=== PATIENT | male | born 1990 | race Caucasian/White ===

== ENCOUNTER → 2016-03-20 | Outpatient (CLI) | payer OTHER, BC ==
[~2016-03-20] MED LIST: GADAVIST IV PRN
--- NOTE | 2016-03-20 17:36 | DIAGNOSTIC IMAGING REPORT ---
MRI OF THE BRAIN COMBO CLINICAL HISTORY: Syncope. COMPARISON STUDY: No priors. TECHNIQUE: MRI of the brain was performed utilizing various T1 and T2-weighted sequences in the axial, sagittal, and coronal planes. Contrast-enhanced sequences were acquired following the administration of 12 cc of Gadavist. FINDINGS: Brain parenchyma: The brain parenchyma is normal in appearance. There is no hemorrhage or mass effect. There is no restricted diffusion to suggest acute ischemia. No enhancing mass lesion is identified on the postcontrast images. Hancock-white matter differentiation is preserved. No extra-axial fluid collection is seen. The cerebellar tonsils are normal in configuration. Ventricles, sulci, and cisterns: Normal in configuration. Pituitary and sella: Unremarkable. Intracranial vasculature: Normal flow voids are maintained at the skull base. Orbits: The bony orbits are grossly intact. Orbital contents are normal in appearance. Sinuses and mastoids: Clear. Calvarium: Unremarkable. Cervical cord: Partially visualized cervical spinal cord is normal in morphology and signal intensity. IMPRESSION: No acute intracranial abnormality. Electronically signed by: Frankie Howell M.D. 03/20/2016 5:35 PM Dictated Date/Time: 03/20/2016 5:31 PM
== END | disposition home or self-care (01) ==
LOC: C.MRI 15:54
PROVIDERS: ATTEND Internal Medicine Critical Care Medicine
DX: R55 Syncope and collapse (principal)

== ENCOUNTER → 2016-04-19 | Outpatient (CLI) | payer OTHER, BC ==
[~2016-04-19] VITALS: Ht 185.4 cm; Wt 128.8 kg
[2016-04-19 14:26] VITALS: BP 149/96; PULSE 147; Ht 185.4 cm; Wt 128.8 kg
== END | disposition home or self-care (01) ==
LOC: C.NEUR 13:36
PROVIDERS: ATTEND Internal Medicine Pulmonary Disease
DX: G47.00 Insomnia, unspecified (principal); G47.30 Sleep apnea, unspecified

== ENCOUNTER → 2016-06-04 | Outpatient (CLI) | payer OTHER, BC | END | disposition home or self-care (01) | LOC: C.LABMFLN 10:35 | PROVIDERS: ATTEND Physician Assistant | DX: R06.09 Other forms of dyspnea (principal) ==

== ENCOUNTER → 2016-06-05 | Outpatient (CLI) | payer OTHER, BC ==
--- NOTE | 2016-06-05 11:53 | DIAGNOSTIC IMAGING REPORT ---
CHEST 2 VIEWS ROUTINE CLINICAL HISTORY: Flulike symptoms. COMPARISON STUDY: Chest CT February 22, 2016. FINDINGS: Lung volumes are normal. There is no consolidation. There is no evidence of pulmonary edema. Cardiomediastinal silhouette is normal. IMPRESSION: No acute cardiopulmonary findings. Electronically signed by: Otf Narvaez M.D. 06/05/2016 11:52 AM Dictated Date/Time: 06/05/2016 11:51 AM
== END | disposition home or self-care (01) ==
LOC: C.RADBBURG 00:29
PROVIDERS: ATTEND Physician Assistant
DX: R68.89 Other general symptoms and signs (principal)

== ENCOUNTER → 2017-04-23 | Outpatient (CLI) | payer BC, OTHER ==
--- NOTE | 2017-04-23 10:43 | DIAGNOSTIC IMAGING REPORT ---
L KNEE 4 OR MORE CLINICAL HISTORY: LEFT KNEE PAIN COMPARISON: None. DISCUSSION: No fractures or dislocations are visualized. There are no erosive or destructive changes. A small effusion cannot be excluded. IMPRESSION: 1. No fractures or dislocations 2. No erosive or destructive changes are visualized Electronically signed by: Arjun Myers M.D. 04/23/2017 10:42 AM Dictated Date/Time: 04/23/2017 10:41 AM
== END | disposition home or self-care (01) ==
LOC: C.RDSM 08:00
PROVIDERS: ATTEND Internal Medicine
DX: M25.562 Pain in left knee (principal)

== ENCOUNTER 2024-01-22 08:23 | Inpatient (IN) ==
[2024-01-22] MEDS: SODIUM CHLORIDE 0.9% 1,000 ML IV SCH ×2 (09:14→11:22)
[2024-01-22] MEDS: ONDANSETRON INJ 2 MG/ML 2 ML VIAL IV STA (09:16)
[2024-01-22] MEDS: FAMOTIDINE 20MG IV PUSH 20 MG/5 ML SYR IV STA (09:17)
[2024-01-22 09:45] LABS: Basophils # (auto) 0.03 K/uL (0.00-0.20); Basophils % (auto) 0.2 %; Eosinophils # (auto) 0.01 K/uL (0.00-0.50); Eosinophils % (auto) 0.1 %; Hematocrit (blood only) 51.5 % (42.0-52.0); Hemoglobin 17.8 g/dl (14.0-18.0); Immature Granulocytes # (auto) 0.05 K/uL (0.01-0.20); Immature Granulocytes % (auto) 0.4 %; Lymphocytes # (auto) 0.74 K/uL (1.20-3.40); Lymphocytes % (auto) 5.5 %; Mean Corpuscular Hemoglobin 32.5 pg (25.0-34.0); Mean Corpuscular Hgb Conc 34.6 g/dL (32.0-36.0); Mean Corpuscular Volume 94.1 fL (80.0-100.0); Mean Platelet Volume 10.7 fL (9.4-12.4); Monocytes # (auto) 1.05 K/uL (0.11-0.59); Monocytes % (auto) 7.8 %; Neutrophils # (auto) 11.61 K/uL (1.40-6.50); Platelet Count 194 K/uL (130-400); RDW Coefficient of Variation 12.3 % (11.5-14.5); RDW Standard Deviation 42.5 fL (36.4-46.3); Red Blood Count 5.47 M/uL (4.70-6.10); White Blood Count 13.49 K/ul (4.8-10.8)
--- NOTE | 2024-01-22 09:46 | Emergency Department Note ---
History of Present Illness General Chief complaint: Abdominal Pain Stated complaint: ABD PAIN, DIZZY, SOME VERTIGO Time Seen by Provider: 01/22/24 08:43 History of Present Illness Maximum Pain Intensity: 7 Patient is a 33-year-old male last medical history significant for POTS, hypertension, anxiety and depression, alcoholic liver disease, rheumatoid arthritis, and longstanding history of GI issues including gastritis and IBS who presents to the emergency department for evaluation of abdominal pain and "feeling dehydrated." Patient reports the symptoms started yesterday afternoon. He reported his stomach felt "sour." He tried some Tums and this helped. He noted some nausea as well. The pain worsened overnight. He describes it as a generalized, aching and cramping pain. He was uncomfortable and rolling around overnight. He tried some Carafate and some promethazine, both of which helped. He feels lightheaded and dizzy. He states that he is very symptomatic when he "gets dehydrated." He has not vomited. He is on omeprazole chronically. He denies any bloody stools. He does report decreased urine output that was dark and concentrated. He is s/p cholecystectomy. No history of pancreatitis. Does admit to drinking "several shots" last night. He has been seen by GI in the past, again diagnosed with gastritis and is on omeprazole. He has had EGDs and colonoscopies in the past. There is also a suggestion of IBS. Home Medications Medication Instructions Recorded Confirmed Type verapamil 120 mg tablet 120 mg PO .each evening #90 tabs 05/10/23 01/22/24 Rx verapamil 180 mg 24 hr 180 mg PO .each morning #90 caps 05/10/23 01/22/24 Rx capsule,extended release cholecalciferol (vitamin D3) 1,250 1,250 mcg PO .weekly #12 caps 12/23/23 01/22/24 Rx mcg (50,000 unit) capsule buspirone 15 mg tablet 15 mg PO BID #60 tabs 01/13/24 01/22/24 Rx magnesium oxide 400 mg PO UD 01/22/24 01/22/24 History omeprazole 40 mg capsule,delayed 40 mg PO QAM 01/22/24 01/22/24 History release potassium chloride 20 mEq 20 meq PO QAM 01/22/24 01/22/24 History tablet,extended release sodium chloride 1,000 mg soluble 2,000 mg PO QAM 01/22/24 01/22/24 History tablet Allergies Allergy/AdvReac Type Severity Reaction Status Date / Time No Known Allergies Allergy Verified 09/09/23 14:22 Past Med/Surg History Problem List Epigastric abdominal pain (Acute) Hypomagnesemia (Acute) Acute pancreatitis (Acute) Gastritis Hypokalemia Hypomagnesemia Alcohol abuse Pancreatitis Neuropathy B12 deficiency Vitamin D deficiency Abnormal ECG Weakness Depression COVID-19 (Acute) Metabolic acidosis Hyponatremia Hyperuricemia Acute kidney injury Low sodium levels Elevated uric acid in blood Elevated serum creatinine HTN (hypertension) Elevated liver function tests Anxiety Tachycardia Vasovagal syncope POTS (postural orthostatic tachycardia syndrome) (Acute) Arthralgia of multiple sites Surgical History S/P cholecystectomy Family History Other Colorectal cancer Diabetes Myocardial infarction Denies family history of Ovarian cancer Prostate cancer Breast cancer Lung cancer Social History Smoking Status: Never smoker Second Hand Exposure: No; Do You Dip or Chew Tobacco: No; Hx Alcohol Use: Yes Alcohol type: hard liquor Hx Substance Use: No Hearing Ability: Normal Beliefs That Will Affect Care: None marital status: Single Current Living Situation: Alone current occupational status: employed Other Information That Helps Us Care for You: No Feels Safe at Home: Yes Safety Concerns: Feels Safe At This Time Dental Care, Regularly: Yes Physical Activity Frequency: Does not Exercise Assistive Devices: None Review of Systems A total of 10 systems reviewed and were otherwise negative Physical Exam Vital Signs Vital Signs - 24 hr 01/22/24 08:31 01/22/24 09:19 01/22/24 09:19 Temperature 36.8 C Temperature Source Temporal Artery Scan Pulse Rate 99 H 98 H Pulse Rate [Apical] 91 H Pulse Rhythm Regular Pulse Rhythm [Apical] Pulse Strength [Apical] Normal Respiratory Rate 18 18 Respiratory Effort / Characteristics Non-Labored Spontaneous Respiratory Depth Normal Respiratory Pattern Regular Blood Pressure 138/98 Blood Pressure [Left Arm] 147/95 H Blood Pressure Mean 111 Blood Pressure Mean [Left Arm] 112 Blood Pressure Position Sitting Pulse Oximetry 99 97 97 Oxygen Delivery Method Room Air Room Air Sepsis Recent Fever Within 48 Hours No Sepsis New/Unexplained Change in Mental Status No Sepsis Action Taken by Nursing No Action Required 01/22/24 12:10 Temperature Temperature Source Pulse Rate Pulse Rate [Apical] 97 H Pulse Rhythm Pulse Rhythm [Apical] Regular Pulse Strength [Apical] Normal Respiratory Rate 17 Respiratory Effort / Characteristics Non-Labored Respiratory Depth Normal Respiratory Pattern Regular Blood Pressure Blood Pressure [Left Arm] 159/95 H Blood Pressure Mean Blood Pressure Mean [Left Arm] 116 Blood Pressure Position Pulse Oximetry 98 Oxygen Delivery Method Room Air Sepsis Recent Fever Within 48 Hours Sepsis New/Unexplained Change in Mental Status Sepsis Action Taken by Nursing CONSTITUTIONAL: Uncomfortable 33-year-old male who is awake and alert and laying on the gurney. EYES: Pupils equal, round, reactive to light and accommodation. EOMs intact without nystagmus. Sclera are anicteric. ENT: Tympanic membranes intact, with normal landmarks. External canals are clear. Oral and nasopharynx are clear. Mucous membranes are moist, no lesions, tongue and gums appear normal. CARDIOVASCULAR: Tachycardic in the [id number], otherwise regular. No murmur noted. RESPIRATORY: Breath sounds equal and clear to auscultation without wheezes, rales, or rhonchi heard. Full and equal chest expansion without accessory muscle use or retractions. GI: Bowel sounds are present. Abdomen is soft, nondistended, diffusely tender in the epigastric, right upper quadrant and lower abdomen. No guarding or rebound. MUSCULOSKELETAL: Full range of motion of extremities x 4 with good strength. No cyanosis, edema, joint tenderness or swelling. No deformity. INTEGUMENTARY: No lesions or rash, normal skin turgor. NEUROLOGICAL: Alert, oriented, and cooperative. Cranial nerves, sensation and strength grossly intact. Pupils round, equal, and react to light, EOMs are full. LYMPH: No lymphadenopathy. Course Course The patient was seen and assessed as above. External medical records are reviewed, including outpatient PCP and GI notes. Past medical history significant for questionable POTS, anxiety, hypertension, possible RA, stopped taking hydroxychloroquine recently, depression, history of questionable alcohol abuse. He presents emergency department for evaluation of abdominal pain and feeling lightheaded and dizzy. He does have a longstanding history of GI issues including gastritis and IBS. He does admit to consuming alcohol yesterday. Denies a history of pancreatitis. IV lock was initiated and laboratory studies were collected. CBC with differential, CMP, magnesium, lipase and urinalysis were ordered. He was observed on the sports management professor. He was given a liter bolus of normal saline solution, Pepcid and Zofran IV. Laboratory studies as noted below. Lipase elevated at 1400. Patient reassessed. He is still complaining of pain. He cannot get comfortable. Pains radiating through to his back. Discussed that his symptoms are consistent with an acute pancreatitis and I did recommend CT imaging. He was in agreement. He was given morphine 4 mg IV. He was ordered another liter bolus of normal saline solution. Diagnostics, as interpreted by me: Laboratory studies: Mildly elevated white count at 13,500 with left shift. No anemia. No thrombocytopenia. Electrolytes sodium 141, potassium 3.4, chloride 101, carbon oxide 23, calcium 9.7, mag mildly low at 1.4. BUN 5, creatinine 0.73. No transaminitis. Lipase elevated at 1403. Cardiac Monitoring: An order was placed for continuous cardiac monitoring. The monitor shows a sinus tachycardia in the 90s per my interpretation. Imaging studies: CT scan of the abdomen and pelvis with IV contrast notes interstitial and peripancreatic edema, reactive edema and ascites of the lesser sac. No peripancreatic fluid collection. Radiologist questions possible dilatation of the appendix. After review of the information above and other included data, I feel the patient requires further inpatient care and evaluation. Patient was reassessed. He was noting some mild improvement with the IV morphine. Repeat abdominal exam again notes epigastric discomfort, and no right lower quadrant pain. I do not feel that imaging is consistent with acute appendicitis and suspect his symptoms are all related to his pancreatitis. Case reviewed with Dr. Su, and discussed with ED hospice case manager. Consultation placed with the [facility] hospitalist service, reviewed with Dr. Tena. Differential diagnosis: GERD, gastritis, esophagitis, peptic ulcer disease, acute pancreatitis, ascending cholangitis, infectious versus inflammatory colitis/enteritis, foodborne illness, among others. Administered Medications Magnesium Sulfate/Dextrose (Magnesium Sulfate / D5w) 1 gm in 100 mls @ 50 mls/hr IV Q2H MALKA Stop: 01/22/24 19:59 Last Admin: 01/22/24 15:35 Dose: 50 mls/hr Documented By: Infusion: 01/22/24 15:35 Dose: Infused Documented By: Admin: 01/22/24 14:14 Dose: 50 mls/hr Documented By: HAILEY Lactated Ringer's (Lr) 1,000 mls @ 125 mls/hr IV .Q8H MALKA Stop: 01/23/24 07:59 Last Admin: 01/22/24 16:16 Dose: 125 mls/hr Documented By: RAY Lorazepam (Lorazepam 2 Mg/1 Ml Vial) 1 mg IV UD PRN; Protocol PRN Reason: EtOH Withdrawal AWSS Score 6,7 Stop: 02/21/24 14:33 Last Admin: 01/22/24 16:16 Dose: 1 mg Documented By: RAY Discontinued Medications Al Hydrox/Mg Hydrox/Simethicone (Aluminum/Magnesium Susp 30 Ml Udc) 15 ml PO NOW STA Stop: 01/22/24 14:05 Last Admin: 01/22/24 14:13 Dose: 15 ml Documented By: HAILEY Diazepam (Diazepam 5 Mg/Ml 10ml Vial) 10 mg IV NOW STA Stop: 01/22/24 13:40 Last Admin: 01/22/24 13:59 Dose: 10 mg Documented By: HAILEY Folic Acid (Folic Acid 1 Mg Tab) 1 mg PO NOW ONE Stop: 01/22/24 14:16 Last Admin: 01/22/24 14:42 Dose: 1 mg Documented By: AMIE Sodium Chloride (Nss) 1,000 mls @ 999 mls/hr IV .Q1H1M MALKA Stop: 01/22/24 10:10 Last Infusion: 01/22/24 10:19 Dose: Infused Documented By: Admin: 01/22/24 09:14 Dose: 999 mls/hr Documented By: HAILEY Famotidine (Pepcid 20mg Iv Push) 20 mg in 5 mls @ 2.5 mls/min IV NOW STA Stop: 01/22/24 09:10 Last Admin: 01/22/24 09:17 Dose: 2.5 mls/min Documented By: HAILEY Sodium Chloride (Nss) 1,000 mls @ 999 mls/hr IV .Q1H1M MALKA Stop: 01/22/24 12:10 Last Infusion: 01/22/24 13:10 Dose: Infused Documented By: Admin: 01/22/24 11:22 Dose: 999 mls/hr Documented By: HAILEY Ioversol (Optiray 320 100ml) 94 ml IV ONCE ONE Stop: 01/22/24 11:36 Last Admin: 01/22/24 11:35 Dose: 94 ml Documented By: KAYLYN Morphine Sulfate (Morphine Sulfate 4 Mg/Ml 1 Ml Carp\\Vial) 4 mg IV NOW STA Stop: 01/22/24 11:11 Last Admin: 01/22/24 11:22 Dose: 4 mg Documented By: HAILEY Morphine Sulfate (Morphine Sulfate 2 Mg/Ml Carp) 2 mg IV NOW STA Stop: 01/22/24 14:29 Last Admin: 01/22/24 14:42 Dose: 2 mg Documented By: AMIE Ondansetron HCl (Ondansetron Inj 2 Mg/Ml 2 Ml Vial) 4 mg IV NOW STA Stop: 01/22/24 09:10 Last Admin: 01/22/24 09:16 Dose: 4 mg Documented By: HAILEY Potassium Chloride (Potassium Chloride Crtab 20 Meq Tabcr) 60 meq PO NOW STA Stop: 01/22/24 13:55 Last Admin: 01/22/24 14:13 Dose: 60 meq Documented By: HAILEY Thiamine HCl (Thiamine Hcl 100 Mg/Ml 2 Ml Vial) 100 mg IM NOW STA Stop: 01/22/24 14:01 Last Admin: 01/22/24 14:14 Dose: 100 mg Documented By: HAILEY Medical Decision Making Differential Diagnosis See ED Course. Medical Records Attestation: I reviewed the patient's medical records. Home Medications Current Medication List: was personally reviewed by me Laboratory Data Attestation: I reviewed the patient's lab results. 01/22/24 08:50 01/22/24 08:50 Lab Results 01/22/24 Range/Units 08:50 WBC 13.49 H (4.8-10.8) K/ul RBC 5.47 (4.70-6.10) M/uL Hgb 17.8 (14.0-18.0) g/dl Hct 51.5 (42.0-52.0) % MCV 94.1 (80.0-100.0) fL MCH 32.5 (25.0-34.0) pg MCHC 34.6 (32.0-36.0) g/dL RDW Std Deviation 42.5 (36.4-46.3) fL RDW Coeff of Nohemy 12.3 (11.5-14.5) % Plt Count 194 (130-400) K/uL MPV 10.7 (9.4-12.4) fL Immature Gran % (Auto) 0.4 % Neut % (Auto) 86.0 % Lymph % (Auto) 5.5 % [place] % (Auto) 7.8 % Eos % (Auto) 0.1 % Baso % (Auto) 0.2 % Neut # (Auto) 11.61 H (1.40-6.50) K/uL Lymph # (Auto) 0.74 L (1.20-3.40) K/uL [place] # (Auto) 1.05 H (0.11-0.59) K/uL Eos # (Auto) 0.01 (0.00-0.50) K/uL Baso # (Auto) 0.03 (0.00-0.20) K/uL Immature Gran # (Auto) 0.05 (0.01-0.20) K/uL Sodium 141 (136-145) mmol/L Potassium 3.4 L (3.5-5.1) mmol/L Chloride 101 (98-107) mmol/L Carbon Dioxide 23 (21-32) mmol/L Anion Gap 17 H (3-11) BUN 5 L (6-23) mg/dl Creatinine 0.73 (0.6-1.4) mg/dl Est Cr Clr Drug Dosing 175.4 ml/min eGFR 123.20 BUN/Creatinine Ratio 6.8 L (10-20) Glucose 103 H (70-99(Fasting)) mg/dl Calcium 9.7 (8.6-10.3) mg/dl Magnesium 1.4 L (1.7-2.4) mg/dl Total Bilirubin 0.7 (0.2-1.0) mg/dl AST 65 H (13-39) U/L ALT 52 (7-52) U/L Alkaline Phosphatase 98 (34-104) U/L Total Protein 8.1 (6.0-8.3) gm/dl Albumin 4.3 (3.4-5.0) gm/dl Globulin 3.8 (2.5-4.0) gm/dl Albumin/Globulin Ratio 1.1 (0.9-2) Lipase 1403 H (11-82) U/L Imaging Data Attestation: I personally reviewed and interpreted this imaging study as follows: Radiologist's Impression: Abdomen/Pelvis CT 01/22/24 11:[address] WITH IV CONTRAST CT DOSE: 1542.34 mGy.cm HISTORY: Acute upper abdominal pain with known pancreatitis PANCREATITIS, UPPER ABD PAIN TECHNIQUE: Multiaxial CT images of the abdomen and pelvis were performed following the IV administration of 94 cc of Optiray, A dose lowering technique was utilized adhering to the principles of ALARA. COMPARISON STUDY: CTA chest of same day FINDINGS: Mild bibasilar atelectasis. No pneumoperitoneum. Unremarkable spleen and pancreas. Cholecystectomy. Hepatomegaly with severe headaches and ptosis. There is patency of the hepatic and portal veins. Mild periportal lymphadenopathy likely reactive. Interstitial and peripancreatic edema, as pronounced in the pancreatic head, neck and body with relative sparing of the tail. There is reactive edema and ascites in the lesser sac. No discrete peripancreatic fluid collection. Homogeneous enhancement of the pancreas. No vessel occlusion identified. 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 Subcentimeter left renal cyst. No hydronephrosis. Decompressed urinary bladder with wall thickening. Trace free pelvic fluid. Likely reactive wall thickening of the stomach, duodenum and mid transverse colon. There is a linear 1.8 cm cylindrical radiodense structure present within the distal gastric lumen at 141 series 3. Colonic diverticulosis. The appendix measures up to 9 mm in thickness. Trace adjacent stranding. Unremarkable soft tissues. Probable bone islands of the pelvis. IMPRESSION: 1. Acute pancreatitis with moderate amount of reactive edema and trace free fluid within the lesser sac. No acute peripancreatic fluid collection or pancreatic ductal dilation. 2. Likely reactive wall thickening of the distal stomach, duodenum and mid transverse colon. 3. Reactive periportal lymphadenopathy. 4. Hepatomegaly with severe hepatic steatosis. 5. Cholecystectomy. 6. The appendix is dilated at 9 mm. Without a reported clinical history of acute right lower quadrant abdominal pain, acute appendicitis is considered unlikely. Correlate with physical exam findings. ACT 112: Negative or not required by law. The above report was generated using voice recognition software. It may contain grammatical, syntax or spelling errors. Electronically signed by: Chilo Young M.D. 01/22/2024 12:28 PM MDM Narrative See ED Course. Impression & Plan Acute pancreatitis, Hypomagnesemia, Epigastric abdominal pain Discharge Plan Visit Data Chief Complaint: Abdominal Pain Stated Complaint: ABD PAIN, DIZZY, SOME VERTIGO ED Provider: Deandra Su ED Midlevel Provider: Boaz Arriaza Discharge Problem: Acute pancreatitis, Hypomagnesemia, Epigastric abdominal pain Patient Disposition: Admitted As Inpatient Discharge Instructions Interventions: ED Discharge Assessment Last Done: 01/22/24 14:46
[2024-01-22 10:01] LABS: BUN Creatinine Ratio 6.8 (10-20); Calcium 9.7 mg/dl (8.6-10.3); Creatinine Clr Calc Pharmacy 175.4 ml/min; Potassium 3.4 mmol/L (3.5-5.1)
[2024-01-22 10:54] LABS: Magnesium 1.4 mg/dl (1.7-2.4)
[2024-01-22 10:59] LABS: Albumin Globulin Ratio 1.1 (0.9-2); Albumin Level 4.3 gm/dl (3.4-5.0); Bilirubin,Total 0.7 mg/dl (0.2-1.0); Globulin 3.8 gm/dl (2.5-4.0); Total Protein 8.1 gm/dl (6.0-8.3)
[2024-01-22] MEDS: MoRPHine SULFATE 4 MG/ML 1 ML CARP\\VIAL IV STA (11:22)
[2024-01-22] MEDS: OPTIRAY 320 100ml IV ONE (11:35)
--- NOTE | 2024-01-22 12:31 | CT Scan Report ---
ABDOMEN AND PELVIS CT WITH IV CONTRAST CT DOSE: 1542.34 mGy.cm HISTORY: Acute upper abdominal pain with known pancreatitis PANCREATITIS, UPPER ABD PAIN TECHNIQUE: Multiaxial CT images of the abdomen and pelvis were performed following the IV administrat ion of 94 cc of Optiray, A dose lowering technique was utilized adhering to the principles of ALARA. COMPARISON STUDY: CTA chest of same day FINDINGS: Mild bibasilar atelectasis. No pneumoperitoneum. Unremarkable spleen and pancreas. Cholecys tectomy. Hepatomegaly with severe headaches and ptosis. There is patency of the hepatic and portal ve ins. Mild periportal lymphadenopathy likely reactive. Interstitial and peripancreatic edema, as prono unced in the pancreatic head, neck and body with relative sparing of the tail. There is reactive servando a and ascites in the lesser sac. No discrete peripancreatic fluid collection. Homogeneous enhancement of the pancreas. No vessel occlusion identified. 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 Subcentimeter left renal cyst. No hydronephrosis. Decompressed urinary bladder with wall thickening. Trace free pelvic fluid. Likely reactive wall thic kening of the stomach, duodenum and mid transverse colon. There is a linear 1.8 cm cylindrical radiod ense structure present within the distal gastric lumen at 141 series 3. Colonic diverticulosis. The a ppendix measures up to 9 mm in thickness. Trace adjacent stranding. Unremarkable soft tissues. Probab le bone islands of the pelvis. IMPRESSION: 1. Acute pancreatitis with moderate amount of reactive edema and trace free fluid within the lesser s ac. No acute peripancreatic fluid collection or pancreatic ductal dilation. 2. Likely reactive wall thickening of the distal stomach, duodenum and mid transverse colon. 3. Reactive periportal lymphadenopathy. 4. Hepatomegaly with severe hepatic steatosis. 5. Cholecystectomy. 6. The appendix is dilated at 9 mm. Without a reported clinical history of acute right lower quadrant abdominal pain, acute appendicitis is considered unlikely. Correlate with physical exam findings. ACT 112: Negative or not required by law. The above report was generated using voice recognition software. It may contain grammatical, syntax o r spelling errors. Electronically signed by: Chilo Young M.D. 01/22/2024 12:28 PM
--- NOTE | 2024-01-22 12:45 | History & Physical Report ---
Date of Service January 22, 2024 Assessment & Plan (1) Pancreatitis: Plan: No history of pancreatitis Suspect likely secondary to alcohol abuse Leukocytosis, WBC 13.49 Tachycardic and hypertensive; suspect likely secondary to pain AST 65, lipase 1403 CTAP mission showed acute pancreatitis, reactive periportal lymphadenopathy, hepatomegaly with severe hepatic steatosis, appendix dilated at 9 mm ED course: NSS 2 L, Pepcid 20, Zofran, morphine 4mg - continue with gentle fluid resuscitation with LR - clear as tolerated - Continue with Pepcid HS, Zofran, morphine 2-4mg prn, IV tylenol prn (2) Alcohol abuse: Plan: Typically drinks 2-3 fifths/week x 6 months; last drink01/20 Tachycardic, diaphoretic, resting tremor on admission -> 10 mg IV Valium - AWSS protocol - Thiamine IM 100 on admission, 100 PO QAM scheduled - Folic acid PO QAM - Folate, B12, B1 levels pending - High risk for withdrawal front loaded with 10 mg Valium IV, no longer tremulous or tachycardic -> switch to AWSS protocol (3) Hypomagnesemia: Plan: chronic history of hypomagnesia, chronic diarrhea with IBS 1.4 on admission -> 3g IV ordered Continue home magnesium supplement, 2 tablets in a.m. and 1 in p.m. trend magnesium throughout hospital stay (4) Hypokalemia: Plan: Chronic history of hypokalemia, chronic diarrhea with IBS 3.4 on admission -> 60 mEq ordered Continue home potassium supplement 20 mEq daily Trend BMP (5) Gastritis: Plan: suspect gastritis on top of pancreatitis - GI cocktail as needed (6) Elevated liver function tests: Plan: chronically elevated, history of steatohepatitis S/p EUS LB 2019 - AST 65 on admission - trend CMP (7) Anxiety: Plan: patient with increased stress at home, contributing to recent alcohol use Denies SI/HI or thoughts of self-harm on admission - continue home BuSpar (8) POTS (postural orthostatic tachycardia syndrome): Plan: Follows with cardiology, questionable POTS Patient states it waxes and wanes Continue home sodium tablets and electrolyte repletion as above 2 L NSS in ED, continue gentle resuscitation overnight Plan Chronic stable diagnoses: HTN - continue home verapamil, elevated on admission likely secondary to IV fluid bolus and pain VTE ppx: Lovenox Diet: clears, advance as tolerated Code status: full code Dispo: PCU/tele given high risk for alcohol withdrawal Admission and Anticipated Discharge Date Admission Date: 01/22/24 History of Present Illness Chief Complaint: abd pain Primary Care Provider: IVANNA Cadet patient is a 33-year-old male with a past medical history of B12 deficiency, vitamin D deficiency, depression, chronic hyponatremia, hypertension, anxiety, POTS. he presents today due to abdominal pain that has been ongoing since yesterday. He stated that yesterday afternoon he had diffuse abdominal pain, he thought his stomach was "sour". He took a Tums, Carafate, promethazine to help relieve some of his symptoms. He did not sleep last night because he was tossi ng and turning in pain. his pain is 9/10 at its worst, it is colicky. It does radiate to his back. He also took a few shots of alcohol, this did not help the pain. He has not eaten anything due to the pain, he is tolerating oral fluids well. He has felt nausea, denies vomiting. He has a history of alcohol abuse. He stated about 6 months ago he began with some life stressors. He drinks 2 to 3 5thsweek. In the 6-month timeframe he did quit drinking for a few weeks at a time, no withdrawal symptoms or seizures at the time. He typically drinks on the weekends, about half of the day. He h as some drinks during the week. He drink on Saturday, his last drink would have been last night when he took a few shots to help with pain. He denies any recent seizures. He is with tremors, diaphoresis, and anxious on exam. The patient endorses recent diarrhea yesterday, he has a history of IBS. Patient denies fever, chills, headache, dizziness, lightheadedness, dyspnea, dyspnea on exertion, chest pain, vomiting, constipation, dysuria, hematuria, edema, numbness, tingling. Allergies Allergy/AdvReac Type Severity Reaction Status Date / Time No Known Allergies Allergy Verified 09/09/23 14:22 Home Medications Medication Instructions Recorded Confirmed Type verapamil 120 mg tablet 120 mg PO .each evening #90 tabs 05/10/23 01/22/24 Rx verapamil 180 mg 24 hr 180 mg PO .each morning #90 caps 05/10/23 01/22/24 Rx capsule,extended release cholecalciferol (vitamin D3) 1,250 1,250 mcg PO .weekly #12 caps 12/23/23 01/22/24 Rx mcg (50,000 unit) capsule buspirone 15 mg tablet 15 mg PO BID #60 tabs 01/13/24 01/22/24 Rx magnesium oxide 400 mg PO UD 01/22/24 01/22/24 History omeprazole 40 mg capsule,delayed 40 mg PO QAM 01/22/24 01/22/24 History release potassium chloride 20 mEq 20 meq PO QAM 01/22/24 01/22/24 History tablet,extended release sodium chloride 1,000 mg soluble 2,000 mg PO QAM 01/22/24 01/22/24 History tablet Past Med/Surg History Problem List (Updated 01/22/24 @ 14:13 by Boaz Arriaza) Epigastric abdominal pain (Acute) Hypomagnesemia (Acute) Acute pancreatitis (Acute) Gastritis Hypokalemia Hypomagnesemia Alcohol abuse Pancreatitis Neuropathy B12 deficiency Vitamin D deficiency Abnormal ECG Weakness Depression COVID-19 (Acute) Metabolic acidosis Hyponatremia Hyperuricemia Acute kidney injury Low sodium levels Elevated uric acid in blood Elevated serum creatinine HTN (hypertension) Elevated liver function tests Anxiety Tachycardia Vasovagal syncope POTS (postural orthostatic tachycardia syndrome) (Acute) Arthralgia of multiple sites Surgical History S/P cholecystectomy Family History Other Colorectal cancer Diabetes Myocardial infarction Denies family history of Ovarian cancer Prostate cancer Breast cancer Lung cancer Social History Smoking Status: Never smoker Second Hand Exposure: No; Do You Dip or Chew Tobacco: No; Hx Alcohol Use: Yes Hx Substance Use: No Hearing Ability: Normal marital status: Single Current Living Situation: Alone current occupational status: employed Feels Safe at Home: Yes Dental Care, Regularly: Yes Physical Activity Frequency: Does not Exercise Review of Systems Review of Systems: See HPI Physical Exam Physical Exam: The patient is awake, alert and oriented 3, well developed and well nourished, normocephalic and atraumatic. Non-toxic appearing. Resting tremor, diaphoretic, anxious, cannot get comfortable. HEENT- EOMI, mucous membranes moist. Hearing grossly intact. Heart-normal S1 and S2. No murmurs, rubs or gallops. Lungs-clear bilaterally, no respiratory distress, no accessory muscle use. Abdomen-normal bowel sounds and soft. No ascites noted. Tenderness to palpation RUQ, LUQ, epigastric region. No tenderness to palpation of RLQ. Extremities- no clubbing, cyanosis, or edema. Rheumatologic-normal range of motion. Psychiatric-anxious affect. Results & Data Results & Data Vital Signs (Past 12 Hours) Vital Signs Temp Pulse Pulse Resp BP BP Pulse Ox 01/22/24 12:10 97 H 17 159/95 H 98 01/22/24 09:19 98 H 97 01/22/24 09:19 91 H 18 147/95 H 97 01/22/24 08:31 36.8 C 99 H 18 138/98 99 O2 Del Method 01/22/24 12:10 Room Air 01/22/24 09:19 Room Air 01/22/24 09:19 Room Air 01/22/24 08:31 Code Status & VTE Plan Code Status full VTE Prophylaxis Plan VTE Prophylaxis will be ordered: Yes Supervising Physician Co-Signing Physician Notes Patient seen and examined, chart reviewed, case discussed with Willa Lou PA-C and I agree with the assessment and plan as above except as otherwise noted Labs and images reviewed 33-year-old male past medical history of hyponatremia, hypomagnesemia, POTS, depression/anxiety, gastritis, alcohol use who presents with worsening colicky epigastric pain and is found to have evidence of pancreatitis on CT. Has had symptoms for about 1 day.Seen at bedside. He endorses daily drinking but that now as noted above. Reports he did go for a few alcohol free days about 2 weeks ago and tolerated this well, but since his last drink has felt warm, sweaty and shaky. No history of seizures. Pain is a uncomfortable 78/10, improves transiently when he gets up and walks but then cannot get comfortable. Endorses nausea. Denies hematochezia, hematemesis, melena. Has focal tenderness to epigastric palpation, does not have involuntary guarding/rigidity. Has not been eating due to pain. History of cholecystectomy Acute pancreatitis Suspect alcohol induced. Several shots of alcohol preceding night after pain began Leukocytosis 13.49 Magnesium, potassium repleted IV goal potassium 4.0/magnesium 2.[address] with acute pancreatitis, no evidence of peripancreatic fluid collection or ductal dilation. Suspected reactive wall thickening of the distal stomach/duodenum/mid transverse colon. Appendix dilated at 9 mm Clears as tolerated, IV FM, Multimodal pain control Has a history of cholecystectomy, no evidence of ductal dilation, and obstructive LFT pattern is not present. Suspect alcohol induced EtOH use Previous history of intermittent anemia without unstable hemoglobin, possibly with underlying alcohol-induced suppression. Hemoglobin here is 17.8, likely hemoconcentrated GERD Likely worsened with alcohol intake. Has benefited in the past with sucralfate Continue PPI, at bedtime Pepcid, with as needed GI cocktail every 6 hours No evidence of GI bleeding, BUN is not elevated Anxiety/depression Patient intolerant of SSRIs/SNRIs in the past Had been on BuSpar 10 mg daily intermittently Previously had denied SI/history of HI/SI, did admit on prior PCP note that he would never commit suicide but has had passive suicidality in the past. Last PHQ9-23, [id number] 19. Was referred to psychiatry for further medication management Patient does work with a therapist PG Care Time/CCT Total # of Minutes Spent Total Time Spent with Patient: Total time spent is greater than 50% in coordination of care (as documented) at patient's floor/unit and/or counseling patient: Coding Level of Care Code 65208 INT INP/OBS CARE 3/75MIN Diagnoses Pancreatitis K85.90 Alcohol abuse F10.10 Hypomagnesemia E83.42 Hypokalemia E87.6 Gastritis K29.70 Elevated liver function tests R79.89 Anxiety F41.9 POTS (postural orthostatic tachycardia syndrome) R00.0; I95.1
[2024-01-22 12:46] LABS: Appearance Urine Clear (Clear); Bacteria Urine Automated None Seen (None Seen); Bilirubin Urine Negative (Negative); Blood Urine Negative (Negative); Color Urine Dark Yellow; Epithelial Cell Urine Auto 0-2 /hpf (0-2); Glucose Urine UA Negative (Negative); Granular Casts Urine Present /lpf (None Prsent); Hyaline Casts Urine Present /lpf (None Presnt); Ketones Urine 1+ (Negative); Leukocyte Esterase Urine Negative (Negative); Nitrite Urine Negative (Negative); Protein Urine 2+ (Negative); RBC Urine Automated 0-2 /hpf (0-2); Specific Gravity Urine 1.019 (1.000-1.030); Urobilinogen Urine Negative (Negative); WBC Urine Automated 0-5 /hpf (0-5)
[2024-01-22] MEDS: diazePAM 5 MG/ML 10ML VIAL IV STA (13:59)
[2024-01-22] MEDS: POTASSIUM CHLORIDE CRTAB 20 MEQ TABCR PO STA (14:13)
[2024-01-22] MEDS: ALUMINUM/MAGNESIUM SUSP 30 ML UDC PO STA (14:13)
[2024-01-22] MEDS: THIAMINE HCL 100 MG/ML 2 ML VIAL IM STA (14:14)
[2024-01-22] MEDS: MAGNESIUM SULFATE / D5W 1 GM/100 ML BAG IV SCH (14:14)
[2024-01-22] MEDS ORDERED: Ativan IV Alcohol Withdrawal--Active Protocol IV PRN (14:34)
[2024-01-22] MEDS: MoRPHine SULFATE 2 MG/ML CARP IV STA (14:42)
[2024-01-22] MEDS: FOLIC ACID 1 MG TAB PO ONE (14:42)
[2024-01-22] MEDS ORDERED: ALUMINUM/MAGNESIUM SUSP 30 ML UDC PO PRN (15:50)
[2024-01-22] MEDS ORDERED: NALOXONE HCL 0.4 MG/1 ML VIAL/CARP IV PRN (15:50)
[2024-01-22] MEDS: LORazepam 2 MG/1 ML VIAL IV PRN ×2 (16:16→19:29)
[2024-01-22] MEDS: LACTATED RINGER'S 1,000 ML IV SCH (16:16)
[2024-01-22] MEDS: VERAPAMIL HCL 180 MG TABCR PO SCH (16:42)
[2024-01-22] MEDS: MAGNESIUM OXIDE 400 MG TAB PO SCH ×2 (16:43→21:30)
[2024-01-22] MEDS: ENOXAPARIN INJ 40 MG/0.4 ML SYR SQ SCH (16:43)
[2024-01-22 19:27] LABS: Folate (Folic Acid),Ser orPlas 10.14 ng/ml (>5.38)
[2024-01-22] MEDS: ACETAMINOPHEN 1,000 MG/100 ML VIAL IV PRN (19:29)
[2024-01-22] MEDS: MoRPHine SULFATE 2 MG/ML CARP IV PRN (19:29)
[2024-01-22] MEDS: busPIRone 15 MG TAB PO SCH (21:29)
[2024-01-22] MEDS: FAMOTIDINE 20MG IV PUSH 20 MG/5 ML SYR IV SCH (21:43)
[2024-01-22] MEDS: VERAPAMIL HCL 40 MG TAB PO SCH (22:04)
[2024-01-23 07:08] LABS: Hematocrit (blood only) 44.5 % (42.0-52.0); Hemoglobin 15.1 g/dl (14.0-18.0); Mean Corpuscular Hemoglobin 32.6 pg (25.0-34.0); Mean Corpuscular Hgb Conc 33.9 g/dL (32.0-36.0); Mean Corpuscular Volume 96.1 fL (80.0-100.0); Mean Platelet Volume 11.2 fL (9.4-12.4); Platelet Count 163 K/uL (130-400); RDW Coefficient of Variation 12.2 % (11.5-14.5); RDW Standard Deviation 42.9 fL (36.4-46.3); Red Blood Count 4.63 M/uL (4.70-6.10); White Blood Count 15.44 K/ul (4.8-10.8)
[2024-01-23 07:20] LABS: Albumin Level 3.8 gm/dl (3.4-5.0); Bilirubin,Total 1.2 mg/dl (0.2-1.0); Magnesium 1.8 mg/dl (1.7-2.4)
[2024-01-23 07:24] LABS: Albumin Globulin Ratio 1.2 (0.9-2); BUN Creatinine Ratio 6.1 (10-20); Creatinine Clr Calc Pharmacy 193.1 ml/min; Globulin 3.2 gm/dl (2.5-4.0)
[2024-01-23] MEDS: FOLIC ACID 1 MG TAB PO SCH (08:16)
[2024-01-23] MEDS: THIAMINE HCL 100 MG TAB PO SCH (08:16)
[2024-01-23] MEDS: SODIUM CHLORIDE 1 GM TABLET PO SCH (08:16)
[2024-01-23] MEDS: POTASSIUM CHLORIDE CRTAB 20 MEQ TABCR PO SCH (08:17)
--- NOTE | 2024-01-23 09:55 | Hospitalist Progress Note ---
Date of Service January 23, 2024 Assessment & Plan (1) Pancreatitis: Plan: No history of pancreatitis. Suspect likely secondary to alcohol abuse CTAP: acute pancreatitis, reactive periportal lymphadenopathy, hepatomegaly with severe hepatic steatosis, appendix dilated at 9 mm Leukocytosis, Tachycardic and hypertensive AST 65, lipase 1403 Not tolerating breakfast this morning --> additional 1L LR Continues to be febrile - possibly from inflammation/pancreatitis - UA negative - biofire negative - no RLQ tenderness or rebound to suggest acute appendicitis - blood cultures order - clear as tolerated - Continue with Pepcid HS, Zofran, morphine 2-4mg prn, IV tylenol prn (2) Alcohol abuse: Plan: Typically drinks 2-3 fifths/week x 6 months; last drink 01/20. Reports increase stress at home lead to increase in drinking. - AWSS protocol, high risk for withdrawal - Thiamine IM 100 on admission, 100 PO QAM scheduled - B1 level pending - Folate/B12 WNL - Folic acid PO QAM (3) Hypomagnesemia: Plan: chronic history of hypomagnesia, chronic diarrhea with IBS 1.4 on admission -> 3g IV ordered Continue home magnesium supplement, 2 tablets in a.m. and 1 in p.m. Mag replete. continue home regimen (4) Hypokalemia: Plan: Chronic history of hypokalemia, chronic diarrhea with IBS Continue home potassium supplement 20 mEq daily now replete (5) Gastritis: Plan: suspect gastritis on top of pancreatitis - GI cocktail as needed Plan Chronic stable diagnoses: * HTN - continue home verapamil, elevated on admission likely secondary to IV fluid bolus and pain * POTS - continue Na tabs * Anxiety - continue buspar VTE ppx: Lovenox Dispo: continued inpatient stay, treating pancreatitis and ETOH withdrawal Admission and Anticipated Discharge Date Admission Date: January 22, 2024 Supervising Physician Co-Signing Physician Notes Attending Attestation - Chart reviewed in detail, care plan d/w THELMA Collazo. I agree w/ the welsh components of her documentation. Ongoing fevers/SIRS - 2nd pancreatitis? agree with biofire resp panel, blood cx's, etc. consider repeat imaging of Abd/Pelvis if needed. Osmar Bone MD Subjective Patient lying in bed, reports still having abdominal pain. Was able to tolerate a few sips of liquids to take his pills but nothing more for his breakfast. Is also having headaches. No recent bowel movement but usually has diarrhea. Tele SR/ST 90-100s Review of Systems Review of Systems: All systems reviewed & are unremarkable except as noted in Subjective Physical Exam Physical Exam: General: ill appearing, lying in bed, VS as above Resp: normal respiratory effort, lungs clear to auscultation CV: tachycardic but regular, no murmur, Abd: normal bowel sounds, generalized tenderness worse in the epigastric region. No pinpoint RLQ tenderness, rebound or guarding. Extremities: Moves all extremities, no edema Neuro: A&O x3, Results & Data Results & Data Vital Signs (Past 12 Hours) Vital Signs Temp Pulse Pulse Resp BP Pulse Ox O2 Del Method 01/23/24 08:02 100.2 F H 107 H 20 151/106 H 95 Room Air 01/23/24 07:30 108 H 01/22/24 23:35 98.1 F 102 H 22 139/92 92 Room Air 01/22/24 21:58 107 H Laboratory Results CBC and chemistry reviewed PG Care Time/CCT Total # of Minutes Spent Total Time Spent with Patient: Total time spent is greater than 50% in coordination of care (as documented) at patient's floor/unit and/or counseling patient: Coding Level of Care Code 12002 SUB INP/OBS CARE 3/50MIN Diagnoses Pancreatitis K85.90 Alcohol abuse F10.10 Hypomagnesemia E83.42 Hypokalemia E87.6 Gastritis K29.70
[2024-01-23] MEDS: LACTATED RINGER'S 1,000 ML IV SCH (10:23)
[2024-01-23 11:40] LABS: Adenovirus PCR Not Detected (NotDetected); Bordetella parapertussis PCR Not Detected (NotDetected); Bordetella pertussis PCR Not Detected (NotDetected); Chlamydia pneumoniae PCR Not Detected (NotDetected); Coronavirus 229E PCR Not Detected (NotDetected); Coronavirus CoV-2 (COVID19)PCR Not Detected (NotDetected); Coronavirus HKU1 PCR Not Detected (NotDetected); Coronavirus NL63 PCR Not Detected (NotDetected); Coronavirus OC43PCR Not Detected (NotDetected); Human Metapneumovirus PCR Not Detected (NotDetected); Influenza A PCR Not Detected (NotDetected); Influenza B PCR Not Detected (NotDetected); Mycoplasma pneumoniae PCR Not Detected (NotDetected); Parainfluenza Virus 1 PCR Not Detected (NotDetected); Parainfluenza Virus 2 PCR Not Detected (NotDetected); Parainfluenza Virus 3 PCR Not Detected (NotDetected); Parainfluenza Virus 4 PCR Not Detected (NotDetected); Respiratory Syncytial VirusPCR Not Detected (NotDetected); Rhinovirus/Enterovirus PCR Not Detected (NotDetected)
[2024-01-23] MEDS: MoRPHine SULFATE 4 MG/ML 1 ML CARP\\VIAL IV PRN (13:17)
[2024-01-23] MEDS: hydrOXYzine HCl 25 MG TAB PO STA (21:38)
[2024-01-23] MEDS: LORazepam 2 MG/1 ML VIAL IV PRN (21:55)
[2024-01-24] MEDS: diazePAM 5 MG/ML 10ML VIAL IV STA (00:39)
[2024-01-24] MEDS: ACETAMINOPHEN 500 MG TAB PO PRN (02:09)
[2024-01-24] MEDS: LORazepam 2 MG/1 ML VIAL IV STA ×3 (02:09→15:43)
[2024-01-24] MEDS ORDERED: PHENobarbital PO Alcohol Withdrawal PO STA (04:47)
--- NOTE | 2024-01-24 04:56 | Communication Note ---
Date of Service: January 24, 2024 Contacted by nursing multiple times over the course of my shift. At first patient wanted to leave AMA. Resident to bedside to assess capacity and unders tanding of the risk of leaving AMA. Upon discussion with patient, he is no longer interested in leaving. Is interested in something for sleep. No obvious tremor on evaluation. Thought relatively coherent. Patient does express understanding of his condition. Ordered hydroxyzine 25 mg with a repeat in an hour if needed. Contacted by nursing as patient with AWSS > 10. Patient given 3 mg of ativan per protocol. Ordered a 10 mg dose of IV Valium as well. Patient did receive two subsequent doses of 3 mg of Ativan. AWSS continues to be above 10. Ordered phenobarb load with subsequent taper and held PRN Ativan. Will continue to monitor during the course of my shift. Resident Activity Tracking Resident Involvement: Resident Care Provided Care Provided: Adult [facility] Medicine
[2024-01-24] MEDS: PHENobarbital sodium 65 MG/ML VIAL IV STA (05:13)
[2024-01-24] MEDS: PHENobarbital sodium 65 MG/ML VIAL IV PRN ×2 (05:47→16:31)
--- NOTE | 2024-01-24 08:55 | Hospitalist Progress Note ---
Date of Service January 24, 2024 Assessment & Plan (1) Alcohol abuse: Plan: Typically drinks 2-3 fifths/week x 6 months; last drink 01/20. Reports increase stress at home lead to increase in drinking. - B1 level pending, continue replacement. - Folate/B12 WNL - Folic acid PO QAM Worsening aggitation overnight, started on Phenobarbital loading protocol - continues to have elevated AWSS, agitation/aggression, trying to leave --> transferred to ICU for precedex - appreciate Cashier Ticket Selling assistance (2) Pancreatitis: Plan: SIRS of non-infectious origin due to alcoholic pancreatitis No history of pancreatitis. Suspect likely secondary to alcohol abuse CTAP: acute pancreatitis, reactive periportal lymphadenopathy, hepatomegaly with severe hepatic steatosis, appendix dilated at 9 mm Leukocytosis, Tachycardic and hypertensive AST 65, lipase 1403 on admission Continues to be febrile - possibly from inflammation/pancreatitis - UA negative - biofire negative - no RLQ tenderness or rebound to suggest acute appendicitis - blood cultures pending - clear liquid diet --> advance as tolerated - Continue with Pepcid HS, Zofran, morphine 2-4mg prn, IV tylenol prn (3) Hypomagnesemia: Plan: chronic history of hypomagnesia, chronic diarrhea with IBS 1.4 on admission -> 3g IV ordered Continue home magnesium supplement, 2 tablets in a.m. and 1 in p.m. Mag replete. continue home regimen (4) Hypokalemia: Plan: Chronic history of hypokalemia, chronic diarrhea with IBS Continue home potassium supplement 20 mEq daily now replete (5) Gastritis: Plan: suspect gastritis on top of pancreatitis - GI cocktail as needed (6) Delirium tremens: Plan Chronic stable diagnoses: * HTN - continue home verapamil, elevated on admission likely secondary to IV fluid bolus and pain * POTS - continue Na tabs * Anxiety - continue buspar VTE ppx: Lovenox Dispo: continued inpatient stay, treating pancreatitis and ETOH withdrawal Admission and Anticipated Discharge Date Admission Date: January 22, 2024 Supervising Physician Co-Signing Physician Notes Attending Attestation - Chart reviewed in detail, care plan d/w THELMA Collazo. I agree w/ the welsh components of her documentation with the following addition - delirium tremens Tx to ICU for IV precedex due to severe DTs. Appreciate ICU assistance. sOmar Bone MD Subjective patient seen this morning after being notified by RN about increasing agitiation and high AWSS scores. 3 security officers outside the room Patient knows that he is in the hospital - stating he wants to go home because of the "scavenger vargas" we put him through last right - RN reported overnight he thought he was in a game show He denies abdominal pain currently, but has not tolerated much to eat Revisted when he was in the ICU and sleeping soudly - did not awaken Review of Systems Review of Systems: All systems reviewed & are unremarkable except as noted in Subjective Physical Exam Physical Exam: General: ill appearing, lying in bed, VS as above Resp: normal respiratory effort, lungs clear to auscultation CV: tachycardic but regular, no murmur, Abd: normal bowel sounds, generalized tenderness improved from prior Extremities: Moves all extremities, no edema Neuro: A&O x2, Results & Data Results & Data Vital Signs (Past 12 Hours) Vital Signs Temp Pulse Pulse Resp BP BP BP 01/24/24 08:27 98.2 F 88 18 137/102 H 01/24/24 08:00 105 H 01/24/24 06:32 98.1 F 99 H 18 147/100 H 01/24/24 06:10 105 H 19 136/97 01/24/24 06:01 98.6 F 101 H 19 136/97 01/24/24 05:47 95 H 19 137/101 H 01/24/24 05:34 98.4 F 100 H 18 137/101 H 01/24/24 05:13 102 H 20 125/80 01/24/24 04:44 97.7 F 106 H 20 147/108 H 01/24/24 04:18 98.4 F 90 18 121/76 01/24/24 04:00 99.5 F 118 H 19 132/86 01/24/24 02:51 98.6 F 117 H 18 136/98 01/24/24 02:35 98.8 F 108 H 18 144/98 H 01/24/24 02:03 101.5 F H 111 H 18 138/92 01/24/24 02:03 141/98 H 01/24/24 00:00 99.0 F 109 H 18 133/91 01/24/24 00:00 91 H 01/23/24 23:00 99.1 F 93 H 19 157/95 H 01/23/24 21:42 99.7 F H Pulse Ox O2 Del Method 01/24/24 08:27 97 Room Air 01/24/24 08:00 01/24/24 06:32 97 Room Air 01/24/24 06:10 01/24/24 06:01 97 Room Air 01/24/24 05:47 01/24/24 05:34 95 Room Air 01/24/24 05:13 01/24/24 04:44 96 Room Air 01/24/24 04:18 93 Room Air 01/24/24 04:00 96 Room Air 01/24/24 02:51 94 Room Air 01/24/24 02:35 98 Room Air 01/24/24 02:03 97 Room Air 01/24/24 02:03 01/24/24 00:00 94 Room Air 01/24/24 00:00 01/23/24 23:00 95 Room Air 01/23/24 21:42 Laboratory Results cbc and chemistry reviewed PG Care Time/CCT Total # of Minutes Spent Total Time Spent with Patient: Total time spent is greater than 50% in coordination of care (as documented) at patient's floor/unit and/or counseling patient: Coding Level of Care Code 74951 SUB INP/OBS CARE 3/50MIN Diagnoses Alcohol abuse F10.10 Pancreatitis K85.90 Hypomagnesemia E83.42 Hypokalemia E87.6 Gastritis K29.70 Delirium tremens F10.931
[2024-01-24] MEDS ORDERED: STAT IV Infusion **Titration per Protocol STA (09:13)
[2024-01-24] MEDS: dexMEDEtomidine 200 MCG/50 ML BAG IV SCH (09:24)
--- NOTE | 2024-01-24 09:31 | Critical Care Consultation ---
Date of Consultation January 24, 2024 Assessment & Plan (1) B12 deficiency: (2) Depression: (3) HTN (hypertension): (4) Anxiety: (5) Elevated liver function tests: (6) POTS (postural orthostatic tachycardia syndrome): (7) Alcohol withdrawal: (8) Gastritis: (9) Acute pancreatitis: Plan Reason Critically Ill: 33-year-old male presented to the hospital with complaints of abdominal pain, was admitted for pancreatitis Past medical history: Hypertension, POTS, anxiety, alcohol abuse On the floor patient was getting phenobarb but he was still getting restless, was sent to ICU for Precedex drip. Neuro - [facility]: Positive --Alcohol withdrawal Continue with phenobarbital with Ativan IV as needed Precedex to get the edge off. If there is any worsening then will intubate for propofol Continue with folic acid and thiamine --Anxiety On buspirone 15 mg twice daily at home Cardiac - -- History of hypertension and POTS On verapamil at home 120 in the evening and 180 in the morning Respiratory - -- No acute issues Saturating well on room air GI - -- Acute pancreatitis S/p IV fluids Lipase 1403 Resume clear liquid diet if he is able to tolerated then advance as tolerated -- Transaminitis with hyperbilirubinemia Mild elevation in AST and bilirubin Likely from alcohol use with hepatic steatosis Continue to trend -- GERD On omeprazole at home RENAL/LYTES - -- Monitor BUNs/creatinine Avoid nephrotoxic medications ENDO - -- ICU hypoglycemia protocol HEME - No acute issues --Monitor H&H ID - -- Leukocytosis Likely from pancreatitis No indication for antibiotics and pancreatitis --Prophylaxis VTE: Lovenox GI: Pepcid Lines: Peripheral Diet: N.p.o. Plan: In/out: +5.7 L since coming to the hospital. Urine output has not been adequately measured. Continue with CIWA protocol Precedex to keep the patient RASS -1 Change thiamine to IV 500 mg on a daily basis Try to titrate off Precedex, continue with phenobarb p.o., based on CIWA protocol can give IV Ativan. I have personally spent 42 minutes of critical care time in the direct management of this patient. This is a life/limb threatening event. This includes time spent evaluating patient, direct bedside care, chart review, placing orders, interpretation of diagnostic studies, discussion with consultants, patient, and family members, as well as other required patient management activities. This time is exclusive of all separately billable procedures, and teaching time and separate from and in addition to any other critical care service time. History of Present Illness Attending Physician: Osmar Bone MD History of Present Illness 33-year-old male presented to the hospital with complaints of abdominal pain, was admitted for pancreatitis Past medical history: Hypertension, POTS, anxiety, alcohol abuse On the floor patient was getting phenobarb but he was still getting restless, was sent to ICU for Precedex drip. The time of examination patient was on 0.4 of Precedex He had gotten 2 mg of Ativan on the floor. He was RASS 0, answering all the questions appropriately Complain of mild abdominal pain, no nausea vomiting. He was eager to drink. He did comment that he would like to go home later today. Denied any visual, auditory or tactile hallucination Has been spiking low-grade fever. Denied any headache or blurry vision Social history: Lifetime non-smoker, drinks heavily on a regular basis Allergies Allergy/AdvReac Type Severity Reaction Status Date / Time No Known Allergies Allergy Verified 09/09/23 14:22 Home Medications Medication Instructions Recorded Confirmed Type verapamil 120 mg tablet 120 mg PO .each evening #90 tabs 05/10/23 01/22/24 Rx verapamil 180 mg 24 hr 180 mg PO .each morning #90 caps 05/10/23 01/22/24 Rx capsule,extended release cholecalciferol (vitamin D3) 1,250 1,250 mcg PO .weekly #12 caps 12/23/23 01/22/24 Rx mcg (50,000 unit) capsule buspirone 15 mg tablet 15 mg PO BID #60 tabs 01/13/24 01/22/24 Rx magnesium oxide 400 mg PO UD 01/22/24 01/22/24 History omeprazole 40 mg capsule,delayed 40 mg PO QAM 01/22/24 01/22/24 History release potassium chloride 20 mEq 20 meq PO QAM 01/22/24 01/22/24 History tablet,extended release sodium chloride 1,000 mg soluble 2,000 mg PO QAM 01/22/24 01/22/24 History tablet Patient History Surgical History S/P cholecystectomy Family History Other Colorectal cancer Diabetes Myocardial infarction Denies family history of Ovarian cancer Prostate cancer Breast cancer Lung cancer Social History Smoking Status: Never smoker Second Hand Exposure: No; Do You Dip or Chew Tobacco: No; Hx Alcohol Use: Yes Alcohol type: hard liquor Hx Substance Use: No Communication Ability: Effective Hearing Ability: Normal Beliefs That Will Affect Care: None marital status: Single Current Living Situation: Alone current occupational status: employed Other Information That Helps Us Care for You: No Feels Safe at Home: Yes Safety Concerns: Feels Safe At This Time Dental Care, Regularly: Yes Physical Activity Frequency: Does not Exercise Assistive Devices: Glasses Review of Systems 2 Review of Systems: Unobtainable due to cognitive status Physical Exam 2 Physical Exam: Constitutional: No acute distress HEENT: EOMI, PERRLA Respiratory system: Good air entry bilaterally, no wheeze, no rhonchi, no crackles CVS: S1-S2 positive, no murmurs or gallops Abdomen: Soft, minimal epigastric tenderness, no rebound nondistended, hyperactive bowel sounds x4 Extremities: +2 pulses bilaterally radialis/ dorsalis pedis, no cyanosis, no edema Neuro: Awake alert oriented x3 Psych: Normal mood and affect G/U: No Sanchez Skin: no rashes, warm and dry Lymphatic: no cervical or axillary lymphadenopathy Results & Data Results & Data Vital Signs (Past 12 Hours) Vital Signs Temp Pulse Pulse Resp BP BP BP 01/24/24 08:27 36.8 C 88 18 137/102 H 01/24/24 08:00 105 H 01/24/24 06:32 36.7 C 99 H 18 147/100 H 01/24/24 06:10 105 H 19 136/97 01/24/24 06:01 37.0 C 101 H 19 136/97 01/24/24 05:47 95 H 19 137/101 H 01/24/24 05:34 36.9 C 100 H 18 137/101 H 01/24/24 05:13 102 H 20 125/80 01/24/24 04:44 36.5 C 106 H 20 147/108 H 01/24/24 04:18 36.9 C 90 18 121/76 01/24/24 04:00 37.5 C 118 H 19 132/86 01/24/24 02:51 37.0 C 117 H 18 136/98 01/24/24 02:35 37.1 C 108 H 18 144/98 H 01/24/24 02:03 38.6 C H 111 H 18 138/92 01/24/24 02:03 141/98 H 01/24/24 00:00 37.2 C 109 H 18 133/91 01/24/24 00:00 91 H 01/23/24 23:00 37.3 C 93 H 19 157/95 H 01/23/24 21:42 37.6 C H Pulse Ox O2 Del Method 01/24/24 08:27 97 Room Air 01/24/24 08:00 01/24/24 06:32 97 Room Air 01/24/24 06:10 01/24/24 06:01 97 Room Air 01/24/24 05:47 01/24/24 05:34 95 Room Air 01/24/24 05:13 01/24/24 04:44 96 Room Air 01/24/24 04:18 93 Room Air 01/24/24 04:00 96 Room Air 01/24/24 02:51 94 Room Air 01/24/24 02:35 98 Room Air 01/24/24 02:03 97 Room Air 01/24/24 02:03 01/24/24 00:00 94 Room Air 01/24/24 00:00 01/23/24 23:00 95 Room Air 01/23/24 21:42 Laboratory Results 01/23/24 06:01 01/23/24 06:01 Coding Level of Care Code 32443 CRITICAL CARE 1ST 30-74M Diagnoses B12 deficiency E53.8 Depression F32.A HTN (hypertension) I10 Anxiety F41.9 Elevated liver function tests R79.89 POTS (postural orthostatic tachycardia syndrome) R00.0; I95.1 Alcohol withdrawal F10.939 Gastritis K29.70 Acute pancreatitis K85.90
[2024-01-24 10:09] LABS: Hematocrit (blood only) 42.1 % (42.0-52.0); Hemoglobin 14.1 g/dl (14.0-18.0); Mean Corpuscular Hemoglobin 32.6 pg (25.0-34.0); Mean Corpuscular Hgb Conc 33.5 g/dL (32.0-36.0); Mean Corpuscular Volume 97.2 fL (80.0-100.0); Mean Platelet Volume 11.3 fL (9.4-12.4); Platelet Count 132 K/uL (130-400); RDW Standard Deviation 42.9 fL (36.4-46.3); Red Blood Count 4.33 M/uL (4.70-6.10); White Blood Count 10.95 K/ul (4.8-10.8)
[2024-01-24 10:14] LABS: Albumin Globulin Ratio 1.1 (0.9-2); Albumin Level 3.5 gm/dl (3.4-5.0); BUN Creatinine Ratio 8.6 (10-20); Bilirubin,Total 1.4 mg/dl (0.2-1.0); Calcium 8.8 mg/dl (8.6-10.3); Creatinine Clr Calc Pharmacy 219.5 ml/min; Globulin 3.2 gm/dl (2.5-4.0); Magnesium 1.9 mg/dl (1.7-2.4); Total Protein 6.7 gm/dl (6.0-8.3)
[2024-01-24] MEDS: THIAMINE HCL 200 MG in SODIUM CHLORIDE 0.9% 50 ML IV SCH (10:41)
[2024-01-24] MEDS: THIAMINE HCL 500 MG in SODIUM CHLORIDE 0.9% 50 ML IV SCH (11:07)
[2024-01-24] MEDS: PHENobarbital sodium 65 MG/ML VIAL IV SCH (13:17)
[2024-01-24] MEDS ORDERED: PHENobarbitaL 30 MG TAB PO SCH (23:00)
[2024-01-25 05:12] LABS: Hematocrit (blood only) 40.8 % (42.0-52.0); Hemoglobin 13.8 g/dl (14.0-18.0); Mean Corpuscular Hemoglobin 32.4 pg (25.0-34.0); Mean Corpuscular Hgb Conc 33.8 g/dL (32.0-36.0); Mean Corpuscular Volume 95.8 fL (80.0-100.0); Mean Platelet Volume 11.4 fL (9.4-12.4); Platelet Count 157 K/uL (130-400); RDW Coefficient of Variation 11.9 % (11.5-14.5); RDW Standard Deviation 41.5 fL (36.4-46.3); Red Blood Count 4.26 M/uL (4.70-6.10); White Blood Count 12.79 K/ul (4.8-10.8)
[2024-01-25 05:23] LABS: Magnesium 1.9 mg/dl (1.7-2.4)
--- NOTE | 2024-01-25 07:50 | Critical Care Progress Note ---
Date of Service January 25, 2024 Assessment & Plan (1) B12 deficiency: (2) Depression: (3) HTN (hypertension): (4) Anxiety: (5) Elevated liver function tests: (6) POTS (postural orthostatic tachycardia syndrome): (7) Alcohol withdrawal: (8) Gastritis: (9) Acute pancreatitis: Plan Reason Critically Ill: 33-year-old male presented to the hospital with complaints of abdominal pain, was admitted for pancreatitis Past medical history: Hypertension, POTS, anxiety, alcohol abuse On the floor patient was getting phenobarb but he was still getting restless, was sent to ICU for Precedex drip. Neuro - [facility]: Positive -- Delirium tremens Continue with phenobarbital with Ativan IV as needed Precedex to get the edge off. If there is any worsening then will intubate for propofol Continue with folic acid and thiamine --Anxiety On buspirone 15 mg twice daily at home Cardiac - -- History of hypertension and POTS On verapamil at home 120 in the evening and 180 in the morning Respiratory - -- No acute issues Saturating well on room air GI - -- Acute pancreatitis S/p IV fluids Lipase 1403 Resume clear liquid diet if he is able to tolerated then advance as tolerated -- Transaminitis with hyperbilirubinemia Mild elevation in AST and bilirubin Likely from alcohol use with hepatic steatosis Continue to trend -- GERD On omeprazole at home RENAL/LYTES - -- Monitor BUNs/creatinine Avoid nephrotoxic medications ENDO - -- ICU hypoglycemia protocol HEME - No acute issues --Monitor H&H ID - -- Leukocytosis Likely from pancreatitis No indication for antibiotics and pancreatitis --Prophylaxis VTE: Lovenox GI: Pepcid Lines: Peripheral Diet: N.p.o. Plan: In/out: +712, urine output 526 Continue Precedex drip and try to titrated down and turn off if possible Will give 65 mg of phenobarb every 12 today as well as he is not able to take p.o. Continue with one-to-one observation Continue with IV thiamine Follow-up phosphorus and replace as needed Magnesium being replaced I have personally spent 38 minutes of critical care time in the direct management of this patient. This is a life/limb threatening event. This includes time spent evaluating patient, direct bedside care, chart review, placing orders, interpretation of diagnostic studies, discussion with consultants, patient, and family members, as well as other required patient management activities. This time is exclusive of all separately billable procedures, and teaching time and separate from and in addition to any other critical care service time. Admission and Anticipated Discharge Date Admission Date: January 22, 2024 Subjective Patient seen and examined at bedside. No acute distress. He got total of 5 mg of Ativan overnight and he just got Ativan prior to me seeing him He was RASS -1 Heart rate was in the 70s, blood pressure in the 140s Denied any chest pain no abdominal pain Review of Systems 2 Review of Systems: All systems reviewed & are unremarkable except as noted in Subjective and Unobtainable due to cognitive status Physical Exam 2 Physical Exam: Constitutional: No acute distress HEENT: EOMI, PERRLA Respiratory system: Good air entry bilaterally, no wheeze, no rhonchi, no crackles CVS: S1-S2 positive, no murmurs or gallops Abdomen: Soft, minimal epigastric tenderness, no rebound nondistended, hyperactive bowel sounds x4 Extremities: +2 pulses bilaterally radialis/ dorsalis pedis, no cyanosis, no edema Neuro: RASS -1, oriented to self and place Psych: Unable to assess G/U: No Sanchez Skin: no rashes, warm and dry Lymphatic: no cervical or axillary lymphadenopathy Results & Data Results & Data Vital Signs (Past 12 Hours) Vital Signs Temp Pulse Pulse Resp BP BP BP 01/25/24 06:48 84 31 H 01/25/24 06:47 109/89 01/25/24 06:47 109/89 01/25/24 06:47 109/89 01/25/24 06:36 72 27 H 01/25/24 06:30 71 27 H 01/25/24 06:30 132/91 01/25/24 06:30 132/91 01/25/24 06:09 74 27 H 01/25/24 05:48 72 29 H 01/25/24 05:45 131/94 01/25/24 05:42 70 24 01/25/24 05:33 72 28 H 01/25/24 05:30 133/95 01/25/24 05:30 133/95 01/25/24 05:21 72 28 H 01/25/24 05:15 133/94 01/25/24 05:12 78 25 H 01/25/24 05:01 36.8 C 73 29 H 131/92 01/25/24 05:00 72 0 L 01/25/24 05:00 131/92 01/25/24 05:00 131/92 01/25/24 04:45 113/78 01/25/24 04:39 79 22 01/25/24 04:36 82 27 H 01/25/24 04:30 127/90 01/25/24 04:15 126/84 01/25/24 04:09 78 28 H 01/25/24 04:03 79 30 H 01/25/24 04:00 130/82 01/25/24 04:00 130/82 01/25/24 04:00 36.5 C 86 28 H 127/90 01/25/24 03:57 80 31 H 01/25/24 03:51 81 30 H 01/25/24 03:45 128/76 01/25/24 03:42 82 32 H 01/25/24 03:30 82 32 H 01/25/24 03:30 121/80 01/25/24 03:12 85 31 H 01/25/24 03:00 134/86 01/25/24 02:45 129/86 01/25/24 02:42 89 28 H 01/25/24 02:32 114/70 01/25/24 02:32 114/70 01/25/24 02:32 114/70 01/25/24 02:30 101 H 38 H 01/25/24 02:16 38.3 C H 90 27 H 137/92 01/25/24 02:15 137/92 01/25/24 02:09 90 30 H 01/25/24 02:06 90 29 H 01/25/24 02:00 114/87 01/25/24 02:00 114/87 01/25/24 02:00 114/87 01/25/24 01:57 92 H 0 L 01/25/24 01:49 37.7 C H 93 H 19 119/81 01/25/24 01:46 119/81 01/25/24 01:33 87 31 H 01/25/24 01:31 116/66 01/25/24 01:31 116/66 01/25/24 01:21 86 0 L 01/25/24 01:18 85 25 H 01/25/24 01:15 118/71 01/25/24 01:15 118/71 01/25/24 01:15 118/71 01/25/24 01:00 90 21 01/25/24 00:50 87 16 118/74 01/25/24 00:45 84 27 H 01/25/24 00:45 118/74 01/25/24 00:45 118/74 01/25/24 00:45 118/74 01/25/24 00:45 118/74 01/25/24 00:33 83 28 H 01/25/24 00:30 126/85 01/25/24 00:30 126/85 01/25/24 00:30 126/85 01/25/24 00:30 126/85 01/25/24 00:15 121/82 01/25/24 00:15 121/82 01/25/24 00:15 87 27 H 01/25/24 00:03 83 28 H 01/25/24 00:01 111/79 01/25/24 00:01 111/79 01/25/24 00:00 37.0 C 01/25/24 00:00 84 01/24/24 23:51 87 18 01/24/24 23:45 142/83 H 01/24/24 23:39 86 25 H 01/24/24 23:33 123/80 01/24/24 23:30 90 32 H 01/24/24 23:15 127/88 01/24/24 23:15 127/88 01/24/24 23:15 127/88 01/24/24 23:15 85 30 H 01/24/24 23:06 85 25 H 01/24/24 22:54 84 26 H 01/24/24 22:53 37.2 C 82 19 130/100 01/24/24 22:45 130/100 01/24/24 22:30 131/93 01/24/24 22:30 87 20 01/24/24 22:15 87 31 H 01/24/24 22:15 130/86 01/24/24 22:03 83 30 H 01/24/24 22:00 124/88 01/24/24 22:00 124/88 01/24/24 22:00 124/88 01/24/24 21:45 130/90 01/24/24 21:45 83 30 H 01/24/24 21:36 83 25 H 01/24/24 21:30 140/96 01/24/24 21:27 84 30 H 01/24/24 21:24 83 30 H 01/24/24 21:00 82 31 H 01/24/24 21:00 139/102 H 01/24/24 21:00 139/102 H 01/24/24 21:00 139/102 H 01/24/24 20:53 37.0 C 82 95 H 142/103 H 01/24/24 20:45 142/103 H 01/24/24 20:45 81 27 H 01/24/24 20:33 85 16 01/24/24 20:30 133/102 H 01/24/24 20:30 133/102 H 01/24/24 20:30 133/102 H 01/24/24 20:15 134/98 01/24/24 20:15 134/98 01/24/24 20:06 83 31 H 01/24/24 20:00 01/24/24 20:00 133/96 Pulse Ox O2 Del Method 01/25/24 06:48 97 01/25/24 06:47 01/25/24 06:47 01/25/24 06:47 01/25/24 06:36 94 01/25/24 06:30 94 01/25/24 06:30 01/25/24 06:30 01/25/24 06:09 94 01/25/24 05:48 94 01/25/24 05:45 01/25/24 05:42 95 01/25/24 05:33 93 01/25/24 05:30 01/25/24 05:30 01/25/24 05:21 92 01/25/24 05:15 01/25/24 05:12 94 01/25/24 05:01 94 Room Air 01/25/24 05:00 95 01/25/24 05:00 01/25/24 05:00 01/25/24 04:45 01/25/24 04:39 95 01/25/24 04:36 94 01/25/24 04:30 01/25/24 04:15 01/25/24 04:09 91 01/25/24 04:03 91 01/25/24 04:00 01/25/24 04:00 01/25/24 04:00 95 Room Air 01/25/24 03:57 91 01/25/24 03:51 91 01/25/24 03:45 01/25/24 03:42 91 01/25/24 03:30 90 01/25/24 03:30 01/25/24 03:12 91 01/25/24 03:00 01/25/24 02:45 01/25/24 02:42 93 01/25/24 02:32 01/25/24 02:32 01/25/24 02:32 01/25/24 02:30 96 01/25/24 02:16 93 Room Air 01/25/24 02:15 01/25/24 02:09 93 01/25/24 02:06 93 01/25/24 02:00 01/25/24 02:00 01/25/24 02:00 01/25/24 01:57 97 01/25/24 01:49 97 Room Air 01/25/24 01:46 01/25/24 01:33 92 01/25/24 01:31 01/25/24 01:31 01/25/24 01:21 94 01/25/24 01:18 94 01/25/24 01:15 01/25/24 01:15 01/25/24 01:15 01/25/24 01:00 96 01/25/24 00:50 01/25/24 00:45 95 01/25/24 00:45 01/25/24 00:45 01/25/24 00:45 01/25/24 00:45 01/25/24 00:33 93 01/25/24 00:30 01/25/24 00:30 01/25/24 00:30 01/25/24 00:30 01/25/24 00:15 01/25/24 00:15 01/25/24 00:15 93 01/25/24 00:03 94 01/25/24 00:01 01/25/24 00:01 01/25/24 00:00 01/25/24 00:00 01/24/24 23:51 97 01/24/24 23:45 01/24/24 23:39 93 01/24/24 23:33 01/24/24 23:30 94 01/24/24 23:15 01/24/24 23:15 01/24/24 23:15 01/24/24 23:15 92 01/24/24 23:06 93 01/24/24 22:54 93 01/24/24 22:53 93 Room Air 01/24/24 22:45 01/24/24 22:30 01/24/24 22:30 01/24/24 22:15 90 01/24/24 22:15 01/24/24 22:03 93 01/24/24 22:00 01/24/24 22:00 01/24/24 22:00 01/24/24 21:45 01/24/24 21:45 92 01/24/24 21:36 94 01/24/24 21:30 01/24/24 21:27 92 01/24/24 21:24 92 01/24/24 21:00 90 01/24/24 21:00 01/24/24 21:00 01/24/24 21:00 01/24/24 20:53 92 Room Air 01/24/24 20:45 01/24/24 20:45 92 01/24/24 20:33 95 01/24/24 20:30 01/24/24 20:30 01/24/24 20:30 01/24/24 20:15 01/24/24 20:15 01/24/24 20:06 92 01/24/24 20:00 Room Air 01/24/24 20:00 Laboratory Results 01/25/24 04:39 01/24/24 09:27 Coding Level of Care Code 14977 CRITICAL CARE 1ST 30-74M Diagnoses B12 deficiency E53.8 Depression F32.A HTN (hypertension) I10 Anxiety F41.9 Elevated liver function tests R79.89 POTS (postural orthostatic tachycardia syndrome) R00.0; I95.1 Alcohol withdrawal F10.939 Gastritis K29.70 Acute pancreatitis K85.90
[2024-01-25 08:46] LABS: Albumin Globulin Ratio 1.1 (0.9-2); Albumin Level 3.6 gm/dl (3.4-5.0); BUN Creatinine Ratio 17.2 (10-20); Bilirubin,Total 1.1 mg/dl (0.2-1.0); Calcium 9.2 mg/dl (8.6-10.3); Creatinine Clr Calc Pharmacy 199.2 ml/min; Globulin 3.3 gm/dl (2.5-4.0); Potassium 4.3 mmol/L (3.5-5.1); Total Protein 6.9 gm/dl (6.0-8.3)
[2024-01-25 09:44] LABS: Phosphorus 2.8 mg/dl (2.5-4.9)
[2024-01-25] MEDS: MAGNESIUM SULFATE / D5W 1 GM/100 ML BAG IV SCH (10:19)
[2024-01-25] MEDS: PHENobarbital sodium 65 MG/ML VIAL IV SCH (11:38)
--- NOTE | 2024-01-25 12:59 | Hospitalist Progress Note ---
Date of Service January 25, 2024 Assessment & Plan (1) Alcohol abuse: Plan: Typically drinks 2-3 fifths/week x 6 months; last drink 01/20. Reports increase stress at home lead to increase in drinking. - B1 level pending, continue replacement. 500 mg IV per circuit walker - Folate/B12 WNL - Folic acid PO QAM Required transfer to ICU for precedex 01/23, appreciate Intesivist assistance - weaning precedex as able - ativan protocol - IV phenobarbital (2) Pancreatitis: Plan: SIRS of non-infectious origin due to alcoholic pancreatitis No history of pancreatitis. Suspect likely secondary to alcohol abuse CTAP: acute pancreatitis, reactive periportal lymphadenopathy, hepatomegaly with severe hepatic steatosis, appendix dilated at 9 mm Leukocytosis, Tachycardic and hypertensive AST 65, lipase 1403 on admission Continues to be febrile - possibly from inflammation/pancreatitis - UA negative - biofire negative - no RLQ tenderness or rebound to suggest acute appendicitis - blood cultures: no growth 24 hours - clear liquid diet --> advance as tolerated - Continue with Pepcid HS, Zofran, morphine 2-4mg prn, IV tylenol prn AM CBC, BMP, lipase (3) Hypomagnesemia: Plan: chronic history of hypomagnesia, chronic diarrhea with IBS 1.4 on admission -> 3g IV ordered Continue home magnesium supplement, 2 tablets in a.m. and 1 in p.m. Mag replete. continue home regimen (4) Hypokalemia: Plan: Chronic history of hypokalemia, chronic diarrhea with IBS Continue home potassium supplement 20 mEq daily now replete (5) Gastritis: Plan: suspect gastritis on top of pancreatitis - GI cocktail as needed (6) Delirium tremens: Plan Chronic stable diagnoses: * HTN - continue home verapamil, elevated on admission likely secondary to IV fluid bolus and pain * POTS - continue Na tabs * Anxiety - continue buspar VTE ppx: Lovenox Dispo: continued inpatient stay, treating pancreatitis and ETOH withdrawal Offered to update family 01/24 and pt declined. Admission and Anticipated Discharge Date Admission Date: January 22, 2024 Supervising Physician Co-Signing Physician Notes Attending Attestation - Chart reviewed in detail, care plan d/w THELMA Collazo. I agree w/ the welsh components of her documentation. Cont IV precedex, ativan prn, and phenobarbital for severe DTs/etoh withdrawal. Osmar Bone MD Subjective Patient seen resting, 1:1 at bedside. arousable to verbal stimuli states his abdominal pain is getting better when asked how he feels he states "surprisingly okay" poor appetite Review of Systems Review of Systems: All systems reviewed & are unremarkable except as noted in Subjective Physical Exam Physical Exam: General: ill appearing, lying in bed, VS as above Resp: normal respiratory effort, lungs clear to auscultation CV:RRR, no murmur, Abd: normal bowel sounds, mild tenderness, no guarding Extremities: Moves all extremities, no edema Neuro: A&O x2, Results & Data Results & Data Vital Signs (Past 12 Hours) Vital Signs Temp Pulse Pulse Resp BP BP BP 01/25/24 12:03 81 22 01/25/24 12:02 97.5 F L 01/25/24 12:00 119/78 01/25/24 11:38 85 18 129/91 01/25/24 11:09 75 23 129/91 01/25/24 10:03 75 26 H 01/25/24 10:00 140/101 H 01/25/24 09:00 71 23 01/25/24 09:00 148/110 H 01/25/24 08:49 79 24 139/100 01/25/24 08:45 139/100 01/25/24 08:45 81 22 01/25/24 08:08 71 01/25/24 08:06 74 26 H 01/25/24 08:00 141/100 H 01/25/24 07:53 98.1 F 01/25/24 07:30 01/25/24 07:30 126/102 H 01/25/24 07:30 82 28 H 01/25/24 07:00 130/95 01/25/24 06:57 81 24 01/25/24 06:48 84 31 H 01/25/24 06:47 109/89 01/25/24 06:47 109/89 01/25/24 06:47 109/89 01/25/24 06:36 72 27 H 01/25/24 06:30 71 27 H 01/25/24 06:30 132/91 01/25/24 06:30 132/91 01/25/24 06:09 74 27 H 01/25/24 05:48 72 29 H 01/25/24 05:45 131/94 01/25/24 05:42 70 24 01/25/24 05:33 72 28 H 01/25/24 05:30 133/95 01/25/24 05:30 133/95 01/25/24 05:21 72 28 H 01/25/24 05:15 133/94 01/25/24 05:12 78 25 H 01/25/24 05:01 98.2 F 73 29 H 131/92 01/25/24 05:00 72 0 L 01/25/24 05:00 131/92 01/25/24 05:00 131/92 01/25/24 04:45 113/78 01/25/24 04:39 79 22 01/25/24 04:36 82 27 H 01/25/24 04:30 127/90 01/25/24 04:15 126/84 01/25/24 04:09 78 28 H 01/25/24 04:03 79 30 H 01/25/24 04:00 130/82 01/25/24 04:00 130/82 01/25/24 04:00 97.7 F 86 28 H 127/90 01/25/24 03:57 80 31 H 01/25/24 03:51 81 30 H 01/25/24 03:45 128/76 01/25/24 03:42 82 32 H 01/25/24 03:30 82 32 H 01/25/24 03:30 121/80 01/25/24 03:12 85 31 H 01/25/24 03:00 134/86 01/25/24 02:45 129/86 01/25/24 02:42 89 28 H 01/25/24 02:32 114/70 01/25/24 02:32 114/70 01/25/24 02:32 114/70 01/25/24 02:30 101 H 38 H 01/25/24 02:16 100.9 F H 90 27 H 137/92 01/25/24 02:15 137/92 01/25/24 02:09 90 30 H 01/25/24 02:06 90 29 H 01/25/24 02:00 114/87 01/25/24 02:00 114/87 01/25/24 02:00 114/87 01/25/24 01:57 92 H 0 L 01/25/24 01:49 99.9 F H 93 H 19 119/81 01/25/24 01:46 119/81 01/25/24 01:33 87 31 H 01/25/24 01:31 116/66 01/25/24 01:31 116/66 01/25/24 01:21 86 0 L 01/25/24 01:18 85 25 H 01/25/24 01:15 118/71 01/25/24 01:15 118/71 01/25/24 01:15 118/71 01/25/24 01:00 90 21 Pulse Ox O2 Del Method 01/25/24 12:03 96 01/25/24 12:02 01/25/24 12:00 01/25/24 11:38 01/25/24 11:09 93 01/25/24 10:03 94 01/25/24 10:00 01/25/24 09:00 95 01/25/24 09:00 Laboratory Results CBC and chemistry reviewed PG Care Time/CCT Total # of Minutes Spent Total Time Spent with Patient: Total time spent is greater than 50% in coordination of care (as documented) at patient's floor/unit and/or counseling patient: Coding Level of Care Code 61376 SUB INP/OBS CARE 2/35MIN Diagnoses Alcohol abuse F10.10 Pancreatitis K85.90 Hypomagnesemia E83.42 Hypokalemia E87.6 Gastritis K29.70 Delirium tremens F10.931
[2024-01-25] MEDS: LORazepam 2 MG/1 ML VIAL IV STA (15:22)
[2024-01-25] MEDS ORDERED: PHENobarbitaL 30 MG TAB PO SCH (23:00)
[2024-01-26] MEDS: PHENobarbital sodium 65 MG/ML VIAL IV STA (00:51)
[2024-01-26 04:58] LABS: Basophils # (auto) 0.06 K/uL (0.00-0.20); Basophils % (auto) 0.5 %; Eosinophils # (auto) 0.12 K/uL (0.00-0.50); Hematocrit (blood only) 40.9 % (42.0-52.0); Hemoglobin 13.8 g/dl (14.0-18.0); Immature Granulocytes # (auto) 0.06 K/uL (0.01-0.20); Immature Granulocytes % (auto) 0.5 %; Lymphocytes # (auto) 1.41 K/uL (1.20-3.40); Lymphocytes % (auto) 12.2 %; Mean Corpuscular Hemoglobin 32.2 pg (25.0-34.0); Mean Corpuscular Hgb Conc 33.7 g/dL (32.0-36.0); Mean Corpuscular Volume 95.3 fL (80.0-100.0); Mean Platelet Volume 11.2 fL (9.4-12.4); Monocytes # (auto) 1.72 K/uL (0.11-0.59); Monocytes % (auto) 14.9 %; Neutrophils # (auto) 8.19 K/uL (1.40-6.50); Neutrophils % (auto) 70.9 %; Platelet Count 196 K/uL (130-400); RDW Coefficient of Variation 11.9 % (11.5-14.5); Red Blood Count 4.29 M/uL (4.70-6.10); White Blood Count 11.56 K/ul (4.8-10.8)
[2024-01-26 05:10] LABS: Albumin Level 3.4 gm/dl (3.4-5.0); BUN Creatinine Ratio 13.1 (10-20); Bilirubin,Total 0.7 mg/dl (0.2-1.0); Calcium 8.8 mg/dl (8.6-10.3); Creatinine Clr Calc Pharmacy 209.9 ml/min; Globulin 3.5 gm/dl (2.5-4.0); Potassium 3.8 mmol/L (3.5-5.1); Total Protein 6.9 gm/dl (6.0-8.3)
[2024-01-26] MEDS ORDERED: Nursing to Pharmacy Communication SCH (07:15)
--- NOTE | 2024-01-26 08:09 | Hospitalist Progress Note ---
Date of Service January 26, 2024 Assessment & Plan (1) Pancreatitis: Plan: No history of pancreatitis Suspect likely secondary to alcohol abuse Leukocytosis, WBC 13.49 Tachycardic and hypertensive; suspect likely secondary to pain AST 65, lipase 1403 CTAP mission showed acute pancreatitis, reactive periportal lymphadenopathy, hepatomegaly with severe hepatic steatosis, appendix dilated at 9 mm ED course: NSS 2 L, Pepcid 20, Zofran, morphine 4mg - continue with gentle fluid resuscitation with LR - clear as tolerated - Continue with Pepcid HS, Zofran, morphine 2-4mg prn, IV tylenol prn Patient transferred to intensive care unit for alcohol withdrawal. Continue management per wire brush maker team (2) Alcohol abuse: Plan: Typically drinks 2-3 fifths/week x 6 months; last drink01/20 Tachycardic, diaphoretic, resting tremor on admission -> 10 mg IV Valium - AWSS protocol - Thiamine IM 100 on admission, 100 PO QAM scheduled Continue Precedex drip and phenobarbital in intensive care unit (3) Hypomagnesemia: Plan: chronic history of hypomagnesia, chronic diarrhea with IBS 1.4 on admission -> 3g IV ordered Home magnesium supplement, 2 tablets in a.m. and 1 in p.m. I will continue with IV repletion for now due to cognitive status trend magnesium throughout hospital stay and replete as necessary (4) Hypokalemia: Plan: Chronic history of hypokalemia, chronic diarrhea with IBS 3.4 on admission -> 60 mEq ordered Patient being monitored in intensive care unit for alcohol withdrawal. Will continue with IV repletion and daily lab (5) Gastritis: Plan: suspect gastritis on top of pancreatitis - GI cocktail as needed (6) Elevated liver function tests: Plan: chronically elevated, history of steatohepatitis S/p EUS LB 2019 - AST 65 on admission - trend CMP (7) Anxiety: Plan: patient with increased stress at home, contributing to recent alcohol use Denies SI/HI or thoughts of self-harm on admission - continue home BuSpar (8) POTS (postural orthostatic tachycardia syndrome): Plan: Follows with cardiology, questionable POTS Patient states it waxes and wanes Continue home sodium tablets and electrolyte repletion as above 2 L NSS in ED, continue gentle resuscitation overnight (9) Delirium tremens: (10) Alcohol withdrawal: Plan Chronic stable diagnoses: HTN - continue home verapamil, elevated on admission likely secondary to IV fluid bolus and pain VTE ppx: Lovenox Diet: clears, advance as tolerated Code status: full code Dispo: ICU on Precedex for alcohol withdrawal. Decrease level of care as able Admission and Anticipated Discharge Date Admission Date: January 22, 2024 Supervising Physician Co-Signing Physician Notes Attending Attestation - Chart reviewed in detail, care plan d/w PA Frankie Fiore. I agree w/ the welsh components of his documentation. Appreciate ongoing ICU assistance. Cont IV precedex, ativan prn, and phenobarbital for severe DTs/etoh withdrawal. Osmar Bone MD Subjective Attending: Dr. Bone This is a 33-year-old male that was admitted on 01/22/2024 for abdominal pain. Patient was found to have some infectious origin due to alcohol pancreatitis patient went through alcohol withdrawal and was trans for unit for Precedex drip 01/24/2024. He had been on phenobarbital the floor as well as Ativan protocol which was ineffective. On admission, patient was found to be with hypomagnesemia with a magnesium level 1.4. He was given 3 g of magnesium sulfate IV and continues on a home magnesium supplement of 2 tablets in the morning 1 tablet in the p.m. To complicate issues, patient does have history of IBS and has chronic hypokalemia as well as chronic diarrhea. Lipase was elevated at 1403 and has improved to 118 with IV hydration. Patient continues in intensive care unit under supervision of the wire brush maker. He continues on Precedex and does Sicora arguetaital this morning. Patient did have code billingsley called last night for combativeness. Vital signs are stable. Continue monitoring in the intensive. Review of Systems 2 Review of Systems: Unobtainable due to cognitive status Patient on Precedex drip Physical Exam 2 Physical Exam: GENERAL : No acute distress. Patient on Precedex drip and receiving phenobarbital EYES: No icterus, gaze conjugate NOSE: No evidence of epistaxis MOUTH: No lesions or candidiasis NECK: Supple LUNGS: CTA B/L, no wheezes, rales or rhonchi HEART: Regular, rate 100 bpm ABDOMEN: Soft, NT, ND, BS Present EXTREMITIES: No LE edema, pedal pulses intact NEURO: A&OX3 Results & Data Results & Data Vital Signs (Past 12 Hours) Vital Signs Temp Pulse Pulse Resp BP BP BP 11/24/24 07:07 137/80 01/26/24 07:06 96 H 28 H 01/26/24 06:48 87 31 H 01/26/24 06:45 149/100 H 01/26/24 06:36 87 33 H 01/26/24 06:30 87 33 H 01/26/24 06:30 153/100 H 01/26/24 06:15 152/99 H 01/26/24 06:15 152/99 H 01/26/24 06:15 87 31 H 01/26/24 06:03 87 30 H 01/26/24 06:00 154/99 H 01/26/24 06:00 154/99 H 01/26/24 05:54 86 33 H 01/26/24 05:51 86 31 H 01/26/24 05:45 152/98 H 01/26/24 05:45 152/98 H 01/26/24 05:30 153/99 H 01/26/24 05:30 153/99 H 01/26/24 05:27 85 33 H 01/26/24 05:15 85 32 H 01/26/24 05:15 152/102 H 01/26/24 05:15 152/102 H 01/26/24 05:15 152/102 H 01/26/24 05:06 86 34 H 01/26/24 05:00 150/99 H 01/26/24 05:00 150/99 H 01/26/24 04:51 87 26 H 01/26/24 04:30 148/101 H 01/26/24 04:30 148/101 H 01/26/24 04:30 148/101 H 01/26/24 04:30 87 32 H 01/26/24 04:18 86 29 H 01/26/24 04:15 156/103 H 01/26/24 04:15 156/103 H 01/26/24 04:12 85 28 H 01/26/24 04:00 86 33 H 01/26/24 04:00 149/101 H 01/26/24 04:00 149/101 H 01/26/24 04:00 36.9 C 01/26/24 03:45 142/102 H 01/26/24 03:45 142/102 H 01/26/24 03:45 142/102 H 01/26/24 03:45 142/102 H 01/26/24 03:45 86 33 H 01/26/24 03:39 86 35 H 01/26/24 03:30 142/101 H 01/26/24 03:30 142/101 H 01/26/24 03:15 142/97 H 01/26/24 03:12 90 33 H 01/26/24 03:00 147/98 H 01/26/24 03:00 147/98 H 01/26/24 03:00 147/98 H 01/26/24 03:00 90 33 H 01/26/24 02:51 93 H 27 H 01/26/24 02:45 144/101 H 01/26/24 02:33 90 31 H 01/26/24 02:30 151/98 H 01/26/24 02:24 91 H 31 H 01/26/24 02:21 90 26 H 01/26/24 02:15 166/101 H 01/26/24 02:15 166/101 H 01/26/24 02:12 98 H 36 H 01/26/24 02:00 90 0 L 01/26/24 02:00 152/92 H 01/26/24 02:00 152/92 H 01/26/24 02:00 152/92 H 01/26/24 02:00 152/92 H 01/26/24 02:00 152/92 H 01/26/24 01:57 91 H 0 L 01/26/24 01:56 37.0 C 90 34 H 150/96 H 01/26/24 01:45 150/96 H 01/26/24 01:45 150/96 H 01/26/24 01:42 97 H 0 L 01/26/24 01:40 38.5 C H 34 H 137/83 01/26/24 01:30 89 33 H 01/26/24 01:30 137/83 01/26/24 01:30 137/83 01/26/24 01:30 137/83 01/26/24 01:21 101 H 26 H 147/103 H 01/26/24 01:18 37.7 C H 101 H 28 H 147/103 H 01/26/24 01:16 147/103 H 01/26/24 01:16 147/103 H 01/26/24 01:16 147/103 H 01/26/24 01:15 101 H 31 H 01/26/24 01:01 135/98 01/26/24 01:01 135/98 01/26/24 01:01 135/98 01/26/24 01:00 100 H 31 H 01/26/24 00:55 37.6 C H 92 H 24 151/91 H 01/26/24 00:51 107 H 33 H 151/91 H 01/26/24 00:48 86 32 H 01/26/24 00:47 151/91 H 01/26/24 00:47 151/91 H 01/26/24 00:47 151/91 H 01/26/24 00:47 151/91 H 01/26/24 00:30 136/95 01/26/24 00:30 136/95 01/26/24 00:30 136/95 01/26/24 00:27 104 H 23 01/26/24 00:15 96 H 31 H 01/26/24 00:15 142/92 H 01/26/24 00:15 142/92 H 01/26/24 00:15 142/92 H 01/26/24 00:09 98 H 27 H 01/26/24 00:03 37.8 C H 102 H 16 142/90 H 01/26/24 00:00 103 H 01/25/24 23:51 93 H 27 H 01/25/24 23:45 149/87 H 01/25/24 23:45 37.5 C 95 H 28 H 149/87 H 01/25/24 23:37 96 H 33 H 142/91 H 01/25/24 23:36 96 H 31 H 01/25/24 23:33 97 H 0 L 01/25/24 23:30 38.4 C H 96 H 33 H 142/91 H 01/25/24 23:15 96 H 28 H 01/25/24 23:12 97 H 28 H 01/25/24 23:00 142/91 H 01/25/24 22:42 99 H 26 H 01/25/24 22:30 92 H 26 H 01/25/24 22:15 93 H 29 H 01/25/24 22:00 97 H 38 H 01/25/24 22:00 121/79 01/25/24 22:00 121/79 01/25/24 21:51 99 H 46 H 01/25/24 21:30 96 H 21 01/25/24 21:20 36.9 C 104 H 24 112/67 01/25/24 21:18 94 H 32 H 01/25/24 21:00 94 H 32 H 01/25/24 21:00 112/67 01/25/24 21:00 112/67 01/25/24 20:45 119 H 30 H 01/25/24 20:36 113 H 0 L 01/25/24 20:36 37.3 C 01/25/24 20:18 120 H 0 L 01/25/24 20:06 102 H 25 H Pulse Ox O2 Del Method 01/26/24 07:07 01/26/24 07:06 01/26/24 06:48 93 01/26/24 06:45 01/26/24 06:36 93 01/26/24 06:30 93 01/26/24 06:30 01/26/24 06:15 01/26/24 06:15 01/26/24 06:15 93 01/26/24 06:03 93 01/26/24 06:00 01/26/24 06:00 01/26/24 05:54 93 01/26/24 05:51 93 01/26/24 05:45 01/26/24 05:45 01/26/24 05:30 01/26/24 05:30 01/26/24 05:27 93 01/26/24 05:15 93 01/26/24 05:15 01/26/24 05:15 01/26/24 05:15 01/26/24 05:06 93 01/26/24 05:00 01/26/24 05:00 01/26/24 04:51 93 01/26/24 04:30 01/26/24 04:30 01/26/24 04:30 01/26/24 04:30 94 01/26/24 04:18 93 01/26/24 04:15 01/26/24 04:15 01/26/24 04:12 93 01/26/24 04:00 93 01/26/24 04:00 01/26/24 04:00 01/26/24 04:00 01/26/24 03:45 01/26/24 03:45 01/26/24 03:45 01/26/24 03:45 01/26/24 03:45 93 01/26/24 03:39 93 01/26/24 03:30 01/26/24 03:30 01/26/24 03:15 01/26/24 03:12 93 01/26/24 03:00 01/26/24 03:00 01/26/24 03:00 01/26/24 03:00 93 01/26/24 02:51 93 01/26/24 02:45 01/26/24 02:33 92 01/26/24 02:30 01/26/24 02:24 93 01/26/24 02:21 92 01/26/24 02:15 01/26/24 02:15 01/26/24 02:12 01/26/24 02:00 93 01/26/24 02:00 01/26/24 02:00 01/26/24 02:00 01/26/24 02:00 01/26/24 02:00 01/26/24 01:57 93 01/26/24 01:56 93 Room Air 01/26/24 01:45 01/26/24 01:45 01/26/24 01:42 95 01/26/24 01:40 92 Room Air 01/26/24 01:30 92 01/26/24 01:30 01/26/24 01:30 01/26/24 01:30 01/26/24 01:21 01/26/24 01:18 95 Room Air 01/26/24 01:16 01/26/24 01:16 01/26/24 01:16 01/26/24 01:15 95 01/26/24 01:01 01/26/24 01:01 01/26/24 01:01 01/26/24 01:00 95 01/26/24 00:55 93 Room Air 01/26/24 00:51 01/26/24 00:48 94 01/26/24 00:47 01/26/24 00:47 01/26/24 00:47 01/26/24 00:47 01/26/24 00:30 01/26/24 00:30 01/26/24 00:30 01/26/24 00:27 97 01/26/24 00:15 94 01/26/24 00:15 01/26/24 00:15 01/26/24 00:15 01/26/24 00:09 94 01/26/24 00:03 96 Room Air 01/26/24 00:00 01/25/24 23:51 94 01/25/24 23:45 01/25/24 23:45 95 Room Air 01/25/24 23:37 01/25/24 23:36 94 01/25/24 23:33 01/25/24 23:30 95 Room Air 01/25/24 23:15 95 01/25/24 23:12 95 01/25/24 23:00 01/25/24 22:42 97 01/25/24 22:30 01/25/24 22:15 95 01/25/24 22:00 94 01/25/24 22:00 01/25/24 22:00 01/25/24 21:51 94 01/25/24 21:30 96 01/25/24 21:20 95 Room Air 01/25/24 21:18 96 01/25/24 21:00 95 01/25/24 21:00 01/25/24 21:00 01/25/24 20:45 94 01/25/24 20:36 01/25/24 20:36 01/25/24 20:18 96 01/25/24 20:06 96 Laboratory Results 01/26/24 04:07 01/26/24 04:07 Laboratory Tests 01/23/24 01/24/24 01/25/24 06:01 09:27 04:39 Magnesium 1.8 1.9 1.9 Diagnostic Findings Abdomen/Pelvis CT 01/22/24 11:[address] WITH IV CONTRAST CT DOSE: 1542.34 mGy.cm HISTORY: Acute upper abdominal pain with known pancreatitis PANCREATITIS, UPPER ABD PAIN TECHNIQUE: Multiaxial CT images of the abdomen and pelvis were performed following the IV administration of 94 cc of Optiray, A dose lowering technique was utilized adhering to the principles of ALARA. COMPARISON STUDY: CTA chest of same day FINDINGS: Mild bibasilar atelectasis. No pneumoperitoneum. Unremarkable spleen and pancreas. Cholecystectomy. Hepatomegaly with severe headaches and ptosis. There is patency of the hepatic and portal veins. Mild periportal lymphadenopathy likely reactive. Interstitial and peripancreatic edema, as pronounced in the pancreatic head, neck and body with relative sparing of the tail. There is reactive edema and ascites in the lesser sac. No discrete peripancreatic fluid collection. Homogeneous enhancement of the pancreas. No vessel occlusion identified. 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 Subcentimeter left renal cyst. No hydronephrosis. Decompressed urinary bladder with wall thickening. Trace free pelvic fluid. Likely reactive wall thickening of the stomach, duodenum and mid transverse colon. There is a linear 1.8 cm cylindrical radiodense structure present within the distal gastric lumen at 141 series 3. Colonic diverticulosis. The appendix measures up to 9 mm in thickness. Trace adjacent stranding. Unremarkable soft tissues. Probable bone islands of the pelvis. IMPRESSION: 1. Acute pancreatitis with moderate amount of reactive edema and trace free fluid within the lesser sac. No acute peripancreatic fluid collection or pancreatic ductal dilation. 2. Likely reactive wall thickening of the distal stomach, duodenum and mid transverse colon. 3. Reactive periportal lymphadenopathy. 4. Hepatomegaly with severe hepatic steatosis. 5. Cholecystectomy. 6. The appendix is dilated at 9 mm. Without a reported clinical history of acute right lower quadrant abdominal pain, acute appendicitis is considered unlikely. Correlate with physical exam findings. ACT 112: Negative or not required by law. The above report was generated using voice recognition software. It may contain grammatical, syntax or spelling errors. Electronically signed by: Chilo Young M.D. 01/22/2024 12:28 PM PG Care Time/CCT Total # of Minutes Spent Total Time Spent with Patient: Total time spent is greater than 50% in coordination of care (as documented) at patient's floor/unit and/or counseling patient: 25 minutes Coding Level of Care Code 73884 SUB INP/OBS CARE 1/25MIN Diagnoses Pancreatitis K85.90 Alcohol abuse F10.10 Hypomagnesemia E83.42 Hypokalemia E87.6 Gastritis K29.70 Elevated liver function tests R79.89 Anxiety F41.9 POTS (postural orthostatic tachycardia syndrome) R00.0; I95.1 Delirium tremens F10.931 Alcohol withdrawal F10.939 Time Spent (min) 25
[2024-01-26] MEDS: dexMEDEtomidine 400 MCG/100 ML BAG IV SCH (09:11)
--- NOTE | 2024-01-26 09:32 | Critical Care Progress Note ---
Date of Service January 26, 2024 Assessment & Plan (1) B12 deficiency: (2) Depression: (3) HTN (hypertension): (4) Anxiety: (5) Elevated liver function tests: (6) POTS (postural orthostatic tachycardia syndrome): (7) Alcohol withdrawal: (8) Gastritis: (9) Acute pancreatitis: Plan Reason Critically Ill: 33-year-old male presented to the hospital with complaints of abdominal pain, was admitted for pancreatitis Past medical history: Hypertension, POTS, anxiety, alcohol abuse On the floor patient was getting phenobarb but he was still getting restless, was sent to ICU for Precedex drip. Neuro - [facility] ICU: Positive -- Delirium tremens Continue with phenobarbital with Ativan IV as needed Precedex to get the edge off. If there is any worsening then will intubate for propofol Continue with folic acid and thiamine --Anxiety On buspirone 15 mg twice daily at home Cardiac - -- History of hypertension and POTS On verapamil at home 120 in the evening and 180 in the morning Respiratory - -- No acute issues Saturating well on room air GI - -- Acute pancreatitis S/p IV fluids Lipase 1403 Resume clear liquid diet if he is able to tolerated then advance as tolerated -- Transaminitis with hyperbilirubinemia Mild elevation in AST and bilirubin Likely from alcohol use with hepatic steatosis Continue to trend -- GERD On omeprazole at home RENAL/LYTES - -- Monitor BUNs/creatinine Avoid nephrotoxic medications ENDO - -- ICU hypoglycemia protocol HEME - No acute issues --Monitor H&H ID - -- Leukocytosis Likely from pancreatitis No indication for antibiotics and pancreatitis --Fever Tmax 38.5 Could be from underlying pancreatitis as well as DTs Continue to trend if the patient gets persistent fevers then we will do a chest x-ray and blood culture --Prophylaxis VTE: Lovenox GI: Pepcid Lines: Peripheral Diet: N.p.o. Plan: In/out: -172, urine output 1875 Will increase the IV phenobarb to 65 mg 3 times daily Increase the minimum dose of Ativan to 2 mg on the CIWA protocol Add hydralazine as needed for systolic blood pressure greater than 150 and diastolic at 110 Continue with one-to-one observation Tmax 38.5, Could be from underlying pancreatitis as well as DTs Continue to trend if the patient gets persistent fevers then we will do a chest x-ray and blood culture I have personally spent 36 minutes of critical care time in the direct management of this patient. This is a life/limb threatening event. This includes time spent evaluating patient, direct bedside care, chart review, placing orders, interpretation of diagnostic studies, discussion with consultants, patient, and family members, as well as other required patient management activities. This time is exclusive of all separately billable procedures, and teaching time and separate from and in addition to any other critical care service time. Admission and Anticipated Discharge Date Admission Date: January 22, 2024 Subjective Patient seen and examined at bedside. No acute distress. Patient needed total 8 mg of Ativan and 1 extra dose of phenobarb IV overnight He was on Precedex 0.8 at the time of examination He was given a milligram of Ativan just prior to me seeing him. He was RASS -2 Blood pressure was in the 170s, heart rate in the low 100s Spiking fever with Tmax 38.5 Review of Systems 2 Review of Systems: All systems reviewed & are unremarkable except as noted in Subjective Physical Exam 2 Physical Exam: Constitutional: No acute distress HEENT: EOMI, PERRLA Respiratory system: Good air entry bilaterally, no wheeze, no rhonchi, no crackles CVS: S1-S2 positive, no murmurs or gallops Abdomen: Soft, minimal epigastric tenderness, no rebound nondistended, hyperactive bowel sounds x4 Extremities: +2 pulses bilaterally radialis/ dorsalis pedis, no cyanosis, no edema Neuro: RASS -2, oriented to self and place Psych: Unable to assess G/U: No Sanchez Skin: no rashes, warm and dry Lymphatic: no cervical or axillary lymphadenopathy Results & Data Results & Data Vital Signs (Past 12 Hours) Vital Signs Temp Pulse Pulse Resp BP BP BP 01/26/24 08:34 86 01/26/24 08:12 89 22 153/98 H 01/26/24 07:42 140/99 01/26/24 07:36 86 22 01/26/24 07:15 37.3 C 01/26/24 07:07 137/80 01/26/24 07:06 96 H 28 H 01/26/24 06:48 87 31 H 01/26/24 06:45 149/100 H 01/26/24 06:36 87 33 H 01/26/24 06:30 87 33 H 01/26/24 06:30 153/100 H 01/26/24 06:15 152/99 H 01/26/24 06:15 152/99 H 01/26/24 06:15 87 31 H 01/26/24 06:03 87 30 H 01/26/24 06:00 154/99 H 01/26/24 06:00 154/99 H 01/26/24 05:54 86 33 H 01/26/24 05:51 86 31 H 01/26/24 05:45 152/98 H 01/26/24 05:45 152/98 H 01/26/24 05:30 153/99 H 01/26/24 05:30 153/99 H 01/26/24 05:27 85 33 H 01/26/24 05:15 85 32 H 01/26/24 05:15 152/102 H 01/26/24 05:15 152/102 H 01/26/24 05:15 152/102 H 01/26/24 05:06 86 34 H 01/26/24 05:00 150/99 H 01/26/24 05:00 150/99 H 01/26/24 04:51 87 26 H 01/26/24 04:30 148/101 H 01/26/24 04:30 148/101 H 01/26/24 04:30 148/101 H 01/26/24 04:30 87 32 H 01/26/24 04:18 86 29 H 01/26/24 04:15 156/103 H 01/26/24 04:15 156/103 H 01/26/24 04:12 85 28 H 01/26/24 04:00 86 33 H 01/26/24 04:00 149/101 H 01/26/24 04:00 149/101 H 01/26/24 04:00 36.9 C 01/26/24 03:45 142/102 H 01/26/24 03:45 142/102 H 01/26/24 03:45 142/102 H 01/26/24 03:45 142/102 H 01/26/24 03:45 86 33 H 01/26/24 03:39 86 35 H 01/26/24 03:30 142/101 H 01/26/24 03:30 142/101 H 01/26/24 03:15 142/97 H 01/26/24 03:12 90 33 H 01/26/24 03:00 147/98 H 01/26/24 03:00 147/98 H 01/26/24 03:00 147/98 H 01/26/24 03:00 90 33 H 01/26/24 02:51 93 H 27 H 01/26/24 02:45 144/101 H 01/26/24 02:33 90 31 H 01/26/24 02:30 151/98 H 01/26/24 02:24 91 H 31 H 01/26/24 02:21 90 26 H 01/26/24 02:15 166/101 H 01/26/24 02:15 166/101 H 01/26/24 02:12 98 H 36 H 01/26/24 02:00 90 0 L 01/26/24 02:00 152/92 H 01/26/24 02:00 152/92 H 01/26/24 02:00 152/92 H 01/26/24 02:00 152/92 H 01/26/24 02:00 152/92 H 01/26/24 01:57 91 H 0 L 01/26/24 01:56 37.0 C 90 34 H 150/96 H 01/26/24 01:45 150/96 H 01/26/24 01:45 150/96 H 01/26/24 01:42 97 H 0 L 01/26/24 01:40 38.5 C H 34 H 137/83 01/26/24 01:30 89 33 H 01/26/24 01:30 137/83 01/26/24 01:30 137/83 01/26/24 01:30 137/83 01/26/24 01:21 101 H 26 H 147/103 H 01/26/24 01:18 37.7 C H 101 H 28 H 147/103 H 01/26/24 01:16 147/103 H 01/26/24 01:16 147/103 H 01/26/24 01:16 147/103 H 01/26/24 01:15 101 H 31 H 01/26/24 01:01 135/98 01/26/24 01:01 135/98 01/26/24 01:01 135/98 01/26/24 01:00 100 H 31 H 01/26/24 00:55 37.6 C H 92 H 24 151/91 H 01/26/24 00:51 107 H 33 H 151/91 H 01/26/24 00:48 86 32 H 01/26/24 00:47 151/91 H 01/26/24 00:47 151/91 H 01/26/24 00:47 151/91 H 01/26/24 00:47 151/91 H 01/26/24 00:30 136/95 01/26/24 00:30 136/95 01/26/24 00:30 136/95 01/26/24 00:27 104 H 23 01/26/24 00:15 96 H 31 H 01/26/24 00:15 142/92 H 01/26/24 00:15 142/92 H 01/26/24 00:15 142/92 H 01/26/24 00:09 98 H 27 H 01/26/24 00:03 37.8 C H 102 H 16 142/90 H 01/26/24 00:00 103 H 01/25/24 23:51 93 H 27 H 01/25/24 23:45 149/87 H 01/25/24 23:45 37.5 C 95 H 28 H 149/87 H 01/25/24 23:37 96 H 33 H 142/91 H 01/25/24 23:36 96 H 31 H 01/25/24 23:33 97 H 0 L 01/25/24 23:30 38.4 C H 96 H 33 H 142/91 H 01/25/24 23:15 96 H 28 H 01/25/24 23:12 97 H 28 H 01/25/24 23:00 142/91 H 01/25/24 22:42 99 H 26 H 01/25/24 22:30 92 H 26 H 01/25/24 22:15 93 H 29 H 01/25/24 22:00 97 H 38 H 01/25/24 22:00 121/79 01/25/24 22:00 121/79 01/25/24 21:51 99 H 46 H Pulse Ox O2 Del Method 01/26/24 08:34 01/26/24 08:12 97 01/26/24 07:42 01/26/24 07:36 97 01/26/24 07:15 01/26/24 07:07 01/26/24 07:06 01/26/24 06:48 93 01/26/24 06:45 01/26/24 06:36 93 01/26/24 06:30 93 01/26/24 06:30 01/26/24 06:15 01/26/24 06:15 01/26/24 06:15 93 01/26/24 06:03 93 01/26/24 06:00 01/26/24 06:00 01/26/24 05:54 93 01/26/24 05:51 93 01/26/24 05:45 01/26/24 05:45 01/26/24 05:30 01/26/24 05:30 01/26/24 05:27 93 01/26/24 05:15 93 01/26/24 05:15 01/26/24 05:15 01/26/24 05:15 01/26/24 05:06 93 01/26/24 05:00 01/26/24 05:00 01/26/24 04:51 93 01/26/24 04:30 01/26/24 04:30 01/26/24 04:30 01/26/24 04:30 94 01/26/24 04:18 93 01/26/24 04:15 01/26/24 04:15 01/26/24 04:12 93 01/26/24 04:00 93 01/26/24 04:00 01/26/24 04:00 01/26/24 04:00 01/26/24 03:45 01/26/24 03:45 01/26/24 03:45 01/26/24 03:45 01/26/24 03:45 93 01/26/24 03:39 93 01/26/24 03:30 01/26/24 03:30 01/26/24 03:15 01/26/24 03:12 93 01/26/24 03:00 01/26/24 03:00 01/26/24 03:00 01/26/24 03:00 93 01/26/24 02:51 93 01/26/24 02:45 01/26/24 02:33 92 01/26/24 02:30 01/26/24 02:24 93 01/26/24 02:21 92 01/26/24 02:15 01/26/24 02:15 01/26/24 02:12 01/26/24 02:00 93 01/26/24 02:00 01/26/24 02:00 01/26/24 02:00 01/26/24 02:00 01/26/24 02:00 01/26/24 01:57 93 01/26/24 01:56 93 Room Air 01/26/24 01:45 01/26/24 01:45 01/26/24 01:42 95 01/26/24 01:40 92 Room Air 01/26/24 01:30 92 01/26/24 01:30 01/26/24 01:30 01/26/24 01:30 01/26/24 01:21 01/26/24 01:18 95 Room Air 01/26/24 01:16 01/26/24 01:16 01/26/24 01:16 01/26/24 01:15 95 01/26/24 01:01 01/26/24 01:01 01/26/24 01:01 01/26/24 01:00 95 01/26/24 00:55 93 Room Air 01/26/24 00:51 01/26/24 00:48 94 01/26/24 00:47 01/26/24 00:47 01/26/24 00:47 01/26/24 00:47 01/26/24 00:30 01/26/24 00:30 01/26/24 00:30 01/26/24 00:27 97 01/26/24 00:15 94 01/26/24 00:15 01/26/24 00:15 01/26/24 00:15 01/26/24 00:09 94 01/26/24 00:03 96 Room Air 01/26/24 00:00 01/25/24 23:51 94 01/25/24 23:45 01/25/24 23:45 95 Room Air 01/25/24 23:37 01/25/24 23:36 94 01/25/24 23:33 01/25/24 23:30 95 Room Air 01/25/24 23:15 95 01/25/24 23:12 95 01/25/24 23:00 01/25/24 22:42 97 01/25/24 22:30 01/25/24 22:15 95 01/25/24 22:00 94 01/25/24 22:00 01/25/24 22:00 01/25/24 21:51 94 Laboratory Results 01/26/24 04:07 01/26/24 04:07 Coding Level of Care Code 81379 CRITICAL CARE 1ST 30-74M Diagnoses B12 deficiency E53.8 Depression F32.A HTN (hypertension) I10 Anxiety F41.9 Elevated liver function tests R79.89 POTS (postural orthostatic tachycardia syndrome) R00.0; I95.1 Alcohol withdrawal F10.939 Gastritis K29.70 Acute pancreatitis K85.90
[2024-01-26] MEDS: PHENobarbital sodium 65 MG/ML VIAL IV SCH (10:23)
[2024-01-26] MEDS: hydrALAZINE HCL 20 MG/ML VIAL IV PRN (10:24)
[2024-01-26] MEDS: LORazepam 2 MG/1 ML VIAL IV PRN (11:20)
[2024-01-26] MEDS: KETOROLAC 30 MG/ML VIAL IV PRN (14:13)
--- NOTE | 2024-01-26 17:10 | XRay Report ---
EXAM: Radiograph of the Chest 1 View INDICATION: Follow-up COVID. TECHNIQUE: Frontal view of the chest. COMPARISON: 12/22/2022 FINDINGS: Lungs and pleural spaces: Mild atelectasis or scarring present in the right lung base with increased right diaphragmatic elevation. No pleural effusion or pneumothorax. No consolidation or pulmonary edema. Heart: Shape and configuration within normal limits allowing for technique. Mediastinum: Normal contour. Bones/joints: Lateral right ninth rib fracture. Degenerative changes in the spine. No acute osseous abnormality. Soft tissues: No abnormality noted. No radiopaque foreign body noted. Upper abdomen: No abnormality noted. IMPRESSION: Mild atelectasis or scarring present in the right lung base with increased right diaphragmatic elevation. ACT 112: Negative or not required by law. Electronically signed by Allie Rose 01-26-2024 6:10 PM
[2024-01-27 07:25] LABS: Basophils # (auto) 0.05 K/uL (0.00-0.20); Basophils % (auto) 0.4 %; Eosinophils # (auto) 0.14 K/uL (0.00-0.50); Eosinophils % (auto) 1.1 %; Hematocrit (blood only) 40.8 % (42.0-52.0); Hemoglobin 13.6 g/dl (14.0-18.0); Immature Granulocytes # (auto) 0.09 K/uL (0.01-0.20); Immature Granulocytes % (auto) 0.7 %; Lymphocytes # (auto) 0.75 K/uL (1.20-3.40); Lymphocytes % (auto) 6.1 %; Mean Corpuscular Hemoglobin 32.2 pg (25.0-34.0); Mean Corpuscular Hgb Conc 33.3 g/dL (32.0-36.0); Mean Corpuscular Volume 96.5 fL (80.0-100.0); Mean Platelet Volume 10.7 fL (9.4-12.4); Monocytes # (auto) 1.73 K/uL (0.11-0.59); Monocytes % (auto) 14.1 %; Neutrophils # (auto) 9.55 K/uL (1.40-6.50); Neutrophils % (auto) 77.6 %; Platelet Count 233 K/uL (130-400); RDW Standard Deviation 42.4 fL (36.4-46.3); Red Blood Count 4.23 M/uL (4.70-6.10); White Blood Count 12.31 K/ul (4.8-10.8)
[2024-01-27 07:41] LABS: BUN Creatinine Ratio 22.7 (10-20); Calcium 9.3 mg/dl (8.6-10.3); Creatinine Clr Calc Pharmacy 191.9 ml/min; Potassium 4.2 mmol/L (3.5-5.1)
--- NOTE | 2024-01-27 08:42 | Critical Care Progress Note ---
Date of Service January 27, 2024 Assessment & Plan (1) Delirium tremens: (2) Pancreatitis: Plan Impression: 33-year-old male admitted with abdominal pain found to have pancreatitis and transferred to the ICU for alcohol withdrawal requiring Precedex. Patient is doing well clinically and Precedex will be discontinued. Recommendations: 1. Alcohol withdrawal: Continue phenobarbital and as needed Ativan. Discontinue Precedex and replace with clonidine. Continue high-dose thiamine and folate. If agitation continues to be problematic, consideration for low- dose antipsychotics such as Haldol or Geodon might be appropriate 2. Pancreatitis: No significant abdominal pain currently. Lipase now normalized. Advancing diet as tolerated. Could be source of the fever. 3. Improving fever curve overnight. White blood cell count stable. If white blood cell count fails to normalize or fever curve persists, would consider CT of the abdomen and pelvis with contrast to evaluate for pseudocyst/phlegmon which may require IR aspiration and potentially antibiotics. Will observe this morning to ensure that he is able to maintain off of IV medications and to see how he responds to clonidine. If he does well, critical care services will sign off and the patient can transfer out of the intensive care unit.. Feel free to contact us with questions or concerns Admission and Anticipated Discharge Date Admission Date: January 22, 2024 Subjective Patient seen and examined. EMR reviewed. Discussed with off going correspondence section supervisor as well as overnight critical care ERIC and bedside critical care nurse and reviewed on multidisciplinary rounds. Patient is currently somnolent but easily arousable to verbal stimulus. He is oriented to person and place. He is demonstrated no instability hemodynamically overnight. He denies any verbal, auditory, or tactile hallucinations. Review of Systems Review of Systems: All systems reviewed & are unremarkable except as noted in Subjective Physical Exam Constitutional: WD/WN, vitals as above Neck: trachea midline, no thyromegaly Respiratory: normal respiratory effort, lungs clear to auscultation Cardiovascular: RRR, no murmur, no edema Gastrointestinal (Abdomen): normal bowel sounds, soft, nontender, no hepatosplenomegaly Musculoskeletal: Extremities: extremities normal to inspection Skin: no rashes, warm and dry Neurologic: Nonfocal exam Lymphatic: no cervical lymphadenopathy Results & Data Results & Data Vital Signs (Past 12 Hours) Vital Signs Temp Pulse Pulse Resp BP BP Pulse Ox 01/27/24 04:00 36.8 C 71 27 H 97 01/27/24 02:16 85 29 H 132/88 01/27/24 00:30 103 H 21 98 01/27/24 00:00 83 23 123/76 96 01/27/24 00:00 36.4 C L 85 22 139/106 H 97 01/27/24 00:00 74 01/26/24 23:00 76 22 135/87 95 01/26/24 22:00 75 22 139/106 H 94 01/26/24 21:36 64 21 143/101 H 95 01/26/24 21:00 67 28 H 144/101 H 95 O2 Del Method 01/27/24 04:00 Room Air 01/27/24 02:16 01/27/24 00:30 Room Air 01/27/24 00:00 Room Air 01/27/24 00:00 Room Air 01/27/24 00:00 01/26/24 23:00 Room Air 01/26/24 22:00 Room Air 01/26/24 21:36 Room Air 01/26/24 21:00 Room Air Critical Care Results & Data Vital Signs (Past 12 Hours) Vital Signs Temp Pulse Pulse Resp BP BP Pulse Ox 01/27/24 04:00 36.8 C 71 27 H 97 01/27/24 02:16 85 29 H 132/88 01/27/24 00:30 103 H 21 98 01/27/24 00:00 83 23 123/76 96 01/27/24 00:00 36.4 C L 85 22 139/106 H 97 01/27/24 00:00 74 01/26/24 23:00 76 22 135/87 95 01/26/24 22:00 75 22 139/106 H 94 01/26/24 21:36 64 21 143/101 H 95 01/26/24 21:00 67 28 H 144/101 H 95 O2 Del Method 01/27/24 04:00 Room Air 01/27/24 02:16 01/27/24 00:30 Room Air 01/27/24 00:00 Room Air 01/27/24 00:00 Room Air 01/27/24 00:00 01/26/24 23:00 Room Air 01/26/24 22:00 Room Air 01/26/24 21:36 Room Air 01/26/24 21:00 Room Air Lab & Micro Results (Past 24 Hours) RBC 4.23 M/uL (4.70-6.10) L 01/27/24 WBC 12.31 K/ul (4.8-10.8) H 01/27/24 Hgb 13.6 g/dl (14.0-18.0) L 01/27/24 Hct 40.8 % (42.0-52.0) L 01/27/24 MCV 96.5 fL (80.0-100.0) 01/27/24 MCH 32.2 pg (25.0-34.0) 01/27/24 MCHC 33.3 g/dL (32.0-36.0) 01/27/24 RDW Standard Deviation 42.4 fL (36.4-46.3) 01/27/24 RDW Coefficient of Variation 12.0 % (11.5-14.5) 01/27/24 Plt Count 233 K/uL (130-400) 01/27/24 MPV 10.7 fL (9.4-12.4) 01/27/24 Neutrophils (%) (Auto) 77.6 % 01/27/24 Lymphocytes (%) (Auto) 6.1 % 01/27/24 Monocytes # (Auto) 1.73 K/uL (0.11-0.59) H 01/27/24 Eosinophils # (Auto) 0.14 K/uL (0.00-0.50) 01/27/24 Immature Granulocyte % (Auto) 0.7 % 01/27/24 Neutrophils # (Auto) 9.55 K/uL (1.40-6.50) H 01/27/24 Lymphocytes # (Auto) 0.75 K/uL (1.20-3.40) L 01/27/24 Monocytes # (Auto) 1.73 K/uL (0.11-0.59) H 01/27/24 Eosinophils # (Auto) 0.14 K/uL (0.00-0.50) 01/27/24 Basophils # (Auto) 0.05 K/uL (0.00-0.20) 01/27/24 Immature Granulocyte # (Auto) 0.09 K/uL (0.01-0.20) 4 Na 137 mmol/L (136-145) 01/27/24 K 4.2 mmol/L (3.5-5.1) 01/27/24 Cl 102 mmol/L (98-107) 01/27/24 CO2 21 mmol/L (21-32) 01/27/24 Anion Gap 14 (3-11) H 01/27/24 BUN 15 mg/dl (6-23) 01/27/24 Creatinine 0.66 mg/dl (0.6-1.4) 01/27/24 BUN/Creatinine Ratio 22.7 (10-20) H 01/27/24 Glu 79 mg/dl (70-99(Fasting)) 01/27/24 Ca 9.3 mg/dl (8.6-10.3) 01/27/24 Calcium Level 9.3 mg/dl (8.6-10.3) 01/27/24 06:53 Diagnostic Findings (Past 24 Hours) Chest X-Ray 01/26/24 14:05 EXAM: Radiograph of the Chest 1 View INDICATION: Follow-up COVID. TECHNIQUE: Frontal view of the chest. COMPARISON: 12/22/2022 FINDINGS: Lungs and pleural spaces: Mild atelectasis or scarring present in the right lung base with increased right diaphragmatic elevation. No pleural effusion or pneumothorax. No consolidation or pulmonary edema. Heart: Shape and configuration within normal limits allowing for technique. Mediastinum: Normal contour. Bones/joints: Lateral right ninth rib fracture. Degenerative changes in the spine. No acute osseous abnormality. Soft tissues: No abnormality noted. No radiopaque foreign body noted. Upper abdomen: No abnormality noted. IMPRESSION: Mild atelectasis or scarring present in the right lung base with increased right diaphragmatic elevation. ACT 112: Negative or not required by law. Electronically signed by Allie Rose 01-26-2024 5:10 PM I & O Totals 24 Hours 01/26/24 01/27/24 01/28/24 06:59 06:59 06:59 Intake Total 1650.553 / 0885.885 0925.843 / 1158.843 55.533 / 55.533 Output Total 1875 / 1875 701 / 701 Balance -224.447 / -224.447 457.843 / 457.843 55.533 / 55.533 Cumulative 01/22/24 08:23 thru 01/27/24 07:23 Intake Total 76443.232 Output Total 5578 Balance 6703.232 RT Ventilator Mngmt (Last Documented) Ventilator Ordered Settings Respiratory Rate 27 01/27/24 04:00 Ventilator - PT Measurements Respiratory Rate 27 End-Tidal CO2 26 Coding Level of Care Code 92182 SUB INP/OBS CARE 3/50MIN Diagnoses Delirium tremens F10.931 Pancreatitis K85.90
[2024-01-27] MEDS: THIAMINE HCL 100 MG TAB PO SCH (08:55)
[2024-01-27] MEDS: cloNIDine HCL 0.1 MG TAB PO SCH (09:00)
[2024-01-27] MEDS ORDERED: PHENobarbitaL 30 MG TAB PO SCH (11:00)
[2024-01-27] MEDS: LACTATED RINGER'S 1,000 ML IV SCH (11:55)
--- NOTE | 2024-01-27 14:05 | Hospitalist Progress Note ---
Date of Service January 27, 2024 Assessment & Plan (1) Pancreatitis: Plan: No history of pancreatitis Suspect likely secondary to alcohol abuse Patient continues w/ tachycardia, likely secondary to pain fever curve continues to improve. CBC reviewed: leukocytosis of 12.31, hgb stable 13.6 if WBC continues to rise, consider repeat imaging. BMP reviewed: stable Lipase 01/25: 118 (originally 1403 on admission) CTAP 01/21: acute pancreatitis w/ moderate amount of reactive edema and trace free fluid within the lesser sac. No acute peripancreatic fluid collection/pancreatic ductal dilation. Likely reactive wall thickening of distal stomach, duodenum, and mid transverse colon. reactive periportal lymphadenopathy. hepatomegaly w/ severe hepatic steatosis. s/p cholecystectomy. appendix dilated at 9mm. appendicitis unlikely given hx. Advanced to low fat diet 01/26 Pepcid HS, Zofran prn Tylenol, Toradol PRN. Patient transferred out of ICU 01/26. AM CBC, CMP (2) Alcohol abuse: Plan: Typically drinks 2-3 fifths/week x 6 months; last drink 01/20 Tachycardic, diaphoretic, resting tremor on admission -> 10 mg IV Valium - AWSS protocol - Thiamine IM 100 on admission, 100 PO QAM scheduled - Precedex drip discontinued 01/26 and started Clonidine -if agitation continues to be problematic consider Haldol or Geodon. (3) Hypomagnesemia: Plan: chronic history of hypomagnesia, chronic diarrhea with IBS 1.4 on admission -> 3g IV ordered Home magnesium supplement, 2 tablets in a.m. and 1 in p.m. AM Magnesium. (4) Hypokalemia: Plan: Chronic history of hypokalemia, chronic diarrhea with IBS 3.4 on admission -> 60 mEq ordered stable at 4.2 01/26 AM CMP (5) Elevated liver function tests: Plan: chronically elevated, history of steatohepatitis S/p EUS LB 2019 - AST 65 on admission - trend CMP (6) Anxiety: Plan: patient with increased stress at home, contributing to recent alcohol use Denies SI/HI or thoughts of self-harm on admission - continue home BuSpar -Psych Liason consulted 01/26, appreciate recommendations. (7) Delirium tremens: Plan: see plan #2 (8) Alcohol withdrawal: Plan: see plan #2 Plan Chronic stable diagnoses: HTN - continue home verapamil, elevated on admission likely secondary to IV fluid bolus and pain POTS - follows w/ outpatient cardiology. Continue home sodium tablets & electrolyte repletion VTE ppx: Lovenox Diet: low fat Code status: full code Dispo: med tele. Admission and Anticipated Discharge Date Admission Date: January 22, 2024 Subjective Patient seen and examined this morning. patient reports some epigastric abdominal pain at time of encounter. He reports that this has improved recently. He states that he feels he is ready to be off a liquid diet as well. patient requesting to speak w/ psych and reports he has an outpatient counselor. he denied CP, SOB, N/V. Feels that he is not confused any longer. He does feel weak and has hx of RA. he is requesting a PT consult. Physical Exam 2 Constitutional: WD/WN, vitals as above Eyes: PERRL, conjunctivae normal, anicteric sclerae Respiratory: breathing unlabored Cardiovascular: well perfused Gastrointestinal (Abdomen): +BS, epigastric tenderness Results & Data Results & Data Vital Signs (Past 12 Hours) Vital Signs Temp Pulse Pulse Pulse Resp BP BP 01/27/24 13:25 36.7 C 92 H 17 126/84 01/27/24 12:39 98 H 01/27/24 10:18 103 H 23 01/27/24 10:00 134/90 01/27/24 09:06 90 15 01/27/24 09:00 135/92 01/27/24 08:57 84 26 H 01/27/24 08:15 82 26 H 01/27/24 08:00 134/91 01/27/24 08:00 88 01/27/24 07:57 90 16 01/27/24 07:30 36.9 C 01/27/24 07:12 87 30 H 01/27/24 07:00 147/102 H 01/27/24 06:54 76 23 01/27/24 06:30 78 26 H 01/27/24 06:00 148/95 H 01/27/24 06:00 148/95 H 01/27/24 05:18 78 26 H 01/27/24 05:09 77 26 H 01/27/24 04:00 80 27 H 01/27/24 04:00 135/85 01/27/24 04:00 36.8 C 71 27 H 01/27/24 03:12 80 25 H 01/27/24 02:16 85 29 H 132/88 01/27/24 02:03 79 21 01/27/24 02:00 132/88 01/27/24 02:00 132/88 01/27/24 02:00 132/88 Pulse Ox O2 Del Method 01/27/24 13:25 98 Room Air 01/27/24 12:39 01/27/24 10:18 01/27/24 10:00 01/27/24 09:06 01/27/24 09:00 01/27/24 08:57 01/27/24 08:15 01/27/24 08:00 01/27/24 08:00 01/27/24 07:57 01/27/24 07:30 01/27/24 07:12 01/27/24 07:00 01/27/24 06:54 01/27/24 06:30 01/27/24 06:00 01/27/24 06:00 01/27/24 05:18 01/27/24 05:09 01/27/24 04:00 01/27/24 04:00 01/27/24 04:00 97 Room Air 01/27/24 03:12 01/27/24 02:16 01/27/24 02:03 94 01/27/24 02:00 01/27/24 02:00 01/27/24 02:00 Laboratory Results 01/27/24 06:53 01/27/24 06:53 PG Care Time/CCT Total # of Minutes Spent Total Time Spent with Patient: Total time spent is greater than 50% in coordination of care (as documented) at patient's floor/unit and/or counseling patient: Coding Level of Care Code 92878 SUB INP/OBS CARE 2/35MIN Diagnoses Pancreatitis K85.90 Alcohol abuse F10.10 Hypomagnesemia E83.42 Hypokalemia E87.6 Elevated liver function tests R79.89 Anxiety F41.9 Delirium tremens F10.931 Alcohol withdrawal F10.939
[2024-01-27] MEDS: LORazepam 2 MG/1 ML VIAL IV PRN (20:56)
[2024-01-28] MEDS: ACETAMINOPHEN 1,000 MG/100 ML VIAL IV PRN (00:17)
[2024-01-28 06:40] LABS: Basophils % (auto) 0.5 %; Eosinophils % (auto) 1.4 %; Hematocrit (blood only) 37.9 % (42.0-52.0); Immature Granulocytes % (auto) 0.9 %; Lymphocytes # (auto) 1.14 K/uL (1.20-3.40); Lymphocytes % (auto) 11.1 %; Mean Corpuscular Hemoglobin 32.8 pg (25.0-34.0); Mean Corpuscular Hgb Conc 34.3 g/dL (32.0-36.0); Mean Corpuscular Volume 95.7 fL (80.0-100.0); Monocytes % (auto) 13.1 %; Platelet Count 306 K/uL (130-400); RDW Standard Deviation 42.4 fL (36.4-46.3); Red Blood Count 3.96 M/uL (4.70-6.10); White Blood Count 10.27 K/ul (4.8-10.8)
[2024-01-28 06:41] LABS: Basophils # (auto) 0.05 K/uL (0.00-0.20); Eosinophils # (auto) 0.14 K/uL (0.00-0.50); Immature Granulocytes # (auto) 0.09 K/uL (0.01-0.20); Monocytes # (auto) 1.35 K/uL (0.11-0.59)
[2024-01-28 07:05] LABS: Albumin Globulin Ratio 0.9 (0.9-2); Albumin Level 3.2 gm/dl (3.4-5.0); BUN Creatinine Ratio 26.8 (10-20); Bilirubin,Total 0.5 mg/dl (0.2-1.0); Calcium 8.9 mg/dl (8.6-10.3); Creatinine Clr Calc Pharmacy 228.8 ml/min; Globulin 3.4 gm/dl (2.5-4.0); Potassium 3.5 mmol/L (3.5-5.1); Total Protein 6.6 gm/dl (6.0-8.3)
[2024-01-28] MEDS: oxyCODONE HCL IR 5 MG TAB (IMMEDIATE RELEASE) PO PRN (11:18)
--- NOTE | 2024-01-28 15:16 | Hospitalist Progress Note ---
Date of Service January 28, 2024 Assessment & Plan (1) Pancreatitis: Plan: No history of pancreatitis Suspect likely secondary to alcohol abuse Patient continues w/ tachycardia, likely secondary to pain fever curve continues to improve. CBC reviewed 01/27: WBC WNL, hgb stable 13.0 if WBC continues to rise, consider repeat imaging. BMP reviewed 01/27: stable Lipase 01/25: 118 (originally 1403 on admission) CTAP 01/21: acute pancreatitis w/ moderate amount of reactive edema and trace free fluid within the lesser sac. No acute peripancreatic fluid collection/pancreatic ductal dilation. Likely reactive wall thickening of distal stomach, duodenum, and mid transverse colon. reactive periportal lymphadenopathy. hepatomegaly w/ severe hepatic steatosis. s/p cholecystectomy. appendix dilated at 9mm. appendicitis unlikely given hx. Advanced to low fat diet 01/26 Pepcid HS, Zofran prn Tylenol, Toradol, Oxycodone PRN. Patient having issues w/ insomnia added hydroxyzine 01/27 Ativan prn for anxiety. Patient transferred out of ICU 01/26. AM CBC, CMP (2) Alcohol abuse: Plan: Typically drinks 2-3 fifths/week x 6 months; last drink 01/20 Tachycardic, diaphoretic, resting tremor on admission -> 10 mg IV Valium - AWSS protocol - Thiamine IM 100 on admission, 100 PO QAM scheduled - Precedex drip discontinued 01/26 and started Clonidine -if agitation continues to be problematic consider Haldol or Geodon. -Patient does not want to go to inpatient rehab pending hospital stay. Is agreeable to outpatient follow up. resources given by CM and psych Liaison (3) Hypomagnesemia: Plan: chronic history of hypomagnesia, chronic diarrhea with IBS 1.4 on admission -> 3g IV ordered Home magnesium supplement, 2 tablets in a.m. and 1 in p.m. AM Magnesium. (4) Hypokalemia: Plan: Chronic history of hypokalemia, chronic diarrhea with IBS 3.4 on admission -> 60 mEq ordered stable at 4.2 01/26 AM CMP (5) Elevated liver function tests: Plan: chronically elevated, history of steatohepatitis S/p EUS LB 2019 - AST 65 on admission - trend CMP (6) Anxiety: Plan: patient with increased stress at home, contributing to recent alcohol use Denies SI/HI or thoughts of self-harm on admission - continue home BuSpar -Psych Liason consulted 01/26, appreciate recommendations. (7) Delirium tremens: Plan: see plan #2 (8) Alcohol withdrawal: Plan: see plan #2 (9) Rheumatoid arthritis: Plan: Patient w/ hx of RA, previously on Plaquenil outpatient. has been off this for 6 months as he did not feel it was effective. b/l feet pain, w/ erythema and edema added scheduled ibuprofen q8h tylenol/oxycodone prn for pain follow up with rheumatology outpatient. Plan Chronic stable diagnoses: HTN - continue home verapamil, elevated on admission likely secondary to IV fluid bolus and pain POTS - follows w/ outpatient cardiology. Continue home sodium tablets & electrolyte repletion VTE ppx: Lovenox Diet: low fat Code status: full code Dispo: med tele. Admission and Anticipated Discharge Date Admission Date: January 22, 2024 Subjective Patient seen and examined this morning. Patient still experiencing epigastric abdominal pain. He has also been experiencing b/l foot pain which he attributes to his RA. He states the Tylenol/Toradol has not been that effective in controlling his pain. He has been tolerating a solid food diet without nausea, vomiting, or increased pain after eating. He did not some LE edema and requested to have his IVF stopped. He has been trying to drink PO fluids the best he can but is concerned his urine output is still decreased. Physical Exam 2 Constitutional: WD/WN, vitals as above Eyes: PERRL, conjunctivae normal, anicteric sclerae Respiratory: breathing unlabored Cardiovascular: well perfused Gastrointestinal (Abdomen): +BS, epigastric tenderness to palpation Musculoskeletal: b/l edema in feet, b/l feet tender to touch Psychiatric: A+Ox3, euthymic affect Results & Data Results & Data Vital Signs (Past 12 Hours) Vital Signs Temp Pulse Pulse Resp BP BP Pulse Ox 01/28/24 15:08 36.7 C 83 17 163/94 H 97 01/28/24 14:09 94 H 01/28/24 11:47 37.2 C 105 H 18 98/64 L 95 01/28/24 07:24 37.0 C 101 H 17 150/96 H 97 01/28/24 06:53 103 H 01/28/24 06:00 37.3 C 99 H 18 158/101 H 97 01/28/24 03:14 37.3 C 91 H 16 138/81 96 O2 Del Method 01/28/24 15:08 Room Air 01/28/24 14:09 01/28/24 11:47 Room Air 01/28/24 07:24 Room Air 01/28/24 06:53 01/28/24 06:00 Room Air 01/28/24 03:14 Room Air Laboratory Results 01/28/24 05:43 01/28/24 05:43 PG Care Time/CCT Total # of Minutes Spent Total Time Spent with Patient: Total time spent is greater than 50% in coordination of care (as documented) at patient's floor/unit and/or counseling patient: Coding Level of Care Code 30287 SUB INP/OBS CARE 2/35MIN Diagnoses Pancreatitis K85.90 Alcohol abuse F10.10 Hypomagnesemia E83.42 Hypokalemia E87.6 Elevated liver function tests R79.89 Anxiety F41.9 Delirium tremens F10.931 Alcohol withdrawal F10.939 Rheumatoid arthritis M06.9
[2024-01-28] MEDS: IBUPROFEN 600 MG TAB PO SCH (20:40)
[2024-01-28] MEDS: hydrOXYzine HCl 25 MG TAB PO SCH (20:41)
[2024-01-29 07:19] LABS: Basophils # (auto) 0.03 K/uL (0.00-0.20); Basophils % (auto) 0.4 %; Eosinophils # (auto) 0.18 K/uL (0.00-0.50); Eosinophils % (auto) 2.1 %; Immature Granulocytes # (auto) 0.07 K/uL (0.01-0.20); Immature Granulocytes % (auto) 0.8 %; Lymphocytes # (auto) 0.96 K/uL (1.20-3.40); Lymphocytes % (auto) 11.3 %; Mean Corpuscular Hemoglobin 31.9 pg (25.0-34.0); Mean Corpuscular Hgb Conc 33.3 g/dL (32.0-36.0); Mean Corpuscular Volume 95.6 fL (80.0-100.0); Mean Platelet Volume 10.6 fL (9.4-12.4); Monocytes # (auto) 1.21 K/uL (0.11-0.59); Monocytes % (auto) 14.2 %; Neutrophils # (auto) 6.05 K/uL (1.40-6.50); Neutrophils % (auto) 71.2 %; Platelet Count 359 K/uL (130-400); RDW Coefficient of Variation 12.2 % (11.5-14.5); RDW Standard Deviation 42.5 fL (36.4-46.3); Red Blood Count 4.08 M/uL (4.70-6.10)
[2024-01-29 07:31] LABS: Calcium 8.7 mg/dl (8.6-10.3); Creatinine Clr Calc Pharmacy 257.8 ml/min; Potassium 3.8 mmol/L (3.5-5.1)
[2024-01-29] MEDS: LORazepam 0.5 MG TAB PO PRN (08:08)
--- NOTE | 2024-01-29 15:24 | Hospitalist Progress Note ---
Date of Service January 29, 2024 Assessment & Plan (1) Pancreatitis: Plan: No history of pancreatitis Suspect likely secondary to alcohol abuse Patient continues w/ tachycardia, likely secondary to pain fever curve continues to improve. CBC reviewed 01/28: WBC WNL, hgb stable 13.0 BMP reviewed 01/28: stable Lipase 01/25: 118 (originally 1403 on admission) CTAP 01/21: acute pancreatitis w/ moderate amount of reactive edema and trace free fluid within the lesser sac. No acute peripancreatic fluid collection/pancreatic ductal dilation. Likely reactive wall thickening of distal stomach, duodenum, and mid transverse colon. reactive periportal lymphadenopathy. hepatomegaly w/ severe hepatic steatosis. s/p cholecystectomy. appendix dilated at 9mm. appendicitis unlikely given hx. Advanced to low fat diet 01/26 Pepcid HS, Zofran prn Tylenol, Oxycodone PRN. Patient having issues w/ insomnia added hydroxyzine 01/27 Ativan prn for anxiety. Patient transferred out of ICU 01/26. AM CBC, CMP (2) Rheumatoid arthritis: Plan: Patient w/ hx of RA, previously on Plaquenil outpatient. has been off this for 6 months as he did not feel it was effective. b/l feet pain, w/ erythema and edema added scheduled ibuprofen q8h Tylenol/oxycodone prn for pain added scheduled prednisone 20mg once daily 01/28. follow up with rheumatology outpatient. AM CRP, ESR (3) Alcohol withdrawal: Plan: see plan #2 (4) Alcohol abuse: Plan: Typically drinks 2-3 fifths/week x 6 months; last drink 01/20 Tachycardic, diaphoretic, resting tremor on admission -> 10 mg IV Valium - AWSS protocol - Thiamine IM 100 on admission, 100 PO QAM scheduled - Precedex drip discontinued 01/26 and started Clonidine -if agitation continues to be problematic consider Haldol or Geodon. -Patient does not want to go to inpatient rehab pending hospital stay. Is agreeable to outpatient follow up. resources given by CM and psych Liaison (5) Anxiety: Plan: patient with increased stress at home, contributing to recent alcohol use Denies SI/HI or thoughts of self-harm on admission - continue home BuSpar -Psych Liaison consulted 01/26. patient given resources on outpatient psychiatric services and D&A counseling Plan Chronic stable diagnoses: HTN - continue home verapamil, elevated on admission likely secondary to IV flu id bolus and pain POTS - follows w/ outpatient cardiology. Continue home sodium tablets & electrolyte repletion VTE ppx: Lovenox Diet: low fat Code status: full code Dispo: med tele. Admission and Anticipated Discharge Date Admission Date: January 22, 2024 Subjective Patient seen and examined this morning and afternoon. Patient still with severe foot/ankle pain in b/l LE. No relief after recieving scheduled ibuprofen. Patient also reports he did feel nauseous after eating today. His epigastric abdominal pain is still at 5/10. He was able to get some rest this morning. He states he had night sweats but remained afebrile overnight. Physical Exam Constitutional: WD/WN, vitals as above Eyes: PERRL, conjunctivae normal, anicteric sclerae Respiratory: breathing unlabored Cardiovascular: well perfused Results & Data Results & Data Vital Signs (Past 12 Hours) Vital Signs Temp Pulse Pulse Resp BP BP Pulse Ox 01/29/24 15:09 37.2 C 94 H 20 131/77 96 01/29/24 11:31 36.8 C 93 H 17 120/76 98 01/29/24 07:46 01/29/24 07:31 37.0 C 102 H 18 151/88 H 95 01/29/24 07:11 109 H O2 Del Method 01/29/24 15:09 Room Air 01/29/24 11:31 Room Air 01/29/24 07:46 Room Air 01/29/24 07:31 Room Air 01/29/24 07:11 PG Care Time/CCT Total # of Minutes Spent Total Time Spent with Patient: Total time spent is greater than 50% in coordination of care (as documented) at patient's floor/unit and/or counseling patient: Coding Level of Care Code 15364 SUB INP/OBS CARE 2/35MIN Diagnoses Pancreatitis K85.90 Rheumatoid arthritis M06.9 Alcohol withdrawal F10.939 Alcohol abuse F10.10 Anxiety F41.9
[2024-01-29] MEDS: predniSONE 20 MG TAB PO SCH (15:52)
[2024-01-29] MEDS: LORazepam 2 MG/1 ML VIAL IV PRN (20:12)
[2024-01-30 06:13] LABS: Basophils # (auto) 0.06 K/uL (0.00-0.20); Basophils % (auto) 0.7 %; Eosinophils # (auto) 0.04 K/uL (0.00-0.50); Eosinophils % (auto) 0.4 %; Hematocrit (blood only) 42.5 % (42.0-52.0); Hemoglobin 14.3 g/dl (14.0-18.0); Immature Granulocytes # (auto) 0.08 K/uL (0.01-0.20); Immature Granulocytes % (auto) 0.9 %; Lymphocytes # (auto) 0.91 K/uL (1.20-3.40); Lymphocytes % (auto) 10.2 %; Mean Corpuscular Hemoglobin 32.6 pg (25.0-34.0); Mean Corpuscular Hgb Conc 33.6 g/dL (32.0-36.0); Mean Platelet Volume 10.4 fL (9.4-12.4); Monocytes # (auto) 1.02 K/uL (0.11-0.59); Monocytes % (auto) 11.4 %; Neutrophils # (auto) 6.81 K/uL (1.40-6.50); Neutrophils % (auto) 76.4 %; Platelet Count 444 K/uL (130-400); RDW Coefficient of Variation 12.1 % (11.5-14.5); RDW Standard Deviation 43.1 fL (36.4-46.3); Red Blood Count 4.38 M/uL (4.70-6.10); White Blood Count 8.92 K/ul (4.8-10.8)
[2024-01-30 06:29] LABS: BUN Creatinine Ratio 23.4 (10-20); C Reactive Protein 22.14 mg/dl (0-0.5); Calcium 9.5 mg/dl (8.6-10.3); Creatinine Clr Calc Pharmacy 266.6 ml/min; Potassium 4.1 mmol/L (3.5-5.1)
--- NOTE | 2024-01-30 14:41 | Hospitalist Progress Note ---
Date of Service January 30, 2024 Assessment & Plan (1) Pancreatitis: Plan: No history of pancreatitis Suspect likely secondary to alcohol abuse Patient continues w/ tachycardia, likely secondary to pain fever curve continues to improve. CBC reviewed 01/29: WBC WNL, hgb WNL BMP reviewed 01/29: stable Lipase 01/25: 118 (originally 1403 on admission) CTAP 01/21: acute pancreatitis w/ moderate amount of reactive edema and trace free fluid within the lesser sac. No acute peripancreatic fluid collection/pancreatic ductal dilation. Likely reactive wall thickening of distal stomach, duodenum, and mid transverse colon. reactive periportal lymphadenopathy. hepatomegaly w/ severe hepatic steatosis. s/p cholecystectomy. appendix dilated at 9mm. appendicitis unlikely given hx. Advanced to low fat diet 01/26 Pepcid HS, Zofran prn Tylenol, Oxycodone PRN. Patient transferred out of ICU 01/26. AM CBC, CMP (2) Rheumatoid arthritis: Plan: Patient w/ hx of RA, previously on Plaquenil outpatient. has been off this for 6 months as he did not feel it was effective. b/l feet pain, w/ erythema and edema added scheduled ibuprofen q8h Tylenol/oxycodone prn for pain added scheduled prednisone 20mg once daily 01/28. seems to be improving symptoms, plan to continue and monitor progression CRP reviewed 01/29: 22.14 ESR reviewed 01/29: 110 no baseline inflammatory markers drawn on admission to compare to. follow up with rheumatology outpatient. patient previously w/ [facility], plan for outpatient referral on discharge. AM CRP, ESR (3) Alcohol withdrawal: Plan: see plan #2 (4) Alcohol abuse: Plan: Typically drinks 2-3 fifths/week x 6 months; last drink 01/20 Tachycardic, diaphoretic, resting tremor on admission -> 10 mg IV Valium - AWSS protocol - Thiamine IM 100 on admission, 100 PO QAM scheduled - Precedex drip discontinued 01/26 and started Clonidine -if agitation continues to be problematic consider Haldol or Geodon. -Patient does not want to go to inpatient rehab pending hospital stay. Is agreeable to outpatient follow up. resources given by CM and psych Liaison (5) Anxiety: Plan: patient with increased stress at home, contributing to recent alcohol use Denies SI/HI or thoughts of self-harm on admission -Psych Liaison consulted 01/26. patient given resources on outpatient psychiatric services and D&A counseling -Adjusted patient's mental health medications 01/29 decreased Buspar to 20mg PO daily in AM. Added Cymbalta 20mg PO daily in PM. Continue Hydroxyzine prior to bed. Plan Chronic stable diagnoses: HTN - continue home verapamil POTS - follows w/ outpatient cardiology. Continue home sodium tablets & electrolyte repletion VTE ppx: Lovenox Diet: low fat Code status: full code Dispo: med tele. Admission and Anticipated Discharge Date Admission Date: January 22, 2024 Subjective Patient seen and examined this morning. Patient thinks that the steroids he started yesterday may have helped his foot pain. He states that he was able to ambulate to the bathroom and in the fragoso this morning. He was able to eat his breakfast/lunch without nausea. rates his abdominal pain 4-5/10. Patient did vocalize that he has been depressed recently and is looking to get help from his counselor along with medication after discharged. Discussed w/ patient trialing an anti-depressant in the hospital. He tells me he sees his PCP on Saturday. He does think the hydroxyzine is helping him sleep at night as well. Physical Exam Constitutional: WD/WN, vitals as above Eyes: PERRL, conjunctivae normal, anicteric sclerae Respiratory: breathing unlabored Cardiovascular: well perfused Psychiatric: A+Ox3, euthymic affect Results & Data Results & Data Vital Signs (Past 12 Hours) Vital Signs Temp Pulse Pulse Resp BP BP Pulse Ox 01/30/24 11:18 36.5 C 102 H 20 112/68 96 01/30/24 07:30 36.6 C 86 20 162/105 H 98 01/30/24 07:00 91 H 01/30/24 03:18 36.5 C 96 H 16 149/96 H 98 O2 Del Method 01/30/24 11:18 Room Air 01/30/24 07:30 Room Air 01/30/24 07:00 01/30/24 03:18 Room Air PG Care Time/CCT Total # of Minutes Spent Total Time Spent with Patient: Total time spent is greater than 50% in coordination of care (as documented) at patient's floor/unit and/or counseling patient: Coding Level of Care Code 72568 SUB INP/OBS CARE 2MIN Diagnoses Pancreatitis K85.90 Rheumatoid arthritis M06.9 Alcohol withdrawal F10.939 Alcohol abuse F10.10 Anxiety F41.9
[2024-01-30] MEDS: DULoxetine HCL 20 MG CAP PO SCH (20:48)
[2024-01-31 06:12] LABS: Hematocrit (blood only) 38.4 % (42.0-52.0); Hemoglobin 12.7 g/dl (14.0-18.0); Mean Corpuscular Hemoglobin 32.2 pg (25.0-34.0); Mean Corpuscular Hgb Conc 33.1 g/dL (32.0-36.0); Mean Corpuscular Volume 97.5 fL (80.0-100.0); Mean Platelet Volume 10.4 fL (9.4-12.4); Platelet Count 501 K/uL (130-400); RDW Coefficient of Variation 12.2 % (11.5-14.5); RDW Standard Deviation 43.9 fL (36.4-46.3); Red Blood Count 3.94 M/uL (4.70-6.10); White Blood Count 9.81 K/ul (4.8-10.8)
[2024-01-31 06:29] LABS: BUN Creatinine Ratio 25.5 (10-20); Calcium 8.9 mg/dl (8.6-10.3); Creatinine Clr Calc Pharmacy 228.8 ml/min
[2024-01-31] MEDS: busPIRone 5 MG TAB PO SCH (08:01)
[2024-01-31] MEDS: ONDANSETRON INJ 2 MG/ML 2 ML VIAL IV PRN (08:07)
--- NOTE | 2024-01-31 14:53 | Hospitalist Progress Note ---
Date of Service January 31, 2024 Assessment & Plan (1) Pancreatitis: Plan: No history of pancreatitis Suspect likely secondary to alcohol abuse CBC reviewed 01/30: stable BMP reviewed 01/30: stable Lipase 01/25: 118 (originally 1403 on admission) CTAP 01/21: acute pancreatitis w/ moderate amount of reactive edema and trace free fluid within the lesser sac. No acute peripancreatic fluid collection/pancreatic ductal dilation. Likely reactive wall thickening of distal stomach, duodenum, and mid transverse colon. reactive periportal lymphadenopathy. hepatomegaly w/ severe hepatic steatosis. s/p cholecystectomy. appendix dilated at 9mm. appendicitis unlikely given hx. Advanced to low fat diet 01/26 Pepcid HS, Zofran prn Tylenol, Oxycodone PRN. Patient transferred out of ICU 01/26. AM CBC, CMP (2) Rheumatoid arthritis: Plan: Patient w/ hx of RA, previously on Plaquenil outpatient. has been off this for 6 months as he did not feel it was effective. Scheduled ibuprofen q8h Tylenol/oxycodone prn for pain Prednisone 20mg once daily 01/28. CRP reviewed 01/29: 22.14 ESR reviewed 01/29: 110 no baseline inflammatory markers drawn on admission to compare to. follow up with rheumatology outpatient. patient previously w/ [facility], plan for outpatient referral on discharge. (3) Alcohol abuse: Plan: Typically drinks 2-3 fifths/week x 6 months; last drink 01/20 - [facility] protocol - Thiamine IM 100 on admission, 100 PO QAM scheduled - Precedex drip discontinued 01/26 and started Clonidine -Patient does not want to go to inpatient rehab pending hospital stay. Is agreeable to outpatient follow up. resources given by CM and psych Liaison (4) Alcohol withdrawal: Plan: see plan above (5) Anxiety: Plan: patient with increased stress at home, contributing to recent alcohol use Denies SI/HI or thoughts of self-harm on admission -Psych Liaison consulted 01/26. patient given resources on outpatient psychiatric services and D&A counseling -Adjusted patient's mental health medications 01/29 decreased Buspar to 20mg PO daily in AM. Added Cymbalta 20mg PO daily in PM. Continue Hydroxyzine prior to bed. Plan Chronic stable diagnoses: HTN - continue home verapamil POTS - follows w/ outpatient cardiology. Continue home sodium tablets & electrolyte repletion VTE ppx: Lovenox Diet: low fat Code status: full code Dispo: med/surg Admission and Anticipated Discharge Date Admission Date: January 22, 2024 Subjective Patient seen and examined this morning. Patient states he had a rough night. Patient states he awoke feeling nauseous. He denied any vomiting. He continues with night sweats. He has also had some joint pain as well. he is unsure if the prednisone is helping his feet/ankle pain at this time. Physical Exam Constitutional: WD/WN, vitals as above Eyes: PERRL, conjunctivae normal, anicteric sclerae Respiratory: breathing unlabored Cardiovascular: well perfused Psychiatric: A+Ox3, euthymic affect Results & Data Results & Data Vital Signs (Past 12 Hours) Vital Signs Temp Pulse Pulse Resp BP BP Pulse Ox 01/31/24 14:22 77 01/31/24 12:07 36.4 C L 89 20 117/70 98 01/31/24 07:54 36.8 C 62 20 145/97 H 96 01/31/24 07:08 67 01/31/24 04:22 85 159/84 H 01/31/24 04:09 36.9 C 85 20 163/100 H 98 O2 Del Method 01/31/24 14:22 01/31/24 12:07 Room Air 01/31/24 07:54 Room Air 01/31/24 07:08 01/31/24 04:22 01/31/24 04:09 Room Air PG Care Time/CCT Total # of Minutes Spent Total Time Spent with Patient: Total time spent is greater than 50% in coordination of care (as documented) at patient's floor/unit and/or counseling patient: Coding Level of Care Code 54954 SUB INP/OBS CARE 2/35MIN Diagnoses Alcohol-induced acute pancreatitis, unspecified complication status K85.20 Chronicity: acute Pancreatitis type: alcohol induced Acute pancreatitis complication: unspecified Rheumatoid arthritis M06.9 Alcohol abuse F10.10 Alcohol withdrawal F10.939 Anxiety F41.9 (1) Pancreatitis Chronicity: acute Pancreatitis type: alcohol induced Acute pancreatitis complication: unspecified Qualified Code(s): K85.20 - Alcohol induced acute pancreatitis without necrosis or infection
[2024-02-01 06:42] LABS: Hematocrit (blood only) 42.6 % (42.0-52.0); Hemoglobin 13.7 g/dl (14.0-18.0); Mean Corpuscular Hemoglobin 32.2 pg (25.0-34.0); Mean Corpuscular Hgb Conc 32.2 g/dL (32.0-36.0); Mean Corpuscular Volume 100.2 fL (80.0-100.0); Mean Platelet Volume 10.2 fL (9.4-12.4); Platelet Count 609 K/uL (130-400); RDW Coefficient of Variation 12.2 % (11.5-14.5); RDW Standard Deviation 44.8 fL (36.4-46.3); Red Blood Count 4.25 M/uL (4.70-6.10); White Blood Count 10.55 K/ul (4.8-10.8)
[2024-02-01 07:03] LABS: BUN Creatinine Ratio 21.5 (10-20); Calcium 9.6 mg/dl (8.6-10.3); Creatinine Clr Calc Pharmacy 192.6 ml/min; Potassium 4.1 mmol/L (3.5-5.1)
--- NOTE | 2024-02-01 15:02 | Hospitalist Progress Note ---
Date of Service February 01, 2024 Assessment & Plan (1) Pancreatitis: Plan: No history of pancreatitis Suspect likely secondary to alcohol abuse CBC reviewed 01/31: stable BMP reviewed 01/31: stable Lipase 01/25: 118 (originally 1403 on admission) CTAP 01/21: acute pancreatitis w/ moderate amount of reactive edema and trace free fluid within the lesser sac. No acute peripancreatic fluid collection/pancreatic ductal dilation. Likely reactive wall thickening of distal stomach, duodenum, and mid transverse colon. reactive periportal lymphadenopathy. hepatomegaly w/ severe hepatic steatosis. s/p cholecystectomy. appendix dilated at 9mm. appendicitis unlikely given hx. Advanced to low fat diet 01/26 Pepcid HS, Zofran prn Added Protonix BID 01/04- Tylenol, Oxycodone PRN. Patient transferred out of ICU 01/26. AM CBC, CMP (2) Rheumatoid arthritis: Plan: Patient w/ hx of RA, previously on Plaquenil outpatient. has been off this for 6 months as he did not feel it was effective. Scheduled ibuprofen q8h Tylenol/oxycodone prn for pain encouraged to try to not use oxycodone q4h and to space out doses more, consider q6h dosing. Prednisone 20mg once daily 01/28. CRP reviewed 01/29: 22.14 ESR reviewed 01/29: 110 no baseline inflammatory markers drawn on admission to compare to. follow up with rheumatology outpatient. patient previously w/ [facility], plan for outpatient referral on discharge. (3) Alcohol abuse: Plan: Typically drinks 2-3 fifths/week x 6 months; last drink 01/20 - [facility] protocol - Thiamine IM 100 on admission, 100 PO QAM scheduled - Precedex drip discontinued 01/26 and started Clonidine -Patient does not want to go to inpatient rehab pending hospital stay. Is agreeable to outpatient follow up. resources given by CM and psych Liaison (4) Alcohol withdrawal: Plan: see plan above (5) Anxiety: Plan: patient with increased stress at home, contributing to recent alcohol use Denies SI/HI or thoughts of self-harm on admission -Psych Liaison consulted 01/26. patient given resources on outpatient psychiatric services and D&A counseling -Adjusted patient's mental health medications 01/29 decreased Buspar to 20mg PO daily in AM. Added Cymbalta 20mg PO daily in PM. Continue Hydroxyzine prior to bed. Plan Chronic stable diagnoses: HTN - continue home verapamil POTS - follows w/ outpatient cardiology. Continue home sodium tablets & electrolyte repletion VTE ppx: Lovenox Diet: low fat Code status: full code Dispo: med/surg Admission and Anticipated Discharge Date Admission Date: January 22, 2024 Subjective Patient seen and examined this morning. Patient w/ nausea and vomiting today. Patient states he just doesn't "feel right" Reports his legs/feet continue to ache. He states he has been trying to ambulate the halls and was going to request a walker to help steady himself. Physical Exam Constitutional: WD/WN, vitals as above Eyes: PERRL, conjunctivae normal, anicteric sclerae Respiratory: breathing unlabored Cardiovascular: well perfused Psychiatric: A+Ox3, euthymic affect Results & Data Results & Data Vital Signs (Past 12 Hours) Vital Signs Temp Pulse Resp BP Pulse Ox O2 Del Method 02/01/24 07:53 36.7 C 98 H 16 145/96 H 97 Room Air PG Care Time/CCT Total # of Minutes Spent Total Time Spent with Patient: Total time spent is greater than 50% in coordination of care (as documented) at patient's floor/unit and/or counseling patient: Coding Level of Care Code 49329 SUB INP/OBS CARE 2/35MIN Diagnoses Alcohol-induced acute pancreatitis, unspecified complication status K85.20 Chronicity: acute Pancreatitis type: alcohol induced Acute pancreatitis complication: unspecified Rheumatoid arthritis M06.9 Alcohol abuse F10.10 Alcohol withdrawal F10.939 Anxiety F41.9 (1) Pancreatitis Chronicity: acute Pancreatitis type: alcohol induced Acute pancreatitis complication: unspecified Qualified Code(s): K85.20 - Alcohol induced acute pancreatitis without necrosis or infection
[2024-02-01] MEDS: PANTOprazole 40 MG TAB PO SCH (22:34)
[2024-02-02 07:14] VITALS: BP 144/83; PULSE 73; RESP 16; TEMP 98.2; O2SAT 96
--- NOTE | 2024-02-02 11:18 | XRay Report ---
EXAM: Radiographs of the Left Knee 3 Views INDICATION: Nontraumatic pain. TECHNIQUE: Three views of the left knee. COMPARISON: No relevant prior studies available. FINDINGS: Bones/joints: Very minimal patellofemoral spurring noted. No fracture, erosion, subluxation or dislocation. Soft tissues: No abnormality noted. No radiopaque foreign body noted. IMPRESSION: Very minimal patellofemoral spurring. Otherwise negative. ACT 112: Negative or not required by law. Electronically signed by Allie Rose 02-02-2024 12:17 PM
--- NOTE | 2024-02-02 13:50 | Discharge Summary ---
Discharge Summary Date of Service February 02, 2024 Principal Dx & Hospital Course #1 = Principal Diagnosis (1) Pancreatitis: No history of pancreatitis Suspect likely secondary to alcohol abuse Transferred out of ICU 01/26. CBC/BMP stable prior to d/c Lipase returned to WNL 01/25. CTAP 01/21: acute pancreatitis w/ moderate amount of reactive edema and trace free fluid within the lesser sac. No acute peripancreatic fluid collection/pancreatic ductal dilation. Likely reactive wall thickening of distal stomach, duodenum, and mid transverse colon. reactive periportal lymphadenopathy. hepatomegaly w/ severe hepatic steatosis. s/p cholecystectomy. appendix dilated at 9mm. appendicitis unlikely given hx. Advanced to low fat diet 01/26 Resume outpatient omeprazole on discharge. Tylenol prn for pain, oxycodone prn for pain if >8/10 on pain scale. (2) Rheumatoid arthritis: Patient w/ hx of RA, previously on Plaquenil outpatient. has been off this for 6 months as he did not feel it was effective. CRP elevated at 22.14, ESR 110 (01/29) Patient encouraged to re-established with his previous [facility] [employer] [facility] upon discharge. Prednisone taper on discharge. NSAIDs for joint pain. (3) Alcohol abuse: Typically drinks 2-3 fifths/week x 6 months; last drink 01/20 Discharged home on Folic acid, Thiamine, and Clonidine to help w/ cravings Patient did not want inpatient rehab treatment pending hospital stay Encouraged to follow up with D&A counseling outpatient strict alcohol cessation to avoid future episodes of pancreatitis. (4) Alcohol withdrawal: see plan above (5) Anxiety: patient with increased stress at home, contributing to recent alcohol use Denies SI/HI or thoughts of self-harm on admission -Psych Liaison consulted 01/26. patient given resources on outpatient psychiatric services and D&A counseling -Adjusted patient's mental health medications 01/29 decreased Buspar to 20mg PO daily in AM. Added Cymbalta 20mg PO daily in PM. Hydroxyzine prn for insomnia defer further adjustments of mental health medications to PCP consider outpatient psychiatrist Plan Admission HPI Per Admitting Provider patient is a 33-year-old male with a past medical history of B12 deficiency, vitamin D deficiency, depression, chronic hyponatremia, hypertension, anxiety, POTS. he presents today due to abdominal pain that has been ongoing since yeste rday. He stated that yesterday afternoon he had diffuse abdominal pain, he thought his stomach was "sour". He took a Tums, Carafate, promethazine to help relieve some of his symptoms. He did not sleep last night because he was tossing and turning in pain. his pain is 9/10 at its worst, it is colicky. It does radiate to his back. He also took a few shots of alcohol, this did not help the pain. He has not eaten anything due to the pain, he is tolerating oral fluids well. He has felt nausea, denies vomiting. He has a history of alcohol abuse. He stated about 6 months ago he began with some life stressors. He drinks 2 to 3 5thsweek. In the 6-month timeframe he did quit drinking for a few weeks at a time, no withdrawal symptoms or seizures at the time. He typically drinks on the weekends, about half of the day. He has some drinks during the week. He drink on Saturday, his last drink would have been last night when he took a few shots to help with pain. He denies any recent seizures. He is with tremors, diaphoresis, and anxious on exam. The patient endorses recent diarrhea yesterday, he has a history of IBS. Patient denies fever, chills, headache, dizziness, lightheadedness, dyspnea, dyspnea on exertion, chest pain, vomiting, constipation, dysuria, hematuria, edema, numbness, tingling. Discharge Exam Constitutional WD/WN, vitals as above Eyes PERRL, conjunctivae normal, anicteric sclerae Respiratory breathing unlabored Cardiovascular well perfused Psychiatric A+Ox3, euthymic affect Discharge Plan Discharge Items Patient Disposition: Home - Self-Care Reason For Visit: PANCREATITIS, ALCOHOL WITHDRAWAL Discharge Diagnosis: pancreatitis, alcohol withdrawal Activity: Resume your previous activity Non-emergency contact: Primary Care Provider Call non-emergency contact if: you have any medication questions and your symptoms worsen Follow-up/Referrals: [facility] [Outside] Jose Andrews CRNP [Primary Care Provider] - Diet: Regular Addtl Attending Provider Instructions: Mr. Piedra, You were recently hospitalized for pancreatitis and alcohol withdrawal. Please see recommendations below regarding your discharge. 1. Please take Clonidine 0.1mg daily in the morning. 2. Your Buspar was switched to 20 mg daily in the morning. 3. Cymbalta 20mg was added nightly. 4. Please use Hydroxyzine 25mg as needed for sleep. 5. The remainder of your medications may be continued on discharge. 6. Please use Tylenol or Ibuprofen for pain recommend scheduling this around the clock to aid with pain relief. options include: Tylenol 1000mg every 8 hours OR ibuprofen 600mg every 8 hours. 7. If your pain is greater than an 8/10 on the pain scale, please use oxycodone 5mg every 6 hours for breakthrough pain. 8. Please completed your prednisone taper as prescribed. 9. Please add Folic acid and Thiamine to your vitamin regimen 10. Strict cessation of alcohol advised to avoid further episodes of pancreatitis. 11. Recommend out patient drug and alcohol counseling. 12. Follow up with your PCP on your scheduled appointment on 02/02. If you develop any worsening abdominal pain, nausea, or vomiting please report back to the ER for further care. Sincerely, Urvashi Chow PA-C Pending Studies at Discharge: No Stand-Alone Forms: [facility], Work/School Release, Smoking Cessation Medications and DC Order Prescriptions: New buspirone 5 mg Tablet 20 mg PO QAM Qty: 30 0RF clonidine HCl 0.1 mg Tablet 0.1 mg PO QAM Qty: 30 0RF thiamine HCl (vitamin B1) 100 mg Tablet 100 mg PO QAM Qty: 30 0RF folic acid 1 mg Tablet 1 mg PO QAM Qty: 30 0RF hydroxyzine HCl 25 mg Tablet 25 mg PO PM Qty: 30 0RF duloxetine [Cymbalta] 20 mg Capsule,Delayed Release(Dr/Ec) 20 mg PO QPM Qty: 30 0RF prednisone 5 mg tablet 5 mg PO DIRECTED Qty: 9 0RF Rx Instructions: Take 2 tablets for 3 days followed by 1 tablet for 3 days. oxycodone 5 mg tablet 5 mg PO Q6H PRN (Reason: pain (scale score 8-10)) Qty: 5 0RF Continued verapamil 120 mg tablet 120 mg PO .each evening Qty: 90 3RF verapamil 180 mg capsule,ext rel. pellets 24 hr 180 mg PO .each morning Qty: 90 3RF cholecalciferol (vitamin D3) 1,250 mcg (50,000 unit) capsule 1,250 mcg PO .weekly Qty: 12 0RF Rx Instructions: mondays magnesium oxide 400 mg magnesium tablet 400 mg PO UD Rx Instructions: Take 2 tablets by mouth every morning and 1 tablet every evening omeprazole 40 mg capsule,delayed release(DR/EC) 40 mg PO QAM sodium chloride 1,000 mg tablet,soluble 2,000 mg PO QAM potassium chloride 20 mEq tablet extended release 20 meq PO QAM Discontinued buspirone 15 mg tablet 15 mg PO BID Qty: 60 2RF Discharge Orders: Discharge Order (Routine); Ordered 02/02/24 Ordered By: Urvashi Chow Admission Data Admit Date/Time: 01/22/24 13:37 Attending Provider: Jero Parra Admit Provider: Nolan Tena Primary Care Provider: Jose Andrews Other Providers: Nolan Tena; Stacie Bhakta Hospital Stay Data Consultations 01/22/24 12:51 ED Decision to Admit Stat 01/24/24 09:21 Consult Supervisory Training Specialist Routine 01/27/24 10:38 Consult Behavioral Health Liaison Routine Diagnostic Imagining Performed 01/22/24 11:10 CT Abd and Pelvis [CT abd pelvis IV con only] Stat Pending Results Patient Have Any Pending Studies at Discharge: No Discharge Instructions Given to Patient (Per Discharging Provider) Mr. Piedra, Jerald were recently hospitalized for pancreatitis and alcohol withdrawal. Please see recommendations below regarding your discharge. 1. Please take Clonidine 0.1mg daily in the morning. 2. Your Buspar was switched to 20 mg daily in the morning. 3. Cymbalta 20mg was added nightly. 4. Please use Hydroxyzine 25mg as needed for sleep. 5. The remainder of your medications may be continued on discharge. 6. Please use Tylenol or Ibuprofen for pain recommend scheduling this around the clock to aid with pain relief. options include: Tylenol 1000mg every 8 hours OR ibuprofen 600mg every 8 hours. 7. If your pain is greater than an 8/10 on the pain scale, please use oxycodone 5mg every 6 hours for breakthrough pain. 8. Please completed your prednisone taper as prescribed. 9. Please add Folic acid and Thiamine to your vitamin regimen 10. Strict cessation of alcohol advised to avoid further episodes of pancreatitis. 11. Recommend out patient drug and alcohol counseling. 12. Follow up with your PCP on your scheduled appointment on 02/02. If you develop any worsening abdominal pain, nausea, or vomiting please report back to the ER for further care. Sincerely, Urvashi Chow PA-C Total Time Total Time Spent Total Time Spent (In Minutes): 45 Total Time Includes: Examination of the Patient, Discharge Planning and Medication Reconciliation Coding Level of Care Code 38856 INP/OBS DISCH >30 MIN Diagnoses Alcohol-induced acute pancreatitis, unspecified complication status K85.20 Chronicity: acute Pancreatitis type: alcohol induced Acute pancreatitis complication: unspecified Rheumatoid arthritis M06.9 Alcohol abuse F10.10 Alcohol withdrawal F10.939 Anxiety F41.9
== END 2024-02-02 15:22 | disposition home or self-care (01) | DRG 439 ==
LOC: ED 08:23 → SUATTDRO 13:37 → 2E 13:37 → 1E 01-24 09:08 → 2N 01-27 11:52 → 3N 01-31 23:07

== ENCOUNTER 2024-06-11 10:15 | Inpatient (IN) ==
[2024-06-11] MEDS: SODIUM CHLORIDE 0.9% 1,000 ML IV ONE (10:58)
--- NOTE | 2024-06-11 11:04 | Emergency Department Note ---
ED Provider Note History of Present Illness Chief Complaint: Abdominal Pain Stated Complaint: TOOTH PAIN, REFERRED BY Time Seen by Provider: 06/11/24 10:38 Source: patient Mode of arrival: ambulatory Limitations: no limitations Patient is a 35-year-old male that presents to the emergency department with complaints of abdominal pain. Patient states that he has a history of pancreatitis and states that this feels similar. Patient reports that he drinks anywhere from a half to a full fifth of vodka a day. Patient states that his last drink was last evening. Patient states that he does not get tremors or seizure activity when he is not drinking but does note that he has been drinking consistently and has not necessarily withdrawn from alcohol thus far. Patient does note some nausea and vomited once this morning. Patient was seen in the [facility] ER yesterday and did not have any abdominal imaging completed. Home Medications Medication Instructions Recorded Confirmed Type apixaban 5 mg tablet (Eliquis) 5 mg PO BID 05/07/24 06/11/24 History clonidine HCl 0.1 mg tablet 0.1 mg PO QAM #30 tabs 05/22/24 06/11/24 Rx allopurinol 100 mg tablet 100 mg PO DAILY #30 tabs 06/02/24 06/11/24 Rx omeprazole 40 mg capsule,delayed 40 mg PO DAILY #90 caps 06/02/24 06/11/24 Rx release meloxicam 15 mg tablet 15 mg PO UD 06/11/24 06/11/24 History sertraline 50 mg tablet 50 mg PO DAILY 06/11/24 06/11/24 History Allergies Allergy/AdvReac Type Severity Reaction Status Date / Time No Known Allergies Allergy Verified 06/02/24 14:04 Past Med/Surg History Problem List (Updated 06/13/24 @ 05:13 by Osmar Bone MD) Pancytopenia Pancreatitis (Acute) Transaminitis Abnormal CT of the abdomen Abdominal pain (Acute) Hypomagnesemia (Acute) Hypokalemia (Acute) Hyponatremia Hyperuricemia Elevated liver function tests Vasovagal syncope Arthralgia of multiple sites Medical History (Updated 06/13/24 @ 05:13 by Osmar Bone MD) History of pulmonary embolus (PE) Gout History of pancreatitis Rheumatoid arthritis Alcohol abuse Neuropathy B12 deficiency Vitamin D deficiency Depression HTN (hypertension) Anxiety POTS (postural orthostatic tachycardia syndrome) Surgical History S/P cholecystectomy January 2016 Family History (Updated 06/11/24 @ 21:45 by Osmar Bone MD) Sister VTE (venous thromboembolism) Father Hyperlipidemia Other Colorectal cancer Diabetes Myocardial infarction Denies family history of Ovarian cancer Prostate cancer Alcoholism Breast cancer Lung cancer Social History (Updated 06/11/24 @ 21:47 by Osmar Bone MD) Smoking Status: Never smoker Second Hand Exposure: No; Do You Dip or Chew Tobacco: No; Hx Alcohol Use: Yes Alcohol type: hard liquor Alcohol type Comment: vodka - fifth/day Alcohol Intake Frequency: 4 or More x per/Week Hx Substance Use: No Preferred Language: Armenian Communication Ability: Effective Hearing Ability: Normal [employer] Required: No Beliefs That Will Affect Care: None marital status: Single Current Living Situation: Alone Current Living Situation Comment: house current occupational status: employed and unemployed current occupation: nursing How many Children do You have: 0 Other Information That Helps Us Care for You: No Feels Safe at Home: Yes Safety Concerns: Feels Safe At This Time Dental Care, Regularly: Yes Physical Activity Frequency: Does not Exercise Assistive Devices: None Physical Exam Vital Signs Vital Signs - 24 hr 06/11/24 10:29 06/11/24 10:51 Temperature 36.5 C Temperature Source Temporal Artery Scan Pulse Rate 87 102 H Respiratory Rate 18 Respiratory Effort / Characteristics Non-Labored Spontaneous Respiratory Depth Normal Respiratory Pattern Regular Blood Pressure 158/100 H Blood Pressure Mean 119 Pulse Oximetry 99 Oxygen Delivery Method Room Air Sepsis Recent Fever Within 48 Hours No Sepsis New/Unexplained Change in Mental Status No Sepsis Action Taken by Nursing No Action Required VITAL SIGNS - Vital signs and nursing notes were reviewed. GENERAL -34-year-old male appearing his stated age who is in no acute distress. Communicates well with provider and answers questions appropriately. HEAD - NC/AT. EYES - PERRL with EOMI bilaterally. Conjunctiva pink and moist with no injection noted. NOSE - Midline and without cyanosis. No epistaxis or purulent drainage noted. LUNGS - Chest wall symmetric without accessory muscle use, intercostals retractions, or central cyanosis. Breath sounds clear throughout all lindsay. No wheezes, rales, or rhonchi appreciated. CARDIAC - RRR with S1/S2. No murmur, rubs, or gallops appreciated. ABDOMEN - Abdominal contour without pulsations or visible masses. Negative Smith's or Nolasco Mckeon's Signs. BS normoactive all four quadrants. Generalized increased tenderness to palpation appreciated. No guarding. No rebound Tenderness. No palpable masses, hepatosplenomegaly, or ascites noted. NEUROLOGIC - Sensory intact to light touch throughout. PSYCH - A&Ox3 and cooperates fully with examiner. Pt is very pleasant and interacts well with examiner. Course Administered Medications Allopurinol (Allopurinol 100 Mg Tab) 100 mg PO DAILY [facility] Stop: 07/12/24 08:59 Last Admin: 06/14/24 09:02 Dose: 100 mg Documented By: Admin: 06/13/24 09:44 Dose: 100 mg Documented By: Admin: 06/12/24 08:42 Dose: 100 mg Documented By: IRON Cephalexin HCl (Cephalexin 500 Mg Cap) 500 mg PO TID [facility]; Protocol Stop: 06/21/24 20:59 Last Admin: 06/14/24 19:43 Dose: 500 mg Documented By: JOSE EDUARDO Clonidine HCl (Clonidine Hcl 0.1 Mg Tab) 0.1 mg PO BID [facility] Stop: 07/11/24 20:59 Last Admin: 06/14/24 19:51 Dose: 0.1 mg Documented By: JOSE EDUARDO Admin: 06/14/24 09:57 Dose: 0.1 mg Documented By: Admin: 06/13/24 21:47 Dose: 0.1 mg Documented By: Admin: 06/13/24 09:45 Dose: 0.1 mg Documented By: Admin: 06/12/24 20:48 Dose: 0.1 mg Documented By: Admin: 06/12/24 08:43 Dose: 0.1 mg Documented By: Admin: 06/11/24 20:03 Dose: 0.1 mg Documented By: KATLIN Cyanocobalamin (Cyanocobalamin (B-12) 500 Mcg Tablet) 1,000 mcg PO QAM [facility] Stop: 07/12/24 13:44 Last Admin: 06/14/24 09:02 Dose: 1,000 mcg Documented By: Admin: 06/13/24 09:45 Dose: 1,000 mcg Documented By: Admin: 06/12/24 14:14 Dose: 1,000 mcg Documented By: IRON Enoxaparin Sodium (Enoxaparin Inj 40 Mg/0.4 Ml Syr) 40 mg SQ QAM [facility] Stop: 07/13/24 08:59 Last Admin: 06/14/24 09:03 Dose: 40 mg Documented By: Admin: 06/13/24 09:51 Dose: 40 mg Documented By: REUBEN Hydrocortisone (Hydrocortisone Acetate 25 Mg Supp) 25 mg MO BID [facility] Stop: 07/11/24 20:59 Last Admin: 06/14/24 19:46 Dose: 25 mg Documented By: JOSE EDUARDO Admin: 06/14/24 09:08 Dose: Not Given Documented By: Admin: 06/13/24 21:49 Dose: Not Given Documented By: Admin: 06/13/24 08:21 Dose: Not Given Documented By: Admin: 06/12/24 20:48 Dose: Not Given Documented By: Admin: 06/12/24 08:50 Dose: Not Given Documented By: Admin: 06/11/24 20:03 Dose: Not Given Documented By: KATLIN Pantoprazole Sodium (Protonix) 40 mg in 10 mls @ 5 mls/min IV BID [facility] Stop: 07/11/24 20:59 Last Admin: 06/14/24 19:45 Dose: 5 mls/min Documented By: JOSE EDUARDO Admin: 06/14/24 09:03 Dose: 5 mls/min Documented By: Admin: 06/13/24 21:48 Dose: 5 mls/min Documented By: Admin: 06/13/24 08:57 Dose: 5 mls/min Documented By: Admin: 06/12/24 20:37 Dose: 5 mls/min Documented By: Admin: 06/12/24 08:44 Dose: 5 mls/min Documented By: Admin: 06/11/24 20:02 Dose: 5 mls/min Documented By: KATLIN Thiamine HCl 200 mg/ Sodium (Chloride) 52 mls @ 210 mls/hr IV BID [facility] Stop: 07/11/24 16:47 Last Infusion: 06/14/24 19:58 Dose: Infused Documented By: JOSE EDUARDO Admin: 06/14/24 19:43 Dose: 210 mls/hr Documented By: JOSE EDUARDO Infusion: 06/14/24 11:01 Dose: Infused Documented By: Admin: 06/14/24 09:04 Dose: 210 mls/hr Documented By: Infusion: 06/13/24 22:03 Dose: Infused Documented By: Admin: 06/13/24 21:48 Dose: 210 mls/hr Documented By: Infusion: 06/13/24 10:09 Dose: Infused Documented By: Admin: 06/13/24 08:56 Dose: 210 mls/hr Documented By: Infusion: 06/12/24 21:18 Dose: Infused Documented By: Admin: 06/12/24 20:38 Dose: 210 mls/hr Documented By: Infusion: 06/12/24 11:35 Dose: Infused Documented By: Admin: 06/12/24 08:43 Dose: 210 mls/hr Documented By: Infusion: 06/11/24 20:56 Dose: Infused Documented By: Admin: 06/11/24 20:04 Dose: 210 mls/hr Documented By: Infusion: 06/11/24 19:06 Dose: Infused Documented By: Admin: 06/11/24 18:51 Dose: 210 mls/hr Documented By: MICKI Folic Acid 1 mg/ Syringe 10 mls @ 5 mls/min IV QAM [facility] Stop: 07/11/24 16:47 Last Admin: 06/14/24 09:06 Dose: 5 mls/min Documented By: Admin: 06/13/24 08:57 Dose: 5 mls/min Documented By: Admin: 06/12/24 08:43 Dose: 5 mls/min Documented By: Admin: 06/11/24 17:44 Dose: 5 mls/min Documented By: MICKI Lorazepam (Lorazepam 2 Mg/1 Ml Vial) 2 mg IV UD PRN; Protocol PRN Reason: EtOH Withdrawal AWSS Score 8,9 Stop: 07/11/24 16:47 Last Admin: 06/14/24 10:41 Dose: 2 mg Documented By: Admin: 06/14/24 06:10 Dose: 2 mg Documented By: Admin: 06/13/24 18:54 Dose: 2 mg Documented By: Admin: 06/13/24 15:02 Dose: 2 mg Documented By: Admin: 06/13/24 05:37 Dose: 2 mg Documented By: Admin: 06/13/24 01:04 Dose: 2 mg Documented By: Admin: 06/12/24 22:18 Dose: 2 mg Documented By: Admin: 06/12/24 20:48 Dose: 2 mg Documented By: Admin: 06/12/24 16:32 Dose: 2 mg Documented By: Admin: 06/12/24 11:34 Dose: 2 mg Documented By: Admin: 06/12/24 08:58 Dose: 2 mg Documented By: Admin: 06/12/24 02:45 Dose: 2 mg Documented By: Admin: 06/11/24 22:52 Dose: 2 mg Documented By: Admin: 06/11/24 19:32 Dose: 2 mg Documented By: Admin: 06/11/24 17:10 Dose: 2 mg Documented By: KAELYNN Lorazepam (Lorazepam 2 Mg/1 Ml Vial) 1 mg IV UD PRN; Protocol PRN Reason: EtOH Withdrawal AWSS Score 6,7 Stop: 07/11/24 16:47 Last Admin: 06/14/24 14:17 Dose: 1 mg Documented By: Admin: 06/14/24 00:28 Dose: 1 mg Documented By: Admin: 06/13/24 12:30 Dose: 1 mg Documented By: Admin: 06/12/24 06:13 Dose: 1 mg Documented By: Admin: 06/12/24 04:05 Dose: 1 mg Documented By: Admin: 06/11/24 20:43 Dose: 1 mg Documented By: KATLIN Lorazepam (Lorazepam 0.5 Mg Tab) 0.5 mg PO Q6H PRN PRN Reason: Anxiety Stop: 07/13/24 08:37 Last Admin: 06/13/24 20:07 Dose: 0.5 mg Documented By: Admin: 06/13/24 09:46 Dose: 0.5 mg Documented By: AM Lorazepam (Lorazepam 1 Mg Tab) 1 mg PO HS PRN PRN Reason: Sleep Stop: 07/14/24 17:10 Last Admin: 06/14/24 19:36 Dose: 1 mg Documented By: VK Morphine Sulfate (Morphine Sulfate 2 Mg/Ml Carp) 2 mg IV Q3H PRN PRN Reason: Pain Stop: 06/25/24 16:47 Last Admin: 06/14/24 19:52 Dose: 2 mg Documented By: JOSE EDUARDO Admin: 06/14/24 14:13 Dose: 2 mg Documented By: Admin: 06/14/24 09:49 Dose: 2 mg Documented By: Admin: 06/13/24 20:08 Dose: 2 mg Documented By: Admin: 06/13/24 05:38 Dose: 2 mg Documented By: Admin: 06/13/24 01:09 Dose: 2 mg Documented By: Admin: 06/12/24 20:59 Dose: 2 mg Documented By: Admin: 06/12/24 04:05 Dose: 2 mg Documented By: Admin: 06/12/24 00:03 Dose: 2 mg Documented By: Admin: 06/11/24 20:43 Dose: 2 mg Documented By: KATLIN [facility]ivit[facility] ([facility]amin Tab) [facility] Stop: 07/12/24 08:59 Last Admin: 06/14/24 09:02 Dose: 1 tab Documented By: Admin: 06/13/24 09:44 Dose: 1 tab Documented By: Admin: 06/12/24 08:42 Dose: 1 tab Documented By: IRON Ondansetron HCl (Ondansetron Inj 2 Mg/Ml 2 Ml Vial) 4 mg IV Q6H PRN PRN Reason: Nausea Stop: 07/11/24 16:47 Last Admin: 06/14/24 09:58 Dose: 4 mg Documented By: Admin: 06/13/24 20:08 Dose: 4 mg Documented By: Admin: 06/13/24 08:47 Dose: 4 mg Documented By: Admin: 06/12/24 22:18 Dose: 4 mg Documented By: Admin: 06/12/24 16:31 Dose: 4 mg Documented By: Admin: 06/12/24 06:13 Dose: 4 mg Documented By: KATLIN Prednisone (Prednisone 5 Mg Tab) 5 mg PO QAM [facility] Stop: 07/13/24 08:59 Last Admin: 06/14/24 09:01 Dose: 5 mg Documented By: Admin: 06/13/24 09:43 Dose: 5 mg Documented By: AM Sertraline HCl (Sertraline Hcl 50 Mg Tablet) 50 mg PO DAILY [facility] Stop: 07/12/24 08:59 Last Admin: 06/14/24 09:02 Dose: 50 mg Documented By: Admin: 06/13/24 09:44 Dose: 50 mg Documented By: Admin: 06/12/24 08:42 Dose: 50 mg Documented By: IRON Sucralfate (Sucralfate 1 Gm/10 Ml Udc) 1 gm PO QID [facility] Stop: 07/14/24 08:59 Last Admin: 06/14/24 19:44 Dose: 1 gm Documented By: JOSE EDUARDO Admin: 06/14/24 17:00 Dose: 1 gm Documented By: Admin: 06/14/24 14:12 Dose: 1 gm Documented By: Admin: 06/14/24 09:57 Dose: 1 gm Documented By: HUSSAIN Discontinued Medications Enoxaparin Sodium (Enoxaparin Inj 40 Mg/0.4 Ml Syr) 40 mg SQ NOW ONE Stop: 06/12/24 18:46 Last Admin: 06/12/24 20:36 Dose: 40 mg Documented By: FRANKI Gabapentin (Gabapentin 600 Mg Tab) 1,200 mg PO NOW ONE Stop: 06/11/24 16:49 Last Admin: 06/11/24 17:15 Dose: 1,200 mg Documented By: MELECIO Gabapentin (Gabapentin 600 Mg Tab) 600 mg PO Q12H [facility] Stop: 06/14/24 09:01 Last Admin: 06/14/24 09:03 Dose: 600 mg Documented By: Admin: 06/13/24 15:10 Dose: 600 mg Documented By: REUBEN Gabapentin (Gabapentin 600 Mg Tab) 600 mg PO Q8H [facility] Stop: 06/13/24 04:31 Last Admin: 06/13/24 05:34 Dose: 600 mg Documented By: Admin: 06/12/24 20:39 Dose: 600 mg Documented By: Admin: 06/12/24 12:43 Dose: 600 mg Documented By: IRON Gabapentin (Gabapentin 600 Mg Tab) 600 mg PO Q6H [facility] Stop: 06/12/24 04:31 Last Admin: 06/12/24 04:06 Dose: 600 mg Documented By: Admin: 06/11/24 22:55 Dose: 600 mg Documented By: KATLIN Sodium Chloride (Nss) 1,000 mls @ 999 mls/hr IV .Q1H1M ONE Stop: 06/11/24 11:48 Last Infusion: 06/11/24 12:27 Dose: Infused Documented By: Admin: 06/11/24 10:58 Dose: 999 mls/hr Documented By: ARACELY Potassium Chloride (K Ji / Wtr) 10 meq in 100 mls @ 100 mls/hr IV Q1H [facility] Stop: 06/11/24 18:59 Last Infusion: 06/11/24 20:57 Dose: Infused Documented By: Admin: 06/11/24 19:42 Dose: 100 mls/hr Documented By: Infusion: 06/11/24 19:42 Dose: Infused Documented By: Admin: 06/11/24 18:51 Dose: 100 mls/hr Documented By: Infusion: 06/11/24 18:09 Dose: Infused Documented By: Admin: 06/11/24 17:09 Dose: 100 mls/hr Documented By: MELECIO Pantoprazole Sodium (Protonix) 40 mg in 10 mls @ 5 mls/min IV NOW ONE Stop: 06/11/24 16:01 Last Admin: 06/11/24 17:09 Dose: 5 mls/min Documented By: MELECIO Potassium Chloride 20 meq/ (Dextrose/Lactated Ringer's) 1,010 mls @ 75 mls/hr IV .[id number] [facility] Stop: 06/12/24 16:29 Last Infusion: 06/12/24 18:16 Dose: Infused Documented By: Infusion: 06/12/24 14:00 Dose: 75 mls/hr Documented By: Admin: 06/12/24 11:37 Dose: 125 mls/hr Documented By: Infusion: 06/12/24 11:37 Dose: Infused Documented By: Admin: 06/12/24 04:07 Dose: 125 mls/hr Documented By: Infusion: 06/12/24 04:07 Dose: Infused Documented By: Admin: 06/11/24 20:47 Dose: 125 mls/hr Documented By: KATLIN Magnesium Sulfate/Dextrose (Magnesium Sulfate / D5w) 1 gm in 100 mls @ 100 mls/hr IV Q1H [facility] Stop: 06/11/24 18:10 Last Infusion: 06/11/24 20:13 Dose: Infused Documented By: Admin: 06/11/24 18:52 Dose: 100 mls/hr Documented By: Infusion: 06/11/24 18:13 Dose: Infused Documented By: Admin: 06/11/24 17:13 Dose: 100 mls/hr Documented By: MELECIO Magnesium Sulfate/Dextrose (Magnesium Sulfate / D5w) 1 gm in 100 mls @ 50 mls/hr IV Q2H [facility] Stop: 06/12/24 13:59 Last Infusion: 06/12/24 14:57 Dose: Infused Documented By: Admin: 06/12/24 12:43 Dose: 50 mls/hr Documented By: Infusion: 06/12/24 12:42 Dose: Infused Documented By: Admin: 06/12/24 10:42 Dose: 50 mls/hr Documented By: Infusion: 06/12/24 10:42 Dose: Infused Documented By: Admin: 06/12/24 08:54 Dose: 50 mls/hr Documented By: IRON Potassium Chloride/Sodium Chloride (Normal Saline W/20 Meq Kcl) 20 meq in 1,000 mls @ 75 mls/hr IV .[id number] [facility] Stop: 06/14/24 10:14 Last Infusion: 06/14/24 14:27 Dose: Infused Documented By: Admin: 06/14/24 00:28 Dose: 75 mls/hr Documented By: Infusion: 06/14/24 00:28 Dose: Infused Documented By: Admin: 06/13/24 10:55 Dose: 75 mls/hr Documented By: REUBEN Ioversol (Optiray 320 100ml) 94 ml IV ONCE ONE Stop: 06/11/24 11:59 Last Admin: 06/11/24 11:58 Dose: 94 ml Documented By: KAYLYN Ioversol (Optiray 320 125ml) 118 ml IV ONCE ONE Stop: 06/11/24 19:21 Last Admin: 06/11/24 19:20 Dose: 118 ml Documented By: RICK Lorazepam (Lorazepam 2 Mg/1 Ml Vial) 1 mg IV ONE ONE Stop: 06/11/24 13:44 Last Admin: 06/11/24 14:20 Dose: 1 mg Documented By: MICKI Morphine Sulfate (Morphine Sulfate 4 Mg/Ml 1 Ml Carp\Vial) 4 mg IV NOW STA Stop: 06/11/24 12:46 Last Admin: 06/11/24 13:12 Dose: 4 mg Documented By: MICKI Ondansetron HCl (Ondansetron Inj 2 Mg/Ml 2 Ml Vial) 4 mg IV NOW STA Stop: 06/11/24 10:49 Last Admin: 06/11/24 11:26 Dose: 4 mg Documented By: MICKI Ondansetron HCl (Ondansetron Inj 2 Mg/Ml 2 Ml Vial) 4 mg IV NOW STA Stop: 06/11/24 12:46 Last Admin: 06/11/24 13:12 Dose: 4 mg Documented By: MICKI Potassium Chloride (Potassium Chloride Crtab 20 Meq Tabcr) 20 meq PO TID [facility] Stop: 07/12/24 08:59 Last Admin: 06/13/24 21:44 Dose: 20 meq Documented By: Admin: 06/13/24 15:09 Dose: 20 meq Documented By: Admin: 06/13/24 09:44 Dose: 20 meq Documented By: Admin: 06/12/24 20:38 Dose: 20 meq Documented By: Admin: 06/12/24 14:14 Dose: 20 meq Documented By: Admin: 06/12/24 08:53 Dose: 20 meq Documented By: IRON Prednisone (Prednisone 10 Mg Tablet) 10 mg PO NOW ONE Stop: 06/12/24 13:46 Last Admin: 06/12/24 14:14 Dose: 10 mg Documented By: IRON Medical Decision Making Differential Diagnosis Differential diagnoses includes gastritis, gastroenteritis, IBS, small bowel obstruction, pancreatitis, peritonitis, constipation, abdominal abcess, among others. Medical Records Attestation: I reviewed the patient's medical records. Home Medications was personally reviewed by me Laboratory Data Attestation: I reviewed the patient's lab results. 06/14/24 05:59 06/14/24 05:59 Lab Results 06/11/24 06/11/24 Range/Units 10:52 13:06 WBC 3.69 L (4.8-10.8) K/ul RBC 4.32 L (4.70-6.10) M/uL Hgb 14.6 (14.0-18.0) g/dl Hct 41.0 L (42.0-52.0) % MCV 94.9 (80.0-100.0) fL MCH 33.8 (25.0-34.0) pg MCHC 35.6 (32.0-36.0) g/dL RDW Std Deviation 45.5 (36.4-46.3) fL RDW Coeff of Nohemy 13.0 (11.5-14.5) % Plt Count 170 (130-400) K/uL MPV 10.7 (9.4-12.4) fL Immature Gran % (Auto) 0.3 % Neut % (Auto) 55.5 % Lymph % (Auto) 29.8 % [place] % (Auto) 11.4 % Eos % (Auto) 1.6 % Baso % (Auto) 1.4 % Neut # (Auto) 2.05 (1.40-6.50) K/uL Lymph # (Auto) 1.10 L (1.20-3.40) K/uL [place] # (Auto) 0.42 (0.11-0.59) K/uL Eos # (Auto) 0.06 (0.00-0.50) K/uL Baso # (Auto) 0.05 (0.00-0.20) K/uL Immature Gran # (Auto) 0.01 (0.01-0.20) K/uL Sodium 142 (136-145) mmol/L Potassium 3.1 L (3.5-5.1) mmol/L Chloride 104 (98-107) mmol/L Carbon Dioxide 23 (21-32) mmol/L Anion Gap 15 H (3-11) BUN 4 L (6-23) mg/dl Creatinine 0.51 L (0.6-1.4) mg/dl Est Cr Clr Drug Dosing 243.2 ml/min eGFR 136.44 BUN/Creatinine Ratio 7.8 L (10-20) Glucose 79 (70-99(Fasting)) mg/dl Calcium 8.2 L (8.6-10.3) mg/dl Magnesium 1.2 L (1.7-2.4) mg/dl Total Bilirubin 0.7 (0.2-1.0) mg/dl AST 210 H (13-39) U/L ALT 80 H (7-52) U/L Alkaline Phosphatase 88 (34-104) U/L Total Protein 6.9 (6.0-8.3) gm/dl Albumin 4.3 (3.4-5.0) gm/dl Globulin 2.6 (2.5-4.0) gm/dl Albumin/Globulin Ratio 1.7 (0.9-2) Amylase 27 (25-115) U/L Lipase 63 (11-82) U/L Urine Color Yellow Urine Appearance Clear (Clear) Urine pH 6.5 (4.5-7.5) Ur Specific [place] 1.028 (1.000-1.030) Urine Protein Negative (Negative) Urine Glucose (UA) Negative (Negative) Urine Ketones Negative (Negative) Urine Blood Negative (Negative) Urine Nitrite Negative (Negative) Urine Bilirubin Negative (Negative) Urine Urobilinogen Negative (Negative) Ur Leukocyte Esterase Negative (Negative) Ethyl Alcohol mg/dL 15.7 H (<10.0) mg/dl [facility] Narrative Patient is a 35-year-old male that presents to the emergency department with complaints of abdominal pain. Patient states that he has a history of pancreatitis and states that this feels similar. Patient reports that he drinks anywhere from a half to a full fifth of vodka a day. Patient states that his last drink was last evening. Patient states that he does not get tremors or seizure activity when he is not drinking but does note that he has been drinking consistently and has not necessarily withdrawn from alcohol thus far. Patient does note some nausea and vomited once this morning. Patient was seen in the [facility] ER yesterday and did not have any abdominal imaging completed. Patient was evaluated by myself and findings are noted in the physical exam above. Patient was ordered IV placement, lab work, EKG, urinalysis, CT of the abdomen pelvis, dose of Zofran and normal saline. Patient's lab work resulted with a white blood cell count of 3.69. Patient had a hemoglobin of 14.6 and hematocrit 41.0. Patient was mildly hypokalemic with potassium 3.1. Patient had an elevated AST of 210. Patient's total bilirubin was normal at 0.7. Patient's ALT was also elevated 80. His alkaline phosphatase was normal at 88. Patient had a normal amylase and lipase. Patient's urine was not indicative of any infection. Patient's medical alcohol was 15.7. Patient CT of the abdomen and pelvis was completed and interpreted by radiology to show improved but still persistent inflammation of the pancreatic head suggestive of pancreatitis. Patient also had some wall thickening in his sigmoid colon which was suggestive of colitis. I discussed all of these findings with the patient who verbalized understanding. Patient states that because of his history of alcohol abuse and concern for alcohol withdrawal he does not feel comfortable going home and would feel better being treated for his pancreatitis pain and alcohol withdrawal while in the hospital. I agreed with the patient that it would be a reasonable option to stay in the hospital for further evaluation and monitoring. Patient states that he is having some worsening pain and was ordered a dose of morphine and Zofran at this time. Patient states that his initial nausea has improved some. At this time the patient states that he is not having any tremors or anxious feeling that would be associated with alcohol withdrawal. Upon reevaluation the patient states that he is more comfortable pain bosch but he is feeling very anxious, the patient's tachycardic and feeling shaky. Patient was ordered 1 mg dose of Ativan at this time. I spoke with Dr. Bone of the [facility] hospitalist group regarding this patient and gave him a full report on the patient's chief complaint, current status, current vitals and the results of his imaging and lab work. Dr. Bone agreed that it would be reasonable for the patient to stay in the hospital for further monitoring and evaluation and accepted the patient for admission under his service. [facility] and management of this patient. Impression Hypokalemia, Abdominal pain, Pancreatitis Discharge Plan Visit Data Chief Complaint: Abdominal Pain Stated Complaint: TOOTH PAIN, REFERRED BY ED Provider: Mina Finnegan ED Midlevel Provider: Jenn Rutledge Discharge Problem: Hypokalemia, Abdominal pain, Pancreatitis Patient Disposition: Admitted As Inpatient Discharge Instructions Interventions: ED Discharge Assessment Last Done: 06/11/24 16:49
[2024-06-11 11:14] LABS: Basophils # (auto) 0.05 K/uL (0.00-0.20); Basophils % (auto) 1.4 %; Eosinophils # (auto) 0.06 K/uL (0.00-0.50); Eosinophils % (auto) 1.6 %; Hemoglobin 14.6 g/dl (14.0-18.0); Immature Granulocytes # (auto) 0.01 K/uL (0.01-0.20); Immature Granulocytes % (auto) 0.3 %; Lymphocytes % (auto) 29.8 %; Mean Corpuscular Hemoglobin 33.8 pg (25.0-34.0); Mean Corpuscular Hgb Conc 35.6 g/dL (32.0-36.0); Mean Corpuscular Volume 94.9 fL (80.0-100.0); Mean Platelet Volume 10.7 fL (9.4-12.4); Monocytes # (auto) 0.42 K/uL (0.11-0.59); Monocytes % (auto) 11.4 %; Neutrophils # (auto) 2.05 K/uL (1.40-6.50); Neutrophils % (auto) 55.5 %; Platelet Count 170 K/uL (130-400); RDW Standard Deviation 45.5 fL (36.4-46.3); Red Blood Count 4.32 M/uL (4.70-6.10); White Blood Count 3.69 K/ul (4.8-10.8)
[2024-06-11] MEDS: ONDANSETRON INJ 2 MG/ML 2 ML VIAL IV STA ×2 (11:26→13:12)
[2024-06-11 11:30] LABS: Albumin Globulin Ratio 1.7 (0.9-2); Albumin Level 4.3 gm/dl (3.4-5.0); BUN Creatinine Ratio 7.8 (10-20); Bilirubin,Total 0.7 mg/dl (0.2-1.0); Calcium 8.2 mg/dl (8.6-10.3); Creatinine Clr Calc Pharmacy 243.2 ml/min; Globulin 2.6 gm/dl (2.5-4.0); Potassium 3.1 mmol/L (3.5-5.1); Total Protein 6.9 gm/dl (6.0-8.3)
[2024-06-11] MEDS: OPTIRAY 320 100ml IV ONE (11:58)
--- NOTE | 2024-06-11 12:25 | CT Scan Report ---
ABDOMEN AND PELVIS CT WITH IV CONTRAST CT DOSE: 1465.41 mGy.cm HISTORY: abdominal pain, hx pancreatitis TECHNIQUE: Multiaxial CT images of the abdomen and pelvis were performed following the IV administrat ion of 94 cc of Optiray, sagittal and coronal reconstructions were done. A dose lowering technique wa s utilized adhering to the principles of ALARA. COMPARISON STUDY: 01/22/2024 FINDINGS: While the peripancreatic inflammation has significantly decreased, there is residual inflam matory reaction in the pancreatic head and uncinate process which locally involves the duodenal bulb and first portion of the duodenum. There is no evidence of a pseudocyst. There is no obstruction. No perforation or free air. There is no pancreatic duct distention. The liver remains abnormal with pronounced, generalized steatosis. The gallbladder is absent. The ryne e ducts are not dilated. The spleen is unremarkable. The adrenal glands are unremarkable. There is no significant renal lesion . There is no hydronephrosis. A small left renal cyst and a probable small left renal angiomyolipoma are present. There is no ascites. There is no bowel obstruction. There is no aortic aneurysm or periaortic adenopa thy. In the pelvis, there is thickening of the wall of the distal descending colon and sigmoid colon raisi ng the possibility of colitis. There are diverticula present but the appearance is atypical for diver ticulitis. The appendix remains mildly distended with no periappendiceal inflammation. No free fluid in the cul-de-sac. The unopacified urinary bladder is grossly negative. There is no significant herni a. The lung bases and bone windows are unremarkable. IMPRESSION: While the flagrant pancreatitis of 01/22/2024 has significantly improved, there is residu al inflammation surrounding the pancreatic head and uncinate process suggestive of focal pancreatitis . There is inflammation in the adjacent duodenal bulb and the proximal descending duodenum. Hepatomegaly with severe steatosis redemonstrated. Wall thickening of the distal descending colon and sigmoid colon suggestive of colitis. ACT 112: Negative or not required by law. The above report was generated using voice recognition software. It may contain grammatical, syntax o r spelling errors. Electronically signed by: Jena Whitehead M.D. 06/11/2024 12:23 PM
[2024-06-11] MEDS: MoRPHine SULFATE 4 MG/ML 1 ML CARP\\VIAL IV STA (13:12)
[2024-06-11 14:01] LABS: Appearance Urine Clear (Clear); Bilirubin Urine Negative (Negative); Blood Urine Negative (Negative); Color Urine Yellow; Glucose Urine UA Negative (Negative); Ketones Urine Negative (Negative); Leukocyte Esterase Urine Negative (Negative); Nitrite Urine Negative (Negative); Protein Urine Negative (Negative); Specific Gravity Urine 1.028 (1.000-1.030); Urobilinogen Urine Negative (Negative); pH Urine 6.5 (4.5-7.5)
[2024-06-11] MEDS: LORazepam 2 MG/1 ML VIAL IV ONE (14:20)
--- NOTE | 2024-06-11 14:56 | History & Physical Report ---
Date of Service June 11, 2024 Assessment & Plan (1) Abdominal pain: (2) Alcohol withdrawal: (3) Abnormal CT of the abdomen: (4) History of pancreatitis: (5) Rheumatoid arthritis: (6) Gout: (7) Hypomagnesemia: (8) Hypokalemia: (9) Neuropathy: (10) Depression: (11) HTN (hypertension): (12) POTS (postural orthostatic tachycardia syndrome): (13) Anxiety: (14) Transaminitis: (15) History of pulmonary embolus (PE): Plan 35yo male with long-standing alcohol dependence, anxiety/depression, prior episode of pancreatitis 01/2024 requiring hospitalization at [facility], rheumatoid arthritis, gout, and diagnosis of PEs at [facility] in 04/2024 (prescribed Eliquis but hasn't been taking it) - presents with ongoing abdominal pain and nausea along with request for alcohol detox. Admit CT with focal pancreatic inflammation of the pancreatic head (significant improvement from prior CT 01/2024) as well as duodenal inflammation and ?distal colon colitis. #abdominal pain - * patient could have mild focal pancreatitis of the head of the pancreas with se condary duodenitis * however, lipase is normal today * alternatively, perhaps most of his pain is upper GI in origin - alcoholic gastritis and/or PUD (either gastric or duodenal) * keep NPO except meds/ice chips * IV fluids * pain meds * repeat LFTs and lipase in am * protonix 40mg IV BID * GI consult requested - does he need EGD to r/o gastritis/PUD in light of CT findings? certainly at risk of PUD/gastritis given heavy alcohol use, NSAID use, etc. #abnormal pancreas - * lipase is normal but head of pancreas shows inflammation on CT today * the pancreas overall is improved relative to his CT done in 01/2024 * there are no pancreatic calcifications to indicate chronic pancreatitis * see "abd pain" above * check lipid profile to ensure normal triglyerides #abnormal duodenum - * reactive/secondary to focal pancreatitis of head of pancreas? * primary issue (ie - PUD) due to etoh/NSAID use? * see above * PPI * NPO #hypokalemia - * 2nd to hypomagnesemia, poor appetite, etc * replace with IV KCL x 30meq, then add KCL to basal fluids * replace low mag #hypomagnesemia - * 2nd to alcohol abuse * mag sulfate IV now with repeat mag level am * weakness of legs and numbness could be exacerbated by the low K and low mag #alcohol dependence - * long-standing abuse of liquor; fifth vodka/day * has not had sobriety in many years * is motivated to quit * willing to speak to psych while hospitalized * does have outside counselor in [facility] * consider Naltrexone therapy following withdrawal * thiamine 200mg BID * folic acid 1mg daily * MVI daily * check B12 level in am (h/o deficiency) #alcohol withdrawal - * suspect he has already started to withdraw - anxious, diaphoresis/clamminess, tachy, hypertensive * place on gabapentin protocol/taper * ativan prn per AWSS scoring * telemetry #h/o PEs - 04/2024 - * has taken very little Eliquis since the diagnosis * the heavy etoh use with Eliquis is potentially dangerous * since he is really not taking the Eliquis regularly will re-image the chest to see if there are any remaining PEs * once CTA is back can decide what to do with anticoagulation moving forward * risk factor for PEs - inflammatory state from poorly controlled RA? genetic factors? #neuropathy of legs - * 2nd to alcohol? * 2nd B12 def? * gabapentin for etoh withdrawal will help; consider keeping on low-dose following admission * check b12 level am #gout - podagra of L foot - * severe inflammation * given the uncertainty of whether he has gastritis and/or PUD defer on NSAIDs/steroids * gout likely 2nd to heavy etoh abuse * cont allopurinol daily #HTN - * uncontrolled * increase clonidine to 0.1mg BID * this will help sleep, anxiety, and his BP #rheumatoid arthritis - * follows with Dr Salinas, [facility] Rheum * main issue right now is gout rather than RA * [id number] will need f/u with Dr Salinas #DVT proph - * will decide DVT Proph once CTA chest results have returned #depression/anxiety - * cont sertraline daily * psych consult requested * alcohol playing a large role in his moods * check B12 in am History of Present Illness Chief Complaint: abdominal pain, request for detox from etoh Primary Care Provider: Amee Toribio PA-C 35yo male with alcohol dependence, anxiety/depression, prior episode of pancrea titis, rheumatoid arthritis, gout, and diagnosis of PEs at [facility] in 04/2024 (prescribed Eliquis but hasn't been taking it) - presents with ongoing abdominal pain and nausea along with request for alcohol detox. 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 He has a strong desire to stop drinking. Last etoh consumption - evening of 06/10/24 (fifth vodka - drink of choice). Already this afternoon he is experiencing anxiety, sweats/clamminess, mild tremor, and is tachycardic/hypertensive. Ativan IV x 1 was given earlier with relief of some of these symptoms. Denies any melena. NO pain with eating food but he really hasn't eaten in about 3 days. He states several times he feels dehydrated. NO hematemesis or coffee-ground emesis. He reports minimal amount of BRBPR that he presumes is from hemorrhoids (has had colonoscopy showing such in the past). Finally, patient had gone to [facility] last pm for his abdominal pain. He did not have imaging during that ER visit and was ultimately discharged. Allergies Allergy/AdvReac Type Severity Reaction Status Date / Time No Known Allergies Allergy Verified 06/02/24 14:04 Home Medications Medication Instructions Recorded Confirmed Type apixaban 5 mg tablet (Eliquis) 5 mg PO BID 05/07/24 06/11/24 History clonidine HCl 0.1 mg tablet 0.1 mg PO QAM #30 tabs 05/22/24 06/11/24 Rx allopurinol 100 mg tablet 100 mg PO DAILY #30 tabs 06/02/24 06/11/24 Rx omeprazole 40 mg capsule,delayed 40 mg PO DAILY #90 caps 06/02/24 06/11/24 Rx release meloxicam 15 mg tablet 15 mg PO UD 06/11/24 06/11/24 History sertraline 50 mg tablet 50 mg PO DAILY 06/11/24 06/11/24 History Past Med/Surg History Problem List (Updated 06/11/24 @ 21:43 by Osmar Bone MD) Transaminitis Abnormal CT of the abdomen Abdominal pain Hypomagnesemia (Acute) Hypokalemia Hyponatremia Hyperuricemia Elevated liver function tests Vasovagal syncope Arthralgia of multiple sites Medical History (Updated 06/11/24 @ 21:43 by Osmar Bone MD) History of pulmonary embolus (PE) Gout History of pancreatitis Rheumatoid arthritis Alcohol abuse Neuropathy B12 deficiency Vitamin D deficiency Depression HTN (hypertension) Anxiety POTS (postural orthostatic tachycardia syndrome) Surgical History S/P cholecystectomy January 2016 Family History (Updated 06/11/24 @ 21:45 by Osmar Bone MD) Sister VTE (venous thromboembolism) Father Hyperlipidemia Other Colorectal cancer Diabetes Myocardial infarction Denies family history of Ovarian cancer Prostate cancer Alcoholism Breast cancer Lung cancer Social History (Updated 06/11/24 @ 21:47 by Osmar Bone MD) Smoking Status: Never smoker Second Hand Exposure: No; Do You Dip or Chew Tobacco: No; Hx Alcohol Use: Yes Alcohol type: hard liquor Alcohol type Comment: vodka - fifth/day Alcohol Intake Frequency: 4 or More x per/Week Hx Substance Use: No Preferred Language: Iraqi Communication Ability: Effective Hearing Ability: Normal Associate Professor Of Biology Required: No Beliefs That Will Affect Care: None marital status: Single Current Living Situation: Alone Current Living Situation Comment: house current occupational status: employed and unemployed current occupation: nursing How many Children do You have: 0 Other Information That Helps Us Care for You: No Feels Safe at Home: Yes Safety Concerns: Feels Safe At This Time Dental Care, Regularly: Yes Physical Activity Frequency: Does not Exercise Assistive Devices: Glasses Review of Systems Review of Systems: gen - no fevers or chills but has had clamminess/sweats today; poor appetite for several days eyes - no recent changes in vision HENT - no URI symptoms CV - no chest pain pulm - no dyspnea or cough GI - some nausea, upper abdominal pain; no diarrhea; no melena; no BRBPR - no LUTS musculo - severe left great toe pain; chronic RA joint pain neuro - numbness b/l legs from the knees to the feet; generalized weakness skin - no rash endo - no diabetes psych - anxiety (severe); depression Physical Exam Physical Exam: gen - nontoxic; anxious; awake/alert eyes - PERRL; anicteric sclera mouth - MM modestly dry, no lesions neck - no JVD heart - tachycardic, s1 s2, no murmur lungs - CTA b/l abd - soft, ND, BS+; tender high epigastric region; liver edge palpable; spleen not palpable ext - warm, pulses 2+ b/l skin - no rash but is sweaty psych - anxious but awake/alert, good historian neuro - mild tremors; strength 5/5 x 4 exts; DTRs hyper-reflexic Results & Data Results & Data Vital Signs (Past 12 Hours) Vital Signs Temp Pulse Resp BP Pulse Ox O2 Del Method 06/11/24 10:59 85 18 96 Room Air 06/11/24 10:51 102 H 06/11/24 10:29 36.5 C 87 18 158/100 H 99 Room Air Laboratory Results Laboratory Results - last 24 hr 06/11/24 06/11/24 10:52 13:06 WBC 3.69 L RBC 4.32 L Hgb 14.6 Hct 41.0 L MCV 94.9 MCH 33.8 MCHC 35.6 RDW Std Deviation 45.5 RDW Coeff of Nohemy 13.0 Plt Count 170 MPV 10.7 Immature Gran % (Auto) 0.3 Neut % (Auto) 55.5 Lymph % (Auto) 29.8 [place] % (Auto) 11.4 Eos % (Auto) 1.6 Baso % (Auto) 1.4 Neut # (Auto) 2.05 Lymph # (Auto) 1.10 L [place] # (Auto) 0.42 Eos # (Auto) 0.06 Baso # (Auto) 0.05 Immature Gran # (Auto) 0.01 Sodium 142 Potassium 3.1 L Chloride 104 Carbon Dioxide 23 Anion Gap 15 H BUN 4 L Creatinine 0.51 L Est Cr Clr Drug Dosing 243.2 eGFR 136.44 BUN/Creatinine Ratio 7.8 L Glucose 79 Calcium 8.2 L Magnesium 1.2 L Total Bilirubin 0.7 AST 210 H ALT 80 H Alkaline Phosphatase 88 Total Protein 6.9 Albumin 4.3 Globulin 2.6 Albumin/Globulin Ratio 1.7 Amylase 27 Lipase 63 Urine Color Yellow Urine Appearance Clear Urine pH 6.5 Ur Specific [place] 1.028 Urine Protein Negative Urine Glucose (UA) Negative Urine Ketones Negative Urine Blood Negative Urine Nitrite Negative Urine Bilirubin Negative Urine Urobilinogen Negative Ur Leukocyte Esterase Negative Ethyl Alcohol mg/dL 15.7 H Diagnostic Findings Abdomen/Pelvis CT 06/11/24 10:[address] WITH IV CONTRAST CT DOSE: 1465.41 mGy.cm HISTORY: abdominal pain, hx pancreatitis TECHNIQUE: Multiaxial CT images of the abdomen and pelvis were performed following the IV administration of 94 cc of Optiray, sagittal and coronal reconstructions were done. A dose lowering technique was utilized adhering to the principles of ALARA. COMPARISON STUDY: 01/22/2024 FINDINGS: While the peripancreatic inflammation has significantly decreased, there is residual inflammatory reaction in the pancreatic head and uncinate process which locally involves the duodenal bulb and first portion of the duodenum. There is no evidence of a pseudocyst. There is no obstruction. No perforation or free air. There is no pancreatic duct distention. The liver remains abnormal with pronounced, generalized steatosis. The gallbladder is absent. The bile ducts are not dilated. The spleen is unremarkable. The adrenal glands are unremarkable. There is no significant renal lesion. There is no hydronephrosis. A small left renal cyst and a probable small left renal angiomyolipoma are present. There is no ascites. There is no bowel obstruction. There is no aortic aneurysm or periaortic adenopathy. In the pelvis, there is thickening of the wall of the distal descending colon and sigmoid colon raising the possibility of colitis. There are diverticula present but the appearance is atypical for diverticulitis. The appendix remains mildly distended with no periappendiceal inflammation. No free fluid in the cul-de-sac. The unopacified urinary bladder is grossly negative. There is no significant hernia. The lung bases and bone windows are unremarkable. IMPRESSION: While the flagrant pancreatitis of 01/22/2024 has significantly improved, there is residual inflammation surrounding the pancreatic head and uncinate process suggestive of focal pancreatitis. There is inflammation in the adjacent duodenal bulb and the proximal descending duodenum. Hepatomegaly with severe steatosis redemonstrated. Wall thickening of the distal descending colon and sigmoid colon suggestive of colitis. ACT 112: Negative or not required by law. The above report was generated using voice recognition software. It may contain grammatical, syntax or spelling errors. Electronically signed by: Jena Whitehead M.D. 06/11/2024 12:23 PM EKG - my reading - NSR; NS ST changes V4-V6; inferior ST segment flattening Code Status & VTE Plan Code Status full code PG Care Time/CCT Total # of Minutes Spent Total Time Spent with Patient: Total time spent is greater than 50% in coordination of care (as documented) at patient's floor/unit and/or counseling patient: Coding Level of Care Code 73515 INT INP/OBS CARE 3/75MIN Diagnoses Abdominal pain R10.9 Alcohol withdrawal F10.[address] of the abdomen R93.5 History of pancreatitis Z87.19 Rheumatoid arthritis M06.9 Gout, unspecified cause, unspecified chronicity, unspecified site M10.9 Chronicity: unspecified Gout etiology: unspecified cause Gout site: unspecified site Hypomagnesemia E83.42 Hypokalemia E87.6 Neuropathy G62.9 Depression F32.A HTN (hypertension) I10 POTS (postural orthostatic tachycardia syndrome) R00.0; I95.1 Anxiety F41.9 Transaminitis R74.01 History of pulmonary embolus (PE) Z86.711 (6) Gout Chronicity: unspecified Gout etiology: unspecified cause Gout site: unspecified site Qualified Code(s): M10.9 - Gout, unspecified
[2024-06-11 15:42] LABS: Magnesium 1.2 mg/dl (1.7-2.4)
[2024-06-11] MEDS ORDERED: Ativan IV Alcohol Withdrawal--Active Protocol IV PRN (16:48)
[2024-06-11] MEDS ORDERED: LORazepam 2 MG/1 ML VIAL IV PRN (16:48)
[2024-06-11] MEDS ORDERED: GABAPENTIN 1200MG ALCOHOL WITHDRAWAL LOAD PO STA (16:48)
[2024-06-11] MEDS: POTASSIUM CHLORIDE / WTR 10 MEQ/100 ML PLCT IV SCH (17:09)
[2024-06-11] MEDS: PANTOprazole 40 MG/10 ML SYR IV ONE (17:09)
[2024-06-11] MEDS: LORazepam 2 MG/1 ML VIAL IV PRN ×2 (17:10→20:43)
[2024-06-11] MEDS: MAGNESIUM SULFATE / D5W 1 GM/100 ML BAG IV SCH (17:13)
[2024-06-11] MEDS: GABAPENTIN 600 MG TAB PO ONE (17:15)
[2024-06-11] MEDS: FOLIC ACID 1 MG in SYRINGE 9.8 ML IV SCH (17:44)
[2024-06-11] MEDS: THIAMINE HCL 200 MG in SODIUM CHLORIDE 0.9% 50 ML IV SCH (18:51)
[2024-06-11] MEDS: OPTIRAY 320 125ml IV ONE (19:20)
--- NOTE | 2024-06-11 19:29 | CT Scan Report ---
Clinical history: Tachycardia. Pulmonary embolism in April 2024 Technique: Axial computed tomography images were obtained of the chest after the administration of intravenous contrast according to the CT angiogram protocol Comparison is made to the prior CT dated 12/22/2022 Findings: There is no definite sign of pulmonary embolism. There is mild subsegmental atelectasis in both lower lobes. There is no pleural effusion or pneumothorax. There is no sign of pulmonary fibrosis or other diffuse interstitial process. No endobronchial lesion is seen There is no mediastinal, hilar, or axillary adenopathy. The thoracic aorta appears unremarkable with no sign of aneurysm or dissection. There is no pericardial effusion There is diffuse fatty infiltration of the liver. The gallbladder has been removed. No fracture is seen. No focal osseous lesion is evident Impression: 1. No definite sign of pulmonary embolism 2. Mild bilateral lower lobe atelectasis 3. Fatty infiltration of the liver Electronically signed by Evens Real 06-11-2024 7:29 PM
[2024-06-11] MEDS: PANTOprazole 40 MG/10 ML SYR IV SCH (20:02)
[2024-06-11] MEDS: cloNIDine HCL 0.1 MG TAB PO SCH (20:03)
[2024-06-11] MEDS: HYDROCORTISONE ACETATE 25 MG SUPP PR SCH (20:03)
--- NOTE | 2024-06-11 20:35 | Electrocardiogram Report ---
Test Reason : Blood Pressure : */* mmHG Vent. Rate : 92 BPM Atrial Rate : 92 BPM P-R Int : 150 ms QRS Dur : 80 ms QT Int : 352 ms P-R-T Axes : 30 48 22 degrees QTcB Int : 435 ms Normal sinus rhythm Nonspecific T wave abnormality Abnormal ECG When compared with ECG of 22-Dec-2022 11:49, OR interval has increased Nonspecific T wave abnormality has replaced inverted T waves in Anterolateral leads T wave inversion no longer evident in Inferior leads Confirmed by Brice Mariscal ([id number]) on 06/11/2024 8:35:30 PM Referred By: Amee Toribio Confirmed By: Brice Mariscal
[2024-06-11] MEDS: MoRPHine SULFATE 2 MG/ML CARP IV PRN (20:43)
[2024-06-11] MEDS: POTASSIUM CHLORIDE 20 MEQ in D5W AND LACTATED RINGERS 1,000 ML IV SCH (20:47)
[2024-06-11] MEDS: GABAPENTIN 600 MG TAB PO SCH (22:55)
[2024-06-12] MEDS ORDERED: Nursing to Pharmacy Communication SCH (00:15)
[2024-06-12] MEDS: ONDANSETRON INJ 2 MG/ML 2 ML VIAL IV PRN (06:13)
[2024-06-12 06:54] LABS: Hematocrit (blood only) 35.2 % (42.0-52.0); Hemoglobin 12.4 g/dl (14.0-18.0); Mean Corpuscular Hgb Conc 35.2 g/dL (32.0-36.0); Mean Corpuscular Volume 96.4 fL (80.0-100.0); Mean Platelet Volume 10.9 fL (9.4-12.4); Platelet Count 124 K/uL (130-400); RDW Coefficient of Variation 13.4 % (11.5-14.5); RDW Standard Deviation 47.9 fL (36.4-46.3); Red Blood Count 3.65 M/uL (4.70-6.10); White Blood Count 4.08 K/ul (4.8-10.8)
[2024-06-12 07:31] LABS: Albumin Globulin Ratio 1.4 (0.9-2); Albumin Level 3.4 gm/dl (3.4-5.0); BUN Creatinine Ratio 5.3 (10-20); Bilirubin,Total 1.3 mg/dl (0.2-1.0); Calcium 7.8 mg/dl (8.6-10.3); Chol HDL Ratio 2.2 (0-5); Globulin 2.5 gm/dl (2.5-4.0); Magnesium 1.4 mg/dl (1.7-2.4); Potassium 3.2 mmol/L (3.5-5.1); Total Protein 5.9 gm/dl (6.0-8.3)
[2024-06-12 07:38] LABS: Thyroid Stimulating Hormone 4.151 uIu/ml (0.300-4.500)
[2024-06-12] MEDS: allopurinoL 100 MG TAB PO SCH (08:42)
[2024-06-12] MEDS: SERTRALINE HCL 50 MG TABLET PO SCH (08:42)
[2024-06-12] MEDS: MULTIVITAMIN TAB PO SCH (08:42)
[2024-06-12] MEDS: POTASSIUM CHLORIDE CRTAB 20 MEQ TABCR PO SCH (08:53)
[2024-06-12] MEDS: MAGNESIUM SULFATE / D5W 1 GM/100 ML BAG IV SCH (08:54)
--- NOTE | 2024-06-12 11:44 | Gastrointestinal Consultation ---
Date of Consultation June 12, 2024 Assessment & Plan (1) Abnormal CT of the abdomen: Suspect that pancreatitis is related to ongoing etoh use. - recommend supportive care. Keep NPO. IVF. pain control. - I recommended that he work on ceasing ETOH use. would consider rehab options. - continue with pantoprazole 40mg IV BID. - As for the question of duodenitis and wall thickening in the sigmoid and descending colon, could consider further evaluation of this once pancreatitis has cooled down. Supervising Physician Co-Signing Physician Notes I saw and examined this patient with our nurse practitioner and agree with her assessment and plan. Suspect recurrent episode of pancreatitis secondary to alcohol abuse. In addition CT scan shows some inflammatory changes in the duodenum as well as some thickened loops of colon. He does have a longstanding history of diarrhea. Continue to manage patient for this can advance to clear liquid diet today. Continue management for alcohol withdrawal. Ultimately needs an endoscopy and colonoscopy to further evaluate CT scan imaging. Can be done as an outpatient if he continues to improve otherwise could consider doing it next week. History of Present Illness Reason for Consultation: etoh abuse, duodenal PUD? pancreatitis? Requesting Physician: Osmar Bone MD Attending Physician: Osmar Bone MD History of Present Illness Patient is a 35 year old male with a long standing alcohol dependence, anxiety/depression, prior episode of pancreatitis 01/2024 requiring hospitalization at [facility], rheumatoid arthritis, gout, and diagnosis of PEs at [facility] in 04/2024 (prescribed Eliquis but hasn't been taking it), who presented to the ED 06/11/24 with complaints of abdominal pain similar to past episodes of pancreatiits and nausea along with request for alcohol detox. CT imaging showing focal pancreatic inflammation of the pancreatic head (significant improvement from prior CT 01/2024) as well as duodenal inflammation and wall thickening of the distal descending colon and sigmoid colon suggestive of colitis. He admits to daily alcohol use and drinks as much as a fifth of vodka a day. he denies any diarrhea. no brbpr or melena. rest of GI ros are unremarkable. Allergies Allergy/AdvReac Type Severity Reaction Status Date / Time No Known Allergies Allergy Verified 06/02/24 14:04 Home Medications Medication Instructions Recorded Confirmed Type apixaban 5 mg tablet (Eliquis) 5 mg PO BID 05/07/24 06/11/24 History clonidine HCl 0.1 mg tablet 0.1 mg PO QAM #30 tabs 05/22/24 06/11/24 Rx allopurinol 100 mg tablet 100 mg PO DAILY #30 tabs 06/02/24 06/11/24 Rx omeprazole 40 mg capsule,delayed 40 mg PO DAILY #90 caps 06/02/24 06/11/24 Rx release meloxicam 15 mg tablet 15 mg PO UD 06/11/24 06/11/24 History sertraline 50 mg tablet 50 mg PO DAILY 06/11/24 06/11/24 History Patient History Medical History (Updated 06/11/24 @ 21:43 by Osmar Bone MD) History of pulmonary embolus (PE) Gout History of pancreatitis Rheumatoid arthritis Alcohol abuse Neuropathy B12 deficiency Vitamin D deficiency Depression HTN (hypertension) Anxiety POTS (postural orthostatic tachycardia syndrome) Surgical History S/P cholecystectomy January 2016 Family History (Updated 06/11/24 @ 21:45 by Osmar Bone MD) Sister VTE (venous thromboembolism) Father Hyperlipidemia Other Colorectal cancer Diabetes Myocardial infarction Denies family history of Ovarian cancer Prostate cancer Alcoholism Breast cancer Lung cancer Social History (Updated 06/11/24 @ 21:47 by Osmar Bone MD) Smoking Status: Never smoker Second Hand Exposure: No; Do You Dip or Chew Tobacco: No; Hx Alcohol Use: Yes Alcohol type: hard liquor Alcohol type Comment: vodka - fifth/day Alcohol Intake Frequency: 4 or More x per/Week Hx Substance Use: No Preferred Language: Chinese Communication Ability: Effective Hearing Ability: Normal Fruit Sorter Required: No Beliefs That Will Affect Care: None marital status: Single Current Living Situation: Alone Current Living Situation Comment: house current occupational status: employed and unemployed current occupation: nursing How many Children do You have: 0 Other Information That Helps Us Care for You: No Feels Safe at Home: Yes Safety Concerns: Feels Safe At This Time Dental Care, Regularly: Yes Physical Activity Frequency: Does not Exercise Assistive Devices: None Review of Systems Review of Systems: All systems reviewed & are unremarkable except as noted in HPI & below Physical Exam Constitutional: WD/WN, vitals as above Respiratory: normal respiratory effort, lungs clear to auscultation Cardiovascular: Rate/Rhythm: regular rate and regular rhythm Gastrointestinal (Abdomen): diffuse tenderness, no guarding, soft, hypoactive bowel sounds. Psychiatric: Orientation: alert and oriented x 3 Results & Data Vital Signs (Past 12 Hours) Vital Signs Temp Pulse Resp BP BP Pulse Ox Pulse Ox 06/12/24 11:14 97.9 F 90 22 147/101 H 97 06/12/24 10:06 06/12/24 08:07 97.9 F 96 H 20 151/101 H 97 06/12/24 06:04 98.2 F 98 H 18 141/100 H 97 06/12/24 03:54 97.7 F 110 H 20 147/95 H 97 06/12/24 02:31 98.1 F 108 H 20 146/103 H 98 06/12/24 00:00 96 06/11/24 23:58 98.4 F 91 H 20 144/108 H 97 O2 Del Method O2 Del Method 06/12/24 11:14 Room Air 06/12/24 10:06 Room Air 06/12/24 08:07 Room Air 06/12/24 06:04 Room Air 06/12/24 03:54 Room Air 06/12/24 02:31 Room Air 06/12/24 00:00 Room Air 06/11/24 23:58 Room Air Laboratory Results Laboratory Results - last 48 hr 06/11/24 06/11/24 06/12/24 10:52 13:06 06:32 WBC 3.69 L 4.08 L RBC 4.32 L 3.65 L Hgb 14.6 12.4 L Hct 41.0 L 35.2 L MCV 94.9 96.4 MCH 33.8 34.0 MCHC 35.6 35.2 RDW Std Deviation 45.5 47.9 H RDW Coeff of Nohemy 13.0 13.4 Plt Count 170 124 L MPV 10.7 10.9 Immature Gran % (Auto) 0.3 Neut % (Auto) 55.5 Lymph % (Auto) 29.8 [place] % (Auto) 11.4 Eos % (Auto) 1.6 Baso % (Auto) 1.4 Neut # (Auto) 2.05 Lymph # (Auto) 1.10 L [place] # (Auto) 0.42 Eos # (Auto) 0.06 Baso # (Auto) 0.05 Immature Gran # (Auto) 0.01 Sodium 142 140 Potassium 3.1 L 3.2 L Chloride 104 103 Carbon Dioxide 23 30 Anion Gap 15 H 7 BUN 4 L 3 L Creatinine 0.51 L 0.57 L Est Cr Clr Drug Dosing 243.2 219.0 eGFR 136.44 131.93 BUN/Creatinine Ratio 7.8 L 5.3 L Glucose 79 107 H Calcium 8.2 L 7.8 L Magnesium 1.2 L 1.4 L Total Bilirubin 0.7 1.3 H D AST 210 H 106 H ALT 80 H 56 H Alkaline Phosphatase 88 77 Total Protein 6.9 5.9 L Albumin 4.3 3.4 Globulin 2.6 2.5 Albumin/Globulin Ratio 1.7 1.4 Triglycerides 111 Cholesterol 182 LDL Cholesterol, Calc 78 VLDL Cholesterol, Calc 22 HDL Cholesterol 82 Cholesterol/HDL Ratio 2.2 Amylase 27 Lipase 63 34 Vitamin B12 303 TSH 4.151 Urine Color Yellow Urine Appearance Clear Urine pH 6.5 Ur Specific [place] 1.028 Urine Protein Negative Urine Glucose (UA) Negative Urine Ketones Negative Urine Blood Negative Urine Nitrite Negative Urine Bilirubin Negative Urine Urobilinogen Negative Ur Leukocyte Esterase Negative Ethyl Alcohol mg/dL 15.7 H SARS-CoV-2 (PCR) Influenza Type A (PCR) Influenza Type B (PCR) RSV (RT-PCR) 06/12/24 12:10 WBC RBC Hgb Hct MCV MCH MCHC RDW Std Deviation RDW Coeff of Nohemy Plt Count MPV Immature Gran % (Auto) Neut % (Auto) Lymph % (Auto) [place] % (Auto) Eos % (Auto) Baso % (Auto) Neut # (Auto) Lymph # (Auto) [place] # (Auto) Eos # (Auto) Baso # (Auto) Immature Gran # (Auto) Sodium Potassium Chloride Carbon Dioxide Anion Gap BUN Creatinine Est Cr Clr Drug Dosing eGFR BUN/Creatinine Ratio Glucose Calcium Magnesium Total Bilirubin AST ALT Alkaline Phosphatase Total Protein Albumin Globulin Albumin/Globulin Ratio Triglycerides Cholesterol LDL Cholesterol, Calc VLDL Cholesterol, Calc HDL Cholesterol Cholesterol/HDL Ratio Amylase Lipase Vitamin B12 TSH Urine Color Urine Appearance Urine pH Ur Specific [place] Urine Protein Urine Glucose (UA) Urine Ketones Urine Blood Urine Nitrite Urine Bilirubin Urine Urobilinogen Ur Leukocyte Esterase Ethyl Alcohol mg/dL SARS-CoV-2 (PCR) NEGATIVE Influenza Type A (PCR) Negative Influenza Type B (PCR) Negative RSV (RT-PCR) Negative Diagnostic Findings Chest CTA 06/11/24 16:28 Clinical history: Tachycardia. Pulmonary embolism in April 2024 Technique: Axial computed tomography images were obtained of the chest after the administration of intravenous contrast according to the CT angiogram protocol Comparison is made to the prior CT dated 12/22/2022 Findings: There is no definite sign of pulmonary embolism. There is mild subsegmental atelectasis in both lower lobes. There is no pleural effusion or pneumothorax. There is no sign of pulmonary fibrosis or other diffuse interstitial process. No endobronchial lesion is seen There is no mediastinal, hilar, or axillary adenopathy. The thoracic aorta appears unremarkable with no sign of aneurysm or dissection. There is no pericardial effusion There is diffuse fatty infiltration of the liver. The gallbladder has been removed. No fracture is seen. No focal osseous lesion is evident Impression: 1. No definite sign of pulmonary embolism 2. Mild bilateral lower lobe atelectasis 3. Fatty infiltration of the liver Electronically signed by Evens Real 06-11-2024 7:29 PM Coding Level of Care Code 67471 IN/OBS CONSULT LVL 4,60M Diagnoses Abnormal CT of the abdomen R93.5
[2024-06-12] MEDS: GABAPENTIN 600 MG TAB PO SCH (12:43)
[2024-06-12 13:19] LABS: Influenza A virus by PCR Negative (Neg); Influenza B virus by PCR Negative (Neg); RSV by PCR Negative (Neg); SARS CoV2 RNA(COVID-19) Ceph NEGATIVE (Negative)
--- NOTE | 2024-06-12 13:45 | Hospitalist Progress Note ---
Date of Service June 12, 2024 Assessment & Plan (1) Abdominal pain: (2) Alcohol withdrawal: (3) Abnormal CT of the abdomen: (4) History of pancreatitis: (5) Rheumatoid arthritis: (6) Gout: (7) Hypomagnesemia: (8) Hypokalemia: (9) Neuropathy: (10) Depression: (11) HTN (hypertension): (12) POTS (postural orthostatic tachycardia syndrome): (13) Anxiety: (14) Transaminitis: (15) History of pulmonary embolus (PE): (16) B12 deficiency: (17) Pancytopenia: Plan 35yo male with long-standing alcohol dependence, anxiety/depression, prior episode of pancreatitis 01/2024 requiring hospitalization at [facility], rheumatoid arthritis, gout, and diagnosis of PEs at [facility] in 04/2024 (prescribed Eliquis but hasn't been taking it) - presents with ongoing abdominal pain and nausea along with request for alcohol detox. Admit CT with focal pancreatic inflammation of the pancreatic head (significant improvement from prior CT 01/2024) as well as duodenal inflammation and ?distal colon colitis. #abdominal pain - * patient could have mild focal pancreatitis of the head of the pancreas with secondary duodenitis * however, lipase x 2 wnl * alternatively, perhaps most of his pain is upper GI in origin - alcoholic gastritis and/or PUD (either gastric or duodenal) * pain has improved thus allow clears * IV fluids but lower rate to 75ml/hr * pain meds prn * cont protonix 40mg IV BID another day then if stable tomorrow convert to PO * appreciate GI consult - for now EGD deferred; cont supportive care #abnormal pancreas / pancreatitis - * lipase x2 normal but head of pancreas showed inflammation on CT a/p at admission * the pancreas overall is improved relative to his CT done in 01/2024 * there are no pancreatic calcifications to indicate chronic pancreatitis * see "abd pain" above * normal triglycerides on lipid profile * does not have a gall bladder * abd pain is improved today thus allow clear liquid diet * appreciate GI consult #abnormal duodenum - * reactive/secondary to focal pancreatitis of head of pancreas? * primary issue (ie - PUD) due to etoh/NSAID use? * see above * PPI * no EGD at this time per GI #hypokalemia - * 2nd to hypomagnesemia, poor appetite, etc * ongoing * replace low mag * replace low K with IV/PO * repeat BMP/mag in am #hypomagnesemia - * 2nd to alcohol abuse * mag sulfate IV again today * repeat mag level am * weakness of legs and numbness could be exacerbated by the low K and low mag #alcohol dependence - * long-standing abuse of liquor; fifth vodka/day * has not had sobriety in many years * is motivated to quit * spoke to psych; willing to consider inpatient rehab at conclusion of his medical stay (vs outpatient services) * does have outside counselor in [facility] * consider Naltrexone therapy following withdrawal * thiamine 200mg BID * folic acid 1mg daily * MVI daily * B12 level is only 300 --> this is low for a 34yo male; replace * treat his withdrawal as below #alcohol withdrawal - * cont gabapentin protocol/taper * ativan prn per AWSS scoring * clonidine 0.1mg BID * telemetry * IV fluids * supportive care #h/o PEs - 04/2024 - * has taken very little Eliquis since the diagnosis * the heavy etoh use with Eliquis is potentially dangerous * CTA chest this admission -- NO PEs seen * will attempt to get CTA from [facility] and then will decide about anticoagulation * potentially may not need such * risk factor for PEs - inflammatory state from poorly controlled RA? genetic factors? #neuropathy of legs - * 2nd to alcohol? * 2nd B12 def? * gabapentin for etoh withdrawal will help; consider keeping on low-dose following admission; I did discuss this with him today * replace low B12 #gout - podagra of L foot and R ankle synovitis - * severe * gout likely 2nd to heavy etoh abuse * cont allopurinol daily * he deserves Rx as the b/l foot/ankle issues will preclude comfortable amb ulation * thus, prednisone 10mg x 1 now, then 5mg daily for about a week * avoid NSAIDs given the GI issues but will have to use prednisone cautiously #HTN - * uncontrolled 2nd to withdrawal, anxiety, etc. * increased clonidine to 0.1mg BID #rheumatoid arthritis - * follows with Dr Salinas, [facility] * main issue right now is gout rather than RA * [id number]-upp-bpei will need f/u with Dr Salinas * see above re: gout #DVT proph - * start lovenox 40mg daily #depression/anxiety - * cont sertraline daily * psych consult requested * alcohol playing a large role in his moods #pancytopenia - * likely etoh induced * mild * replace low b12 * already on folate supplementation * checked COVID/flu/RSV to r/o viral suppression -- all negative * trend anticipate several more days in hospital Admission and Anticipated Discharge Date Admission Date: June 11, 2024 Subjective tele - NSR or sinus tach pt requiring copious amounts of IV ativan for withdrawal sx's he remains tremulous denies overt hallucinations he was able to carry on normal conversation during the visit abd pain still present but improved no vomiting he met with psych - considering inpatient etoh rehab post-discharge he states he has ongoing pain in L great toe but now has severe pain in his R ankle Review of Systems Review of Systems: CV - no chest pain pulm - no dyspnea GI - no nausea today Physical Exam Physical Exam: gen - a little sleepy at first, but he woke up and was awake/alert/oriented mouth - MMM neck - no JVD heart - tachycardic, s1 s2, no murmur lungs - CTA b/l abd - soft, ND, BS+; NT today ext - warm, pulses 2+ b/l, no peripheral edema neuro - mild tremors musculo - L great toe podagra still present (swollen first MTP, tender to touch); right ankle - warm synovitis present; tender to palpation of the joint; passive/active ROM with pain Results & Data Results & Data Vital Signs (Past 12 Hours) Vital Signs Temp Pulse Resp BP BP Pulse Ox O2 Del Method 06/12/24 11:14 36.6 C 90 22 147/101 H 97 Room Air 06/12/24 10:06 06/12/24 08:07 36.6 C 96 H 20 151/101 H 97 Room Air 06/12/24 06:04 36.8 C 98 H 18 141/100 H 97 Room Air 06/12/24 03:54 36.5 C 110 H 20 147/95 H 97 Room Air 06/12/24 02:31 36.7 C 108 H 20 146/103 H 98 Room Air O2 Del Method 06/12/24 11:14 06/12/24 10:06 Room Air 06/12/24 08:07 06/12/24 06:04 06/12/24 03:54 06/12/24 02:31 Laboratory Results Laboratory Results - last 24 hr 06/12/24 06/12/24 06:32 12:10 WBC 4.08 L RBC 3.65 L Hgb 12.4 L Hct 35.2 L MCV 96.4 MCH 34.0 MCHC 35.2 RDW Std Deviation 47.9 H RDW Coeff of Nohemy 13.4 Plt Count 124 L MPV 10.9 Sodium 140 Potassium 3.2 L Chloride 103 Carbon Dioxide 30 Anion Gap 7 BUN 3 L Creatinine 0.57 L Est Cr Clr Drug Dosing 219.0 eGFR 131.93 BUN/Creatinine Ratio 5.3 L Glucose 107 H Calcium 7.8 L Magnesium 1.4 L Total Bilirubin 1.3 H D AST 106 H ALT 56 H Alkaline Phosphatase 77 Total Protein 5.9 L Albumin 3.4 Globulin 2.5 Albumin/Globulin Ratio 1.4 Triglycerides 111 Cholesterol 182 LDL Cholesterol, Calc 78 VLDL Cholesterol, Calc 22 HDL Cholesterol 82 Cholesterol/HDL Ratio 2.2 Lipase 34 Vitamin B12 303 TSH 4.151 SARS-CoV-2 (PCR) NEGATIVE Influenza Type A (PCR) Negative Influenza Type B (PCR) Negative RSV (RT-PCR) Negative PG Care Time/CCT Total # of Minutes Spent Total Time Spent with Patient: Total time spent is greater than 50% in coordination of care (as documented) at patient's floor/unit and/or counseling patient: Coding Level of Care Code 96059 SUB INP/OBS CARE 3/50MIN Diagnoses Abdominal pain R10.9 Alcohol withdrawal F10.[address] of the abdomen R93.5 History of pancreatitis Z87.19 Rheumatoid arthritis M06.9 Gout, unspecified cause, unspecified chronicity, unspecified site M10.9 Chronicity: unspecified Gout etiology: unspecified cause Gout site: unspecified site Hypomagnesemia E83.42 Hypokalemia E87.6 Neuropathy G62.9 Depression F32.A HTN (hypertension) I10 POTS (postural orthostatic tachycardia syndrome) R00.0; I95.1 Anxiety F41.9 Transaminitis R74.01 History of pulmonary embolus (PE) Z86.711 B12 deficiency E53.8 Pancytopenia D61.818 (6) Gout Chronicity: unspecified Gout etiology: unspecified cause Gout site: unspecified site Qualified Code(s): M10.9 - Gout, unspecified
[2024-06-12] MEDS: predniSONE 10 MG TABLET PO ONE (14:14)
[2024-06-12] MEDS: CYANOCOBALAMIN (B-12) 500 MCG TABLET PO SCH (14:14)
[2024-06-12] MEDS: ENOXAPARIN INJ 40 MG/0.4 ML SYR SQ ONE (20:36)
[2024-06-13 08:11] LABS: Hematocrit (blood only) 37.7 % (42.0-52.0); Hemoglobin 12.7 g/dl (14.0-18.0); Mean Corpuscular Hemoglobin 33.1 pg (25.0-34.0); Mean Corpuscular Hgb Conc 33.7 g/dL (32.0-36.0); Mean Corpuscular Volume 98.2 fL (80.0-100.0); Mean Platelet Volume 11.5 fL (9.4-12.4); Platelet Count 121 K/uL (130-400); RDW Coefficient of Variation 13.1 % (11.5-14.5); RDW Standard Deviation 46.6 fL (36.4-46.3); Red Blood Count 3.84 M/uL (4.70-6.10); White Blood Count 4.37 K/ul (4.8-10.8)
[2024-06-13 08:30] LABS: Calcium 8.7 mg/dl (8.6-10.3); Magnesium 1.8 mg/dl (1.7-2.4); Potassium 3.5 mmol/L (3.5-5.1)
[2024-06-13] MEDS: predniSONE 5 MG TAB PO SCH (09:43)
[2024-06-13] MEDS: LORazepam 0.5 MG TAB PO PRN (09:46)
[2024-06-13] MEDS: ENOXAPARIN INJ 40 MG/0.4 ML SYR SQ SCH (09:51)
[2024-06-13] MEDS: NSS + 20MEQ KCL 20 MEQ/1,000 ML BAG IV SCH (10:55)
[2024-06-13] MEDS: GABAPENTIN 600 MG TAB PO SCH (15:10)
[2024-06-14] MEDS ORDERED: Nursing to Pharmacy Communication SCH (05:00)
[2024-06-14 06:14] LABS: Hematocrit (blood only) 37.8 % (42.0-52.0); Hemoglobin 12.6 g/dl (14.0-18.0); Mean Corpuscular Hemoglobin 33.3 pg (25.0-34.0); Mean Corpuscular Hgb Conc 33.3 g/dL (32.0-36.0); Mean Platelet Volume 11.5 fL (9.4-12.4); Platelet Count 119 K/uL (130-400); RDW Coefficient of Variation 13.2 % (11.5-14.5); RDW Standard Deviation 48.3 fL (36.4-46.3); Red Blood Count 3.78 M/uL (4.70-6.10); White Blood Count 4.94 K/ul (4.8-10.8)
[2024-06-14 06:33] LABS: Albumin Globulin Ratio 1.3 (0.9-2); Albumin Level 3.4 gm/dl (3.4-5.0); BUN Creatinine Ratio 4.8 (10-20); Bilirubin,Total 1.1 mg/dl (0.2-1.0); Calcium 8.6 mg/dl (8.6-10.3); Creatinine Clr Calc Pharmacy 198.2 ml/min; Globulin 2.7 gm/dl (2.5-4.0); Total Protein 6.1 gm/dl (6.0-8.3)
--- NOTE | 2024-06-14 08:52 | Hospitalist Progress Note ---
Date of Service June 13, 2024 Assessment & Plan (1) Abdominal pain: (2) Alcohol withdrawal: (3) Abnormal CT of the abdomen: (4) History of pancreatitis: (5) Rheumatoid arthritis: (6) Gout: (7) Hypomagnesemia: (8) Hypokalemia: (9) Neuropathy: (10) Depression: (11) HTN (hypertension): (12) POTS (postural orthostatic tachycardia syndrome): (13) Anxiety: (14) Transaminitis: (15) History of pulmonary embolus (PE): (16) B12 deficiency: (17) Pancytopenia: Plan 35yo male with long-standing alcohol dependence, anxiety/depression, prior episode of pancreatitis 01/2024 requiring hospitalization at [facility], rheumatoid arthritis, gout, and diagnosis of PEs at [facility] in 04/2024 (prescribed Eliquis but hasn't been taking it) - presents with ongoing abdominal pain and nausea along with request for alcohol detox. Admit CT with focal pancreatic inflammation of the pancreatic head (significant improvement from prior CT 01/2024) as well as duodenal inflammation and ?distal colon colitis. #abdominal pain - * patient could have mild focal pancreatitis of the head of the pancreas with secondary duodenitis * however, lipase x 2 wnl * alternatively, perhaps most of his pain is due to alcoholic gastritis and/or PUD * pain has improved with dietary restriction, PPI, supportive care, and time; allow full liquids today * cont IV fluids at 75ml/hr * pain meds prn * cont protonix 40mg IV BID another day then if stable tomorrow convert to PO; add carafate for a week * appreciate GI consult - for now EGD deferred but maybe later in the stay will have such?? #abnormal pancreas / pancreatitis - * lipase x2 normal but head of pancreas showed inflammation on CT a/p at admission * the pancreas overall is improved relative to his CT done in 01/2024 * there are no pancreatic calcifications to indicate chronic pancreatitis * see "abd pain" above * normal triglycerides on lipid profile * does not have a gall bladder * abd pain again modestly improved today thus allow full liquids diet * appreciate GI consult #abnormal duodenum - * reactive/secondary to focal pancreatitis of head of pancreas? * primary issue (ie - PUD) due to etoh/NSAID use? * see above * PPI; add carafate as well * no EGD at this time per GI #hypokalemia - * 2nd to hypomagnesemia, poor appetite, etc * replaced & improved * repeat BMP in am #hypomagnesemia - * 2nd to alcohol abuse * replaces and normal today (level 1.8) * weakness of legs and numbness could have been exacerbated by the low K and low mag #alcohol dependence - * long-standing abuse of liquor; fifth vodka/day * has not had sobriety in many years * is motivated to quit * spoke to psych; willing to consider inpatient rehab at conclusion of his medical stay (vs outpatient services) * does have outside counselor in [facility] * consider Naltrexone therapy following withdrawal * thiamine 200mg BID * folic acid 1mg daily * MVI daily * B12 level is only 300 --> this is low for a 34yo male; replace 1000mcg of B12 daily * treat his withdrawal as below #alcohol withdrawal - * cont gabapentin protocol/taper * ativan prn per AWSS scoring * clonidine 0.1mg BID * telemetry * IV fluids * supportive care #h/o PEs - 04/2024 - * has taken very little Eliquis since the diagnosis * the heavy etoh use with Eliquis is potentially dangerous * CTA chest this admission -- NO PEs seen * will attempt to get CTA from [facility] and then will decide about anticoagulation * potentially may not need such * risk factor for PEs - inflammatory state from poorly controlled RA? genetic factors? #neuropathy of legs - * 2nd to alcohol? * 2nd B12 def? * gabapentin for etoh withdrawal will help; consider keeping on low-dose following admission; I did discuss this with him * replace low B12 #gout - podagra of L foot and R ankle synovitis - * severe but modestly improved today on prednisone * gout likely 2nd to heavy etoh abuse * cont allopurinol daily * s/p 10mg yesterday; start 5mg daily and cont for 7-10 days #HTN - * uncontrolled 2nd to withdrawal, anxiety, etc -- but improved on clonidine 0.1mg BID #rheumatoid arthritis - * follows with Dr Salinas, [facility] Rheum * main issue right now is gout rather than RA * [id number] will need f/u with Dr Salinas * see above re: gout #DVT proph - * lovenox 40mg daily #depression/anxiety - * cont sertraline daily * psych consult requested * alcohol playing a large role in his moods #pancytopenia - * likely etoh induced * mild * replace low b12 * already on folate supplementation * checked COVID/flu/RSV to r/o viral suppression -- all negative * repeat cbc am anticipate several more days in hospital but progressing Admission and Anticipated Discharge Date Admission Date: June 11, 2024 Subjective patient still with abd pain but modestly better since admission no vomiting, occasional nausea the clears & fulls have not made his abdomen feel any worse passing flatus left great toe pain and right ankle pain modestly improved but still painful remains anxious less sweatiness less tremors but still feels "terrible" however continues to require ativan via AWSS scale tele - NSR Review of Systems Review of Systems: gen - no fevers cv - no cp, no orthopnea pulm - no dyspnea GI - no diarrhea Physical Exam Physical Exam: gen - looks a little better than yesterday; comfortable mouth - MMM neck - no JVD heart -RRR, s1 s2, no murmur lungs - CTA b/l abd - soft, ND, BS+; NT; no HSM ext - warm, pulses 2+ b/l, no peripheral edema neuro - minimal tremors musculo - L great toe podagra still present but swelling improved & less tender; right ankle - synovitis still present but improved; passive/active ROM is better Results & Data Results & Data Vital Signs (Past 12 Hours) Vital Signs Temp Pulse Pulse Resp BP Pulse Ox O2 Del Method 06/13/24 16:00 36.4 C L 78 17 146/108 H 99 Room Air 06/13/24 14:45 37.2 C 75 16 150/107 H 95 Room Air 06/13/24 11:49 36.7 C 71 18 148/98 H 94 Room Air Laboratory Results Laboratory Results - last 48 hr 06/12/24 06/13/24 12:10 07:35 WBC 4.37 L RBC 3.84 L Hgb 12.7 L Hct 37.7 L MCV 98.2 MCH 33.1 MCHC 33.7 RDW Std Deviation 46.6 H RDW Coeff of Nohemy 13.1 Plt Count 121 L MPV 11.5 Sodium 140 Potassium 3.5 Chloride 104 Carbon Dioxide 30 Anion Gap 6 BUN 3 L Creatinine 0.50 L Est Cr Clr Drug Dosing 249.0 eGFR 137.26 BUN/Creatinine Ratio 6.0 L Glucose 80 Calcium 8.7 Magnesium 1.8 SARS-CoV-2 (PCR) NEGATIVE Influenza Type A (PCR) Negative Influenza Type B (PCR) Negative RSV (RT-PCR) Negative PG Care Time/CCT Total # of Minutes Spent Total Time Spent with Patient: Total time spent is greater than 50% in coordination of care (as documented) at patient's floor/unit and/or counseling patient: Coding Level of Care Code 39454 SUB INP/OBS CARE 3/50MIN Diagnoses Abdominal pain R10.9 Alcohol withdrawal F10.[address] of the abdomen R93.5 History of pancreatitis Z87.19 Rheumatoid arthritis M06.9 Gout, unspecified cause, unspecified chronicity, unspecified site M10.9 Gout site: unspecified site Gout etiology: unspecified cause Chronicity: unspecified Hypomagnesemia E83.42 Hypokalemia E87.6 Neuropathy G62.9 Depression F32.A HTN (hypertension) I10 POTS (postural orthostatic tachycardia syndrome) R00.0; I95.1 Anxiety F41.9 Transaminitis R74.01 History of pulmonary embolus (PE) Z86.711 B12 deficiency E53.8 Pancytopenia D61.818 (6) Gout Gout site: unspecified site Gout etiology: unspecified cause Chronicity: unspecified Qualified Code(s): M10.9 - Gout, unspecified
[2024-06-14] MEDS: SUCRALFATE 1 GM/10 ML UDC PO SCH (09:57)
--- NOTE | 2024-06-14 16:39 | Hospitalist Progress Note ---
Date of Service June 14, 2024 Assessment & Plan (1) Abdominal pain: (2) Alcohol withdrawal: (3) Abnormal CT of the abdomen: (4) History of pancreatitis: (5) Rheumatoid arthritis: (6) Gout: (7) Hypomagnesemia: (8) Hypokalemia: (9) Neuropathy: (10) Depression: (11) HTN (hypertension): (12) POTS (postural orthostatic tachycardia syndrome): (13) Anxiety: (14) Transaminitis: (15) History of pulmonary embolus (PE): (16) B12 deficiency: (17) Pancytopenia: (18) Fall: Plan 35yo male with long-standing alcohol dependence, anxiety/depression, prior episode of pancreatitis 01/2024 requiring hospitalization at [facility], rheumatoid arthritis, gout, and diagnosis of PEs at [facility] in 04/2024 (prescribed Eliquis but hasn't been taking it) - presents with ongoing abdominal pain and nausea along with request for alcohol detox. Admit CT with focal pancreatic inflammation of the pancreatic head (significant improvement from prior CT 01/2024) as well as duodenal inflammation and ?distal colon colitis. #abdominal pain - * mild focal pancreatitis of the head of the pancreas with secondary duodenitis vs PUD vs gastritis vs combo of factors * lipase x 2 wnl; plan to recheck lipase tomorrow AM * patient reports pain is unchanged from admission, but his abd exam is wnl and soft * he has tolerated clears, then full liquids, and he asked for dietary advancement today; reasonable to start low fat diet and see how he does * stop IV fluids * pain meds prn; plan to change morphine to PO oxy or similar tomorrow * cont protonix 40mg IV BID another day then if stable tomorrow convert to PO; added carafate QID for a week * appreciate GI consult - for now EGD deferred but maybe later in the stay will have such?? patient is requesting to have such while here due to ongoing pain * no evidence of GI bleeding -- H/H remain stable & unchanged #abnormal pancreas / pancreatitis - * lipase x2 normal but head of pancreas showed inflammation on CT a/p at admission * the pancreas overall is improved relative to his CT done in 01/2024 * there are no pancreatic calcifications to indicate chronic pancreatitis * see "abd pain" above * normal triglycerides on lipid profile * does not have a gall bladder * appreciate GI consult #abnormal duodenum - * reactive/secondary to focal pancreatitis of head of pancreas? vs primary issue (ie - PUD) due to etoh/NSAID use? * see above * PPI; carafate * will [place] back with GI - due to ongoing c/o pain - EGD later in the stay? #hypokalemia - * 2nd to hypomagnesemia, poor appetite, etc * replaced & improved #hypomagnesemia - * 2nd to alcohol abuse * replaced and now normal * weakness of legs and numbness could have been exacerbated by the low K and low mag #alcohol dependence - * long-standing abuse of liquor; fifth vodka/day * has not had sobriety in many years * is motivated to quit * spoke to psych; willing to consider inpatient rehab at conclusion of his medical stay (vs outpatient services) * does have outside counselor in [facility] * consider Naltrexone therapy following withdrawal; discussed this in detail with patient * thiamine 200mg BID * folic acid 1mg daily * MVI daily * B12 level is only 300 --> supplement with 1000mcg of B12 daily * treat his withdrawal as below #alcohol withdrawal - * cont gabapentin protocol/taper * ativan prn per AWSS scoring * clonidine 0.1mg BID * telemetry * supportive care #h/o PEs - 04/2024 - * has taken very little Eliquis since the diagnosis * the heavy etoh use with Eliquis is potentially dangerous * CTA chest this admission -- NO PEs seen * will attempt to get CTA from [facility] and then will decide about anticoagulation * potentially may not need such * risk factor for PEs - inflammatory state from poorly controlled RA? genetic factors? #neuropathy of legs - * 2nd to alcohol? * 2nd B12 def? * gabapentin for etoh withdrawal will help; consider keeping on low-dose following admission; I did discuss this with him * replace low B12 #gout - podagra of L foot and R ankle synovitis - * severe but each day modestly improved on prednisone * gout likely 2nd to heavy etoh abuse * cont allopurinol daily * s/p 10mg of prednisone to start, now on 5mg daily and cont for 7-10 days #HTN - * uncontrolled 2nd to withdrawal, anxiety, etc -- but improved on clonidine 0.1mg BID #rheumatoid arthritis - * follows with Dr Salinas, [facility] * main issue right now is gout rather than RA * [id number] will need f/u with Dr Salinas * see above re: gout #DVT proph - * lovenox 40mg daily #depression/anxiety - * cont sertraline daily * psych consult requested * alcohol playing a large role in his moods #pancytopenia - * likely etoh induced * mild but stable * replace low b12 * already on folate supplementation * checked COVID/flu/RSV to r/o viral suppression -- all negative #fall with L knee pain - * exam is benign with no signs of trauma * however, due to c/o pain, will check x-rays - r/o fracture, etc #insomnia - * ativan 1mg PO HS prn progressing Admission and Anticipated Discharge Date Admission Date: June 11, 2024 Subjective still with abd pain- states it is no different than when he first came to the hospital however, he is tolerating full liquids and asks for dietary advancement still with some nausea at times but no vomiting no stool but passing flatus apparently he was getting out of bed, grabbed his walker, and started ambulating towards the toilet his left knee "buckled" and he went to the floor, hitting the left knee he states he had no indication this was going to happen and this does not happen at home denies dizziness L great toe pain improved still with R ankle pain and swelling he remains very anxious and having sleep issues remains tremulous he is nervous about the prospect of going to inpatient rehab for etoh he is not sure about his final plan for the etoh - that is, whether to do outpatient Rx vs inpatient Rx tele wnl overnight Review of Systems Review of Systems: gen - sweaty at times cv - no chest pain pulm - no dyspnea GI - no diarrhea Physical Exam Physical Exam: gen - sleeping upon arrival, easily wakes up, comfortable mouth - MMM neck - no JV heart - RRR, s1 s2, no murmur lungs - CTA b/l abd - soft, ND, BS+; NT; no HSM ext - warm, pulses 2+ b/l, no peripheral edema neuro - minimal tremors musculo - L great toe podagra improved; not tender to palpation; right ankle - synovitis still present - unchanged from yesterday, but able to place the ankle thru passive ROM left knee - minimal/scant effusion; no patellar pain with palpation; neg a nt/post drawers; negative Albert's; negative Angela's; no pain with varus/valgus stress maneuvers I see no other signs of trauma on examination Results & Data Results & Data Vital Signs (Past 12 Hours) Vital Signs Temp Pulse Pulse Resp BP Pulse Ox O2 Del Method 06/14/24 11:43 36.6 C 85 20 144/95 H 97 Room Air 06/14/24 08:00 65 06/14/24 06:04 37.2 C 85 18 144/95 H 97 Room Air Laboratory Results Laboratory Results - last 24 hr 06/14/24 05:59 WBC 4.94 RBC 3.78 L Hgb 12.6 L Hct 37.8 L MCV 100.0 MCH 33.3 MCHC 33.3 RDW Std Deviation 48.3 H RDW Coeff of Nohemy 13.2 Plt Count 119 L MPV 11.5 Sodium 141 Potassium 4.0 Chloride 106 Carbon Dioxide 29 Anion Gap 6 BUN 3 L Creatinine 0.63 Est Cr Clr Drug Dosing 198.2 eGFR 128.01 BUN/Creatinine Ratio 4.8 L Glucose 83 Calcium 8.6 Total Bilirubin 1.1 H AST 100 H ALT 57 H Alkaline Phosphatase 79 Total Protein 6.1 Albumin 3.4 Globulin 2.7 Albumin/Globulin Ratio 1.3 PG Care Time/CCT Total # of Minutes Spent Total Time Spent with Patient: Total time spent is greater than 50% in coordination of care (as documented) at patient's floor/unit and/or counseling patient: Coding Level of Care Code 28528 SUB INP/OBS CARE 3/50MIN Diagnoses Abdominal pain R10.9 Alcohol withdrawal F10.[address] of the abdomen R93.5 History of pancreatitis Z87.19 Rheumatoid arthritis M06.9 Gout, unspecified cause, unspecified chronicity, unspecified site M10.9 Chronicity: unspecified Gout etiology: unspecified cause Gout site: unspecified site Hypomagnesemia E83.42 Hypokalemia E87.6 Neuropathy G62.9 Depression F32.A HTN (hypertension) I10 POTS (postural orthostatic tachycardia syndrome) R00.0; I95.1 Anxiety F41.9 Transaminitis R74.01 History of pulmonary embolus (PE) Z86.711 B12 deficiency E53.8 Pancytopenia D61.818 Fall W19.XXXA (6) Gout Chronicity: unspecified Gout etiology: unspecified cause Gout site: unspecified site Qualified Code(s): M10.9 - Gout, unspecified
--- NOTE | 2024-06-14 18:03 | XRay Report ---
EXAM: XR knee LT 1 or 2V routine CLINICAL HISTORY: fall, L knee pain TECHNIQUE: X-ray images of the left knee were obtained in anteroposterior (AP), lateral projections. COMPARISON: 02/02/2024 FINDINGS: Bone Structure: Bone structure is normal and well-aligned. No evidence of acute fractures or dislocations. No osseous lesions or abnormalities were identified. Joint Spaces: Joint spaces are preserved. The relative narrowing of the medial tibio-femoral compartment suggests early degenerative changes. Articular Surfaces: Articular surfaces are smooth and intact. No signs of osteophyte formation or subchondral sclerosis. Patella: Patella is normal in position and alignment. No evidence of patellar dislocation or subluxation. Soft Tissues: Periarticular soft tissues appear normal and unremarkable. No soft tissue swelling, calcifications, or foreign bodies were noted. Interval regression of the suprapatellar effusion. IMPRESSION: 1. No evidence of acute fractures or dislocations. 2. The relative narrowing of the medial tibio-femoral compartment suggests early degenerative changes. (unchanged). Disclaimer: A subtle bone abnormality or fracture may not be readily apparent on X-rays, thus, clinical correlation and further imaging, including follow-up CT, MRI, or follow-up X-rays, are advised as needed. Electronically signed by Jae Miles 06-14-2024 6:01 PM
--- NOTE | 2024-06-14 18:03 | XRay Report ---
EXAM: XR ankle RT 2V CLINICAL HISTORY: right ankle pain/swelling; gout? CPPD? TECHNIQUE: X-ray images of the right ankle were obtained in anteroposterior (AP) and lateral projections. COMPARISON: No prior studies available for comparison. FINDINGS: Bone Structure: Bone structure is normal and aligned. No evidence of fracture or dislocation. No osseous lesions or abnormalities were identified. Joint Spaces: Soft tissue density at the anterior and posterior fat plane, suggesting effusion Soft Tissues: No soft tissue calcifications or foreign bodies were noted. Additional Findings: No signs of osteoarthritis, bone spurs, lytic or sclerotic lesions. IMPRESSION: 1. Soft tissue density at the anterior and posterior ankle fat plane suggesting joint effusion. 2. No evidence of acute fracture or dislocation. Disclaimer: A subtle bone abnormality or fracture may not be readily apparent on X-rays, thus, clinical correlation and further imaging, including follow-up CT, MRI, or follow-up X-rays, are advised as needed. Electronically signed by Jae Miles 06-14-2024 6:03 PM
[2024-06-14] MEDS: LORazepam 1 MG TAB PO PRN (19:36)
[2024-06-14] MEDS: cephALEXin 500 MG CAP PO SCH (19:43)
[2024-06-15] MEDS: ACETAMINOPHEN 500 MG TAB PO PRN (02:41)
--- NOTE | 2024-06-15 03:30 | Ultrasound Report ---
EXAM: US venous doppler LE RT CLINICAL HISTORY: Calf pain TECHNIQUE: Ultrasound examination of right lower extremity veins was performed in real time and duplex. COMPARISON: None. FINDINGS: Normal spontaneous flow is noted in the right common femoral, superficial femoral, popliteal and posterior tibial, anterior tibial, and peroneal veins. The visualized veins of the right lower extremity demonstrate normal compressibility. No sonographic evidence of acute deep vein thrombosis (DVT) is detected in the visualized veins of the lower extremity. Compression : All evaluated veins compress fully with applied transducer pressure. Additional Findings: No evidence of intraluminal thrombus. IMPRESSION: No sonographic evidence of acute DVT detected at the time of examination. Disclaimer: DVT could be missed early in the disease when clot burden is minimal. For patients with moderate and high pretest probability of DVT and negative ultrasound, the [employer] clinical guidelines recommend testing with a D-dimer assay or repeat ultrasound in 5-7 days. If symptoms worsen, the Society of radiologists in ultrasound recommends repeating ultrasound even earlier. Electronically signed by Jae Miles 06-15-2024 03:29 AM
[2024-06-15] MEDS ORDERED: GABAPENTIN 600 MG TAB PO SCH (04:30)
[2024-06-15] MEDS: oxyCODONE HCL IR 5 MG TAB (IMMEDIATE RELEASE) PO PRN (08:21)
[2024-06-15 09:27] LABS: Albumin Globulin Ratio 1.2 (0.9-2); Albumin Level 3.7 gm/dl (3.4-5.0); Bilirubin,Total 1.1 mg/dl (0.2-1.0); Creatinine Clr Calc Pharmacy 175.8 ml/min; Potassium 3.6 mmol/L (3.5-5.1); Total Protein 6.7 gm/dl (6.0-8.3)
[2024-06-15] MEDS: MoRPHine SULFATE 2 MG/ML CARP IV PRN (13:00)
--- NOTE | 2024-06-15 13:54 | Hospitalist Progress Note ---
Date of Service June 15, 2024 Assessment & Plan (1) Abdominal pain: (2) Alcohol withdrawal: (3) Abnormal CT of the abdomen: (4) History of pancreatitis: (5) Rheumatoid arthritis: (6) Gout: (7) Hypomagnesemia: (8) Hypokalemia: (9) Neuropathy: (10) Depression: (11) HTN (hypertension): (12) POTS (postural orthostatic tachycardia syndrome): (13) Anxiety: (14) Transaminitis: (15) History of pulmonary embolus (PE): (16) B12 deficiency: (17) Pancytopenia: (18) Fall: (19) Pain in joint involving right ankle and foot: Plan 35yo male with long-standing alcohol dependence, anxiety/depression, prior episode of pancreatitis 01/2024 requiring hospitalization at [facility], rheumatoid arthritis, gout, and diagnosis of PEs at [facility] in 04/2024 (prescribed Eliquis but hasn't been taking it) - presents with ongoing abdominal pain and nausea along with request for alcohol detox. Admit CT with focal pancreatic inflammation of the pancreatic head (significant improvement from prior CT 01/2024) as well as duodenal inflammation and ?distal colon colit is. But only 1 stool since admission and no pain over expected location of colon. #abdominal pain - * he reports on going pain but exam is benign and lipase levels - multiple - have been wnl * etiology for pain --> mild focal pancreatitis of the head of the pancreas with secondary duodenitis vs PUD vs gastritis vs combo of factors * he has tolerated clears, then full liquids, and now low fat diet * pain meds prn; d/c morphine; allow PO oxycodone prn * cont protonix 40mg BID - convert to PO; added carafate QID for a week * appreciate GI consult - EGD planned for 06/17 * no evidence of GI bleeding -- H/H remain stable & unchanged #abnormal pancreas / pancreatitis - * lipase x 3 normal but head of pancreas showed inflammation on CT a/p at admission * the pancreas overall is improved relative to his CT done in 01/2024 * there were no pancreatic calcifications to indicate chronic pancreatitis * see "abd pain" above * normal triglycerides on lipid profile * does not have a gall bladder * appreciate GI consult #abnormal duodenum - * reactive/secondary to focal pancreatitis of head of pancreas? vs primary issue (ie - PUD) due to etoh/NSAID use? * see above * PPI; carafate * EGD planned for 06/17 #hypokalemia - * 2nd to hypomagnesemia, poor appetite, etc * replaced & improved #hypomagnesemia - * 2nd to alcohol abuse * replaced and now normal * weakness of legs and numbness could have been exacerbated by the low K and low mag #alcohol dependence - * long-standing abuse of liquor; fifth vodka/day * has not had sobriety in many years * is motivated to quit * spoke to psych; willing to consider inpatient rehab at conclusion of his medical stay (vs outpatient services) * does have outside counselor in [facility] * consider Naltrexone therapy following withdrawal; discussed this in detail with patient * thiamine 200mg BID * folic acid 1mg daily * MVI daily * B12 level is only 300 --> supplement with 1000mcg of B12 daily #alcohol withdrawal - * completed a gabapentin protocol/taper * ativan prn per AWSS scoring but has not needed any ativan since 06/14 (scores have been low) * clonidine 0.1mg BID #h/o PEs - 04/2024 - * had taken very little Eliquis since the diagnosis * the heavy etoh use with Eliquis is potentially dangerous * CTA chest this admission -- NO PEs seen * CTA chest report from [facility] with 1 solitary PE (1st order branch) * would NOT Rx with anticoagulation at this time * risk factor for PEs - inflammatory state from poorly controlled RA? genetic factors? sister with VTE during a * reasonable to do a genetic w/u - check Factor 5 Leiden mutation, check prothrombin gene mutation, protein C & S activity, etc. #neuropathy of legs - * 2nd to alcohol? * 2nd B12 def? * although he completed gabapentin taper for etoh withdrawal I did encourage him to take gabapentin ongoing for the neuropathy; thus keep on 300mg BID * replace low B12 #gout - podagra of L foot and R ankle synovitis - * gout likely 2nd to heavy etoh abuse * cont allopurinol daily * L foot podagra better, but NO change in R ankle synovitis * although I don't suspect a septic joint I am uncertain why the R ankle/foot is not improving * thus, consult [facility] ortho for their opinion * sed rate/crp noted today * uric acid level noted (5) * s/p 10mg of prednisone to start, now on 5mg daily and cont for 7-10 days #HTN - * uncontrolled 2nd to withdrawal, anxiety, etc -- but improved on clonidine 0.1mg BID #rheumatoid arthritis - * follows with Dr Salinas, [facility] [facility] * main issue right now is gout rather than RA * [id number] will need f/u with Dr Salinas * see above re: gout #DVT proph - * lovenox 40mg daily #depression/anxiety - * cont sertraline daily * psych consult requested * alcohol playing a large role in his moods #pancytopenia - * likely etoh induced * mild but stable * replace low b12 * already on folate supplementation * checked COVID/flu/RSV to r/o viral suppression -- all negative #fall with L knee pain - * exam benign with no signs of trauma * x-rays w/o fracture #insomnia - * ativan 1mg PO HS prn #pain in right ankle - * see above progressing dispo - inpatient etoh rehab post-d/c?? Admission and Anticipated Discharge Date Admission Date: June 11, 2024 Subjective pt states L great toe pain has improved significantly the last few days however, the right foot/ankle cont to be quite bothersome making weight-bearing difficult he continues with mild abd pain and occasional nausea no vomiting low fat diet made his stomach upset a little finally had BM yesterday told him that I had gotten the CTA chest report from [facility] dated 04/23/24 -- showed "Pulmonary embolism consisting of very small, solitary, nonocclusive intraluminal filling defect fist order branch RLL. No evidence of RV strain." since it was tiny, our CTA chest this admission was fully neg for PE, and he never really took the Eliquis anyway following the 04/2024 admission that I would recommend no anticoagulation at this point he did mention that his sister had a "blood clot" while she was but he is not aware of anyone else in his family with VTE Review of Systems Review of Systems: gen - no fevers or chills cv - no chest pain pulm - no dyspnea or Physical Exam Physical Exam: gen - continues to look better each day, NAD mouth - MMM neck - no JVD heart - RRR, s1 s2, no murmur lungs - CTA b/l abd - soft, ND, BS+; NT; no HSM ext - warm, pulses 2+ b/l, no peripheral edema neuro - no tremors musculo - L great toe podagra again improved - still with swelling, but nontender & no warmth right ankle - synovitis still present - passive/active ROM of ankle causes pain; mild warmth of right ankle; still with swelling psych - restricted affect but a/o x 3 Results & Data Results & Data Vital Signs (Past 12 Hours) Vital Signs Temp Pulse Pulse Resp BP Pulse Ox O2 Del Method 06/15/24 11:46 36.7 C 101 H 17 150/95 H 97 Room Air 06/15/24 09:50 67 06/15/24 08:02 36.4 C L 97 H 20 136/91 97 Room Air 06/15/24 01:57 36.8 C 92 H 16 156/102 H 98 Room Air Laboratory Results Laboratory Results - last 24 hr 06/15/24 08:51 Sodium 139 Potassium 3.6 Chloride 101 Carbon Dioxide 29 Anion Gap 9 BUN 5 L Creatinine 0.71 Est Cr Clr Drug Dosing 175.8 eGFR 123.47 BUN/Creatinine Ratio 7.0 L Glucose 74 Uric Acid 5.0 Calcium 9.0 Total Bilirubin 1.1 H AST 92 H ALT 61 H Alkaline Phosphatase 84 Total Protein 6.7 Albumin 3.7 Globulin 3.0 Albumin/Globulin Ratio 1.2 Lipase 41 PG Care Time/CCT Total # of Minutes Spent Total Time Spent with Patient: Total time spent is greater than 50% in coordination of care (as documented) at patient's floor/unit and/or counseling patient: Coding Level of Care Code 50873 SUB INP/OBS CARE 3/50MIN Diagnoses Abdominal pain R10.9 Alcohol withdrawal F10.[address] of the abdomen R93.5 History of pancreatitis Z87.19 Rheumatoid arthritis M06.9 Gout, unspecified cause, unspecified chronicity, unspecified site M10.9 Chronicity: unspecified Gout etiology: unspecified cause Gout site: unspecified site Hypomagnesemia E83.42 Hypokalemia E87.6 Neuropathy G62.9 Depression F32.A HTN (hypertension) I10 POTS (postural orthostatic tachycardia syndrome) R00.0; I95.1 Anxiety F41.9 Transaminitis R74.01 History of pulmonary embolus (PE) Z86.711 B12 deficiency E53.8 Pancytopenia D61.818 Fall W19.XXXA Pain in joint involving right ankle and foot M25.571 (6) Gout Chronicity: unspecified Gout etiology: unspecified cause Gout site: unspecified site Qualified Code(s): M10.9 - Gout, unspecified
--- NOTE | 2024-06-15 15:13 | Orthopedic Consultation ---
Date of Consultation June 15, 2024 Assessment & Plan (1) Pain in joint involving right ankle and foot: Patient with 4 days of reported atraumatic lateral ankle pain extending into the lateral foot. No history of gout in this area in the past. Exam shows mild swelling in the lateral ankle and lateral foot. He has some tenderness in the lateral ankle inferior to the lateral malleolus however the majority of his pain is actually in the lateral midfoot. He also has a lot of pain with passive range of motion of the little toe. Is able to actively plantarflex and dorsiflex the ankle with some discomfort. No redness about the ankle or foot and joint itself is not significantly swollen. ESR and CRP ordered and are mildly elevated at 26 and 4.55 respectively, mildly elevated. Ankle x-ray shows prominence along the anterior and posterior aspect suggestive of possible possible effusion. No fractures. I added x-ray of the right foot which was reviewed showing no acute abnormalities. Septic joint was considered however not felt to be the number one diagnosis. Also considered gout flare though symptoms are somewhat more diffuse than what would be expected for a gout flare and there is no erythema. Peroneal tendonitis is a possibility. Possible sprain. Ordered a boot for stability and support, WBAT Continue steroids for now. Will limit NSAIDs for now and await scope on 06/17 to determine if NSAIDs could be an option. Ice if helpful, elevation recommended. If continued pain, consider aspiration right ankle joint. Reviewed with Dr. Auguste. (2) Swelling of first metatarsophalangeal (MTP) joint of left foot: Likely gout which seems to be improving. Note from rheumatology from 06/02/24 also thought this was gout Continue steroids Continue allopurinol Supervising Physician Co-Signing Physician Notes I, Dr. Auguste, saw and examined the patient. I discussed the management with my PA. I reviewed my PAs note and agree with the documented findings and attest to completing the substantive portion of medical decision making and plan of care I developed. PE: Focusing on the patient's right lower extremity: 2+ DP pulse Sensation to light touch is intact Motor to the gastroc soleus, tibialis anterior, and EHL is 4+/5, painful + diffuse Tenderness to palpation lateral ankle/foot (ATFL, peroneal tendons to 5th metatarsal base Equivocal Forefoot squeeze test. - Calf squeeze test. + lateral ankle Swelling, mild. Normal warmth. No redness. History of Present Illness Reason for Consultation: R ankle pain Requesting Physician: Halley Auguste MD Attending Physician: Osmar Bone MD History of Present Illness Erasmo is a 34 year old male with a history of alcohol dependence, anxiety/depression, prior episode of pancreatitis 01/2024 requiring hospitalization at [facility], rheumatoid arthritis, gout, pulmonary embolism, who has been admitted since 06/11/2024 secondary to abdominal pain and request for alcohol detox. Patient is currently being followed by GI and the hospitalist service while admitted. He also follows with rheumatology Dr. Salinas on an outpatient basis. Orthopedics was consulted for right ankle pain and left great toe pain and swelling. He has been placed on steroids while admitted, NSAIDs and colchicine have been limited secondary to his GI issues. He is currently on Keflex 3 times daily. X-rays of the left ankle have been obtained showing possible joint swelling. Ultrasound of the right lower extremity showed no DVT. Patient states that the left great toe pain redness and swelling has been present for several months. He has had gout in this joint in the past. Since he has been placed on steroids symptoms are feeling much improved today compared to yesterday. Was very hypersensitive but is improving now. Regarding his right lower extremity, he is having pain from just above his ankle all the way through his foot. This only began around the time he was admitted to the hospital. The majority of his pain is actually in the outer part of the foot. More of the pain is on the outside of the ankle and foot. Has never had inflammation in the ankle or foot on the side in the past. Denies any falls. No history of tendinitis in this area. No numbness or tingling above his baseline in either of the feet. He denies any fevers but states that he sweated through his sheets twice last night. Has not had any additional episodes like this since. Allergies Allergy/AdvReac Type Severity Reaction Status Date / Time No Known Allergies Allergy Verified 06/02/24 14:04 Home Medications Medication Instructions Recorded Confirmed Type apixaban 5 mg tablet (Eliquis) 5 mg PO BID 05/07/24 06/11/24 History allopurinol 100 mg tablet 100 mg PO DAILY #30 tabs 06/02/24 06/11/24 Rx omeprazole 40 mg capsule,delayed 40 mg PO DAILY #90 caps 04/01/25 04/10/25 Rx release meloxicam 15 mg tablet 15 mg PO UD 06/11/24 06/11/24 History sertraline 50 mg tablet 50 mg PO DAILY 06/11/24 06/11/24 History clonidine HCl 0.1 mg tablet 0.1 mg PO QAM #90 tabs 06/15/24 Rx Patient History Medical History History of pulmonary embolus (PE) Gout History of pancreatitis Rheumatoid arthritis Alcohol abuse Neuropathy B12 deficiency Vitamin D deficiency Depression HTN (hypertension) Anxiety POTS (postural orthostatic tachycardia syndrome) Surgical History S/P cholecystectomy January 2016 Family History Sister VTE (venous thromboembolism) Father Hyperlipidemia Other Colorectal cancer Diabetes Myocardial infarction Denies family history of Ovarian cancer Prostate cancer Alcoholism Breast cancer Lung cancer Social History Smoking Status: Never smoker Second Hand Exposure: No; Do You Dip or Chew Tobacco: No; Hx Alcohol Use: Yes Alcohol type: hard liquor Alcohol type Comment: vodka - fifth/day Alcohol Intake Frequency: 4 or More x per/Week Hx Substance Use: No Preferred Language: Irish Communication Ability: Effective Hearing Ability: Normal Respiratory Services Manager Required: No Beliefs That Will Affect Care: None marital status: Single Current Living Situation: Alone Current Living Situation Comment: house current occupational status: employed and unemployed current occupation: nursing How many Children do You have: 0 Other Information That Helps Us Care for You: No Feels Safe at Home: Yes Safety Concerns: Feels Safe At This Time Dental Care, Regularly: Yes Physical Activity Frequency: Does not Exercise Assistive Devices: None Physical Exam Constitutional: Resting comfortably in bed. In no acute distress. Cardiovascular: PT pulses 2+ bilaterally Musculoskeletal: Right lower extremity: There is mild soft tissue swelling originating just inferior to the lateral malleolus extending into the lateral foot. There is no redness or warmth. Calf is nontender and not swollen. Patient able to actively plantarflex and dorsiflex the ankle with hesitancy and range of motion is somewhat limited but not excruciating. He is very hesitant to allow passive range of motion of the ankle. There is mild tenderness in the lateral inferior ankle inferior and posterior to the lateral malleolus. The majority of the tenderness is actually located about the lateral midfoot. Positive foot squeeze test. Significant pain elicited with passive range of motion of the little toe. Able to wiggle toes however causes pain in the lateral foot. Negative anterior drawer test, negative talar tilt test. Left lower extremity: Swelling about the first MTP joint. Muted erythema. Mild tenderness in this joint, improved per patient. Able to passively range the toe with minimal discomfort. No additional swelling, redness, warmth, or tenderness about the left lower extremity. Neurologic: No sensory deficits to light touch in bilateral toes Results & Data Vital Signs (Past 12 Hours) Vital Signs Temp Pulse Pulse Resp BP Pulse Ox O2 Del Method 06/15/24 11:46 98.1 F 101 H 17 150/95 H 97 Room Air 06/15/24 09:50 67 06/15/24 08:02 97.5 F L 97 H 20 136/91 97 Room Air Laboratory Results 06/15/24 06/15/24 08:54 08:51 ESR 26 H Sodium 139 Potassium 3.6 Chloride 101 Carbon Dioxide 29 Anion Gap 9 BUN 5 L Creatinine 0.71 Est Cr Clr Drug Dosing 175.8 eGFR 123.47 BUN/Creatinine Ratio 7.0 L Glucose 74 Uric Acid 5.0 Calcium 9.0 Total Bilirubin 1.1 H AST 92 H ALT 61 H Alkaline Phosphatase 84 C-Reactive Protein 4.55 H Total Protein 6.7 Albumin 3.7 Globulin 3.0 Albumin/Globulin Ratio 1.2 Lipase 41 Diagnostic Findings Foot X-Ray 06/15/24 14:49 XR ankle RT 2V, XR foot RT min 3V routine CLINICAL HISTORY: ankle pain and swelling, please do mortise view COMPARISON: 06/14/2024. FINDINGS: No fracture or dislocation seen on the single mortise view of the right ankle. No fracture or dislocation seen at the right foot. No significant degenerative change. IMPRESSION: No acute findings. ACT 112: Negative or not required by law. Electronically signed by: Scar Turner M.D. 06/15/2024 3:18 PM Ankle X-Ray 06/15/24 14:51 XR ankle RT 2V, XR foot RT min 3V routine CLINICAL HISTORY: ankle pain and swelling, please do mortise view COMPARISON: 06/14/2024. FINDINGS: No fracture or dislocation seen on the single mortise view of the right ankle. No fracture or dislocation seen at the right foot. No significant degenerative change.
[2024-06-15 15:17] LABS: C Reactive Protein 4.55 mg/dl (0-0.5)
--- NOTE | 2024-06-15 15:19 | XRay Report ---
XR ankle RT 2V, XR foot RT min 3V routine CLINICAL HISTORY: ankle pain and swelling, please do mortise view COMPARISON: 06/14/2024. FINDINGS: No fracture or dislocation seen on the single mortise view of the right ankle. No fracture or dislocation seen at the right foot. No significant degenerative change. IMPRESSION: No acute findings. ACT 112: Negative or not required by law. Electronically signed by: Scar Turner M.D. 06/15/2024 3:18 PM
[2024-06-15] MEDS: GABAPENTIN 300 MG CAP PO SCH (20:43)
[2024-06-15] MEDS: PANTOprazole 40 MG TAB PO SCH (20:46)
[2024-06-15] MEDS: THIAMINE HCL 100 MG TAB PO SCH (20:47)
[2024-06-16] MEDS: FOLIC ACID 1 MG TAB PO SCH (08:37)
--- NOTE | 2024-06-16 09:39 | Orthopedic Progress Note ---
Date of Service June 16, 2024 Assessment & Plan (1) Pain in joint involving right ankle and foot: Plan: 5 days of reported atraumatic lateral ankle pain extending to the lateral foot. No history of gout in this area in the past. He had some relief with application of the boot for some time but has taken it off to ice it which also seems to be helping. States the pain is still really bothering him. Exam is largely unchanged today localizing to the inferior lateral ankle extending into the lateral foot with mild diffuse soft tissue swelling. He remains afebrile. I reviewed x-rays and additional labs with him that had been obtained yesterday. Will review with Dr. Auguste if he wants to aspirate the ankle today given ongoing pain. Otherwise will wait for his scope tomorrow to determine if prescription NSAIDs could be utilized. Recommend using the boot when he is up walking around Continue with ice if therapeutic. Elevation recommended. Will review with Dr. Auguste. (2) Swelling of first metatarsophalangeal (MTP) joint of left foot: Plan: Continuing to improve. Continue steroids Continue allopurinol Admission and Anticipated Discharge Date Admission Date: June 11, 2024 Supervising Physician Co-Signing Physician Notes I, Dr. Auguste, saw and examined the patient and agree with the above findings and plan of care I developed and discussed with my PA. As I was in the OR, I had my PA preform an aspiration of the right ankle joint and it was sent for Gram stain, Cx & S, and crystals Subjective Erasmo is seen in bed this morning. He reports ongoing pain in the right ankle extending down the right foot, waiting for another hour to be up so he can have additional pain medication. He had some relief with application of the boot for some time but decided to take it off because it was starting to be uncomfortable in the boot. Ice has been somewhat helpful as well. Left great toe is continuing to improve. Physical Exam Constitutional: Sitting upright in bed. In no acute distress. Icing the right lateral ankle and foot Cardiovascular: Right DP pulse 2+ Musculoskeletal: No increase in swelling compared to yesterday. Mild soft tissue swelling about the inferior lateral ankle extending into the lateral foot. There is diffuse tenderness in this same distribution most prominent in the lateral foot. Neurologic: No sensory deficits in right toes to light touch Results & Data Vital Signs (Past 12 Hours) Vital Signs Temp Pulse Pulse Resp BP Pulse Ox O2 Del Method 06/16/24 08:04 98.1 F 91 H 17 133/78 98 Room Air 06/16/24 03:30 98.2 F 101 H 20 130/93 96 Room Air 06/15/24 23:00 80 06/15/24 22:28 99.3 F 66 21 131/83 96 Room Air
[2024-06-16] MEDS: KETOROLAC 30 MG/ML VIAL IV ONE (09:45)
--- NOTE | 2024-06-16 10:15 | Gastroenterology Progress Note ---
Date of Service June 16, 2024 Assessment & Plan (1) Pancreatitis: (2) Abnormal CT of the abdomen: Plan -Keep NPO after midnight -EGD tomorrow for further evaluation -Continue Protonix 40 mg BID -Continue Carafate 1 gm QID Admission and Anticipated Discharge Date Admission Date: June 11, 2024 Supervising Physician Co-Signing Physician Notes I examined the patient and reviewed patient's chart , laboratory data and imaging studies. I agree with with assessment and plan of care as suggested by advanced practice provider Subjective Patient is a 34 yo male currently hospitalized under the hospitalist service for multiple issues. GI was consulted for pancreatitis and abdominal pain. Pancreatitis improving and patient able to tolerate food. He does have some persistent LUQ burning pain. He is on a PPI BID as well as Carafate QID. No consistent NSAID use at home. He does have significant gout and has required initiation of Allopurinol. He denies any further changes--no melena, hematemesis. He notes a history of gastritis on EGD in the past. He previously had a CT abd/pelvis that questioned duodenitis. Review of Systems Gastrointestinal: no abdominal pain Physical Exam Constitutional: WD/WN, vitals as above Gastrointestinal (Abdomen): normal bowel sounds, soft, nontender, no he patosplenomegaly Psychiatric: Orientation: alert and oriented x 3 Results & Data Results & Data Vital Signs (Past 12 Hours) Vital Signs Temp Pulse Pulse Resp BP Pulse Ox O2 Del Method 06/16/24 08:04 36.7 C 91 H 17 133/78 98 Room Air 06/16/24 03:30 36.8 C 101 H 20 130/93 96 Room Air 06/15/24 23:00 80 06/15/24 22:28 37.4 C 66 21 131/83 96 Room Air PG Care Time/CCT Total # of Minutes Spent Total Time Spent with Patient: Total time spent is greater than 50% in coordination of care (as documented) at patient's floor/unit and/or counseling patient: Coding Level of Care Code 11489 SUB INP/OBS CARE 2/35MIN Diagnoses Pancreatitis K85.[address] of the abdomen R93.5
[2024-06-16] MEDS: LIDOCAINE 2% LOCAL 50 ML VIAL ONE (11:17)
[2024-06-16] MEDS: LIDOCAINE 2% 2 ML VIAL/AMP(20MG/ML) INFIL ONE (11:17)
[2024-06-16] MEDS: oxyCODONE HCL IR 5 MG TAB (IMMEDIATE RELEASE) PO PRN (11:19)
[2024-06-16 11:35] LABS: Calcium 9.8 mg/dl (8.6-10.3); Magnesium 1.5 mg/dl (1.7-2.4); Potassium 3.2 mmol/L (3.5-5.1)
[2024-06-16 11:41] LABS: BUN Creatinine Ratio 10.3 (10-20); Creatinine Clr Calc Pharmacy 160.1 ml/min
[2024-06-16] MEDS: MAGNESIUM SULFATE / D5W 1 GM/100 ML BAG IV SCH (11:54)
[2024-06-16] MEDS: POTASSIUM CHLORIDE CRTAB 20 MEQ TABCR PO STA (11:54)
[2024-06-16] MEDS: SENNA 8.6 MG TAB PO SCH (15:38)
[2024-06-16] MEDS: DOCUSATE SODIUM 100 MG CAP PO ONE (15:39)
[2024-06-16 18:08] LABS: Appearance Synovial Fluid Bloody; Color Synovial Fluid Red; RBC Synovial Fluid Auto 725000 /uL; Source Synovial Fluid Other; WBC Synovial Fluid Auto > 10000 /ul (0-200)
--- NOTE | 2024-06-16 20:08 | Orthopedic Progress Note ---
Date of Service June 16, 2024 Assessment & Plan (1) Pain in joint involving right ankle and foot: Plan: The patient was educated regarding today's findings. Conservative care measures were discussed. Importance of fluid aspirate and culture was discussed. He is agreeable. The anterior joint space was identified and marked. The skin was cleansed with Betadine x 2 and alcohol swab x 1. The skin was anesthetized using ethyl chloride spray. A second cleansed with an alcohol swab was performed. An 18-gauge needle was used to aspirate 4 mL of turbid yellow fluid from the ankle. This was then followed by a flash of blood and aspiration was terminated. The fluid was sent to the lab for aerobic and anaerobic cultures, cell count, Gram stain, and crystal analysis. Hemostasis was achieved with a Band-Aid. Continue with ice and elevation of the ankle intermittently as needed. He may switch to moist heat if desired. He will be reassessed tomorrow and the culture results will be reviewed. He understands that this will take a few days for final cultures and at least a day for crystal analysis. Continue with weight-bearing as tolerated. Aspiration results were discussed with Dr. Auguste. Admission and Anticipated Discharge Date Admission Date: June 11, 2024 Supervising Physician Co-Signing Physician Notes I, Dr. Auguste, saw and examined the patient and agree with the above findings and plan of care I developed and discussed with my PA. The right ankle aspiration was preformed under my direct supervision. Subjective This 34 year old male is seen today for aspiration of his right ankle. Symptoms began on June 10. He was admitted on June 11 for persisting severe right ankle and foot pain. He states the area is gray tender to touch. It is gray tender with motion. He has been guarding the ankle and performing minimal motion. No history of gout in his ankle. He denies any fevers or chills. No additional complaints. Physical Exam Physical Exam: General: Well-developed, well-nourished, young male, in no acute distress. Obvious discomfort. Laying in bed. Alert and oriented. Flat affect. Skin: Warm dry with good turgor. He has erythema present over the lateral aspect of his ankle and foot. Generalized edema is present at the ankle. No open wounds. No erythema medially. Overall the ankle and foot are warm to touch. They are not hot. No tophi are present. No open wounds are noted. Musculoskeletal: Right lower extremity evaluation reveals the above-stated ankle edema. Otherwise the exam is extremity appears normal. He has erythema present laterally as stated. There is limited ankle motion secondary to pain. I can forcefully dorsiflex him just past neutral. Plantarflexion is only around 10 degrees beyond neutral. Intact motor function of the toes. There is generalized discomfort with palpation around the foot and ankle. Neurologic: Gross sensation is intact across the foot and ankle by soft touch. Peripheral pulses are 2+. Results & Data Vital Signs (Past 12 Hours) Vital Signs Temp Pulse Resp BP Pulse Ox O2 Del Method O2 Flow Rate 06/16/24 19:10 37.4 C 88 20 144/91 H 95 Nasal Cannula 2 06/16/24 15:50 36.9 C 88 20 155/90 H 97 Room Air 2
--- NOTE | 2024-06-16 21:06 | Hospitalist Progress Note ---
Date of Service June 16, 2024 Assessment & Plan (1) Abdominal pain: (2) Alcohol withdrawal: (3) Abnormal CT of the abdomen: (4) History of pancreatitis: (5) Rheumatoid arthritis: (6) Gout: (7) Hypomagnesemia: (8) Hypokalemia: (9) Neuropathy: (10) Depression: (11) HTN (hypertension): (12) POTS (postural orthostatic tachycardia syndrome): (13) Anxiety: (14) Transaminitis: (15) History of pulmonary embolus (PE): (16) B12 deficiency: (17) Pancytopenia: (18) Fall: (19) Pain in joint involving right ankle and foot: (20) Infection of scalp: Plan 35yo male with long-standing alcohol dependence, anxiety/depression, prior episode of pancreatitis 01/2024 requiring hospitalization at [facility], rheumatoid arthritis, gout, and diagnosis of PEs at [facility] in 04/2024 (prescribed Eliquis but hasn't been taking it) - presents with ongoing abdominal pain and nausea along with request for alcohol detox. Admit CT with focal pancreatic inflammation of the pancreatic head (significant improvement from prior CT 01/2024) as well as duodenal inflammation and ?distal colon colitis. But only 1 stool since admission and no pain over expected location of colon. #abdominal pain - IMPROVED - * etiology for pain --> mild focal pancreatitis of the head of the pancreas with secondary duodenitis vs PUD vs gastritis vs combo of factors * initially was on clears, now over to low fat diet & tolerating such * cont protonix 40mg BID + carafate QID for a week * appreciate GI consult - EGD planned for Sat, 06/17; NPO after MN for such * no evidence of GI bleeding -- H/H have remained stable & unchanged #abnormal pancreas / pancreatitis - * lipase x 3 normal this admit but head of pancreas showed inflammation on CT a/p at admission * the pancreas overall is radiographically improved, however, relative to his CT done in 01/2024 (had acute pancreatitis that admission) * no pancreatic calcifications to indicate chronic pancreatitis * see "abd pain" above * normal triglycerides on lipid profile * does not have a gall bladder * appreciate GI consult * tolerating low fat diet #abnormal duodenum - * reactive/secondary to focal pancreatitis of head of pancreas? vs primary issue (ie - PUD) due to etoh/NSAID use? * see above * PPI; carafate * EGD planned for 06/17 * appreciate GI assistance #hypokalemia - * 2nd to hypomagnesemia, poor appetite, etoh abuse, etc * replaced & improved but still low * replace low mag and give dose of potassium now followed by K-dur 20meq daily moving forward #hypomagnesemia - * 2nd to alcohol abuse and restricted diet early in stay * replaced and normalized but low again; replace with IV mag again today * repeat mag level am * weakness of legs and numbness could have been exacerbated by the low K and low mag #alcohol dependence - * long-standing abuse of liquor; fifth vodka/day * has not had continuous sobriety in many years * is motivated to quit * spoke to psych; willing to consider inpatient rehab at conclusion of his medical stay (vs outpatient services) but patient has not decided definitively * does have outside counselor in [facility] * consider Naltrexone therapy -- have discussed this in detail with patient multiple times; he is considering it * thiamine 200mg BID * folic acid 1mg daily * MVI daily * B12 level is only 300 --> supplement with 1000mcg of B12 daily #alcohol withdrawal - * completed a gabapentin protocol/taper * has not needed any ativan since 06/14 (AWSS scores have been low) thus stop ativan prn that was ordered via the AWSS bundle * clonidine 0.1mg BID #h/o PEs - 04/2024 - * had taken very little Eliquis since the diagnosis * the heavy etoh use with Eliquis is potentially dangerous * CTA chest this admission -- NO PEs seen * CTA chest report from [facility] with 1 solitary PE (1st order branch) only * would NOT Rx with anticoagulation at this time * risk factor for PEs - inflammatory state from poorly controlled RA? genetic factors? (his sister had VTE during a ) * reasonable to do a genetic w/u - Factor 5 Leiden mutation, prothrombin gene mutation, protein C & S activity, etc. dispatched today #neuropathy of legs - * 2nd to alcohol? * 2nd B12 def? * although he completed gabapentin taper for etoh withdrawal I did encourage him to take gabapentin ongoing for the neuropathy; he states that the neuropathy is painful at times * thus keep on gabapentin 300mg BID now and after discharge * replace low B12 #gout - podagra of L foot and R ankle synovitis - * gout likely 2nd to heavy etoh abuse * cont allopurinol daily * L foot podagra much improved with low dose prednisone * NO change in R ankle synovitis * although I don't suspect a septic joint I am uncertain why the R ankle/foot is not improving with low dose prednisone * thus, consulted [facility] ortho for their opinion; appreciate their assistance * they initially advised conservative Rx but today they plan to perform arthrocentesis to r/o septic joint and confirm gout with crystal analysis, etc * s/p 10mg of prednisone to start, now on 5mg daily * if EGD tomorrow does not show significant PUD or gastritis could add colchicine or other NSAID as adjunct to the prednisone * await EGD #HTN - * uncontrolled 2nd to withdrawal, anxiety, etc -- but improved on clonidine 0.1mg BID (was only taking once daily at home) #rheumatoid arthritis - * follows with Dr Salinas, [facility] Rheum * main issue right now is gout rather than RA * [id number] will need f/u with Dr Salinas down the line * see above re: gout #DVT proph - * lovenox 40mg daily, but hold after today's dose due to EGD on 06/17 #depression/anxiety - * cont sertraline daily * psych consult appreciated * alcohol playing a large role in his mood disorder #pancytopenia - * likely etoh induced * mild but stable * replace low b12 * already on folate supplementation * checked COVID/flu/RSV to r/o viral suppression -- all negative * recheck cbc in a couple of days for stability #fall with L knee pain (during the hospitalization) - * exam benign with no signs of trauma * x-rays w/o fracture #insomnia - * ativan 1mg PO HS prn #pain in right ankle - * see above progressing nicely dispo - inpatient etoh rehab post-d/c?? home with outpatient etoh services?? care d/w orthopedics Admission and Anticipated Discharge Date Admission Date: June 11, 2024 Subjective tele overnight wnl pt's main complaint is that of ongoing R ankle pain pain has NOT improved despite use of low-dose prednisone I gave him 1 dose of IV toradol earlier today and "that helped a lot" orthopedics planning to perform arthrocentesis of the R ankle joint today due to persistent pain/swelling abdominal pain is FINALLY improved no nausea/emesis no further tremors from etoh withdrawal sweats improved despite etoh withdrawal wrapping up he stated "I still don't feel good" GI to perform EGD on 06/17 psych - with respect to alcoholism - asked him if he is thinking about the N altrexone - states "still thinking about it" re: inpatient rehab - also continues to think about such Review of Systems Review of Systems: gen - no fevers, eating better cv - no chest pain pulm - no dyspnea GI - no N/V; having issues with constipation Physical Exam Physical Exam: gen - best he has looked since admission today; comfortable, lying in bed, awake, alert mouth - MMM neck - no JVD heart - RRR, s1 s2, no murmur lungs - CTA b/l abd - soft, ND, BS+; NT; no HSM ext - warm, pulses 2+ b/l, no peripheral edema except R ankle and R mid-foot neuro - no tremors skin - no diaphoresis or sweats today; scalp folliculitis/ulcerations - IMPROVED musculo - L great toe podagra again improved - only mild swelling left; nontender; not warm right ankle - mod-severe synovitis still present - passive/active ROM of ankle causes pain; mild warmth of right ankle; still with swelling psych - restricted affect but a/o x 3 Results & Data Results & Data Vital Signs (Past 12 Hours) Vital Signs Temp Pulse Resp BP Pulse Ox O2 Del Method O2 Flow Rate 06/16/24 19:10 37.4 C 88 20 144/91 H 95 Nasal Cannula 2 06/16/24 15:50 36.9 C 88 20 155/90 H 97 Room Air 2 Laboratory Results Laboratory Results - last 24 hr 06/16/24 10:36 Lupus Anticoagulant Pending Lupus Anticoag aPTT Pending Dil Charles Viper Venom Pending Protein C Activity Pending Protein S Activity Pending Antithrombin III Activ Pending Factor V Leiden Mutat Pending Factor V Leiden Interp Pending Sodium 137 Potassium 3.2 L Chloride 99 Carbon Dioxide 25 Anion Gap 13 H BUN 8 Creatinine 0.78 Est Cr Clr Drug Dosing 160.1 eGFR 120.01 BUN/Creatinine Ratio 10.3 Glucose 94 Calcium 9.8 Magnesium 1.5 L Prothrombin Gene Mutate Pending Prothromb Gene Comment Pending PG Care Time/CCT Total # of Minutes Spent Total Time Spent with Patient: Total time spent is greater than 50% in coordination of care (as documented) at patient's floor/unit and/or counseling patient: Coding Level of Care Code 50866 SUB INP/OBS CARE 3/50MIN Diagnoses Abdominal pain R10.9 Alcohol withdrawal F10.[address] of the abdomen R93.5 History of pancreatitis Z87.19 Rheumatoid arthritis M06.9 Gout, unspecified cause, unspecified chronicity, unspecified site M10.9 Chronicity: unspecified Gout etiology: unspecified cause Gout site: unspecified site Hypomagnesemia E83.42 Hypokalemia E87.6 Neuropathy G62.9 Depression F32.A HTN (hypertension) I10 POTS (postural orthostatic tachycardia syndrome) R00.0; I95.1 Anxiety F41.9 Transaminitis R74.01 History of pulmonary embolus (PE) Z86.711 B12 deficiency E53.8 Pancytopenia D61.818 Fall W19.XXXA Pain in joint involving right ankle and foot M25.571 Infection of scalp L08.9 (6) Gout Chronicity: unspecified Gout etiology: unspecified cause Gout site: unspecified site Qualified Code(s): M10.9 - Gout, unspecified
[2024-06-16] MEDS: MAGNESIUM OXIDE 400 MG TAB PO SCH (21:13)
[2024-06-17] MEDS: KETOROLAC 30 MG/ML VIAL IV ONE ×2 (00:03→22:05)
[2024-06-17 07:32] LABS: Calcium 8.9 mg/dl (8.6-10.3); Magnesium 2.2 mg/dl (1.7-2.4); Potassium 3.6 mmol/L (3.5-5.1)
[2024-06-17 07:37] LABS: BUN Creatinine Ratio 13.4 (10-20); Creatinine Clr Calc Pharmacy 186.3 ml/min
--- NOTE | 2024-06-17 10:04 | History & Physical Bridge Note ---
Date of Service June 17, 2024 History & Physical Bridge Note I have examined the patient, reviewed the History & Physical and in the interval since the performance of the History & Physical I have noted the following changes of clinical significance: no changes noted with the exception of constipation. Keep NPO. Proceed with EGD today. Will adjust bowel regimen to combat constipation likely stemming from narcotic use and modified diet.
--- NOTE | 2024-06-17 10:09 | Orthopedic Progress Note ---
Date of Service June 17, 2024 Assessment & Plan (1) Pain in joint involving right ankle and foot: Plan: Right ankle was aspirated yesterday. Gram stain was negative. Cell count was greater than 10,000, crystal exam was positive for mono urate sodium crystals, Suggestive of gout. No plans for surgical intervention. Mildly less erythematous and swollen today. Continue ice, elevation and compression as needed. May be out of bed, weight-bear as tolerated with assistive device as needed. May do full ankle range of motion as tolerated. Should improve with medications. If EGD is negative for gastritis or ulcers may consider anti-inflammatory such as Celebrex 200 mg p.o. twice daily for 2 weeks. Will continue to follow cultures during his inpatient stay. Continue steroids and allopurinol. (2) Swelling of first metatarsophalangeal (MTP) joint of left foot: Plan: Continuing to improve. Continue steroids Continue allopurinol Admission and Anticipated Discharge Date Admission Date: June 11, 2024 Supervising Physician Co-Signing Physician Notes I, Dr. Auguste, saw and examined the patient and agree with the above findings and plan of care I developed and discussed with my PA. R ankle pain/effusion due to gout. Subjective Patient states that he continues to have pain in the right ankle. He states that is just as painful today as it was yesterday. He has been out of bed as per nursing but he states he has not been bearing weight on the right leg. Denies any fevers or chills. States that his pain level is tracking to the right knee. Physical Exam Musculoskeletal: Exam focused on his right lower extremity: Soft tissue swelling continued in the lateral aspect of the right ankle. Less erythema today. Able to wiggle his toes just slightly. Tenderness diffusely throughout the right foot, ankle and into the right calf. The calf is supple. No effusion of the right knee. Results & Data Vital Signs (Past 12 Hours) Vital Signs Temp Pulse Resp BP Pulse Ox O2 Del Method 06/17/24 07:53 37.0 C 89 18 149/98 H 98 Room Air 06/17/24 03:44 37.0 C 77 16 151/96 H 99 Room Air 06/16/24 23:12 37.5 C 81 21 148/89 H 98 Room Air Laboratory Results 06/16/24 16:25 Gram Stain - Final Ankle,Right Aerobic and Anaerobic Culture - Pending 06/17/24 06/16/24 06/16/24 05:54 16:25 10:36 Sodium 140 137 Potassium 3.6 3.2 L Chloride 105 99 Carbon Dioxide 29 25 Anion Gap 6 13 H BUN 9 8 Creatinine 0.67 0.78 Est Cr Clr Drug Dosing 186.3 160.1 eGFR 125.65 120.01 BUN/Creatinine Ratio 13.4 10.3 Glucose 86 94 Calcium 8.9 9.8 Magnesium 2.2 1.5 L Fluid Comment Synovial Source Other Synovial Color Red Synovial Appearance Bloody Synovial WBC (Auto) > 52420 H Synovial RBC (Auto) 686327 Synovial Polynuclear % 95.0 Synovial Mononuclear % 5.0 Synovial Crystals Results show rare monosodium urate cyrstals, suggestive of Gout Gram stain negative.
--- NOTE | 2024-06-17 10:30 | Anesthesiology Consultation ---
Date of Service June 17, 2024 Assessment & Plan (1) Encounter for pre-operative examination: Chart Review Chart Review: Acceptable Risk for Surgery, Patient NOT seen in Pre Admission Testing and carpentry instructor initiated Consults Requested none Proposed Anesthesia Anesthesia Type: MAC History Surgery Operation Date: 06/17/24 16:30 Proposed Procedures p Esophagogastroduodenoscopy Teresa Moore MD Height/Weight Height: 6 ft Weight: 95.6 kg Allergies Allergy/AdvReac Type Severity Reaction Status Date / Time No Known Allergies Allergy Verified 06/02/24 14:04 Medications Home Medications Medication Instructions Recorded Confirmed Last Taken apixaban 5 mg tablet (Eliquis) 5 mg PO BID 05/07/24 06/11/24 Unknown allopurinol 100 mg tablet 100 mg PO DAILY #30 tabs 06/02/24 06/11/24 Unknown omeprazole 40 mg capsule,delayed 40 mg PO DAILY #90 caps 06/02/24 06/11/24 Unknown release meloxicam 15 mg tablet 15 mg PO UD 06/11/24 06/11/24 Unknown sertraline 50 mg tablet 50 mg PO DAILY 06/11/24 06/11/24 Unknown clonidine HCl 0.1 mg tablet 0.1 mg PO QAM #90 tabs 06/15/24 Unknown Active Medications Generic Name Dose Route Start Last Admin Trade Name Freq PRN Reason Stop Dose Admin Acetaminophen 1,000 mg 06/15/24 02:11 06/17/24 10:08 Acetaminophen 500 Mg Tab PO 07/15/24 02:10 1,000 mg Q8H PRN Administration Pain or Fever Allopurinol 100 mg 06/12/24 09:00 06/16/24 08:38 Allopurinol 100 Mg Tab PO 07/12/24 08:59 100 mg DAILY MALKA Administration Cephalexin HCl 500 mg 06/14/24 21:00 06/17/24 08:44 Cephalexin 500 Mg Cap PO 06/21/24 20:59 Not Given TID MALKA Protocol Clonidine HCl 0.1 mg 06/11/24 21:00 06/17/24 08:41 Clonidine Hcl 0.1 Mg Tab PO 07/11/24 20:59 0.1 mg BID MALKA Administration Cyanocobalamin 1,000 mcg 06/12/24 13:45 06/16/24 08:38 Cyanocobalamin (B-12) 500 Mcg Tablet PO 07/12/24 13:44 1,000 mcg QAM MALKA Administration Enoxaparin Sodium 40 mg 06/13/24 09:00 06/16/24 08:39 Enoxaparin Inj 40 Mg/0.4 Ml Syr SQ 07/13/24 08:59 40 mg QAM MALKA Administration Folic Acid 1 mg 06/16/24 09:00 06/16/24 08:37 Folic Acid 1 Mg Tab PO 07/16/24 08:59 1 mg DAILY MALKA Administration Gabapentin 300 mg 06/15/24 21:00 06/16/24 21:15 Gabapentin 300 Mg Cap PO 07/15/24 20:59 300 mg BID MALKA Administration Lorazepam 0.5 mg 06/13/24 08:38 06/15/24 08:21 Lorazepam 0.5 Mg Tab PO 07/13/24 08:37 0.5 mg Q6H PRN Administration Anxiety Lorazepam 1 mg 06/14/24 17:11 06/16/24 21:13 Lorazepam 1 Mg Tab PO 07/14/24 17:10 1 mg HS PRN Administration Sleep Magnesium Oxide 400 mg 06/16/24 21:00 06/16/24 21:13 Magnesium Oxide 400 Mg Tab PO 07/16/24 20:59 400 mg BID MALKA Administration Multivitamins 1 tab 06/12/24 09:00 06/16/24 08:38 Multivitamin Tab PO 07/12/24 08:59 1 tab QAM MALKA Administration Ondansetron HCl 4 mg 06/11/24 16:48 06/15/24 08:21 Ondansetron Inj 2 Mg/Ml 2 Ml Vial IV 07/11/24 16:47 4 mg Q6H PRN Administration Nausea Oxycodone HCl 5 mg 06/16/24 10:31 06/17/24 08:30 Oxycodone Hcl Ir 5 Mg Tab (Immediate Release) PO 06/29/24 08:05 5 mg Q4H PRN Administration Pain Pantoprazole Sodium 40 mg 06/15/24 21:00 06/16/24 21:15 Pantoprazole 40 Mg Tab PO 07/15/24 20:59 40 mg Q12H MALKA Administration Prednisone 5 mg 06/13/24 09:00 06/16/24 08:38 Prednisone 5 Mg Tab PO 07/13/24 08:59 5 mg QAM MALKA Administration Sennosides 17.2 mg 06/16/24 15:30 06/16/24 15:38 Senna 8.6 Mg Tab PO 07/16/24 15:29 17.2 mg QAM MALKA Administration Sertraline HCl 50 mg 06/12/24 09:00 06/16/24 08:38 Sertraline Hcl 50 Mg Tablet PO 07/12/24 08:59 50 mg DAILY MALKA Administration Sucralfate 1 gm 06/14/24 09:00 06/17/24 08:45 Sucralfate 1 Gm/10 Ml Udc PO 07/14/24 08:59 Not Given QID MALKA Thiamine HCl 200 mg 06/15/24 21:00 06/16/24 21:15 Thiamine Hcl 100 Mg Tab PO 07/15/24 20:59 200 mg Q12H MALKA Administration Past Medical History Medical History History of pulmonary embolus (PE) Gout History of pancreatitis Rheumatoid arthritis Alcohol abuse Neuropathy B12 deficiency Vitamin D deficiency Depression HTN (hypertension) Anxiety POTS (postural orthostatic tachycardia syndrome) Past Family History Family History Sister VTE (venous thromboembolism) Father Hyperlipidemia Other Colorectal cancer Diabetes Myocardial infarction Denies family history of Ovarian cancer Prostate cancer Alcoholism Breast cancer Lung cancer Past Surgical History Surgical History S/P cholecystectomy January 2016 Social History Smoking Status: Never smoker Do You Dip or Chew Tobacco: No Hx Alcohol Use: Yes Alcohol type: hard liquor alcohol intake frequency: 3 or more drinks per day Hx Substance Use: No Physical Exam Vital Signs Last Vital Signs Temp 37.0 C 06/17/24 07:53 Pulse 89 06/17/24 07:53 Resp 18 06/17/24 07:53 BP 149/98 H 06/17/24 07:53 Pulse Ox 98 06/17/24 07:53 O2 Del Method Room Air 06/17/24 07:53 O2 Flow Rate 2 06/16/24 19:10 Testing Laboratory Results 06/14/24 05:59 06/17/24 05:54 Urine Color Yellow 06/11/24 13:06 Urine Appearance Clear (Clear) 06/11/24 13:06 Urine pH 6.5 (4.5-7.5) 06/11/24 13:06 Ur Specific [place] 1.028 (1.000-1.030) 06/11/24 13:06 Urine Protein Negative (Negative) 06/11/24 13:06 Urine Glucose (UA) Negative (Negative) 06/11/24 13:06 Urine Ketones Negative (Negative) 06/11/24 13:06 Urine Nitrite Negative (Negative) 06/11/24 13:06 Ur Leukocyte Esterase Negative (Negative) 06/11/24 13:06 06/16/24 16:25 Gram Stain - Final Ankle,Right Electrocardiogram Date: 06/11/24 Test Reason : Blood Pressure : */* mmHG Vent. Rate : 92 BPM Atrial Rate : 92 BPM P-R Int : 150 ms QRS Dur : 80 ms QT Int : 352 ms P-R-T Axes : 30 48 22 degrees QTcB Int : 435 ms Normal sinus rhythm Nonspecific T wave abnormality Abnormal ECG When compared with ECG of 22-Dec-2022 11:49, NV interval has increased Nonspecific T wave abnormality has replaced inverted T waves in Anterolateral leads T wave inversion no longer evident in Inferior leads Confirmed by Brice Mariscal ([id number]) on 06/11/2024 8:3 Chest X-Ray Date: 01/26/24 EXAM: Radiograph of the Chest 1 View INDICATION: Follow-up COVID. TECHNIQUE: Frontal view of the chest. COMPARISON: 12/22/2022 FINDINGS: Lungs and pleural spaces: Mild atelectasis or scarring present in the right lung base with increased right diaphragmatic elevation. No pleural effusion or pneumothorax. No consolidation or pulmonary edema. Heart: Shape and configuration within normal limits allowing for technique. Mediastinum: Normal contour. Bones/joints: Lateral right ninth rib fracture. Degenerative changes in the spine. No acute osseous abnormality. Soft tissues: No abnormality noted. No radiopaque foreign body noted. Upper abdomen: No abnormality noted. IMPRESSION: Mild atelectasis or scarring present in the right lung base with increased right diaphragmatic elevation Echocardiogram Date: 04/24/24 EF: 55-59 LV Function: normal RWMA: + none Valvular Disease: + no significant valvular disease
[2024-06-17] MEDS: SODIUM CHLORIDE 0.9% 500 ML IV SCH (11:26)
--- NOTE | 2024-06-17 12:19 | GI REPORT ---
[facility] Patient: ANA MARTELL : 1990 Sex at : Male Age: 34 Years Procedure: Upper GI endoscopy Date: 06/17/2024 Attending Physician: Dylan Moore MD Referring MD: Amee Toribio; Arvind Campbell MD Indications: - Epigastric abdominal pain Medications: - Monitored Anesthesia Care Complications: - No immediate complications. Estimated Blood Loss: - Estimated blood loss: None. Procedure: - The egd scope was introduced through the mouth and advanced to the third part of the duodenum. - The upper GI endoscopy was accomplished without difficulty. - The patient tolerated the procedure well. Findings: - The Z-line was regular and was found 40 cm from the incisors. - The examined esophagus was normal. - There is no endoscopic evidence of varices, Merrill's esophagus or esophagitis in the entire esophagus. - Patchy moderate inflammation characterized by erosions and erythema was found in the gastric antrum. Biopsies were taken with a cold forceps for histology. Biopsies were taken with a cold forceps for Helicobacter pylori testing. - There is no endoscopic evidence of varices, hiatal hernia or ulceration in the entire examined stomach. - The exam of the stomach was otherwise normal. - Patchy granular mucosa was found in the second portion of the duodenum. Biopsies were taken with a cold forceps for histology. - The exam of the duodenum was otherwise normal. Impression: - Z-line regular, 40 cm from the incisors. - Normal esophagus. - Gastritis, characterized by erosions and erythema. Biopsied. - Granular mucosa in the second portion of the duodenum. Biopsied. Recommendation: - Await pathology results. - Return to referring physician as previously scheduled. - Return to GI office PRN. Procedure Code(s): - 60787, Esophagogastroduodenoscopy, flexible, transoral; with biopsy, single or multiple Diagnosis Code(s): - R10.13, Epigastric pain - K29.70, Gastritis, unspecified, without bleeding - K31.89, Other diseases of stomach and duodenum CPT(R) - 2023 copyright [employer]. All Rights Reserved. The CPT codes, CCI edits and ICD codes generated are intended as suggestions and were generated based on input data. These codes are preliminary and upon supervisor aircraft maintenance review may be revised to meet current compliance and payer requirements. The provider is responsible for the final determination of appropriate codes, and modifiers. Dylan Moore M.D., MD This document has been electronically signed. Note Initiated:06/17/2024 Note Completed:06/17/2024 12:18 PM \\[email or web address]\[email or web address]\Results\LIVE\[id number]
--- NOTE | 2024-06-17 12:27 | Hospitalist Progress Note ---
Date of Service June 17, 2024 Assessment & Plan (1) Abdominal pain: Plan: etiology for pain --> mild focal pancreatitis of the head of the pancreas with secondary duodenitis vs PUD vs gastritis vs combo of factors * initially was on clears, now over to low fat diet & tolerating such * cont protonix 40mg BID + carafate QID for a week * appreciate GI consult - * no evidence of GI bleeding -- H/H have remained stable & unchanged * EGD today showing gastritis (2) Alcohol withdrawal: Plan: long-standing abuse of liquor; fifth vodka/day * has not had continuous sobriety in many years * is motivated to quit * spoke to psych; willing to consider inpatient rehab at conclusion of his medical stay (vs outpatient services) but patient has not decided definitively * does have outside counselor in [facility] * consider Naltrexone therapy -- have discussed this in detail with patient multiple times; he is considering it * thiamine 200mg BID * folic acid 1mg daily * MVI daily * B12 level is only 300 --> supplement with 1000mcg of B12 daily (3) Abnormal CT of the abdomen: Plan: lipase x 3 normal this admit but head of pancreas showed inflammation on CT a/p at admission * the pancreas overall is radiographically improved, however, relative to his CT done in 01/2024 (had acute pancreatitis that admission) * no pancreatic calcifications to indicate chronic pancreatitis * see "abd pain" above * normal triglycerides on lipid profile * does not have a gall bladder (4) History of pancreatitis: (5) Rheumatoid arthritis: (6) Gout: (7) Hypomagnesemia: (8) Hypokalemia: (9) Neuropathy: (10) Depression: (11) HTN (hypertension): (12) POTS (postural orthostatic tachycardia syndrome): (13) Anxiety: (14) Transaminitis: (15) History of pulmonary embolus (PE): Plan: had taken very little Eliquis since the diagnosis * the heavy etoh use with Eliquis is potentially dangerous * CTA chest this admission -- NO PEs seen * CTA chest report from [facility] with 1 solitary PE (1st order branch) only * would NOT Rx with anticoagulation at this time * risk factor for PEs - inflammatory state from poorly controlled RA? genetic factors? (his sister had VTE during a ) * reasonable to do a genetic w/u - Factor 5 Leiden mutation, prothrombin gene mutation, protein C & S activity, etc. (16) B12 deficiency: (17) Pancytopenia: Plan: likely etoh induced * mild but stable * replace low b12 * already on folate supplementation * checked COVID/flu/RSV to r/o viral suppression -- all negative * recheck cbc in a couple of days for stability (18) Fall: (19) Pain in joint involving right ankle and foot: Plan: gout likely 2nd to heavy etoh abuse * cont allopurinol daily * L foot podagra much improved with low dose prednisone * NO change in R ankle synovitis * although I don't suspect a septic joint I am uncertain why the R ankle/foot is not improving with low dose prednisone * thus, consulted [facility] ortho for their opinion; appreciate their assistance * they initially advised conservative Rx * arthrocentesis confirms gout with crystal analysis * no NSAIDS 2nd to gastritis on EGD (20) Infection of scalp: Plan 35yo male with long-standing alcohol dependence, anxiety/depression, prior episode of pancreatitis 01/2024 requiring hospitalization at [facility], rheumatoid arthritis, gout, and diagnosis of PEs at [facility] in 04/2024 (prescribed Eliquis but hasn't been taking it) - presents with ongoing abdominal pain and nausea along with request for alcohol detox. Admit CT with focal pancreatic inflammation of the pancreatic head (significant improvement from prior CT 01/2024) as well as duodenal inflammation and ?distal colon colitis. But only 1 stool since admission and no pain over expected location of colon. D/C planning for tomorrow 06/18 Admission and Anticipated Discharge Date Admission Date: June 11, 2024 Subjective Pt still complaining of abdominal discomfort. Review of Systems Review of Systems: CONST: Negative for fever, body aches and chills. HENT: Negative for neck pain/stiffness, headache, congestion, sore throat, swelling. EYES: Negative for discharge/pain or vision changes. RESP: Negative for cough/hemoptysis and shortness of breath. CV: Negative chest pain, difficulty breathing, palpitations. ABD: Negative pain, nausea, vomiting. : Negative increase frequency, dysuria, blood in urine or stool. MUSC: Negative for muscle aches, edema. SKIN: Negative rash, lesions/sores. NEURO: Negative headache, dizziness, weakness. Physical Exam Physical Exam: GENERAL APPEARANCE NAD, activity normal for age, well developed/ well nourished, no cyanosis, pallor, or diaphoresis. EYES lids/conjunctiva normal. EARS/NOSE/THROAT Mucous membranes moist, nares normal, lips/teeth normal uvula midline without oral pharyngeal erythema, exudate or swelling TMs normal bilaterally. No lymphangitis/lymphedema. HEAD/NECK normocephalic atraumatic, no facial trauma, neck is supple. RESPIRATORY respiratory effort normal, speaks in full sentences, no tripod position, no accessory muscle use. Lungs clear to auscultation without rhonchi, wheezes, rales CARDIAC Regular rate and rhythm, no edema. ABDOMINAL Soft, ND/NT. No evidence of fluid wave. No pulsatile masses on exam, rebound tenderness, Marshall sign or pain over Mcburney's point. MUSCLES/EXTREMITIES No abnormal range of motion, no swelling. SKIN Warm, pink and dry. No rashes, dermatoses, petechiae or lesions. NEUROLOGICAL Speech is clear and appropriate. Normal level of consciousness. Gait and coordination are normal. 5/5 strength in all extremities. PSYCH Normal mood and affect. Judgement/competence is appropriate Results & Data Results & Data Vital Signs (Past 12 Hours) Vital Signs Temp Pulse Resp BP BP Pulse Ox O2 Del Method 06/17/24 12:16 84 16 113/64 97 Room Air 06/17/24 11:20 36.9 C 75 16 131/77 95 Room Air 06/17/24 11:02 37.1 C 77 18 138/91 96 Room Air 06/17/24 07:53 37.0 C 89 18 149/98 H 98 Room Air 06/17/24 03:44 37.0 C 77 16 151/96 H 99 Room Air PG Care Time/CCT Total # of Minutes Spent Total Time Spent with Patient: Total time spent is greater than 50% in coordination of care (as documented) at patient's floor/unit and/or counseling patient: Coding Level of Care Code 87447 SUB INP/OBS CARE 2/35MIN Diagnoses Abdominal pain R10.9 Alcohol withdrawal F10.[address] of the abdomen R93.5 History of pancreatitis Z87.19 Rheumatoid arthritis M06.9 Gout, unspecified cause, unspecified chronicity, unspecified site M10.9 Gout site: unspecified site Gout etiology: unspecified cause Chronicity: unspecified Hypomagnesemia E83.42 Hypokalemia E87.6 Neuropathy G62.9 Depression F32.A HTN (hypertension) I10 POTS (postural orthostatic tachycardia syndrome) R00.0; I95.1 Anxiety F41.9 Transaminitis R74.01 History of pulmonary embolus (PE) Z86.711 B12 deficiency E53.8 Pancytopenia D61.818 Fall W19.XXXA Pain in joint involving right ankle and foot M25.571 Infection of scalp L08.9 (6) Gout Gout site: unspecified site Gout etiology: unspecified cause Chronicity: unspecified Qualified Code(s): M10.9 - Gout, unspecified
[2024-06-17] MEDS: POTASSIUM CHLORIDE CRTAB 20 MEQ TABCR PO SCH (13:06)
[2024-06-17] MEDS: LIDOCAINE 2% 2 ML VIAL/AMP(20MG/ML) INFIL ONE (13:15)
[2024-06-17] MEDS: PROPOFOL IV EMULSION 10 MG/ML 20 ML VIAL IV ONE ×2 (13:15)
[2024-06-17] MEDS: POLYETHYLENE (MIRALAX) 17 GM PACK PO SCH (20:36)
--- NOTE | 2024-06-18 00:35 | Magnetic Resonance Report ---
Exam(s): MRI RIGHT ANKLE Without Contrast EXAM: MR Right Lower Extremity Without Intravenous Contrast, Ankle CLINICAL HISTORY: Reason for exam: right ankle pain. TECHNIQUE: Multiplanar magnetic resonance images of the right ankle without intravenous contrast. COMPARISON: No relevant prior studies available. FINDINGS: There is moderate tibiotalar joint effusion. There is no evidence of acute fracture or dislocation. There is no osteochondral lesion of the talar dome. Tibiotalar, subtalar, talonavicular, calcaneocuboid joints are noted. Pes cavus is suggested. Sinus tarsi appears normal. Achilles tendon and plantar aponeurosis are intact. Medial flexor tendons, lateral peroneal tendons, and anterior extensor tendons are intact. There is tenosynovitis of the flexor hallucis longus tendon along the plantar aspect of the foot. The anterior talofibular ligament is majority torn, with some intact inferior-most fibers. Posterior talofibular and calcaneofibular ligaments are intact. Deltoid ligament complex appears intact. There is lateral soft tissue swelling and edema. IMPRESSION: 1. High-grade ATFL tear with lateral soft tissue swelling. 2. Moderate tibiotalar joint effusion. 3. Tenosynovitis of the flexor hallucis longus tendon at the plantar aspect of the foot. Electronically signed by: Haylee Jurado M.D. 06/18/24 00:34 AM
--- NOTE | 2024-06-18 09:47 | Hospitalist Progress Note ---
Date of Service June 18, 2024 Assessment & Plan (1) Abdominal pain: Plan: etiology for pain --> mild focal pancreatitis of the head of the pancreas with secondary duodenitis vs PUD vs gastritis vs combo of factors * initially was on clears, now over to low fat diet & tolerating such * cont protonix 40mg BID + carafate QID for a week * appreciate GI consult - * no evidence of GI bleeding -- H/H have remained stable & unchanged * EGD today showing gastritis (2) Alcohol withdrawal: Plan: long-standing abuse of liquor; fifth vodka/day * has not had continuous sobriety in many years * is motivated to quit * spoke to psych; willing to consider inpatient rehab at conclusion of his medical stay (vs outpatient services) but patient has not decided definitively * does have outside counselor in [facility] * consider Naltrexone therapy -- have discussed this in detail with patient multiple times; he is considering it * thiamine 200mg BID * folic acid 1mg daily * MVI daily * B12 level is only 300 --> supplement with 1000mcg of B12 daily (3) Abnormal CT of the abdomen: Plan: lipase x 3 normal this admit but head of pancreas showed inflammation on CT a/p at admission * the pancreas overall is radiographically improved, however, relative to his CT done in 01/2024 (had acute pancreatitis that admission) * no pancreatic calcifications to indicate chronic pancreatitis * see "abd pain" above * normal triglycerides on lipid profile * does not have a gall bladder (4) History of pancreatitis: (5) Rheumatoid arthritis: (6) Gout: (7) Hypomagnesemia: (8) Hypokalemia: (9) Neuropathy: (10) Depression: (11) HTN (hypertension): (12) POTS (postural orthostatic tachycardia syndrome): (13) Anxiety: (14) Transaminitis: (15) History of pulmonary embolus (PE): Plan: had taken very little Eliquis since the diagnosis * the heavy etoh use with Eliquis is potentially dangerous * CTA chest this admission -- NO PEs seen * CTA chest report from [facility] with 1 solitary PE (1st order branch) only * would NOT Rx with anticoagulation at this time * risk factor for PEs - inflammatory state from poorly controlled RA? genetic factors? (his sister had VTE during a ) * reasonable to do a genetic w/u - Factor 5 Leiden mutation, prothrombin gene mutation, protein C & S activity, etc. (16) B12 deficiency: (17) Pancytopenia: Plan: likely etoh induced * mild but stable * replace low b12 * already on folate supplementation * checked COVID/flu/RSV to r/o viral suppression -- all negative * recheck cbc in a couple of days for stability (18) Fall: (19) Pain in joint involving right ankle and foot: Plan: gout likely 2nd to heavy etoh abuse * cont allopurinol daily * L foot podagra much improved with low dose prednisone * NO change in R ankle synovitis * although I don't suspect a septic joint I am uncertain why the R ankle/foot is not improving with low dose prednisone * thus, consulted [facility] ortho for their opinion; appreciate their assistance * they initially advised conservative Rx * arthrocentesis confirms gout with crystal analysis * no NSAIDS 2nd to gastritis on EGD * MRI showing High-grade ATFL tear with lateral soft tissue swelling. * Ortho to follow up, suggesting cam boot, ok to WBAT * Con't PT (20) Infection of scalp: Plan 35yo male with long-standing alcohol dependence, anxiety/depression, prior episode of pancreatitis 01/2024 requiring hospitalization at [facility], rheumatoid arthritis, gout, and diagnosis of PEs at [facility] in 04/2024 (prescribed Eliquis but hasn't been taking it) - presents with ongoing abdominal pain and nausea along with request for alcohol detox. Admit CT with focal pancreatic inflammation of the pancreatic head (significant improvement from prior CT 01/2024) as well as duodenal inflammation and ?distal colon colitis. But only 1 stool since admission and no pain over expected location of colon. D/C planning for tomorrow 06/18 Admission and Anticipated Discharge Date Admission Date: June 11, 2024 Subjective Pt complaining of right ankle pain. Unable dorsiflex foot 2nd to pain. Tolerating diet. Review of Systems Review of Systems: CONST: Negative for fever, body aches and chills. HENT: Negative for neck pain/stiffness, headache, congestion, sore throat, swelling. EYES: Negative for discharge/pain or vision changes. RESP: Negative for cough/hemoptysis and shortness of breath. CV: Negative chest pain, difficulty breathing, palpitations. ABD: Negative pain, nausea, vomiting. : Negative increase frequency, dysuria, blood in urine or stool. MUSC: Negative for muscle aches, edema. SKIN: Negative rash, lesions/sores. NEURO: Negative headache, dizziness, weakness. Physical Exam Physical Exam: GENERAL APPEARANCE NAD, activity normal for age, well developed/ well nourished, no cyanosis, pallor, or diaphoresis. EYES lids/conjunctiva normal. EARS/NOSE/THROAT Mucous membranes moist, nares normal, lips/teeth normal uvula midline without oral pharyngeal erythema, exudate or swelling TMs normal bilaterally. No lymphangitis/lymphedema. HEAD/NECK normocephalic atraumatic, no facial trauma, neck is supple. RESPIRATORY respiratory effort normal, speaks in full sentences, no tripod position, no accessory muscle use. Lungs clear to auscultation without rhonchi, wheezes, rales CARDIAC Regular rate and rhythm, no edema. ABDOMINAL Soft, ND/NT. No evidence of fluid wave. No pulsatile masses on exam, rebound tenderness, Marshall sign or pain over Mcburney's point. MUSCLES/EXTREMITIES No abnormal range of motion, no swelling. SKIN Warm, pink and dry. No rashes, dermatoses, petechiae or lesions. NEUROLOGICAL Speech is clear and appropriate. Normal level of consciousness. Gait and coordination are normal. 5/5 strength in all extremities. PSYCH Normal mood and affect. Judgement/competence is appropriate Results & Data Results & Data Vital Signs (Past 12 Hours) Vital Signs Temp Pulse Resp BP Pulse Ox O2 Del Method 06/18/24 08:35 36.8 C 116 H 19 144/88 H 97 Room Air PG Care Time/CCT Total # of Minutes Spent Total Time Spent with Patient: Total time spent is greater than 50% in coordination of care (as documented) at patient's floor/unit and/or counseling patient: Coding Level of Care Code 85835 SUB INP/OBS CARE 2/35MIN Diagnoses Abdominal pain R10.9 Alcohol withdrawal F10.[address] of the abdomen R93.5 History of pancreatitis Z87.19 Rheumatoid arthritis M06.9 Gout, unspecified cause, unspecified chronicity, unspecified site M10.9 Gout site: unspecified site Gout etiology: unspecified cause Chronicity: unspecified Hypomagnesemia E83.42 Hypokalemia E87.6 Neuropathy G62.9 Depression F32.A HTN (hypertension) I10 POTS (postural orthostatic tachycardia syndrome) R00.0; I95.1 Anxiety F41.9 Transaminitis R74.01 History of pulmonary embolus (PE) Z86.711 B12 deficiency E53.8 Pancytopenia D61.818 Fall W19.XXXA Pain in joint involving right ankle and foot M25.571 Infection of scalp L08.9 (6) Gout Gout site: unspecified site Gout etiology: unspecified cause Chronicity: unspecified Qualified Code(s): M10.9 - Gout, unspecified
--- NOTE | 2024-06-18 10:57 | Orthopedic Progress Note ---
Date of Service June 18, 2024 Assessment & Plan (1) Pain in joint involving right ankle and foot: Plan: The patient was educated regarding today's findings. Conservative care measures were discussed. The ATF ligament injury is not likely contributing to his r edness, pain, or warmth. Those symptoms are most likely related to his gout. I do not suspect intra-articular infection. The ligament injury will be treated similar to an ankle sprain. Continue with his boot. Weight-bear as tolerated. He may benefit from a knee scooter to assist with ambulation at home. He can be discharged from an orthopedic standpoint. Continue allopurinol for suppression of his gout. Importance of avoiding excessive alcohol is also advised. No further orthopedic intervention is needed at this time. Care plan was discussed with Dr. Auguste. Admission and Anticipated Discharge Date Admission Date: June 11, 2024 Subjective This 34-year-old male is seen today in his room. He continues to complain of right ankle pain. He states the pain is worse when bearing weight on it. His cam boot is at bedside. He states he was unaware of the ATF ligament tear found on MRI. No other complaints. Physical Exam Physical Exam: General: Well-developed, well-nourished, young male, in no acute distress. No obvious discomfort. Laying in bed. Alert and oriented. Flat affect. Skin: Warm dry with good turgor. He still has erythema present over the lateral aspect of his ankle and foot, but it is less than Saturday. Generalized edema is present at the ankle but it is also improved. No open wounds. No erythema medially. Overall the ankle and foot are still warm to touch. Temperature is improved. No tophi are present. No open wounds are noted. Musculoskeletal: Right lower extremity evaluation reveals the above-stated ankle edema. Otherwise the exam is extremity appears normal. He has erythema present laterally as stated. There is limited ankle motion secondary to pain. I can still forcefully dorsiflex him just past neutral. Plantarflexion is only around 10 degrees beyond neutral. Intact motor function of the toes. Neurologic: Gross sensation is intact across the foot and ankle by soft touch. Peripheral pulses are 2+. Results & Data Vital Signs (Past 12 Hours) Vital Signs Temp Pulse Resp BP Pulse Ox O2 Del Method 06/18/24 08:35 36.8 C 116 H 19 144/88 H 97 Room Air Diagnostic Findings MRI previously obtained was reviewed. There is evidence of an anterior talo fibular ligament tear, without significant surrounding edema to suggest acute injury. A mild to moderate intra-articular effusion is noted. No evidence of fracture.
--- NOTE | 2024-06-19 09:20 | Hospitalist Progress Note ---
Date of Service June 19, 2024 Assessment & Plan (1) Abdominal pain: Plan: etiology for pain --> mild focal pancreatitis of the head of the pancreas with secondary duodenitis vs PUD vs gastritis vs combo of factors * initially was on clears, now over to low fat diet & tolerating such * cont protonix 40mg BID + carafate QID for a week * appreciate GI consult - * no evidence of GI bleeding -- H/H have remained stable & unchanged * EGD today showing gastritis (2) Alcohol withdrawal: Plan: long-standing abuse of liquor; fifth vodka/day * has not had continuous sobriety in many years * is motivated to quit * spoke to psych; willing to consider inpatient rehab at conclusion of his medical stay (vs outpatient services) but patient has not decided definitively * does have outside counselor in [facility] * consider Naltrexone therapy -- have discussed this in detail with patient multiple times; he is considering it * thiamine 200mg BID * folic acid 1mg daily * MVI daily * B12 level is only 300 --> supplement with 1000mcg of B12 daily (3) Abnormal CT of the abdomen: Plan: lipase x 3 normal this admit but head of pancreas showed inflammation on CT a/p at admission * the pancreas overall is radiographically improved, however, relative to his CT done in 01/2024 (had acute pancreatitis that admission) * no pancreatic calcifications to indicate chronic pancreatitis * see "abd pain" above * normal triglycerides on lipid profile * does not have a gall bladder (4) History of pancreatitis: (5) Rheumatoid arthritis: (6) Gout: (7) Hypomagnesemia: (8) Hypokalemia: (9) Neuropathy: (10) Depression: (11) HTN (hypertension): (12) POTS (postural orthostatic tachycardia syndrome): (13) Anxiety: (14) Transaminitis: (15) History of pulmonary embolus (PE): Plan: had taken very little Eliquis since the diagnosis * the heavy etoh use with Eliquis is potentially dangerous * CTA chest this admission -- NO PEs seen * CTA chest report from [facility] with 1 solitary PE (1st order branch) only * would NOT Rx with anticoagulation at this time * risk factor for PEs - inflammatory state from poorly controlled RA? genetic factors? (his sister had VTE during a ) * reasonable to do a genetic w/u - Factor 5 Leiden mutation, prothrombin gene mutation, protein C & S activity, etc. (16) B12 deficiency: (17) Pancytopenia: Plan: likely etoh induced * mild but stable * replace low b12 * already on folate supplementation * checked COVID/flu/RSV to r/o viral suppression -- all negative * recheck cbc in a couple of days for stability (18) Fall: (19) Pain in joint involving right ankle and foot: Plan: gout likely 2nd to heavy etoh abuse * cont allopurinol daily * L foot podagra much improved with low dose prednisone * NO change in R ankle synovitis * although I don't suspect a septic joint I am uncertain why the R ankle/foot is not improving with low dose prednisone * thus, consulted [facility] ortho for their opinion; appreciate their assistance * they initially advised conservative Rx * arthrocentesis confirms gout with crystal analysis * no NSAIDS 2nd to gastritis on EGD * MRI showing High-grade ATFL tear with lateral soft tissue swelling. * Ortho to follow up, suggesting cam boot, ok to WBAT * Con't PT * Patient now with left ankle pain, cannot bare weight * f/u ankle xray * pain control * PT (20) Infection of scalp: Plan 35yo male with long-standing alcohol dependence, anxiety/depression, prior e pisode of pancreatitis 01/2024 requiring hospitalization at [facility], rheumatoid arthritis, gout, and diagnosis of PEs at [facility] in 04/2024 (prescribed Eliquis but hasn't been taking it) - presents with ongoing abdominal pain and nausea along with request for alcohol detox. Admit CT with focal pancreatic inflammation of the pancreatic head (significant improvement from prior CT 01/2024) as well as duodenal inflammation and ?distal colon colitis. But only 1 stool since admission and no pain over expected location of colon. D/C planning for tomorrow 06/18 Admission and Anticipated Discharge Date Admission Date: June 11, 2024 Subjective Pt stats his left ankle is now hurting him and he is unable to bare weight on both legs. Review of Systems Review of Systems: CONST: Negative for fever, body aches and chills. HENT: Negative for neck pain/stiffness, headache, congestion, sore throat, swelling. EYES: Negative for discharge/pain or vision changes. RESP: Negative for cough/hemoptysis and shortness of breath. CV: Negative chest pain, difficulty breathing, palpitations. ABD: Negative pain, nausea, vomiting. : Negative increase frequency, dysuria, blood in urine or stool. MUSC: Negative for muscle aches, edema. SKIN: Negative rash, lesions/sores. NEURO: Negative headache, dizziness, weakness. Physical Exam Physical Exam: GENERAL APPEARANCE NAD, activity normal for age, well developed/ well nourished, no cyanosis, pallor, or diaphoresis. EYES lids/conjunctiva normal. EARS/NOSE/THROAT Mucous membranes moist, nares normal, lips/teeth normal uvula midline without oral pharyngeal erythema, exudate or swelling TMs normal bilaterally. No lymphangitis/lymphedema. HEAD/NECK normocephalic atraumatic, no facial trauma, neck is supple. RESPIRATORY respiratory effort normal, speaks in full sentences, no tripod position, no accessory muscle use. Lungs clear to auscultation without rhonchi, wheezes, rales CARDIAC Regular rate and rhythm, no edema. ABDOMINAL Soft, ND/NT. No evidence of fluid wave. No pulsatile masses on exam, rebound tenderness, Marshall sign or pain over Mcburney's point. MUSCLES/EXTREMITIES No abnormal range of motion, no swelling. SKIN Warm, pink and dry. No rashes, dermatoses, petechiae or lesions. NEUROLOGICAL Speech is clear and appropriate. Normal level of consciousness. Gait and coordination are normal. 5/5 strength in all extremities. PSYCH Normal mood and affect. Judgement/competence is appropriate Results & Data Results & Data Vital Signs (Past 12 Hours) Vital Signs Temp Pulse Resp BP Pulse Ox O2 Del Method 06/19/24 08:44 37.4 C 78 18 146/92 H 98 Room Air PG Care Time/CCT Total # of Minutes Spent Total Time Spent with Patient: Total time spent is greater than 50% in coordination of care (as documented) at patient's floor/unit and/or counseling patient: Coding Level of Care Code 03590 SUB INP/OBS CARE 2/35MIN Diagnoses Abdominal pain R10.9 Alcohol withdrawal F10.[address] of the abdomen R93.5 History of pancreatitis Z87.19 Rheumatoid arthritis M06.9 Gout, unspecified cause, unspecified chronicity, unspecified site M10.9 Gout site: unspecified site Gout etiology: unspecified cause Chronicity: unspecified Hypomagnesemia E83.42 Hypokalemia E87.6 Neuropathy G62.9 Depression F32.A HTN (hypertension) I10 POTS (postural orthostatic tachycardia syndrome) R00.0; I95.1 Anxiety F41.9 Transaminitis R74.01 History of pulmonary embolus (PE) Z86.711 B12 deficiency E53.8 Pancytopenia D61.818 Fall W19.XXXA Pain in joint involving right ankle and foot M25.571 Infection of scalp L08.9 (6) Gout Gout site: unspecified site Gout etiology: unspecified cause Chronicity: unspecified Qualified Code(s): M10.9 - Gout, unspecified
--- NOTE | 2024-06-19 09:53 | XRay Report ---
XR ankle LT min 3V routine CLINICAL HISTORY: left ankle pain COMPARISON: None FINDINGS: No fracture or dislocation. No significant degenerative change. IMPRESSION: No acute findings. ACT 112: Negative or not required by law. Electronically signed by: Scar Turner M.D. 06/19/2024 9:52 AM
[2024-06-19 15:55] LABS: BUN Creatinine Ratio 16.4 (10-20); Calcium 9.2 mg/dl (8.6-10.3); Creatinine Clr Calc Pharmacy 204.7 ml/min; Potassium 4.2 mmol/L (3.5-5.1)
[2024-06-19] MEDS: KETOROLAC TROMETHAMINE 15 MG/ML VIAL IV PRN (16:55)
--- NOTE | 2024-06-20 08:04 | Orthopedic Progress Note ---
Date of Service June 20, 2024 Assessment & Plan (1) Pain in joint involving right ankle and foot: Plan: IMPRESSION: R ankle pain secondarily to Gout and sprain Continue with his boot. Weight-bear as tolerated. He may benefit from a knee scooter to assist with ambulation at home. Continue allopurinol for suppression of his gout. To consider starting Celebrex 200 mg BID for 2 weeks, then once a day as needed Avoid excessive alcohol. No further orthopedic intervention is needed at this time. He can be discharged from an orthopedic standpoint. Continue care per Hospitalist service Admission and Anticipated Discharge Date Admission Date: June 11, 2024 Subjective Over did it yesterday. Physical Exam Physical Exam: RLE: BCR < 2 sec. Slight decrease sensation to light touch. Able to slightly wiggle toes. Moving hip and knee much more easily. + Lateral ankle swelling. Mild lateral erythema. Diffuse tenderness to light touch foot and lateral ankle. Results & Data Vital Signs (Past 12 Hours) Vital Signs Temp Pulse Resp BP Pulse Ox O2 Del Method 06/20/24 07:59 36.4 C L 73 16 159/92 H 100 Room Air 06/19/24 23:54 36.8 C 82 16 137/88 96 Room Air Laboratory Results Laboratory Results WBC 4.94 K/ul (4.8-10.8) 06/14/24 05:59 RBC 3.78 M/uL (4.70-6.10) L 06/14/24 05:59 Hgb 12.6 g/dl (14.0-18.0) L 06/14/24 05:59 Hct 37.8 % (42.0-52.0) L 06/14/24 05:59 MCV 100.0 fL (80.0-100.0) 06/14/24 05:59 MCH 33.3 pg (25.0-34.0) 06/14/24 05:59 MCHC 33.3 g/dL (32.0-36.0) 06/14/24 05:59 RDW Std Deviation 48.3 fL (36.4-46.3) H 06/14/24 05:59 RDW Coeff of Nohemy 13.2 % (11.5-14.5) 06/14/24 05:59 Plt Count 119 K/uL (130-400) L 06/14/24 05:59 MPV 11.5 fL (9.4-12.4) 06/14/24 05:59 Immature Gran % (Auto) 0.3 % 06/11/24 10:52 Neut % (Auto) 55.5 % 06/11/24 10:52 Lymph % (Auto) 29.8 % 06/11/24 10:52 Saunders % (Auto) 11.4 % 06/11/24 10:52 Eos % (Auto) 1.6 % 06/11/24 10:52 Baso % (Auto) 1.4 % 06/11/24 10:52 Neut # (Auto) 2.05 K/uL (1.40-6.50) 06/11/24 10:52 Lymph # (Auto) 1.10 K/uL (1.20-3.40) L 06/11/24 10:52 Saunders # (Auto) 0.42 K/uL (0.11-0.59) 06/11/24 10:52 Eos # (Auto) 0.06 K/uL (0.00-0.50) 06/11/24 10:52 Baso # (Auto) 0.05 K/uL (0.00-0.20) 06/11/24 10:52 Immature Gran # (Auto) 0.01 K/uL (0.01-0.20) 06/11/24 10:52 ESR 26 mm/hr (0-15) H 06/15/24 08:54 Lupus Anticoagulant see note A 06/16/24 10:36 Lupus Anticoag aPTT 56 sec (<=40) H 06/16/24 10:36 Dil Charles Viper Venom 34 sec (<=45) 06/16/24 10:36 Protein C Activity 183 % normal (70-180) H 06/16/24 10:36 Protein S Activity 115 % normal (70-150) 06/16/24 10:36 Antithrombin III Activ 107 % normal (80-135) 06/16/24 10:36 Sodium 138 mmol/L (136-145) 06/19/24 15:22 Potassium 4.2 mmol/L (3.5-5.1) 06/19/24 15:22 Chloride 104 mmol/L (98-107) 06/19/24 15:22 Carbon Dioxide 26 mmol/L (21-32) 06/19/24 15:22 Anion Gap 8 (3-11) 06/19/24 15:22 BUN 10 mg/dl (6-23) 06/19/24 15:22 Creatinine 0.61 mg/dl (0.6-1.4) 06/19/24 15:22 Est Cr Clr Drug Dosing 204.7 ml/min 06/19/24 15:22 eGFR 129.26 06/19/24 15:22 BUN/Creatinine Ratio 16.4 (10-20) 06/19/24 15:22 Glucose 97 mg/dl (70-99(Fasting)) 06/19/24 15:22 Uric Acid 5.0 mg/dl (2.6-7.2) 06/15/24 08:51 Calcium 9.2 mg/dl (8.6-10.3) 06/19/24 15:22 Magnesium 2.2 mg/dl (1.7-2.4) 06/17/24 05:54 Total Bilirubin 1.1 mg/dl (0.2-1.0) H 06/15/24 08:51 AST 92 U/L (13-39) H 06/15/24 08:51 ALT 61 U/L (7-52) H 06/15/24 08:51 Alkaline Phosphatase 84 U/L (34-104) 06/15/24 08:51 C-Reactive Protein 4.55 mg/dl (0-0.5) H 06/15/24 08:51 Total Protein 6.7 gm/dl (6.0-8.3) 06/15/24 08:51 Albumin 3.7 gm/dl (3.4-5.0) 06/15/24 08:51 Globulin 3.0 gm/dl (2.5-4.0) 06/15/24 08:51 Albumin/Globulin Ratio 1.2 (0.9-2) 06/15/24 08:51 Triglycerides 111 mg/dl (0-150) 06/12/24 06:32 Cholesterol 182 mg/dl (0-200) 06/12/24 06:32 LDL Cholesterol, Calc 78 mg/dl 06/12/24 06:32 VLDL Cholesterol, Calc 22 mg/dl (0-30) 06/12/24 06:32 HDL Cholesterol 82 mg/dl 06/12/24 06:32 Cholesterol/HDL Ratio 2.2 (0-5) 06/12/24 06:32 Amylase 27 U/L (25-115) 06/11/24 10:52 Lipase 41 U/L (11-82) 06/15/24 08:51 Vitamin B12 303 pg/ml (180-914) 06/12/24 06:32 TSH 4.151 uIu/ml (0.300-4.500) 06/12/24 06:32 Urine Color Yellow 06/11/24 13:06 Urine Appearance Clear (Clear) 06/11/24 13:06 Urine pH 6.5 (4.5-7.5) 06/11/24 13:06 Ur Specific [place] 1.028 (1.000-1.030) 06/11/24 13:06 Urine Protein Negative (Negative) 06/11/24 13:06 Urine Glucose (UA) Negative (Negative) 06/11/24 13:06 Urine Ketones Negative (Negative) 06/11/24 13:06 Urine Blood Negative (Negative) 06/11/24 13:06 Urine Nitrite Negative (Negative) 06/11/24 13:06 Urine Bilirubin Negative (Negative) 06/11/24 13:06 Urine Urobilinogen Negative (Negative) 06/11/24 13:06 Ur Leukocyte Esterase Negative (Negative) 06/11/24 13:06 Fluid Comment 06/16/24 16:25 Synovial Source Other 06/16/24 16:25 Synovial Color Red 06/16/24 16:25 Synovial Appearance Bloody 06/16/24 16:25 Synovial WBC (Auto) > 21838 /ul (0-200) H 06/16/24 16:25 Synovial RBC (Auto) 749951 /uL 06/16/24 16:25 Synovial Polynuclear % 95.0 % 06/16/24 16:25 Synovial Mononuclear % 5.0 % 06/16/24 16:25 Synovial Crystals 06/16/24 16:25 Ethyl Alcohol mg/dL 15.7 mg/dl (<10.0) H 06/11/24 13:06 SARS-CoV-2 (PCR) NEGATIVE (Negative) 06/12/24 12:10 Influenza Type A (PCR) Negative (Neg) 06/12/24 12:10 Influenza Type B (PCR) Negative (Neg) 06/12/24 12:10 RSV (RT-PCR) Negative (Neg) 06/12/24 12:10 Spec: [id number] Collected: 06/16/24 Received: 06/16/24-[address]: Osmar Bone MD Source: Ankle,Right OV Order: Ordered: Aer/Ayaka Cult/Sm Procedure Result Verified Site Gram Stain Final 06/16/24183 Gram Stain Result Many WBCs Seen No Organisms Seen Aero/Ayaka Cult Preliminary 06/20/24 No growth to date. Impressions Abdomen/Pelvis CT 06/11/24 10:[address] WITH IV CONTRAST CT DOSE: 1465.41 mGy.cm HISTORY: abdominal pain, hx pancreatitis TECHNIQUE: Multiaxial CT images of the abdomen and pelvis were performed following the IV administration of 94 cc of Optiray, sagittal and coronal reconstructions were done. A dose lowering technique was utilized adhering to the principles of ALARA. COMPARISON STUDY: 01/22/2024 FINDINGS: While the peripancreatic inflammation has significantly decreased, there is residual inflammatory reaction in the pancreatic head and uncinate process which locally involves the duodenal bulb and first portion of the duodenum. There is no evidence of a pseudocyst. There is no obstruction. No perforation or free air. There is no pancreatic duct distention. The liver remains abnormal with pronounced, generalized steatosis. The gallbladder is absent. The bile ducts are not dilated. The spleen is unremarkable. The adrenal glands are unremarkable. There is no significant renal lesion. There is no hydronephrosis. A small left renal cyst and a probable small left renal angiomyolipoma are present. There is no ascites. There is no bowel obstruction. There is no aortic aneurysm or periaortic adenopathy. In the pelvis, there is thickening of the wall of the distal descending colon and sigmoid colon raising the possibility of colitis. There are diverticula present but the appearance is atypical for diverticulitis. The appendix remains mildly distended with no periappendiceal inflammation. No free fluid in the cul-de-sac. The unopacified urinary bladder is grossly negative. There is no significant hernia. The lung bases and bone windows are unremarkable. IMPRESSION: While the flagrant pancreatitis of 01/22/2024 has significantly improved, there is residual inflammation surrounding the pancreatic head and uncinate process suggestive of focal pancreatitis. There is inflammation in the adjacent duodenal bulb and the proximal descending duodenum. Hepatomegaly with severe steatosis redemonstrated. Wall thickening of the distal descending colon and sigmoid colon suggestive of colitis. ACT 112: Negative or not required by law. The above report was generated using voice recognition software. It may contain grammatical, syntax or spelling errors. Electronically signed by: Jena Whitehead M.D. 06/11/2024 12:23 PM Chest CTA 06/11/24 16:28 Clinical history: Tachycardia. Pulmonary embolism in April 2024 Technique: Axial computed tomography images were obtained of the chest after the administration of intravenous contrast according to the CT angiogram protocol Comparison is made to the prior CT dated 12/22/2022 Findings: There is no definite sign of pulmonary embolism. There is mild subsegmental atelectasis in both lower lobes. There is no pleural effusion or pneumothorax. There is no sign of pulmonary fibrosis or other diffuse interstitial process. No endobronchial lesion is seen There is no mediastinal, hilar, or axillary adenopathy. The thoracic aorta appears unremarkable with no sign of aneurysm or dissection. There is no pericardial effusion There is diffuse fatty infiltration of the liver. The gallbladder has been removed. No fracture is seen. No focal osseous lesion is evident Impression: 1. No definite sign of pulmonary embolism 2. Mild bilateral lower lobe atelectasis 3. Fatty infiltration of the liver Electronically signed by Evens Real 06-11-2024 7:29 PM Knee X-Ray 06/14/24 16:37 EXAM: XR knee LT 1 or 2V routine CLINICAL HISTORY: fall, L knee pain TECHNIQUE: X-ray images of the left knee were obtained in anteroposterior (AP), lateral projections. COMPARISON: 02/02/2024 FINDINGS: Bone Structure: Bone structure is normal and well-aligned. No evidence of acute fractures or dislocations. No osseous lesions or abnormalities were identified. Joint Spaces: Joint spaces are preserved. The relative narrowing of the medial tibio-femoral compartment suggests early degenerative changes. Articular Surfaces: Articular surfaces are smooth and intact. No signs of osteophyte formation or subchondral sclerosis. Patella: Patella is normal in position and alignment. No evidence of patellar dislocation or subluxation. Soft Tissues: Periarticular soft tissues appear normal and unremarkable. No soft tissue swelling, calcifications, or foreign bodies were noted. Interval regression of the suprapatellar effusion. IMPRESSION: 1. No evidence of acute fractures or dislocations. 2. The relative narrowing of the medial tibio-femoral compartment suggests early degenerative changes. (unchanged). Disclaimer: A subtle bone abnormality or fracture may not be readily apparent on X-rays, thus, clinical correlation and further imaging, including follow-up CT, MRI, or follow-up X-rays, are advised as needed. Electronically signed by Jae Miles 06-14-2024 6:01 PM Venous Doppler Study 06/15/24 00:07 EXAM: US venous doppler LE RT CLINICAL HISTORY: Calf pain TECHNIQUE: Ultrasound examination of right lower extremity veins was performed in real time and duplex. COMPARISON: None. FINDINGS: Normal spontaneous flow is noted in the right common femoral, superficial femoral, popliteal and posterior tibial, anterior tibial, and peroneal veins. The visualized veins of the right lower extremity demonstrate normal compressibility. No sonographic evidence of acute deep vein thrombosis (DVT) is detected in the visualized veins of the lower extremity. Compression : All evaluated veins compress fully with applied transducer pressure. Additional Findings: No evidence of intraluminal thrombus. IMPRESSION: No sonographic evidence of acute DVT detected at the time of examination. Disclaimer: DVT could be missed early in the disease when clot burden is minimal. For patients with moderate and high pretest probability of DVT and negative ultrasound, the [employer] [employer] clinical guidelines recommend testing with a D-dimer assay or repeat ultrasound in 5-7 days. If symptoms worsen, the Society of radiologists in ultrasound recommends repeating ultrasound even earlier. Electronically signed by Jae Miles 06-15-2024 03:29 AM Foot X-Ray 06/15/24 14:49 XR ankle RT 2V, XR foot RT min 3V routine CLINICAL HISTORY: ankle pain and swelling, please do mortise view COMPARISON: 06/14/2024. FINDINGS: No fracture or dislocation seen on the single mortise view of the right ankle. No fracture or dislocation seen at the right foot. No significant degenerative change. IMPRESSION: No acute findings. ACT 112: Negative or not required by law. Electronically signed by: Scar Turner M.D. 06/15/2024 3:18 PM Ankle MRI 06/17/24 15:17 Exam(s): MRI RIGHT ANKLE Without Contrast EXAM: MR Right Lower Extremity Without Intravenous Contrast, Ankle CLINICAL HISTORY: Reason for exam: right ankle pain. TECHNIQUE: Multiplanar magnetic resonance images of the right ankle without intravenous contrast. COMPARISON: No relevant prior studies available. FINDINGS: There is moderate tibiotalar joint effusion. There is no evidence of acute fracture or dislocation. There is no osteochondral lesion of the talar dome. Tibiotalar, subtalar, talonavicular, calcaneocuboid joints are noted. Pes cavus is suggested. Sinus tarsi appears normal. Achilles tendon and plantar aponeurosis are intact. Medial flexor tendons, lateral peroneal tendons, and anterior extensor tendons are intact. There is tenosynovitis of the flexor hallucis longus tendon along the plantar aspect of the foot. The anterior talofibular ligament is majority torn, with some intact inferior-most fibers. Posterior talofibular and calcaneofibular ligaments are intact. Deltoid ligament complex appears intact. There is lateral soft tissue swelling and edema. IMPRESSION: 1. High-grade ATFL tear with lateral soft tissue swelling. 2. Moderate tibiotalar joint effusion. 3. Tenosynovitis of the flexor hallucis longus tendon at the plantar aspect of the foot. Electronically signed by: Haylee Jurado M.D. 06/18/24 00:34 AM Ankle X-Ray 06/19/24 09:17 XR ankle LT min 3V routine CLINICAL HISTORY: left ankle pain COMPARISON: None FINDINGS: No fracture or dislocation. No significant degenerative change. IMPRESSION: No acute findings. ACT 112: Negative or not required by law. Electronically signed by: Scar Turner M.D. 06/19/2024 9:52 AM
--- NOTE | 2024-06-20 09:14 | Hospitalist Progress Note ---
Date of Service June 20, 2024 Assessment & Plan (1) Abdominal pain: Plan: etiology for pain --> mild focal pancreatitis of the head of the pancreas with secondary duodenitis vs PUD vs gastritis vs combo of factors * initially was on clears, now over to low fat diet & tolerating such * cont protonix 40mg BID + carafate QID for a week * appreciate GI consult - * no evidence of GI bleeding -- H/H have remained stable & unchanged * EGD today showing gastritis (2) Alcohol withdrawal: Plan: long-standing abuse of liquor; fifth vodka/day * has not had continuous sobriety in many years * is motivated to quit * spoke to psych; willing to consider inpatient rehab at conclusion of his medical stay (vs outpatient services) but patient has not decided definitively * does have outside counselor in [facility] * consider Naltrexone therapy -- have discussed this in detail with patient multiple times; he is considering it * thiamine 200mg BID * folic acid 1mg daily * MVI daily * B12 level is only 300 --> supplement with 1000mcg of B12 daily (3) Abnormal CT of the abdomen: Plan: lipase x 3 normal this admit but head of pancreas showed inflammation on CT a/p at admission * the pancreas overall is radiographically improved, however, relative to his CT done in 01/2024 (had acute pancreatitis that admission) * no pancreatic calcifications to indicate chronic pancreatitis * see "abd pain" above * normal triglycerides on lipid profile * does not have a gall bladder (4) History of pancreatitis: (5) Rheumatoid arthritis: (6) Gout: (7) Hypomagnesemia: (8) Hypokalemia: (9) Neuropathy: (10) Depression: (11) HTN (hypertension): (12) POTS (postural orthostatic tachycardia syndrome): (13) Anxiety: (14) Transaminitis: (15) History of pulmonary embolus (PE): Plan: had taken very little Eliquis since the diagnosis * the heavy etoh use with Eliquis is potentially dangerous * CTA chest this admission -- NO PEs seen * CTA chest report from [facility] with 1 solitary PE (1st order branch) only * would NOT Rx with anticoagulation at this time * risk factor for PEs - inflammatory state from poorly controlled RA? genetic factors? (his sister had VTE during a ) * reasonable to do a genetic w/u - Factor 5 Leiden mutation, prothrombin gene mutation, protein C & S activity, etc. (16) B12 deficiency: (17) Pancytopenia: Plan: likely etoh induced * mild but stable * replace low b12 * already on folate supplementation * checked COVID/flu/RSV to r/o viral suppression -- all negative * recheck cbc in a couple of days for stability (18) Fall: (19) Pain in joint involving right ankle and foot: Plan: gout likely 2nd to heavy etoh abuse * cont allopurinol daily * L foot podagra much improved with low dose prednisone * NO change in R ankle synovitis * although I don't suspect a septic joint I am uncertain why the R ankle/foot is not improving with low dose prednisone * thus, consulted [facility] orth[facility] for their opinion; appreciate their assistance * they initially advised conservative Rx * arthrocentesis confirms gout with crystal analysis * no NSAIDS 2nd to gastritis on EGD * MRI showing High-grade ATFL tear with lateral soft tissue swelling. * Ortho to follow up, suggesting cam boot, ok to WBAT * Con't PT * Patient now with left ankle pain, cannot bare weight * f/u ankle xray * pain control * PT (20) Infection of scalp: Plan 35yo male with long-standing alcohol dependence, anxiety/depression, prior e pisode of pancreatitis 01/2024 requiring hospitalization at [facility], rheumatoid arthritis, gout, and diagnosis of PEs at [facility] in 04/2024 (prescribed Eliquis but hasn't been taking it) - presents with ongoing abdominal pain and nausea along with request for alcohol detox. Admit CT with focal pancreatic inflammation of the pancreatic head (significant improvement from prior CT 01/2024) as well as duodenal inflammation and ?distal colon colitis. But only 1 stool since admission and no pain over expected location of colon. PT agreeing to rehab placement, awaiting OT evaluation. Admission and Anticipated Discharge Date Admission Date: June 11, 2024 Subjective Pt states he over did it with PT yesterday. Feels body aches, but ankles are better. Review of Systems Review of Systems: CONST: Negative for fever, body aches and chills. HENT: Negative for neck pain/stiffness, headache, congestion, sore throat, swelling. EYES: Negative for discharge/pain or vision changes. RESP: Negative for cough/hemoptysis and shortness of breath. CV: Negative chest pain, difficulty breathing, palpitations. ABD: Negative pain, nausea, vomiting. : Negative increase frequency, dysuria, blood in urine or stool. MUSC: Negative for muscle aches, edema. SKIN: Negative rash, lesions/sores. NEURO: Negative headache, dizziness, weakness. Physical Exam Physical Exam: GENERAL APPEARANCE NAD, activity normal for age, well developed/ well nourished, no cyanosis, pallor, or diaphoresis. EYES lids/conjunctiva normal. EARS/NOSE/THROAT Mucous membranes moist, nares normal, lips/teeth normal uvula midline without oral pharyngeal erythema, exudate or swelling TMs normal bilaterally. No lymphangitis/lymphedema. HEAD/NECK normocephalic atraumatic, no facial trauma, neck is supple. RESPIRATORY respiratory effort normal, speaks in full sentences, no tripod position, no accessory muscle use. Lungs clear to auscultation without rhonchi, wheezes, rales CARDIAC Regular rate and rhythm, no edema. ABDOMINAL Soft, ND/NT. No evidence of fluid wave. No pulsatile masses on exam, rebound tenderness, Marshall sign or pain over Mcburney's point. MUSCLES/EXTREMITIES No abnormal range of motion, no swelling. SKIN Warm, pink and dry. No rashes, dermatoses, petechiae or lesions. NEUROLOGICAL Speech is clear and appropriate. Normal level of consciousness. Gait and coordination are normal. 5/5 strength in all extremities. PSYCH Normal mood and affect. Judgement/competence is appropriate Results & Data Results & Data Vital Signs (Past 12 Hours) Vital Signs Temp Pulse Resp BP Pulse Ox O2 Del Method 06/20/24 07:59 36.4 C L 73 16 159/92 H 100 Room Air 06/19/24 23:54 36.8 C 82 16 137/88 96 Room Air PG Care Time/CCT Total # of Minutes Spent Total Time Spent with Patient: Total time spent is greater than 50% in coordination of care (as documented) at patient's floor/unit and/or counseling patient: Coding Level of Care Code 25534 SUB INP/OBS CARE 2/35MIN Diagnoses Abdominal pain R10.9 Alcohol withdrawal F10.[address] of the abdomen R93.5 History of pancreatitis Z87.19 Rheumatoid arthritis M06.9 Gout, unspecified cause, unspecified chronicity, unspecified site M10.9 Gout site: unspecified site Gout etiology: unspecified cause Chronicity: unspecified Hypomagnesemia E83.42 Hypokalemia E87.6 Neuropathy G62.9 Depression F32.A HTN (hypertension) I10 POTS (postural orthostatic tachycardia syndrome) R00.0; I95.1 Anxiety F41.9 Transaminitis R74.01 History of pulmonary embolus (PE) Z86.711 B12 deficiency E53.8 Pancytopenia D61.818 Fall W19.XXXA Pain in joint involving right ankle and foot M25.571 Infection of scalp L08.9 (6) Gout Gout site: unspecified site Gout etiology: unspecified cause Chronicity: unspecified Qualified Code(s): M10.9 - Gout, unspecified
--- NOTE | 2024-06-21 09:47 | Hospitalist Progress Note ---
Date of Service June 21, 2024 Assessment & Plan (1) Abdominal pain: Plan: etiology for pain --> mild focal pancreatitis of the head of the pancreas with secondary duodenitis vs PUD vs gastritis vs combo of factors * initially was on clears, now over to low fat diet & tolerating such * cont protonix 40mg BID + carafate QID for a week * appreciate GI consult - * no evidence of GI bleeding -- H/H have remained stable & unchanged * EGD showing gastritis (2) Alcohol withdrawal: Plan: long-standing abuse of liquor; fifth vodka/day * has not had continuous sobriety in many years * is motivated to quit * spoke to psych; willing to consider inpatient rehab at conclusion of his medical stay (vs outpatient services) but patient has not decided definitively * does have outside counselor in [facility] * consider Naltrexone therapy -- have discussed this in detail with patient multiple times; he is considering it * thiamine 200mg BID * folic acid 1mg daily * MVI daily * B12 level is only 300 --> supplement with 1000mcg of B12 daily * patient refusing inpatient rehab at this time (3) Abnormal CT of the abdomen: Plan: lipase x 3 normal this admit but head of pancreas showed inflammation on CT a/p at admission * the pancreas overall is radiographically improved, however, relative to his CT done in 01/2024 (had acute pancreatitis that admission) * no pancreatic calcifications to indicate chronic pancreatitis * see "abd pain" above * normal triglycerides on lipid profile * does not have a gall bladder (4) History of pancreatitis: (5) Rheumatoid arthritis: (6) Gout: (7) Hypomagnesemia: (8) Hypokalemia: (9) Neuropathy: (10) Depression: (11) HTN (hypertension): (12) POTS (postural orthostatic tachycardia syndrome): (13) Anxiety: (14) Transaminitis: (15) History of pulmonary embolus (PE): Plan: had taken very little Eliquis since the diagnosis * the heavy etoh use with Eliquis is potentially dangerous * CTA chest this admission -- NO PEs seen * CTA chest report from [facility] with 1 solitary PE (1st order branch) only * would NOT Rx with anticoagulation at this time * risk factor for PEs - inflammatory state from poorly controlled RA? genetic factors? (his sister had VTE during a ) * reasonable to do a genetic w/u - Factor 5 Leiden mutation, prothrombin gene mutation, protein C & S activity, etc. (16) B12 deficiency: (17) Pancytopenia: Plan: likely etoh induced * mild but stable * replace low b12 * already on folate supplementation * checked COVID/flu/RSV to r/o viral suppression -- all negative * recheck cbc in a couple of days for stability * f/u cbc 06/22 (18) Fall: (19) Pain in joint involving right ankle and foot: Plan: gout likely 2nd to heavy etoh abuse * cont allopurinol daily * L foot podagra much improved with low dose prednisone * NO change in R ankle synovitis * although I don't suspect a septic joint I am uncertain why the R ankle/foot is not improving with low dose prednisone * thus, consulted [facility] for their opinion; appreciate their assistance * they initially advised conservative Rx * arthrocentesis confirms gout with crystal analysis * no NSAIDS 2nd to gastritis on EGD * MRI showing High-grade ATFL tear with lateral soft tissue swelling. * Ortho to follow up, suggesting cam boot, ok to WBAT * Con't PT * Patient now with left ankle pain, cannot bare weight * f/u ankle xray * pain control * PT (20) Infection of scalp: Plan 35yo male with long-standing alcohol dependence, anxiety/depression, prior episode of pancreatitis 01/2024 requiring hospitalization at [facility], rheumatoid arthritis, gout, and diagnosis of PEs at [facility] in 04/2024 (prescribed Eliquis but hasn't been taking it) - presents with ongoing abdominal pain and nausea along with request for alcohol detox. Admit CT with focal pancreatic inflammation of the pancreatic head (significant improvement from prior CT 01/2024) as well as duodenal inflammation and ?distal colon colitis. But only 1 stool since admission and no pain over expected location of colon. PT with gout flare of right ankle along with ATFL tear, does not feel safe in to be discharged home, agreeing to rehab placement. Pt is medically cleared for D/C, awaiting case management follow up on 06/22. Admission and Anticipated Discharge Date Admission Date: June 11, 2024 Subjective Pt states he did work with PT yesterday and feels his pain has improved, however he does not feel safe going home yet. He still feels he requires assistance with going to the bathroom and cannot safely go up a flight of stairs. He is open to being discharged to rehab. Review of Systems Review of Systems: CONST: Negative for fever, body aches and chills. HENT: Negative for neck pain/stiffness, headache, congestion, sore throat, swelling. EYES: Negative for discharge/pain or vision changes. RESP: Negative for cough/hemoptysis and shortness of breath. CV: Negative chest pain, difficulty breathing, palpitations. ABD: Negative pain, nausea, vomiting. : Negative increase frequency, dysuria, blood in urine or stool. MUSC: Negative for muscle aches, edema. SKIN: Negative rash, lesions/sores. NEURO: Negative headache, dizziness, weakness. Physical Exam Physical Exam: GENERAL APPEARANCE NAD, activity normal for age, well developed/ well nourished, no cyanosis, pallor, or diaphoresis. EYES lids/conjunctiva normal. EARS/NOSE/THROAT Mucous membranes moist, nares normal, lips/teeth normal uvula midline without oral pharyngeal erythema, exudate or swelling TMs normal bilaterally. No lymphangitis/lymphedema. HEAD/NECK normocephalic atraumatic, no facial trauma, neck is supple. RESPIRATORY respiratory effort normal, speaks in full sentences, no tripod position, no accessory muscle use. Lungs clear to auscultation without rhonchi, wheezes, rales CARDIAC Regular rate and rhythm, no edema. ABDOMINAL Soft, ND/NT. No evidence of fluid wave. No pulsatile masses on exam, rebound tenderness, Marshall sign or pain over Mcburney's point. MUSCLES/EXTREMITIES No abnormal range of motion, no swelling. SKIN Warm, pink and dry. No rashes, dermatoses, petechiae or lesions. NEUROLOGICAL Speech is clear and appropriate. Normal level of consciousness. Gait and coordination are normal. 5/5 strength in all extremities. PSYCH Normal mood and affect. Judgement/competence is appropriate Results & Data Results & Data Vital Signs (Past 12 Hours) Vital Signs Temp Pulse Resp BP Pulse Ox O2 Del Method 06/21/24 06:58 36.8 C 76 16 148/84 H 98 Room Air PG Care Time/CCT Total # of Minutes Spent Total Time Spent with Patient: Total time spent is greater than 50% in coordination of care (as documented) at patient's floor/unit and/or counseling patient: Coding Level of Care Code 01262 SUB INP/OBS CARE 2/35MIN Diagnoses Abdominal pain R10.9 Alcohol withdrawal F10.[address] of the abdomen R93.5 History of pancreatitis Z87.19 Rheumatoid arthritis M06.9 Gout, unspecified cause, unspecified chronicity, unspecified site M10.9 Gout site: unspecified site Gout etiology: unspecified cause Chronicity: unspecified Hypomagnesemia E83.42 Hypokalemia E87.6 Neuropathy G62.9 Depression F32.A HTN (hypertension) I10 POTS (postural orthostatic tachycardia syndrome) R00.0; I95.1 Anxiety F41.9 Transaminitis R74.01 History of pulmonary embolus (PE) Z86.711 B12 deficiency E53.8 Pancytopenia D61.818 Fall W19.XXXA Pain in joint involving right ankle and foot M25.571 Infection of scalp L08.9 (6) Gout Gout site: unspecified site Gout etiology: unspecified cause Chronicity: unspecified Qualified Code(s): M10.9 - Gout, unspecified
--- NOTE | 2024-06-22 08:55 | Hospitalist Progress Note ---
Date of Service June 22, 2024 Assessment & Plan (1) Gout: Plan: 35yo male w/ PMH significant for RA, gout, anxiety/depression, alcohol use presented for ongoing abdominal pain/request for alcohol detox with recent inpatient hospitalization at [facility] (diagnosis PE , rx eliquis but not taking) CTAP on admission w/ focal pancreatic inflammation of pancreatic head (improved from January) as well as duodenal inflammation and ?distal colon colitis and underwent EGD which noted gastritis. Now tolerating diet advancement but remains inpatient for ongoing pain and ambulatory dysfunction suspected 2nd to underlying gout from alcohol use. Uric acid NOT elevated (this time) but [facility] consulted this past week and performed arthrocentesis and confirmed gout with crystal analysis MRI obtained and also noted high-grade ATFL tear with lateral soft tissue swelling Ortho following, res for WBAT, [facility] burgess Discussed w/ Dr Auguste today and he rec's for pain management consult given concerns for developing complex pain syndrome and has been placed/appreicate recs/assistance Had been continued on prednisone 5mg daily, allopurinol 100mg BID however given acute pain will hold allopurinol. Flexeril 5mg PO x 1 w/ some benefit, consider 5-10mg tid prn but will await pain consult/recs Toradol has been placed on HOLD given EGD w/ gastritis and would avoid NSAIDs as able for now. Exam w/ pain out of proportion on exam but does feel warm/concerns for possible ongoing gout and have ordered prednisone 40mg PO x 1 now. --> If significant improvement w/ prednisone could consider higher dose then taper for results. Continue PT/OT, rehab if agreeable. Monitor in f/u (2) Abdominal pain: Plan: See above -- GI consulted and is s/p EGD with Dr Moore on 06/17 which noted GASTRITIS Continues on PPI BID, carafate (carafate x 1 wk) and tolerating low fat diet. Hgb stable Toradol ordered for above/gout however will HOLD for now. Cautious use prednisone but tolerated NSAIDs w/o worsened abd pain and will monitor. Consider extension carafate w/ ongoing therapy (3) Alcohol withdrawal: Plan: Long standing issue, reported 5th vodka daily, motivated to quit Discussed w/ psych and willing to consider inpatient at conclusion of medical stay Continue folic acid, thiamine, multivitamin. B12 only 300, continue 1000mcg PO daily Encourage cessation. AST/ALT elevated but TB/ALP wnl on check and will monitor Avoid hepatotoxins, monitor on repeat Patient refusing inpatient rehab for alcohol but may be willing for physical therapy given gout/ambulatory dysfunction/pain below Consider naltrexone if agreeable (4) Abnormal CT of the abdomen: Plan: Lipase wnl but noted on CTAP and epigastric pain. PPI/carafate and GI consult as above and remains on such and tolerating diet. is s/p gallbladder removal Outpt f/u (5) History of pancreatitis: (6) Rheumatoid arthritis: (7) Hypomagnesemia: (8) Hypokalemia: (9) Neuropathy: Plan: continue b12 supplementation, gabapentin continued (?switch to lyrica -- f/u pain consult) (10) Depression: Plan: continue zoloft, clonidine (11) HTN (hypertension): Plan: continue clonidine (12) POTS (postural orthostatic tachycardia syndrome): (13) Anxiety: (14) Transaminitis: Plan: likely from etoh, monitor LFTs on repeat (15) History of pulmonary embolus (PE): Plan: had taken very little Eliquis since the diagnosis and CTA chest this admission WITHOUT PEs noted. note CT at [facility] w/ 1 solitary PE (1st order branch) and would not continue w/ anticoagulation at this time given above. * risk factor for PEs - inflammatory state from poorly controlled RA? genetic factors? (his sister had VTE during a ) * reasonable to do a genetic w/u - Factor 5 Leiden mutation, prothrombin gene mutation, protein C & S activity, etc. (16) B12 deficiency: (17) Pancytopenia: Plan: check tick studies for completeness given pancytopenia w/ LFT elevation and joint pain. f/u CBC on repeat (18) Fall: Plan: therapy evals in place (19) Pain in joint involving right ankle and foot: Plan: see above, hold allopurinol if acute gout related pain, prednisone as outlined (20) Infection of scalp: Plan continued inpatient stay, tx gout/pain control and monitor for septic joint however doesn't appear at present but could be considered if worsened. pain management/orthopedics consulted. PT/OT rec rehab, CM to follow once medically stable Admission and Anticipated Discharge Date Admission Date: June 11, 2024 Subjective Eval this morning, resting in bed. Ongoing significant pain to his b/l ankles and feet, worse on the right. Pain appears out of proportion to exam, simlar to prior gout. On prednisone 5mg daily, reports pain improved slightly/stable w/ toradol but discussed avoiding w/ the gastritis but suspect steroids able to tolerate if tolerating NSAIDs and will trial 40mg PO x 1. Flexeril 5mg PO ordered w taking edge off but feeling pain creeping back. Discussed pain management consult pending, as discussed w/ orthopedics this morning. Tolerating diet, pain improved w/ eating. Stable tolerance w/ occ zofran use. Continued inpatient stay. No CP/SOb reported Questions/concerns addressed at this time. Physical Exam 2 Physical Exam: General: 34yo male sitting up in bed, NAD but mildly uncomfortable, pain to ankles/feet reported Head atraumatic, normocephalic, mmm, trachea midline Resp: even/unlabored, no wheezing/rales, on room air CV: RRR, no significant m/r/g GI:+BS throughout, no overt tenderness, no guarding/rigidity MSK/Neuro: warmth to mid ankles bilaterally, tenderness out of proportion, no cellulitic appearance/drainage, mild swelling lateral ankle Psych: AOx3, cooperative with exam Results & Data Results & Data Vital Signs (Past 12 Hours) Vital Signs Temp Pulse Resp BP BP Pulse Ox O2 Del Method 06/22/24 08:01 36.6 C 73 19 147/95 H 95 Room Air 06/21/24 22:30 37.1 C 66 16 156/99 H 98 Room Air Laboratory Results 06/22/24 10:24 06/22/24 10:24 PG Care Time/CCT Total # of Minutes Spent Total Time Spent with Patient: Total time spent is greater than 50% in coordination of care (as documented) at patient's floor/unit and/or counseling patient: Coding Level of Care Code 02872 SUB INP/OBS CARE 3/50MIN Diagnoses Gout, unspecified cause, unspecified chronicity, unspecified site M10.9 Chronicity: unspecified Gout etiology: unspecified cause Gout site: unspecified site Abdominal pain R10.9 Alcohol withdrawal F10.[address] of the abdomen R93.5 History of pancreatitis Z87.19 Rheumatoid arthritis M06.9 Hypomagnesemia E83.42 Hypokalemia E87.6 Neuropathy G62.9 Depression F32.A HTN (hypertension) I10 POTS (postural orthostatic tachycardia syndrome) R00.0; I95.1 Anxiety F41.9 Transaminitis R74.01 History of pulmonary embolus (PE) Z86.711 B12 deficiency E53.8 Pancytopenia D61.818 Fall W19.XXXA Pain in joint involving right ankle and foot M25.571 Infection of scalp L08.9 (1) Gout Chronicity: unspecified Gout etiology: unspecified cause Gout site: u nspecified site Qualified Code(s): M10.9 - Gout, unspecified
[2024-06-22 09:15] LABS: Lupus Hex Phase (Rflxdonotord) Positive (Negative); Thrombin Time (reflex only) 17 sec (13-19)
--- NOTE | 2024-06-22 09:51 | Orthopedic Progress Note ---
Date of Service June 22, 2024 Assessment & Plan (1) Pain in joint involving right ankle and foot: Plan: IMPRESSION: R ankle pain secondarily to Gout and sprain, possible overlying lumbar etiology, concern for developing CRP syndrome Continue with his boot. Weight-bear as tolerated. He may benefit from a knee scooter to assist with ambulation at home. Continue allopurinol for suppression of his gout and Prednisone. To consider starting Celebrex 200 mg BID for 2 weeks, then once a day as needed Avoid excessive alcohol. To consider Pain management consult to evaluate and treat No further orthopedic intervention is needed at this time. He can be discharged from an orthopedic standpoint. Continue care per Hospitalist service Admission and Anticipated Discharge Date Admission Date: June 11, 2024 Subjective Doing "so-so". Admits to h/o LBP Physical Exam Physical Exam: RLE: BCR < 2 sec. Slight decrease sensation to light touch. Able to slightly wiggle toes and ankle. Moving hip and knee much more easily. + Lateral ankle swelling. Mild lateral erythema. Diffuse tenderness to light touch foot and lateral ankle. Equivocal modified straight leg raise. Holds foot/ankle in planter flexed position. Results & Data Vital Signs (Past 12 Hours) Vital Signs Temp Pulse Resp BP BP Pulse Ox O2 Del Method 06/22/24 08:01 36.6 C 73 19 147/95 H 95 Room Air 06/21/24 22:30 37.1 C 66 16 156/99 H 98 Room Air Laboratory Results 06/16/24 Range/Units 10:36 Thrombin Time 17 (13-19) sec Lupus Anticoagulant see note A Lupus Anticoag aPTT 56 H (<=40) sec Dil Charles Viper Venom 34 (<=45) sec Lupus Hexagonal Phase Positive A (Negative) Spec: [id number] Collected: 06/16/24 Received: 06/16/24-[address]: Osmar Bone MD Source: Ankle,Right OV Order: Ordered: Aer/Ayaka Cult/Sm Procedure Result Verified Site Gram Stain Final 06/16/24-183 Gram Stain Result Many WBCs Seen No Organisms Seen Aero/Ayaka Cult Final 06/21/24-1137 No growth
[2024-06-22 10:55] LABS: Basophils # (auto) 0.06 K/uL (0.00-0.20); Basophils % (auto) 0.8 %; Eosinophils # (auto) 0.12 K/uL (0.00-0.50); Eosinophils % (auto) 1.6 %; Hematocrit (blood only) 38.7 % (42.0-52.0); Hemoglobin 12.5 g/dl (14.0-18.0); Immature Granulocytes # (auto) 0.06 K/uL (0.01-0.20); Immature Granulocytes % (auto) 0.8 %; Lymphocytes # (auto) 0.87 K/uL (1.20-3.40); Lymphocytes % (auto) 11.6 %; Mean Corpuscular Hemoglobin 31.9 pg (25.0-34.0); Mean Corpuscular Hgb Conc 32.3 g/dL (32.0-36.0); Mean Corpuscular Volume 98.7 fL (80.0-100.0); Mean Platelet Volume 10.8 fL (9.4-12.4); Monocytes # (auto) 0.83 K/uL (0.11-0.59); Monocytes % (auto) 11.1 %; Neutrophils # (auto) 5.55 K/uL (1.40-6.50); Neutrophils % (auto) 74.1 %; Platelet Count 456 K/uL (130-400); RDW Coefficient of Variation 13.2 % (11.5-14.5); RDW Standard Deviation 47.1 fL (36.4-46.3); Red Blood Count 3.92 M/uL (4.70-6.10); White Blood Count 7.49 K/ul (4.8-10.8)
[2024-06-22] MEDS: CYCLOBENZAPRINE HCL 10 MG TAB PO STA (11:05)
[2024-06-22 11:12] LABS: Albumin Level 3.9 gm/dl (3.4-5.0); BUN Creatinine Ratio 17.5 (10-20); Bilirubin Direct 0.2 mg/dl (0-0.2); Bilirubin,Total 0.5 mg/dl (0.2-1.0); Calcium 9.4 mg/dl (8.6-10.3); Creatinine Clr Calc Pharmacy 198.2 ml/min; Magnesium 1.8 mg/dl (1.7-2.4); Potassium 3.9 mmol/L (3.5-5.1); Total Protein 7.1 gm/dl (6.0-8.3)
[2024-06-22] MEDS: predniSONE 10 MG TABLET PO ONE (12:16)
[2024-06-22] MEDS: predniSONE 5 MG TAB PO ONE (12:16)
[2024-06-22] MEDS: CHOLECALCIFEROL 125 MCG (5,000 UNITS) TAB PO SCH (12:16)
[2024-06-22] MEDS ORDERED: MoRPHine SULFATE 2 MG/ML CARP IV PRN (15:08)
[2024-06-23] MEDS: CYCLOBENZAPRINE HCL 10 MG TAB PO PRN (01:02)
[2024-06-23 07:46] LABS: Hematocrit (blood only) 40.4 % (42.0-52.0); Hemoglobin 13.3 g/dl (14.0-18.0); Mean Corpuscular Hemoglobin 32.3 pg (25.0-34.0); Mean Corpuscular Hgb Conc 32.9 g/dL (32.0-36.0); Mean Corpuscular Volume 98.1 fL (80.0-100.0); Mean Platelet Volume 10.9 fL (9.4-12.4); Platelet Count 507 K/uL (130-400); RDW Coefficient of Variation 12.6 % (11.5-14.5); RDW Standard Deviation 45.5 fL (36.4-46.3); Red Blood Count 4.12 M/uL (4.70-6.10); White Blood Count 8.92 K/ul (4.8-10.8)
[2024-06-23 08:02] LABS: Albumin Globulin Ratio 1.1 (0.9-2); Albumin Level 3.8 gm/dl (3.4-5.0); Bilirubin,Total 0.4 mg/dl (0.2-1.0); Calcium 9.5 mg/dl (8.6-10.3); Creatinine Clr Calc Pharmacy 215.2 ml/min; Globulin 3.4 gm/dl (2.5-4.0); Magnesium 2.1 mg/dl (1.7-2.4); Potassium 3.7 mmol/L (3.5-5.1); Total Protein 7.2 gm/dl (6.0-8.3)
--- NOTE | 2024-06-23 08:40 | Hospitalist Consultation ---
Date of Consultation June 23, 2024 History of Present Illness Reason for Consultation: B/L LE Pain disproportionate to injury Requesting Physician: Anni Irene PA-C Attending Physician: Jero Parra History of Present Illness Attending: Dr. Marsh Allergies Allergy/AdvReac Type Severity Reaction Status Date / Time No Known Allergies Allergy Verified 06/02/24 14:04 Home Medications Medication Instructions Recorded Confirmed Type apixaban 5 mg tablet (Eliquis) 5 mg PO BID 05/07/24 06/11/24 History allopurinol 100 mg tablet 100 mg PO DAILY #30 tabs 06/02/24 06/11/24 Rx omeprazole 40 mg capsule,delayed 40 mg PO DAILY #90 caps 06/02/24 06/11/24 Rx release meloxicam 15 mg tablet 15 mg PO UD 06/11/24 06/11/24 History sertraline 50 mg tablet 50 mg PO DAILY 06/11/24 06/11/24 History clonidine HCl 0.1 mg tablet 0.1 mg PO QAM #90 tabs 06/15/24 Rx Patient History Medical History History of pulmonary embolus (PE) Gout History of pancreatitis Rheumatoid arthritis Alcohol abuse Neuropathy B12 deficiency Vitamin D deficiency Depression HTN (hypertension) Anxiety POTS (postural orthostatic tachycardia syndrome) Surgical History S/P cholecystectomy January 2016 Family History Sister VTE (venous thromboembolism) Father Hyperlipidemia Other Colorectal cancer Diabetes Myocardial infarction Denies family history of Ovarian cancer Prostate cancer Alcoholism Breast cancer Lung cancer Social History Smoking Status: Never smoker Second Hand Exposure: No; Do You Dip or Chew Tobacco: No; Hx Alcohol Use: Yes Alcohol type: hard liquor Alcohol type Comment: vodka - fifth/day Alcohol Intake Frequency: 4 or More x per/Week Hx Substance Use: No Preferred Language: Khmer Communication Ability: Effective Hearing Ability: Normal 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 Beliefs That Will Affect Care: None marital status: Single Current Living Situation: Alone Current Living Situation Comment: house current occupational status: employed and unemployed current occupation: nursing How many Children do You have: 0 Other Information That Helps Us Care for You: No Feels Safe at Home: Yes Safety Concerns: Feels Safe At This Time Dental Care, Regularly: Yes Physical Activity Frequency: Does not Exercise Assistive Devices: None Results & Data Results & Data Vital Signs (Past 12 Hours) Vital Signs Temp Pulse Resp BP Pulse Ox O2 Del Method 06/23/24 07:11 36.7 C 56 L 16 132/80 97 Room Air PG Care Time/CCT Total # of Minutes Spent Total Time Spent with Patient: Total time spent is greater than 50% in coordination of care (as documented) at patient's floor/unit and/or counseling patient: Coding
--- NOTE | 2024-06-23 09:20 | Pain Management Consultation ---
Date of Consultation June 23, 2024 Assessment & Plan (1) Pain in joint involving right ankle and foot: (2) Arthralgia of multiple sites: (3) Vitamin D deficiency: (4) Rheumatoid arthritis: (5) Swelling of first metatarsophalangeal (MTP) joint of left foot: Plan 1. Patient with complaints of neuropathy of bilateral lower extremities. Most likely secondary to vitamin deficiency and alcoholism. Vitamin D level is less than 7 which can exacerbate perception of pain. Would work on repleting vitamin D to levels above 80. 2. Although patient does have some nonspecific complaints of pain on palpation of facets and left SI joint, not consistent with facet arthropathy or disc degeneration. No indication for spine MRI at this time. Will continue with physical therapy for strengthening and conditioning as well as stretching exercises. 3. Can continue gabapentin and if helpful, can increase to 300 mg 3 times daily 4. Recommend discontinuation of narcotics as this will not help neuropathy, and to avoid addiction as patient has increased risk for addiction 5. Continue with sertraline (SSRI) 50 mg p.o. daily. May also consider duloxetine (SNRI) 30 mg p.o. daily and increase to 60 mg p.o. daily as a replacement of sertraline as this may help with his pain 6. Patient does not meet criteria for CRPS as he has no significant hyperalgesia or allodynia, no evidence of hyperhidrosis or dermatological changes in his lower extremities, reported pain started less than 12 days ago. There also does not seem to be a significant difference in skin temperature on bilateral lower extremities. Edema can be explained with ATFL tear with lateral soft tissue swelling. 7. Patient with history of gout. Continue to treat with allopurinol, diet changes At this time, pain management will sign off. Please feel free to reconsult or call with questions. Thank you for including us in the care of this patient. Case discussed with Dr. Marsh History of Present Illness Reason for Consultation: Lower extremity pain disproportionate to injury Requesting Physician: Anni Irene PA-C Attending Physician: Jero Parra History of Present Illness Attending: Dr. Marsh Mr. Piedra is a 34-year-old male that presented to the hospital 06/11/2024 for admission for abdominal pain and alcohol detoxification. Patient reports low back pain and peripheral neuropathy from the knees down to the toes. He reports that that pain started shortly after admission. Patient reports that he was told that he had a fall but he does not remember falling. He states that MRI revealed a high-grade ATFL tear. He was seen by orthopedics who prescribed a boot for his right foot. This is not helping with pain. He reports that the pain is burning and sharp at time. Aggravated by standing and by moving feet and ankles. He has placed ice on it with some relief. He also states he finds some relief with gabapentin, prednisone, and oxycodone. Patient denies any previous imaging of his spine. No prior diagnosis of back injury. Patient reports that pain at worst is 7-8/10 and at best 4-5/10. He is now using a walker as he feels as though his lower extremities are weak. I saw him this morning in his hospital room. In passive monitoring, patient was seen standing without difficulty, pulling his pants up without difficulty, he was able to don and doff socks on bilateral feet without evidence of significant pain including no guarding with flexion in the back. Laying in bed, patient was able to sit up without difficulty or evidence of pain when asked to once again take off his socks for examination and then put his socks back on. While he put his socks on slowly, he did not seem to have severe pain but did "wince". Pain to palpation was equal to both lower extremities and patient reported pain as severe. With distraction while performing low back exam, patient did not seem to have significant pain when I touched his feet. He reports that he is ambulating with a walker as best as he can as a precaution to falling. Patient denies being seen by prior orthospine, pain management team as an outpatient No prior imaging of his back in the [facility] or the [facility] No prior spinal injections or spinal procedures Patient denies bowel or bladder incontinence. No saddle anesthesia. No unusual bleeding or bruising. No known malignancy. No other constitutional complaints. Pain Assessment Pain scale - at its best (0-10): 8 Pain scale - at its worst (0-10): 4 Allergies Allergy/AdvReac Type Severity Reaction Status Date / Time No Known Allergies Allergy Verified 06/02/24 14:04 Home Medications Medication Instructions Recorded Confirmed Type apixaban 5 mg tablet (Eliquis) 5 mg PO BID 05/07/24 06/11/24 History allopurinol 100 mg tablet 100 mg PO DAILY #30 tabs 06/02/24 06/11/24 Rx omeprazole 40 mg capsule,delayed 40 mg PO DAILY #90 caps 06/02/24 06/11/24 Rx release meloxicam 15 mg tablet 15 mg PO UD 06/11/24 06/11/24 History sertraline 50 mg tablet 50 mg PO DAILY 06/11/24 06/11/24 History clonidine HCl 0.1 mg tablet 0.1 mg PO QAM #90 tabs 06/15/24 Rx Pain History Pain Intensity Pain scale - at its best (0-10): 8 Pain scale - at its worst (0-10): 4 Activity Factors Exacerbated by: prolonged standing and prolonged walking Improved by: lying in bed and other (ice, gabapentin, oxycodone) Previous Imaging and Results Labs: 06/23/24 06:56 06/23/24 06:56 Laboratory Tests 01/22/24 01/22/24 06/12/24 08:50 14:42 06:32 Protein C Activity Protein S Activity C-Reactive Protein Vitamin B1 >1200 H Vitamin B12 303 25-OH Vitamin D Total Folate 10.14 Lyme Disease Screen 06/15/24 06/16/24 06/22/24 08:51 10:36 10:24 Protein C Activity 183 H Protein S Activity 115 C-Reactive Protein 4.55 H Vitamin B1 Vitamin B12 25-OH Vitamin D Total < 7.0 L Folate Lyme Disease Screen 06/22/24 10:24 Protein C Activity Protein S Activity C-Reactive Protein Vitamin B1 Vitamin B12 25-OH Vitamin D Total Folate Lyme Disease Screen Negative Patient History Medical History History of pulmonary embolus (PE) Gout History of pancreatitis Rheumatoid arthritis Alcohol abuse Neuropathy B12 deficiency Vitamin D deficiency Depression HTN (hypertension) Anxiety POTS (postural orthostatic tachycardia syndrome) Surgical History S/P cholecystectomy January 2016 Family History Sister VTE (venous thromboembolism) Father Hyperlipidemia Other Colorectal cancer Diabetes Myocardial infarction Denies family history of Ovarian cancer Prostate cancer Alcoholism Breast cancer Lung cancer Social History (Reviewed 06/15/24 @ 15:25 by JESSICA Strong Smoking Status: Never smoker Second Hand Exposure: No; Do You Dip or Chew Tobacco: No; Hx Alcohol Use: Yes Alcohol type: hard liquor Alcohol type Comment: vodka - fifth/day Alcohol Intake Frequency: 4 or More x per/Week Hx Substance Use: No Preferred Language: Mohawk Communication Ability: Effective Hearing Ability: Normal Sales Coordinator Required: No Beliefs That Will Affect Care: None marital status: Single Current Living Situation: Alone Current Living Situation Comment: house current occupational status: employed and unemployed current occupation: nursing How many Children do You have: 0 Other Information That Helps Us Care for You: No Feels Safe at Home: Yes Safety Concerns: Feels Safe At This Time Dental Care, Regularly: Yes Physical Activity Frequency: Does not Exercise Assistive Devices: None Physical Exam 2 Physical Exam: Physical Exam: Constitutional: Well-developed, well-nourished, healthy-appearing, normal weight Psych: Awake, alert, and oriented 3 with normal affect and mood. Memory appears grossly intact, resting comfortably on examination Skin: No evidence of edema, erythema or skin breakdown at site of procedure Musculoskeletal: Head is normocephalic and atraumatic, gait guarded and shuffled. Lumbar: Range of motion is not decreased Tenderness: Nontender over the axial midline Facet provocation: Positive bilaterally Straight leg raise: Negative bilaterally Strength: Strength is equal bilaterally with 5 out of 5 strength in all planes Sensation of lower extremities: Intact bilaterally Deep tendon reflexes: Rated at 2/4 in bilateral patellar and Achilles tendons Myofascial spasm: No appreciable lumbar spasm. No discrete trigger points noted Greater trochanters: Nontender bilaterally Sacroiliac joints: Positive on the left with compression. Nontender bilaterally while standing. Negative Gaenslen's test bilaterally. Negative FADIR. Negative EDITH. Negative compression test. No appreciable leg length discrepancy Pathologic reflexes noted: None Skin: No rashes, lesions, ulcers, or induration noted Neuro: No nystagmus noted, the tongue is midline Results (Pain Clinic) Diagnostic Review MRI Findings: Magnetic Resonance Report Patient: ANA PIEDRA Admit Date: 06/11/24 MR#: [id number] Address1: [address] [place] [address] Acct ID:[id number] Address2: Date: 1990 [facility] Zip: [place] [address] Age: 34 Location: 2E Sex: M Room/Bed: E208 Att Phy: Arvind Campbell MD Diagnosis: ABDOMINAL PAIN, ALCOHOL DEPENDENCE Alesia Phy: Amee Toribio PA-C Service Date: 06/17/24 Fam Phy: Interpreting Phy: Haylee Jurado MD Admit Phy: Osmar Bone MD Ordering Phy: Arvind Campbell MD cc: ~ Exam(s): MRI RIGHT ANKLE Without Contrast EXAM: MR Right Lower Extremity Without Intravenous Contrast, Ankle CLINICAL HISTORY: Reason for exam: right ankle pain. TECHNIQUE: Multiplanar magnetic resonance images of the right ankle without intravenous contrast. COMPARISON: No relevant prior studies available. FINDINGS: There is moderate tibiotalar joint effusion. There is no evidence of acute fracture or dislocation. There is no osteochondral lesion of the talar dome. Tibiotalar, subtalar, talonavicular, calcaneocuboid joints are noted. Pes cavus is suggested. Sinus tarsi appears normal. Achilles tendon and plantar aponeurosis are intact. Medial flexor tendons, lateral peroneal tendons, and anterior extensor tendons are intact. There is tenosynovitis of the flexor hallucis longus tendon along the plantar aspect of the foot. The anterior talofibular ligament is majority torn, with some intact inferior-most fibers. Posterior talofibular and calcaneofibular ligaments are intact. Deltoid ligament complex appears intact. There is lateral soft tissue swelling and edema. IMPRESSION: 1. High-grade ATFL tear with lateral soft tissue swelling. 2. Moderate tibiotalar joint effusion. 3. Tenosynovitis of the flexor hallucis longus tendon at the plantar aspect of the foot. Electronically signed by: Haylee Jurado M.D. 06/18/24 00:34 AM Radiology Findings: XRay Report Patient: ANA PIEDRA Admit Date: 06/11/24 MR#: [id number] Address1: [address] [place] [address] Acct ID:[id number] Address2: Date: [address] [facility] Zip: [place] [address] Age: 34 Location: 2E Sex: M Room/Bed: [facility] Att Phy: Osmar Bone MD Diagnosis: ABDOMINAL PAIN, ALCOHOL DEPENDENCE Alesia Phy: Amee Toribio PA-C Service Date: 06/15/24 [facility] Phy: Interpreting Phy: Scar Turner MD Admit Phy: Osmar Bone MD Ordering Phy: Elkin Holm PA cc: ~ XR ankle RT 2V, XR foot RT min 3V routine CLINICAL HISTORY: ankle pain and swelling, please do mortise view COMPARISON: 06/14/2024. FINDINGS: No fracture or dislocation seen on the single mortise view of the right ankle. No fracture or dislocation seen at the right foot. No significant degenerative change. IMPRESSION: No acute findings. ACT 112: Negative or not required by law. Electronically signed by: Scar Turner M.D. 06/15/2024 3:18 PM L XRay Report Patient: ANA PIEDRA Admit Date: 06/11/24 MR#: [id number] Address1: [address] [place] [address] Acct ID:[id number] Address2: Date: 1990 [facility] Zip: [place] [address] Age: 34 Location: Sex: M Room/Bed: [facility] Att Phy: Osmar Bone MD Diagnosis: ABDOMINAL PAIN, ALCOHOL DEPENDENCE Alesia Phy: Amee Toribio PA-C Service Date: 06/15/24 [facility] Phy: Interpreting Phy: Scar Turner MD Admit Phy: Osmar Bone MD Ordering Phy: Elkin Holm PA cc: ~ XR ankle RT 2V, XR foot RT min 3V routine CLINICAL HISTORY: ankle pain and swelling, please do mortise view COMPARISON: 06/14/2024. FINDINGS: No fracture or dislocation seen on the single mortise view of the right ankle. No fracture or dislocation seen at the right foot. No significant degenerative change. IMPRESSION: No acute findings. ACT 112: Negative or not required by law. Electronically signed by: Scar Turner M.D. 06/15/2024 3:18 PM Dictated: 06/15/24 1516
[2024-06-23] MEDS: GABAPENTIN 300 MG CAP PO SCH (13:54)
--- NOTE | 2024-06-23 17:47 | Hospitalist Progress Note ---
Date of Service June 23, 2024 Assessment & Plan (1) Gout: Plan: 35yo male w/ PMH significant for RA, gout, anxiety/depression, alcohol use presented for ongoing abdominal pain/request for alcohol detox with recent inpatient hospitalization at [facility] (diagnosis PE , rx eliquis but not taking) CTAP on admission w/ focal pancreatic inflammation of pancreatic head (improved from January) as well as duodenal inflammation and ?distal colon colitis and underwent EGD which noted gastritis. Now tolerating diet advancement but remains inpatient for ongoing pain and ambulatory dysfunction suspected 2nd to underlying gout from alcohol use. Uric acid NOT elevated (this time) but [facility] orthopedics consulted this past week and performed arthrocentesis and confirmed gout with crystal analysis MRI obtained and also noted high-grade ATFL tear with lateral soft tissue swelling Ortho following, res for WBAT, cam boot Had been continued on prednisone 5mg daily, allopurinol 100mg BID however given acute pain will hold allopurinol. Flexeril 10 mg TID prn Toradol has been placed on HOLD given EGD w/ gastritis and would avoid NSAIDs as able for now. Exam w/ pain out of proportion on exam but does feel warm/concerns for possible ongoing gout and given prednisone 40mg PO x 1 --> No significant improvement w/ prednisone so will defer ongoing taper Continue PT/OT, rehab if agreeable. Monitor in f/u (2) Vitamin D deficiency: Plan: Vit D < 7 - likely the cause of his bilateral LE neuropathy Repleting with Vit D 125 mcg PO daily - recommend repeating Vit D level in 3-4 months - goal is level >80 Continue with sertraline (SSRI) 50 mg p.o. daily. May also consider duloxetine (SNRI) 30 mg p.o. daily and increase to 60 mg p.o. daily as a replacement of sertraline as this may help with his pain Discontinued narcotics (3) Pain in joint involving right ankle and foot: Plan: see above, hold allopurinol if acute gout related pain, prednisone as outlined (4) Abdominal pain: Plan: See above -- GI consulted and is s/p EGD with Dr Moore on 06/17 which noted GASTRITIS Continues on PPI BID, carafate (carafate x 1 wk) and tolerating low fat diet. Hgb stable Toradol ordered for above/gout however will HOLD for now. Cautious use predniso ne but tolerated NSAIDs w/o worsened abd pain and will monitor. Consider extension carafate w/ ongoing therapy (5) Alcohol withdrawal: Plan: Long standing issue, reported 5th vodka daily, motivated to quit Discussed w/ psych and willing to consider inpatient at conclusion of medical stay Continue folic acid, thiamine, multivitamin. B12 only 300, continue 1000mcg PO daily Encourage cessation. AST/ALT elevated but TB/ALP wnl on check and will monitor Avoid hepatotoxins, monitor on repeat Patient refusing inpatient rehab for alcohol but may be willing for physical therapy given gout/ambulatory dysfunction/pain below Consider naltrexone if agreeable (6) Abnormal CT of the abdomen: Plan: Lipase wnl but noted on CTAP and epigastric pain. PPI/carafate and GI consult as above and remains on such and tolerating diet. is s/p gallbladder removal Outpt f/u (7) Rheumatoid arthritis: (8) Neuropathy: Plan: continue b12 supplementation, gabapentin increased/continued (9) Depression: Plan: continue zoloft, clonidine (10) HTN (hypertension): Plan: continue clonidine (11) POTS (postural orthostatic tachycardia syndrome): (12) Anxiety: (13) Transaminitis: Plan: likely from etoh, monitor LFTs on repeat (14) History of pulmonary embolus (PE): Plan: had taken very little Eliquis since the diagnosis and CTA chest this admission WITHOUT PEs noted. note CT at [facility] w/ 1 solitary PE (1st order branch) and would not continue w/ anticoagulation at this time given above. * risk factor for PEs - inflammatory state from poorly controlled RA? genetic factors? (his sister had VTE during a ) * reasonable to do a genetic w/u - Factor 5 Leiden mutation, prothrombin gene mutation, protein C & S activity, etc. (15) B12 deficiency: (16) Pancytopenia: Plan: check tick studies for completeness given pancytopenia w/ LFT elevation and j oint pain. f/u CBC on repeat (17) Fall: Plan: therapy evals in place Plan PT/OT rec rehab, CM to follow once medically stable Discussed case with pain management Discontinued narcotics Increased gabapentin Admission and Anticipated Discharge Date Admission Date: June 11, 2024 Subjective Patient seen and evaluated at bedside. He reports his hands feel "less tight" today but his feet/ankles feel the same. He worked with PT/OT earlier and still is unable to do steps so therapy is still recommending rehab, which he is agreeable to if needed. We further discussed the assessment and recommendations from pain management, questions/concerns answered. Physical Exam Physical Exam: General: No acute distress, nondiaphoretic, well-developed, well-nourished. Cardiac: Regular rate and rhythm without murmurs gallops or rubs. Pulm: Clear to auscultation bilaterally without wheezes, rales or rhonchi. Normal respiratory effort. 97% on room air. Abdominal: Soft, nontender, nondistended. Bowel sounds present. MSK: Tenderness and pain in ankles bilaterally. Mild swelling in ankles noted bilaterally. Neuro: A&O x3. No focal neurological deficits. Results & Data Results & Data Vital Signs (Past 12 Hours) Vital Signs Temp Pulse Resp BP BP Pulse Ox O2 Del Method 06/23/24 14:51 98.6 F 64 16 119/74 96 Room Air 06/23/24 07:11 98.1 F 56 L 16 132/80 97 Room Air Laboratory Results Reviewed CBC Reviewed CMP PG Care Time/CCT Total # of Minutes Spent Total Time Spent with Patient: Total time spent is greater than 50% in coordination of care (as documented) at patient's floor/unit and/or counseling patient: Coding Level of Care Code 05422 SUB INP/OBS CARE 3/50MIN Diagnoses Gout, unspecified cause, unspecified chronicity, unspecified site M10.9 Chronicity: unspecified Gout etiology: unspecified cause Gout site: unspecified site Vitamin D deficiency E55.9 Pain in joint involving right ankle and foot M25.571 Abdominal pain R10.9 Alcohol withdrawal F10.[address] of the abdomen R93.5 Rheumatoid arthritis M06.9 Neuropathy G62.9 Depression F32.A HTN (hypertension) I10 POTS (postural orthostatic tachycardia syndrome) R00.0; I95.1 Anxiety F41.9 Transaminitis R74.01 History of pulmonary embolus (PE) Z86.711 B12 deficiency E53.8 Pancytopenia D61.818 Fall W19.XXXA (1) Gout Chronicity: unspecified Gout etiology: unspecified cause Gout site: unspecified site Qualified Code(s): M10.9 - Gout, unspecified
[2024-06-24 01:47] LABS: Factor 5 Mutation NEGATIVE
--- NOTE | 2024-06-24 08:39 | Pain Management Progress Note ---
Date of Service June 24, 2024 Assessment & Plan (1) Pain in joint involving right ankle and foot: (2) Arthralgia of multiple sites: (3) Vitamin D deficiency: (4) Rheumatoid arthritis: (5) Swelling of first metatarsophalangeal (MTP) joint of left foot: Plan 1. Physical examination today with less pain to lower extremities. Patient is less guarded. No significant erythema of the lower extremities. Continue with vitamin D replacement with goal of having levels above 80. I discussed with patient that no further imaging is required based on chart review and patient's progress. He stated understanding and agreement. 2. Continue with gabapentin. Agree with discontinuation of narcotics 3. Continue with SSRI versus SNRI 4. Continue with vitamin and mineral replacement Thank you very much for including us in the care of this patient. Will sign off on this patient. Please feel free to call with further questions or concerns. Case discussed with Dr. Marsh. Admission and Anticipated Discharge Date Admission Date: June 11, 2024 Subjective Attending: Dr. Marsh Mr. Piedra is a 34-year-old male who we saw yesterday for neuropathic pain. He is resting comfortably in bed and sleeping. He easily awakens. He follows commands. Is able to sit up without difficulty. He reports that pain seems better than yesterday. No further acute complaints Physical Exam Physical Exam: GENERAL : No acute distress. Sleeping. Easily awakened EYES: Gaze conjugate NECK: Supple EXTREMITIES: No LE edema, pedal pulses intact and equal bilaterally. No significant pain with palpation of lower extremities. Patient with continued with perceived weakness of bilateral feet with dorsiflexion and extension. NEURO: A&OX3. Patellar reflexes 2/4 bilaterally. Patient moves all 4 extremities to command and spontaneously. No hyperalgesia or allodynia on examination of the lower extremities
--- NOTE | 2024-06-24 16:48 | Hospitalist Progress Note ---
Date of Service June 24, 2024 Assessment & Plan (1) Gout: Plan: 35yo male w/ PMH significant for RA, gout, anxiety/depression, alcohol use presented for ongoing abdominal pain/request for alcohol detox with recent inpatient hospitalization at [facility] (diagnosis PE , rx eliquis but not taking) CTAP on admission w/ focal pancreatic inflammation of pancreatic head (improved from January) as well as duodenal inflammation and ?distal colon colitis and underwent EGD which noted gastritis. Now tolerating diet advancement but remains inpatient for ongoing pain and ambulatory dysfunction suspected 2nd to underlying gout from alcohol use. Uric acid NOT elevated (this time) but [facility] consulted this past week and performed arthrocentesis and confirmed gout with crystal analysis MRI R ankle obtained and also noted high-grade ATFL tear with lateral soft tissue swelling Ortho following, res for WBAT, cam boot Had been continued on prednisone 5mg daily, allopurinol 100mg BID however given acute pain will hold allopurinol (2) Pain in joint involving right ankle and foot: Plan: Pain management consulted. Narcotics discontinued Continue Flexeril 10 mg TID prn, gabapentin 300 mg TID Toradol initially held due to EGD with gastritis however with ongoing severe pain, discussion was had regarding risks/benefits of resuming Toradol 15 mg IV q6h prn resumed Continue PT/OT, rehab referrals pending (3) Vitamin D deficiency: Plan: Vit D < 7 - likely the cause of his bilateral LE neuropathy Repleting with Vit D 125 mcg PO daily - recommend repeating Vit D level in 3-4 months - goal is level >80 Continue with sertraline (SSRI) 50 mg p.o. daily. May also consider duloxetine (SNRI) 30 mg p.o. daily and increase to 60 mg p.o. daily as a replacement of sertraline as this may help with his pain Discontinued narcotics (4) Abdominal pain: Plan: s/p EGD with Dr Moore on 06/17 which noted GASTRITIS Continues on PPI BID, carafate (carafate x 1 wk) and tolerating low fat diet. Hgb stable (5) Alcohol withdrawal: Plan: Long standing issue, reported 5th vodka daily, motivated to quit Discussed w/ psych and willing to consider inpatient at conclusion of medical stay Continue folic acid, thiamine, multivitamin. B12 only 300, continue 1000mcg PO daily Encourage cessation. AST/ALT elevated but TB/ALP wnl on check and will monitor Avoid hepatotoxins, monitor on repeat Patient refusing inpatient rehab for alcohol but may be willing for physical therapy given gout/ambulatory dysfunction/pain below Consider naltrexone if agreeable (6) Abnormal CT of the abdomen: Plan: Lipase wnl but noted on CTAP and epigastric pain. PPI/carafate and GI consult as above and remains on such and tolerating diet. is s/p gallbladder removal Outpt f/u (7) Rheumatoid arthritis: (8) Neuropathy: Plan: continue b12 supplementation, gabapentin increased/continued (9) Depression: Plan: continue zoloft, clonidine [facility] liaison consulted (10) HTN (hypertension): Plan: continue clonidine (11) POTS (postural orthostatic tachycardia syndrome): (12) Anxiety: (13) Transaminitis: Plan: likely from etoh, monitor LFTs on repeat (14) History of pulmonary embolus (PE): Plan: had taken very little Eliquis since the diagnosis and CTA chest this admission WITHOUT PEs noted. note CT at [place] w/ 1 solitary PE (1st order branch) and would not continue w/ anticoagulation at this time given above. * risk factor for PEs - inflammatory state from poorly controlled RA? genetic factors? (his sister had VTE during a ) * reasonable to do a genetic w/u - Factor 5 Leiden mutation negative, protein C & S activity unremarkable, Antithrombin III activity WNL, thrombin time WNL, Dil Charles viper venom WNL. Lupus anticoagulant APTT elevated at 56, lupus hexagon phase positive (15) B12 deficiency: (16) Pancytopenia: Plan: Take studies checked given pancytopenia w/ LFT elevation and joint pain and negative Pancytopenia resolved (17) Fall: Plan: therapy evals in place Plan PT/OT rec rehab, CM to follow once medically stable Started IV Toradol [facility] liaison consulted Admission and Anticipated Discharge Date Admission Date: June 11, 2024 Subjective Patient seen and evaluated in bedside chair. He reports some frustration regarding his ongoing bilateral foot and ankle pain. He rates it a 7/10 currently and 9/10 with weightbearing/activity. He reports he had better pain control with the IV Toradol. We discussed that this was discontinued due to gastritis noted on EGD, discussed risks/benefits of NSAIDs, and ultimately decided to start the IV Toradol again. He denies abdominal pain. He has a decent appetite. He has not been getting good sleep throughout his hospitalization. He is anxious regarding rehab placement vs home. Emotional support provided. No additional complaints or concerns at this time. Physical Exam Physical Exam: General: No acute distress, nondiaphoretic, well-developed, well-nourished. Cardiac: Regular rate and rhythm without murmurs gallops or rubs. Pulm: Clear to auscultation bilaterally without wheezes, rales or rhonchi. Normal respiratory effort. 97% on room air. Abdominal: Soft, nontender, nondistended. Bowel sounds present. MSK: Tenderness to touch and pain with weightbearing in feet and ankles bilaterally. Mild swelling in ankles noted bilaterally R>L. Trace pedal edema bilaterally. Neuro: A&O x3. No focal neurological deficits. Results & Data Results & Data Vital Signs (Past 12 Hours) Vital Signs Temp Pulse Resp BP Pulse Ox O2 Del Method 06/24/24 15:13 97.7 F 78 16 119/77 98 Room Air 06/24/24 08:58 Room Air 06/24/24 07:21 98.2 F 59 L 20 136/85 98 Room Air PG Care Time/CCT Total # of Minutes Spent Total Time Spent with Patient: Total time spent is greater than 50% in coordination of care (as documented) at patient's floor/unit and/or counseling patient: Coding Level of Care Code 41862 SUB INP/OBS CARE 3/50MIN Diagnoses Gout, unspecified cause, unspecified chronicity, unspecified site M10.9 Chronicity: unspecified Gout etiology: unspecified cause Gout site: unspecified site Pain in joint involving right ankle and foot M25.571 Vitamin D deficiency E55.9 Abdominal pain R10.9 Alcohol withdrawal F10.[address] of the abdomen R93.5 Rheumatoid arthritis M06.9 Neuropathy G62.9 Depression F32.A HTN (hypertension) I10 POTS (postural orthostatic tachycardia syndrome) R00.0; I95.1 Anxiety F41.9 Transaminitis R74.01 History of pulmonary embolus (PE) Z86.711 B12 deficiency E53.8 Pancytopenia D61.818 Fall W19.XXXA (1) Gout Chronicity: unspecified Gout etiology: unspecified cause Gout site: un specified site Qualified Code(s): M10.9 - Gout, unspecified
[2024-06-24] MEDS: KETOROLAC TROMETHAMINE 15 MG/ML VIAL IV PRN (16:56)
--- NOTE | 2024-06-25 11:39 | Hospitalist Progress Note ---
Date of Service June 25, 2024 Assessment & Plan (1) Pain in joint involving right ankle and foot: (2) Gout: (3) Vitamin D deficiency: (4) Abdominal pain: (5) Alcohol withdrawal: (6) Anxiety and depression: (7) HTN (hypertension): (8) History of pulmonary embolus (PE): (9) Rheumatoid arthritis: Plan 35yo male with long-standing alcohol dependence, anxiety/depression, prior episode of pancreatitis 01/2024 requiring hospitalization at [facility], rheumatoid arthritis, gout, and diagnosis of PEs at [facility] in 04/2024 (prescribed Eliquis but hasn't been taking it) - presented with ongoing abdominal pain and nausea along with request for alcohol detox. Admit CT with focal pancreatic inflammation of the pancreatic head (significant improvement from prior CT 01/2024) as well as duodenal inflammation and ?distal colon colitis. More recent issue has been this ongoing bilateral foot and ankle pain. #Bilateral foot and ankle pain Pain management consulted. Narcotics discontinued Continue Flexeril 10 mg TID prn, gabapentin 300 mg TID, Toradol 15 mg IV q6h prn - significant improvement in pain with resumption of Toradol Continue PT/OT, rehab referrals pending #Gout - likely 2nd to heavy etoh abuse [facility] performed arthrocentesis and confirmed gout with crystal analysis MRI obtained and also noted high-grade ATFL tear with lateral soft tissue swelling Ortho recs for WBAT, cam boot Completed prednisone course Resumed allopurinol 100mg BID #Vitamin D deficiency Vit D < 7 - likely the cause of his bilateral LE neuropathy Repleting with Vit D 125 mcg PO daily - recommend repeating Vit D level in 3-4 months - goal is level >80 #Alcohol dependence / withdrawal Long standing issue, reported 5th vodka daily, motivated to quit Completed gabapentin protocol/taper with Ativan prn per AWSS scoring. Withdrawal now resolved Discussed w/ psych and willing to consider inpatient at conclusion of medical stay Continue folic acid, thiamine, multivitamin B12 only 300, continue 1000mcg PO daily Consider naltrexone if agreeable #Depression/anxiety Continue with sertraline (SSRI) 50 mg p.o. daily. May also consider duloxetine (SNRI) 30 mg p.o. daily and increase to 60 mg p.o. daily as a replacement of sertraline as this may help with his pain [facility] liaison consulted #Hypertension Continue clonidine 0.1mg BID. This will help sleep, anxiety, and his BP #Abdominal pain Initial concern for pancreatitis given inflammation of pancreatic head noted on CT A/P on admission, however lipase was normal and there were no pancreatic calcifications to indicate chronic pancreatitis. Triglycerides were normal on lipid profile S/p EGD with Dr Moore on 06/17 which noted GASTRITIS -suspect alcoholic gastritis mostly because of his abdominal pain Continues on Protonix 40 mg BID. Carafate QID x 1 week, now discontinued Abdominal pain now resolved and well tolerating diet #H/o PEs - 04/2024 Had taken very little Eliquis since the diagnosis and CTA chest this admission WITHOUT PEs noted. Note CT at [place] w/ 1 solitary PE (1st order branch) and would not continue w/ anticoagulation at this time given above. Risk factor for PEs - inflammatory state from poorly controlled RA? genetic factors? (his sister had VTE during a ) Reasonable to do a genetic w/u - Factor 5 Leiden mutation negative, protein C & S activity unremarkable, Antithrombin III activity WNL, thrombin time WNL, Dil Charles viper venom WNL. Lupus anticoagulant APTT elevated at 56, lupus hexagon phase positive #Rheumatoid arthritis - Follows with Dr Salinas, [facility] - recommend follow-up outpatient Dispo: Continue inpatient stay while awaiting rehab decisions and controlling pain Discontinued prednisone Resumed allopurinol Admission and Anticipated Discharge Date Admission Date: June 11, 2024 Subjective Patient seen and evaluated at bedside. He had just finished washing up and taking a walk in the hallway. His gait is still guarded with using his walker but definitely improved compared to prior days. Erasmo reports he is much improved today, currently rating his pain 5/10 which he says is tolerable. He notes that he was able to sleep last night and feels like his mental health is improved today as well. No additional complaints or concerns at this time. Physical Exam Physical Exam: General: No acute distress, nondiaphoretic, well-developed, well-nourished. Cardiac: Regular rate and rhythm without murmurs gallops or rubs. Pulm: Clear to auscultation bilaterally without wheezes, rales or rhonchi. Normal respiratory effort. 99% on room air. Abdominal: Soft, nontender, nondistended. Bowel sounds present. MSK: Tenderness to touch and pain with weightbearing in feet and ankles bilaterally. Mild swelling in ankles noted bilaterally R>L. Trace pedal edema bilaterally. Neuro: A&O x3. No focal neurological deficits. Results & Data Results & Data Vital Signs (Past 12 Hours) Vital Signs Temp Pulse Resp BP Pulse Ox O2 Del Method 06/25/24 09:11 Room Air 06/25/24 07:48 98.1 F 66 16 152/95 H 97 Room Air PG Care Time/CCT Total # of Minutes Spent Total Time Spent with Patient: Total time spent is greater than 50% in coordination of care (as documented) at patient's floor/unit and/or counseling patient: Coding Level of Care Code 69376 SUB INP/OBS CARE 3/50MIN Diagnoses Pain in joint involving right ankle and foot M25.571 Gout, unspecified cause, unspecified chronicity, unspecified site M10.9 Chronicity: unspecified Gout etiology: unspecified cause Gout site: unspecified site Vitamin D deficiency E55.9 Abdominal pain R10.9 Alcohol withdrawal F10.939 Anxiety and depression F41.9; F32.A HTN (hypertension) I10 History of pulmonary embolus (PE) Z86.711 Rheumatoid arthritis M06.9 (2) Gout Chronicity: unspecified Gout etiology: unspecified cause Gout site: unspecified site Qualified Code(s): M10.9 - Gout, unspecified
--- NOTE | 2024-06-26 09:19 | Hospitalist Progress Note ---
Date of Service June 26, 2024 Assessment & Plan (1) Pain in joint involving right ankle and foot: (2) Gout: (3) Vitamin D deficiency: (4) Abdominal pain: (5) Alcohol withdrawal: (6) Anxiety and depression: (7) HTN (hypertension): (8) History of pulmonary embolus (PE): (9) Rheumatoid arthritis: Plan 35yo male with long-standing alcohol dependence, anxiety/depression, prior episode of pancreatitis 01/2024 requiring hospitalization at [facility], rheumatoid arthritis, gout, and diagnosis of PEs at [facility] in 04/2024 (prescribed Eliquis but hasn't been taking it) - presented with ongoing abdominal pain and nausea along with request for alcohol detox. Admit CT with focal pancreatic inflammation of the pancreatic head (significant improvement from prior CT 01/2024) as well as duodenal inflammation and ?distal colon colitis. More recent issue has been this ongoing bilateral foot and ankle pain. #Bilateral foot and ankle pain Pain management consulted. Narcotics discontinued Continue Flexeril 10 mg TID prn, gabapentin 300 mg TID, Toradol 15 mg IV q6h prn - significant improvement in pain with resumption of Toradol. Transition from IV Toradol to p.o. Celebrex over the next 24-48 hours Ortho recs for WBAT, cam boot Reportedly rolled ankle in bathroom 06/26 when not wearing cam boot. 3V right ankle x-rays negative for acute findings Continue PT/OT, rehab referrals pending #Gout - likely 2nd to heavy etoh abuse [facility] performed arthrocentesis and confirmed gout with crystal analysis MRI obtained and also noted high-grade ATFL tear with lateral soft tissue swelling Completed prednisone course Resumed allopurinol 100mg BID #Vitamin D deficiency Vit D < 7 - likely the cause of his bilateral LE neuropathy and exacerbation of pain Repleting with Vit D 125 mcg PO daily - recommend repeating Vit D level in 3-4 months - goal is level >80 #Alcohol dependence / withdrawal Long standing issue, reported 5th vodka daily, motivated to quit Completed gabapentin protocol/taper with Ativan prn per AWSS scoring. Withdrawal now resolved Discussed w/ psych and willing to consider inpatient at conclusion of medical stay Continue folic acid, thiamine, multivitamin B12 only 300, continue 1000mcg PO daily Consider naltrexone if agreeable #Depression/anxiety Continue with sertraline (SSRI) 50 mg p.o. daily. May also consider duloxetine (SNRI) 30 mg p.o. daily and increase to 60 mg p.o. daily as a replacement of sertraline as this may help with his pain [facility] liaison consulted #Hypertension Continue clonidine 0.1mg BID. This will help sleep, anxiety, and his BP #Abdominal pain / Gastritis Initial concern for pancreatitis given inflammation of pancreatic head noted on CT A/P on admission, however lipase was normal and there were no pancreatic calcifications to indicate chronic pancreatitis. Triglycerides were normal on lipid profile S/p EGD on 06/17 which noted gastritis - suspect alcoholic gastritis Continues on Protonix 40 mg BID. Carafate QID x 1 week, now discontinued Consider famotidine 40 mg p.o. BID forNSAID-induced ulcer prophylaxis when transitioning to oral NSAIDs Abdominal pain now resolved and well tolerating diet #H/o PEs - 04/2024 Had taken very little Eliquis since the diagnosis and CTA chest this admission WITHOUT PEs noted. Note CT at [place] w/ 1 solitary PE (1st order branch) and would not continue w/ anticoagulation at this time given above. Risk factor for PEs - inflammatory state from poorly controlled RA? genetic factors? (his sister had VTE during a ) Reasonable to do a genetic w/u - Factor 5 Leiden mutation negative, protein C & S activity unremarkable, Antithrombin III activity WNL, thrombin time WNL, Dil Charles viper venom WNL. Lupus anticoagulant APTT elevated at 56, lupus hexagon phase positive #Rheumatoid arthritis - Follows with Dr Salinas, [facility] - recommend follow-up outpatient Dispo: Continue inpatient stay while awaiting rehab decisions and controlling pain Obtained right ankle x-rays Discussed evaluation with PT Admission and Anticipated Discharge Date Admission Date: June 11, 2024 Subjective Patient seen and evaluated in bedside chair. He reports he "rolled his right ankle" when in the bathroom earlier. He notes some worsened right ankle pain since then. He states that prior to that he felt like his pain was improving in his ankles bilaterally. Otherwise he reports he had better sleep again last night and has a strong appetite. After physical exam, we discussed obtaining right ankle x-rays. He denies any abdominal pain or nausea at this time. No additional complaints or concerns at this time. Physical Exam Physical Exam: General: No acute distress, nondiaphoretic, well-developed, well-nourished. Cardiac: Well-perfused. Rates in 60s. Pulm: Normal respiratory effort. 97% on room air. MSK: Moderate swelling in right ankle, mild swelling of left ankle. Positive tenderness to palpation of right lateral malleolus. Able to bear weight bilaterally though guarded. Neuro: A&O x3. No focal neurological deficits. Results & Data Results & Data Vital Signs (Past 12 Hours) Vital Signs Temp Pulse Resp BP Pulse Ox O2 Del Method 06/26/24 07:08 98.2 F 67 16 151/96 H 97 Room Air Diagnostic Findings Reviewed right ankle x-ray Ankle X-Ray 06/26/24 12:51 XR ankle RT min 3V routine CLINICAL HISTORY: + lateral malleolus tenderness; rolled ankle in BR COMPARISON: 06/15/2024 FINDINGS: No fracture or dislocation seen. No significant degenerative change seen. IMPRESSION: No acute findings seen. ACT 112: Negative or not required by law. Electronically signed by: Scar Turner M.D. 06/26/2024 1:30 PM PG Care Time/CCT Total # of Minutes Spent Total Time Spent with Patient: Total time spent is greater than 50% in coordination of care (as documented) at patient's floor/unit and/or counseling patient: Coding Level of Care Code 85639 SUB INP/OBS CARE 3/50MIN Diagnoses Pain in joint involving right ankle and foot M25.571 Gout, unspecified cause, unspecified chronicity, unspecified site M10.9 Chronicity: unspecified Gout etiology: unspecified cause Gout site: unspecified site Vitamin D deficiency E55.9 Abdominal pain R10.9 Alcohol withdrawal F10.939 Anxiety and depression F41.9; F32.A HTN (hypertension) I10 History of pulmonary embolus (PE) Z86.711 Rheumatoid arthritis M06.9 (2) Gout Chronicity: unspecified Gout etiology: unspecified cause Gout site: unspecified site Qualified Code(s): M10.9 - Gout, unspecified
--- NOTE | 2024-06-26 13:31 | XRay Report ---
XR ankle RT min 3V routine CLINICAL HISTORY: + lateral malleolus tenderness; rolled ankle in BR COMPARISON: 06/15/2024 FINDINGS: No fracture or dislocation seen. No significant degenerative change seen. IMPRESSION: No acute findings seen. ACT 112: Negative or not required by law. Electronically signed by: Scar Turner M.D. 06/26/2024 1:30 PM
[2024-06-27] MEDS: FAMOTIDINE 20 MG TAB PO SCH (12:40)
--- NOTE | 2024-06-27 13:44 | Hospitalist Progress Note ---
Date of Service June 27, 2024 Assessment & Plan (1) Pain in joint involving right ankle and foot: (2) Gout: (3) Vitamin D deficiency: (4) Abdominal pain: (5) Alcohol withdrawal: (6) Anxiety and depression: (7) HTN (hypertension): (8) History of pulmonary embolus (PE): (9) Rheumatoid arthritis: Plan 35yo male with long-standing alcohol dependence, anxiety/depression, prior episode of pancreatitis 01/2024 requiring hospitalization at [facility], rheumatoid arthritis, gout, and diagnosis of PEs at [facility] in 04/2024 (prescribed Eliquis but hasn't been taking it) - presented with ongoing abdominal pain and nausea along with request for alcohol detox. Admit CT with focal pancreatic inflammation of the pancreatic head (significant improvement from prior CT 01/2024) as well as duodenal inflammation and ?distal colon colitis. More recent issue has been this ongoing bilateral foot and ankle pain. #Bilateral foot and ankle pain Pain management consulted. Narcotics discontinued Continue Flexeril 10 mg TID prn, gabapentin 300 mg TID Started Celebrex 200 mg p.o. BID PRN. Discontinued IV Toradol Ortho recs for WBAT, cam boot Reportedly rolled ankle in bathroom 06/26 when not wearing cam boot. 3V right ankle x-rays negative for acute findings Continue PT/OT, rehab referrals pending #Gout - likely 2nd to heavy etoh abuse [facility] performed arthrocentesis and confirmed gout with crystal analysis MRI obtained and also noted high-grade ATFL tear with lateral soft tissue swelling Completed prednisone course Continue allopurinol 100mg BID #Abdominal pain / Gastritis Initial concern for pancreatitis given inflammation of pancreatic head noted on CT A/P on admission, however lipase was normal and there were no pancreatic calcifications to indicate chronic pancreatitis. Triglycerides were normal on lipid profile S/p EGD on 06/17 which noted gastritis - suspect alcoholic gastritis Continues on Protonix 40 mg BID. Carafate QID x 1 week, now discontinued Started famotidine 20 mg p.o. BID forNSAID-induced ulcer prophylaxis Abdominal pain now resolved and well tolerating diet #Vitamin D deficiency Vit D < 7 - likely the cause of his bilateral LE neuropathy and exacerbation of pain Repleting with Vit D 125 mcg PO daily - recommend repeating Vit D level in 3-4 months - goal is level >80 #Alcohol dependence / withdrawal Long standing issue, reported 5th vodka daily, motivated to quit Completed gabapentin protocol/taper with Ativan prn per AWSS scoring. Withdrawal now resolved Discussed w/ psych and willing to consider inpatient at conclusion of medical stay Continue folic acid, thiamine, multivitamin B12 only 300, continue 1000mcg PO daily Consider naltrexone if agreeable #Depression/anxiety Continue with sertraline (SSRI) 50 mg p.o. daily. May also consider duloxetine (SNRI) 30 mg p.o. daily and increase to 60 mg p.o. daily as a replacement of sertraline as this may help with his pain [facility] liaison consulted #Hypertension Continue clonidine 0.1mg BID. This will help sleep, anxiety, and his BP #H/o PEs - 04/2024 Had taken very little Eliquis since the diagnosis and CTA chest this admission WITHOUT PEs noted. Note CT at [place] w/ 1 solitary PE (1st order branch) and would not continue w/ anticoagulation at this time given above. Risk factor for PEs - inflammatory state from poorly controlled RA? genetic factors? (his sister had VTE during a ) Reasonable to do a genetic w/u - Factor 5 Leiden mutation negative, protein C & S activity unremarkable, Antithrombin III activity WNL, thrombin time WNL, Dil Charles viper venom WNL. Lupus anticoagulant APTT elevated at 56, lupus hexagon phase positive #Rheumatoid arthritis - Follows with Dr Salinas, [facility] Rhe[facility] - recommend follow-up outpatient Dispo: Continue inpatient stay while awaiting rehab decisions and controlling pain Discontinued IV Toradol Started PO Celebrex Admission and Anticipated Discharge Date Admission Date: June 11, 2024 Subjective Patient seen and evaluated in bedside chair. He reports "I'm not too bad today." He also noted a headache in the morning which he attributed to the change in weather and states this is improved now. He also reports he washed up in the bathroom this morning and walked laps in the hallway with his walker. He got a fair amount of sleep overnight and has a good appetite. He denies abdominal pain. He reports the past few mornings he has woken up with nausea which resolves after antiemetic. We discussed transitioning from IV Toradol to PO Celebrex today. No additional complaints or concerns at this time. Physical Exam Physical Exam: General: No acute distress, nondiaphoretic, well-developed, well-nourished. Cardiac: Well-perfused. Rates in 60s. Pulm: Normal respiratory effort. 98% on room air. MSK: Moderate swelling in right ankle, mild swelling of left ankle. Tender to palpation of ankles bilaterally. Able to bear weight and walk independently with a walker. Neuro: A&O x3. No focal neurological deficits. Results & Data Results & Data Vital Signs (Past 12 Hours) Vital Signs Temp Pulse Resp BP Pulse Ox O2 Del Method 06/27/24 06:58 97.7 F 64 16 157/99 H 98 Room Air PG Care Time/CCT Total # of Minutes Spent Total Time Spent with Patient: Total time spent is greater than 50% in coordination of care (as documented) at patient's floor/unit and/or counseling patient: Coding Level of Care Code 30352 SUB INP/OBS CARE 2/35MIN Diagnoses Pain in joint involving right ankle and foot M25.571 Gout, unspecified cause, unspecified chronicity, unspecified site M10.9 Chronicity: unspecified Gout etiology: unspecified cause Gout site: unspecified site Vitamin D deficiency E55.9 Abdominal pain R10.9 Alcohol withdrawal F10.939 Anxiety and depression F41.9; F32.A HTN (hypertension) I10 History of pulmonary embolus (PE) Z86.711 Rheumatoid arthritis M06.9 (2) Gout Chronicity: unspecified Gout etiology: unspecified cause Gout site: unspecified site Qualified Code(s): M10.9 - Gout, unspecified
[2024-06-27] MEDS: CeleBREX 200 MG CAP PO PRN (21:51)
--- NOTE | 2024-06-28 10:06 | Hospitalist Progress Note ---
Date of Service June 28, 2024 Assessment & Plan (1) Pain in joint involving right ankle and foot: (2) Gout: (3) Vitamin D deficiency: (4) Abdominal pain: (5) Alcohol withdrawal: (6) Anxiety and depression: (7) HTN (hypertension): (8) History of pulmonary embolus (PE): (9) Rheumatoid arthritis: Plan 35yo male with long-standing alcohol dependence, anxiety/depression, prior episode of pancreatitis 01/2024 requiring hospitalization at [facility], rheumatoid arthritis, gout, and diagnosis of PEs at [facility] in 04/2024 (prescribed Eliquis but hasn't been taking it) - presented with ongoing abdominal pain and nausea along with request for alcohol detox. Admit CT with focal pancreatic inflammation of the pancreatic head (significant improvement from prior CT 01/2024) as well as duodenal inflammation and ?distal colon colitis. More recent issue has been this ongoing bilateral foot and ankle pain. #Bilateral foot and ankle pain Pain management consulted. Narcotics discontinued Continue Flexeril 10 mg TID prn, gabapentin 300 mg TID Started Celebrex 200 mg p.o. BID PRN. Discontinued IV Toradol Ortho recs for WBAT, cam boot Reportedly rolled ankle in bathroom 06/26 when not wearing cam boot. 3V right ankle x-rays negative for acute findings Continue PT/OT, rehab referrals pending #Gout - likely 2nd to heavy etoh abuse [facility] performed arthrocentesis and confirmed gout with crystal analysis MRI obtained and also noted high-grade ATFL tear with lateral soft tissue swelling Completed prednisone course Continue allopurinol 100mg BID #Abdominal pain / Gastritis Initial concern for pancreatitis given inflammation of pancreatic head noted on CT A/P on admission, however lipase was normal and there were no pancreatic calcifications to indicate chronic pancreatitis. Triglycerides were normal on lipid profile S/p EGD on 06/17 which noted gastritis - suspect alcoholic gastritis Continues on Protonix 40 mg BID. Carafate QID x 1 week, now discontinued Started famotidine 20 mg p.o. BID forNSAID-induced ulcer prophylaxis Abdominal pain now resolved and well tolerating diet #Vitamin D deficiency Vit D < 7 - likely the cause of his bilateral LE neuropathy and exacerbation of pain Repleting with Vit D 125 mcg PO daily - recommend repeating Vit D level in 3-4 months - goal is level >80 #Alcohol dependence / withdrawal Long standing issue, reported 5th vodka daily, motivated to quit Completed gabapentin protocol/taper with Ativan prn per AWSS scoring. Withdrawal now resolved Discussed w/ psych and willing to consider inpatient at conclusion of medical stay Continue folic acid, thiamine, multivitamin B12 only 300, continue 1000mcg PO daily Consider naltrexone if agreeable #Depression/anxiety Continue with sertraline (SSRI) 50 mg p.o. daily. May also consider duloxetine (SNRI) 30 mg p.o. daily and increase to 60 mg p.o. daily as a replacement of sertraline as this may help with his pain [facility] liaison consulted #Hypertension Continue clonidine 0.1mg BID. This will help sleep, anxiety, and his BP #H/o PEs - 04/2024 Had taken very little Eliquis since the diagnosis and CTA chest this admission WITHOUT PEs noted. Note CT at [place] w/ 1 solitary PE (1st order branch) and would not continue w/ anticoagulation at this time given above. Risk factor for PEs - inflammatory state from poorly controlled RA? genetic factors? (his sister had VTE during a ) Reasonable to do a genetic w/u - Factor 5 Leiden mutation negative, protein C & S activity unremarkable, Antithrombin III activity WNL, thrombin time WNL, Dil Charles viper venom WNL. Lupus anticoagulant APTT elevated at 56, lupus hexagon phase positive #Rheumatoid arthritis - Follows with Dr Salinas, [facility] [place] Rheum - recommend follow-up outpatient Dispo: Continue inpatient stay while awaiting rehab decisions. Given his independent mobility, highly doubt SNF will accept. He said home health is not an option, but would be agreeable to outpatient PT if all rehabs are denied. Admission and Anticipated Discharge Date Admission Date: June 11, 2024 Subjective Patient seen and evaluated at bedside. He reports feeling "pretty okay today." He reports walking in the halls earlier. He notes the Celebrex is controlling his pain as well as the Toradol. He rates his pain 5/10 at present. He notes the Flexeril definitely helps his muscle spasms. He denies any abdominal pain or nausea at this time. Given his independent mobility, highly doubt SNF will accept but referrals are still pending. No additional complaints or concerns at this time. Physical Exam Physical Exam: General: No acute distress, nondiaphoretic, well-developed, well-nourished. Cardiac: Well-perfused. Rates in 70s. Pulm: Normal respiratory effort. 99% on room air. MSK: Moderate swelling in right ankle, mild swelling of left ankle. Tender to palpation of ankles bilaterally R>L. Able to bear weight and walk independently with a walker. Neuro: A&O x3. No focal neurological deficits. Results & Data Results & Data Vital Signs (Past 12 Hours) Vital Signs Temp Pulse Resp BP Pulse Ox O2 Del Method 06/28/24 08:01 98.1 F 78 18 147/94 H 99 Room Air PG Care Time/CCT Total # of Minutes Spent Total Time Spent with Patient: Total time spent is greater than 50% in coordination of care (as documented) at patient's floor/unit and/or counseling patient: Coding Level of Care Code 78216 SUB INP/OBS CARE 2/35MIN Diagnoses Pain in joint involving right ankle and foot M25.571 Gout, unspecified cause, unspecified chronicity, unspecified site M10.9 Chronicity: unspecified Gout etiology: unspecified cause Gout site: unspecified site Vitamin D deficiency E55.9 Abdominal pain R10.9 Alcohol withdrawal F10.939 Anxiety and depression F41.9; F32.A HTN (hypertension) I10 History of pulmonary embolus (PE) Z86.711 Rheumatoid arthritis M06.9 (2) Gout Chronicity: unspecified Gout etiology: unspecified cause Gout site: unspecified site Qualified Code(s): M10.9 - Gout, unspecified
--- NOTE | 2024-06-29 08:55 | Hospitalist Progress Note ---
Date of Service June 29, 2024 Assessment & Plan (1) Pain in joint involving right ankle and foot: (2) Gout: (3) Vitamin D deficiency: (4) Abdominal pain: (5) Alcohol withdrawal: (6) Anxiety and depression: (7) HTN (hypertension): (8) History of pulmonary embolus (PE): (9) Rheumatoid arthritis: Plan 35yo male with long-standing alcohol dependence, anxiety/depression, prior episode of pancreatitis 01/2024 requiring hospitalization at [facility], rheumatoid arthritis, gout, and diagnosis of PEs at [facility] in 04/2024 (prescribed Eliquis but hasn't been taking it) - presented with ongoing abdominal pain and nausea along with request for alcohol detox. Admit CT with focal pancreatic inflammation of the pancreatic head (significant improvement from prior CT 01/2024) as well as duodenal inflammation and ?distal colon colitis. More recent issue has been this ongoing bilateral foot and ankle pain. #Bilateral foot and ankle pain Pain management consulted. Narcotics discontinued Continue Flexeril 10 mg TID prn, gabapentin 300 mg TID, Celebrex 200 mg p.o. BID PRN Ortho recs for WBAT, cam boot Reportedly rolled ankle in bathroom 06/26 when not wearing cam boot. 3V right ankle x-rays negative for acute findings Continue PT/OT, rehab referrals pending Will give IV mag x 1 bag now for muscle spasms #Gout - likely 2nd to heavy etoh abuse [facility] performed arthrocentesis and confirmed gout with crystal analysis MRI obtained and also noted high-grade ATFL tear with lateral soft tissue swelling Completed prednisone course Continue allopurinol 100mg BID #Abdominal pain / Gastritis Initial concern for pancreatitis given inflammation of pancreatic head noted on CT A/P on admission, however lipase was normal and there were no pancreatic calcifications to indicate chronic pancreatitis. Triglycerides were normal on lipid profile S/p EGD on 06/17 which noted gastritis - suspect alcoholic gastritis. Carafate QID x 1 week, now discontinued Continues on Protonix 40 mg BID, famotidine 20 mg p.o. BID forNSAID-induced ulcer prophylaxis Abdominal pain now resolved and well tolerating diet #Vitamin D deficiency Vit D < 7 - likely the cause of his bilateral LE neuropathy and exacerbation of pain Repleting with Vit D 125 mcg PO daily - recommend repeating Vit D level in 3-4 months - goal is level >80 #Alcohol dependence / withdrawal Long standing issue, reported 5th vodka daily, motivated to quit. Completed gabapentin protocol/taper with Ativan prn per AWSS scoring. Withdrawal now resolved Continue folic acid, thiamine, multivitamin, B12 Consider naltrexone if agreeable #Depression/anxiety Continue with sertraline (SSRI) 50 mg p.o. daily. May also consider duloxetine (SNRI) 30 mg p.o. daily and increase to 60 mg p.o. daily as a replacement of sertraline as this may help with his pain [facility] liaison consulted #Hypertension Continue clonidine 0.1mg BID. This will help sleep, anxiety, and his BP #H/o PEs - 04/2024 Had taken very little Eliquis since the diagnosis and CTA chest this admission WITHOUT PEs noted. Note CT at [place] w/ 1 solitary PE (1st order branch) and would not continue w/ anticoagulation at this time given above. Risk factor for PEs - inflammatory state from poorly controlled RA? genetic factors? (his sister had VTE during a ) Reasonable to do a genetic w/u - Factor 5 Leiden mutation negative, protein C & S activity unremarkable, Antithrombin III activity WNL, thrombin time WNL, Dil Charles viper venom WNL. Lupus anticoagulant APTT elevated at 56, lupus hexagon phase positive #Rheumatoid arthritis - Follows with Dr Salinas, [facility] - recommend follow-up outpatient Dispo: Continue inpatient stay while awaiting rehab decisions. Given his independent mobility and independence with ADLs, highly doubt SNF will accept. He said home health is not an option, but would be agreeable to outpatient PT if all rehabs are denied. Continues to decline D&A rehab. Ordered IV mag Discussed case with OT Admission and Anticipated Discharge Date Admission Date: June 11, 2024 Subjective Patient seen and evaluated at bedside. He reports increased muscle spasms in his LE bilaterally and a headache this morning. 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 His headache has slightly improved since getting Tylenol. He denies abdominal pain, nausea, dizziness at this time. We again discussed that given his independence, I highly doubt SNF will accept him. He reports still feeling unsafe to return home. We discussed giving IV magnesium to help with his muscle spasms as he is already on the maximum dose of Flexeril. No additional complaints or concerns at this time. Physical Exam Physical Exam: General: No acute distress, nondiaphoretic, well-developed, well-nourished. Cardiac: Well-perfused. Rates in 80s. Pulm: Normal respiratory effort. 97% on room air. Abdominal: Soft, nondistended, nontender. MSK: Moderate swelling in right ankle, mild swelling of left ankle. Tender to palpation of ankles bilaterally R>L. Active ROM of bilateral ankles limited due to pain/subjective tightness; passive ROM met with resistance. Able to bear weight and walk independently with a walker. Neuro: A&O x3. No focal neurological deficits. Results & Data Results & Data Vital Signs (Past 12 Hours) Vital Signs Temp Pulse Resp BP Pulse Ox O2 Del Method 06/29/24 08:26 97.7 F 85 18 142/90 H 97 Room Air PG Care Time/CCT Total # of Minutes Spent Total Time Spent with Patient: Total time spent is greater than 50% in coordination of care (as documented) at patient's floor/unit and/or counseling patient: Coding Level of Care Code 39824 SUB INP/OBS CARE 3/50MIN Diagnoses Pain in joint involving right ankle and foot M25.571 Gout, unspecified cause, unspecified chronicity, unspecified site M10.9 Chronicity: unspecified Gout etiology: unspecified cause Gout site: unspecified site Vitamin D deficiency E55.9 Abdominal pain R10.9 Alcohol withdrawal F10.939 Anxiety and depression F41.9; F32.A HTN (hypertension) I10 History of pulmonary embolus (PE) Z86.711 Rheumatoid arthritis M06.9 (2) Gout Chronicity: unspecified Gout etiology: unspecified cause Gout site: unspecified site Qualified Code(s): M10.9 - Gout, unspecified
[2024-06-29] MEDS: MAGNESIUM SULFATE / D5W 1 GM/100 ML BAG IV ONE (11:46)
[2024-06-29 21:11] LABS: BUN Creatinine Ratio 12.7 (10-20); Calcium 9.7 mg/dl (8.6-10.3); Creatinine Clr Calc Pharmacy 113.5 ml/min; Potassium 4.2 mmol/L (3.5-5.1)
[2024-06-30] MEDS: traMADol HCL 50 MG TABLET PO STA (00:38)
[2024-06-30 04:36] LABS: BUN Creatinine Ratio 15.1 (10-20); Calcium 9.4 mg/dl (8.6-10.3); Creatinine Clr Calc Pharmacy 134.2 ml/min; Magnesium 1.9 mg/dl (1.7-2.4); Potassium 4.2 mmol/L (3.5-5.1)
[2024-06-30] MEDS: METHOCARBAMOL 500 MG TABLET PO PRN (12:11)
--- NOTE | 2024-06-30 12:12 | Magnetic Resonance Report ---
MRI OF THE LUMBAR SPINE WITHOUT CONTRAST CLINICAL HISTORY: Bilateral leg weakness following fall. COMPARISON STUDY: No previous studies for comparison. TECHNIQUE: Utilizing a 3 Rosemary magnet and dedicated coil, multiplanar, multiecho imaging of the lumb ar spine was performed without IV contrast. FINDINGS: For purposes of numbering on this exam, the L5-S1 disc space is assigned to axial image 27 of 30. Ali gnment of the lumbar spine is anatomic. Vertebral body heights are maintained. No marrow edema or mar row replacement is present. There are no fractures. A few small T1 and T2 hyperintense lesions repres ent hemangiomas. There is no intracanalicular mass or fluid collection. Conus terminates at the upper L1 level. L1-2: There is mild disc space narrowing. Central canal and neural foramen are patent. L2-3: There is minimal disc space narrowing. The central canal and neural foramen are patent. L3-4: The central canal and neural foramen are patent. L4-5: The central canal and neural foramen are patent. L5-S1: There is mild disc space narrowing with disc bulge. There is mild facet arthrosis. Central can al and neural foramen are patent. IMPRESSION: 1. No acute process within the lumbar spine by MRI. No fractures identified. 2. Mild degenerative disc disease and facet arthrosis at L5-S1. 3. Patent central canal and neural foramen. ACT 112: Negative or not required by law. Electronically signed by: Otf Narvaez M.D. 06/30/2024 12:10 PM
--- NOTE | 2024-06-30 16:01 | Hospitalist Progress Note ---
Date of Service June 30, 2024 Assessment & Plan (1) Leg weakness, bilateral: Plan: Causing ambulatory dysfunction. He is using a walker to ambulate. Lumbar MRI scan negative for any significant findings. Neurology consultation requested and pending (2) Pain in joint involving right ankle and foot: Plan: Thought to be due to gout. Uric acid level on June 15 however was 5.0. No current evidence of erythema, edema, or ankle pain (3) Gout: Plan: Thought to be the cause of right ankle pain earlier this admission. Uric acid level on June 15 however was 5.0. No current edema/erythema/tenderness (4) Vitamin D deficiency: Plan: Continue replacement therapy (5) Abdominal pain: Plan: Resolved. The patient is not voicing any abdominal pain complaints to me at this time, June 30 (6) Alcohol withdrawal: Plan: Resolved. Supportive care (7) Anxiety and depression: Plan: Stable. Continue current medical management (8) HTN (hypertension): Plan: Stable. Continue current medical management (9) Rheumatoid arthritis: Plan: By history. No joint deformities noted. Nothing active at this time Plan Await neurology consultation and recommendations. SNF placement is pending for rehab. If this is denied, he will go home with home health services Admission and Anticipated Discharge Date Admission Date: June 11, 2024 Subjective Alert and oriented. He is using a walker to ambulate and complains of bilateral lower extremity weakness and occasional muscle spasms. He also has some lumbar discomfort. Lumbar MRI scan was done today, June 30, with a paucity of findings. Neurology consultation requested and they will see the patient tomorrow, July 01. Supportive care for now. Placement is pending Review of Systems 2 Review of Systems: Constitutionalno fever or chills ENTno blurred vision, no double vision, no epistaxis, no sore throat Respiratoryno cough, no wheezing, no shortness of breath Cardiacno palpitations, no chest pain, no syncope Aida nausea, vomiting, diarrhea, melena, hematochezia GUno urinary retention, no urinary incontinence, no dysuria, no hematuria Musculoskeletalright ankle pain earlier this admission thought to be due to acute gout. No apparent erythema or edema of the right ankle. No peripheral edema. Skinno bruising, no rashes, no pruritus Neurobilateral lower extremity symmetrical weakness. Lower extremity sensation intact. Psychno depression, no anxiety Physical Exam 2 Physical Exam: General-alert and oriented x3, no fever, no chills HEENT-head atraumatic and normocephalic, pupils equal and reactive to light, extraocular muscles intact Neck-no lymphadenopathy or thyromegaly, trachea midline Chest-clear to auscultation. No rales, wheezing or rhonchi Cardiac-regular rate and rhythm, normal S1 and S2 Abdomen-normal bowel sounds, no hepatosplenomegaly Extremities-no cyanosis, clubbing, or edema. Distal pulses intact Neuro-cranial nerves II through XII intact. Bilateral symmetrical lower extremity weakness. Lower extremity sensation appears to be intact. Psych-normal affect, normal mood Results & Data Results & Data Vital Signs (Past 12 Hours) Vital Signs Temp Pulse Resp BP Pulse Ox O2 Del Method 06/30/24 14:10 36.4 C L 92 H 18 137/92 97 Room Air 06/30/24 08:33 36.9 C 76 16 129/81 97 Room Air Laboratory Results 06/23/24 06:56 06/30/24 03:36 PG Care Time/CCT Total # of Minutes Spent Total Time Spent with Patient: Total time spent is greater than 50% in coordination of care (as documented) at patient's floor/unit and/or counseling patient: Coding Level of Care Code 22984 SUB INP/OBS CARE 3/50MIN Diagnoses Leg weakness, bilateral R29.898 Pain in joint involving right ankle and foot M25.571 Gout, unspecified cause, unspecified chronicity, unspecified site M10.9 Gout site: unspecified site Gout etiology: unspecified cause Chronicity: unspecified Vitamin D deficiency E55.9 Abdominal pain R10.9 Alcohol withdrawal F10.939 Anxiety and depression F41.9; F32.A HTN (hypertension) I10 Rheumatoid arthritis M06.9 (3) Gout Gout site: unspecified site Gout etiology: unspecified cause Chronicity: u nspecified Qualified Code(s): M10.9 - Gout, unspecified
[2024-06-30] MEDS: traMADol HCL 50 MG TABLET PO PRN (16:13)
[2024-06-30] MEDS: PANTOprazole 40 MG TAB PO SCH (20:23)
--- NOTE | 2024-07-01 09:19 | Neurology Consultation ---
Date of Consultation July 01, 2024 Assessment & Plan (1) Idiopathic polyneuropathy: (2) Arthralgia of multiple sites: (3) Leg weakness, bilateral: (4) Fatigue: (5) Cognitive dysfunction: (6) Anxiety and depression: (7) Vitamin D deficiency: Plan This patient is complicated neurologically with multiple issues. He certainly has evidence on exam for a polyneuropathy involving sensory greater than motor fibers of large and small caliber. This likely explains his leg wea kness, dysesthesias and pain in the lower extremities, and gait disturbance. The etiology of this neuropathy is not specifically known but may be multifactorial including direct alcohol effect creating neuropathy, vitamin deficiencies, underlying immunologic/rheumatologic conditions, other. The patient has severe fatigue and easy fatigability along with some cognitive dysfunction and significant anxiety and depression. Although severe vitamin D deficiency (his was the lowest I have ever seen) can give fatigue, muscle and bone pain, and dysesthesias, it should not lead to actual neuropathy. In my opinion, 5000 units vitamin D3 is not sufficient to adequately replace the patient with this much vitamin D deficiency. Although he does not have any isma upper motor neuron signs, I cannot exclude an underlying demyelinating disease, or other central nervous system issue. Recommendations: 1. Increase vitamin D to 50,000 units a weekly. Recheck vitamin D level in 6 to 8 weeks. 2. Continue other vitamin replacement as you are doing 3. MRI of the brain with and without contrast 4. Consider meloxicam 15 mg a day with food for his chronic pain. Can use the other as needed medicines as listed 5. Increase gabapentin to 600 mg 3 times a day over the next 3 to 5 days. 6. Consider ROGELIO 12 and acetylcholine receptor antibody titers (binding, blocking, and modulating) 7. Continue PT and OT 8. Consider increasing sertraline to 100 mg or higher for his mood. Alternatively, could consider switching to 10 mg escitalopram (which helps anxiety depression both) 9. EMG and nerve conduction studies of all 4 limbsI will do this as an outpatient 10. This patient needs a PCP if he does not have one. Overall, "total of 120 minutes with this case including review of records, review of MRI films, direct evaluation of the patient, report generation, and discussion of the case with the patient and RN at bedside and Dr. Choi, including differential diagnosis and treatment options History of Present Illness Reason for Consultation: Patient is a 34-year-old, who was asked to see at the request of Dr. Choi, for neurologic evaluation regarding leg weakness and other issues. Requesting Physician: Dr. Choi Attending Physician: Jonathan Choi MD History of Present Illness This patient first saw neurology in May 2016 (Dr. Mas) for episodes which were consistent with POTS. He also had some migraines without aura. He has not seen neurology since. The patient has a history of rheumatoid arthritis diagnosed 8 years ago by a physician in [place], [place]. He has more recently seen Dr. Salinas for his diffuse arthralgias. I did not see any recent rheumatoid panel laboratory studies. He continues to have diffuse pain in hands and wrists as well as the feet and ankles. Occasionally his knees and hips hurt. He has cervical and lumbar spine pain from time to time but no isma radicular symptoms. Patient tells me that his gait has been worse for months although particularly worse in the last 3 months. He has noticed with walking, on occasion, either foot can "drag". This has made him fall. 1 time a month ago he was walking and his legs suddenly buckled and he fell to the ground. He has pain in his legs of an achy nature in the feet and lower legs to the knees. He has numbness and tingling with electrical sensations in the feet. The symptoms may have been present for about a year but they are definitely worse the last several months. His upper extremities have some achiness and weakness but he has no isma numbness in the hands. Interestingly, he has some "electric shock" sensations that come and go down both arms and down both legs all at once in a generalized fashion. This has been going on for several weeks but these electric shocks do not seem to emanate particularly from the neck or lumbar spine. The patient can get cramps in his feet and toes. The methocarbamol helps. An MRI of the lumbar spine June 30 showed some minimal degenerative changes only. I reviewed these films and they look unremarkable. Apparently the patient sprained his ankle from a fall early on in his hospital stay. X-ray showed no fractures but an MRI of the right ankle showed high-grade ATFL tear and joint effusion. This joint effusion was aspirated and showed elevated white cells but no growth on culture. The patient feels that he has "brain fog for several months where he cannot think sharply. He occasionally has some blurry vision but he has no significant double vision (occurs rarely) or droopy eyelids. He is breathing and swallowing have been unremarkable. The patient and his markedly fatigued and has easy fatigability. Even routine daily tasks can tire him. The patient has a history of anxiety depression which is helped some with sertraline, but he still has significant symptoms. He is followed by a counselor and has psychiatric access. Patient had a PE discovered of an old nature several months ago. He was on Eliquis but this has been stopped. He still gets some dizziness and vertiginous symptoms at times when he walks or at other times. During this hospitalization alcohol level was elevated on admission at 15.7. B12 was 380.1, sed rate 26, ROGELIO negative, and Lyme antibody titer negative. Vitamin D was less than 7. The patient tells me he has been drinking up to 1/5 of vodka per day for the last year and a half. He can get increased tremor or increased anxiety if he misses a day or so of alcohol. He has not had any significant alcohol withdrawal symptoms in the hospital but he has been covered occasions. Helps but it 300 mg 3 times a day it is not in for his dysesthesias and pain Allergies Allergy/AdvReac Type Severity Reaction Status Date / Time No Known Allergies Allergy Verified 06/02/24 14:04 Home Medications Medication Instructions Recorded Confirmed Type apixaban 5 mg tablet (Eliquis) 5 mg PO BID 05/07/24 06/11/24 History allopurinol 100 mg tablet 100 mg PO DAILY #30 tabs 06/02/24 06/11/24 Rx omeprazole 40 mg capsule,delayed 40 mg PO DAILY #90 caps 06/02/24 06/11/24 Rx release meloxicam 15 mg tablet 15 mg PO UD 06/11/24 06/11/24 History sertraline 50 mg tablet 50 mg PO DAILY 06/11/24 06/11/24 History clonidine HCl 0.1 mg tablet 0.1 mg PO QAM #90 tabs 06/15/24 Rx Patient History Medical History History of pulmonary embolus (PE) Gout History of pancreatitis Alcohol abuse Neuropathy B12 deficiency Depression HTN (hypertension) Anxiety POTS (postural orthostatic tachycardia syndrome) Surgical History S/P cholecystectomy January 2016 Family History Sister VTE (venous thromboembolism) Father Hyperlipidemia Other Colorectal cancer Diabetes Myocardial infarction Denies family history of Ovarian cancer Prostate cancer Alcoholism Breast cancer Lung cancer Social History Smoking Status: Never smoker Second Hand Exposure: No; Do You Dip or Chew Tobacco: No; Hx Alcohol Use: Yes Alcohol type: hard liquor Alcohol type Comment: vodka - fifth/day Alcohol Intake Frequency: 4 or More x per/Week Hx Substance Use: No Preferred Language: Trinidadian Communication Ability: Effective Hearing Ability: Normal Cancer Program Director Required: No Beliefs That Will Affect Care: None marital status: Single Current Living Situation: Alone Current Living Situation Comment: house current occupational status: employed and unemployed current occupation: nursing How many Children do You have: 0 Other Information That Helps Us Care for You: No Feels Safe at Home: Yes Safety Concerns: Feels Safe At This Time Dental Care, Regularly: Yes Physical Activity Frequency: Does not Exercise Assistive Devices: None Review of Systems Constitutional: + fatigue and + weakness; no fever Eyes: no diplopia, no eye pain and no worsening vision Ear, Nose, Mouth, Throat: no ear pain, no tinnitus, no hearing loss, no dizziness, no snoring, no hoarseness and no dysphagia Respiratory: no cough and no dyspnea Cardiovascular: no chest pain, no palpitations and no lightheadedness Gastrointestinal: no abdominal pain, no nausea and no vomiting Musculoskeletal: + back pain, + neck pain, + joint pain a nd + myalgia; no radicular pain Integumentary: no rash and no lesions Neurologic: + gait abnormality, + localized weakness and + numbness; no generalized weakness, no tingling, no tremor(s), no abnormal movements, no headache(s), no abnormal speech, no confusion and no memory loss Psychiatric: + depression and + anxiety; no irritabil ity, no difficulty concentrating, no confusion and no hallucinations Endocrine: no fatigue and no flushing Hematologic / Lymphatic: no easy bleeding and no easy bruising Allergy / Immunological: no urticaria and no problem reported Exam (Neuro) Physical Exam: The patient is left-handed. The patient is awake, alert, and attentive. Speech is normal without any aphasia or dysarthria. Mentation and thought processes are intact, with full orientation and normal fund of knowledge. Mood and affect are normal and appropriate. Appearance and grooming are normal. Short and long-term memory are reasonably intact to conversation. Pupils are 4 mm bilaterally and reactive to light. Extraocular eye muscles are intact without nystagmus. Visual acuity and visual lindsay seem normal grossly to confrontation. There are no deficits to sensation in the face in all 3 distributions of the fifth cranial nerve bilaterally. Corneal reflexes are positive bilaterally. Facial strength and symmetry was normal bilaterally. Hearing seems intact grossly to voice and finger rub bilaterally. Palate moves well without asymmetry. There is normal sternocleidomastoid and trapezius strength bilaterally. Tongue is midline with good strength bilaterally. Neck has a full range of motion without discomfort. There are no cervical bruits bilaterally. There are no cranial or ocular bruits. Heart is without murmur. There is a regular rhythm and rate. Cervical, thoracic, and lumbar spine are nontender to palpation. Gait was tested but stance sitting up in bed is normal. With outstretched arms there is no drift. There are no resting tremors. There is very slight postural and action tremor bilaterally. There is no ataxia with finger to nose testing. There is good facility in the hands. No other abnormal involuntary movements are noted. Motor strength is 5/5 diffusely in the arms bilaterally including deltoids, triceps, brachioradialis, wrist flexors and extensors, emt/paramedic, and intrinsic hand muscles. Triceps are 4+/5 bilaterally. Motor strength is 5/5 diffusely in the legs bilaterally including hip flexors, quadriceps, hamstrings, and gastrocnemius muscles bilaterally. Tibialis anterior, toe extensors, peroneal, and tibialis posterior muscles are 4/5 bilaterally. There is good bulk in the extensor digitorum brevis muscles bilaterally. The limbs have good tone without rigidity or spasticity. There is no atrophy noted in the muscles. Muscle bulk is normal, there is no tenderness to palpation, no myotonia to percussion, and no fasciculations seen. Sensory examination reveals an obvious decrease sensation to pinprick in the lower extremities to the knees bilaterally. There is moderate vibratory sense loss in the feet bilaterally as well. Hands are spared. Reflexes are 2/4 in the biceps, triceps, brachioradialis, and quadriceps tendons bilaterally. Achilles tendon reflexes are absent bilaterally. Toes are downgoing with plantar stimulation bilaterally. Peripheral pulses are present and of normal quality distally in all 4 limbs. There is no peripheral edema noted in the limbs. Results & Data Vital Signs (Past 12 Hours) Vital Signs Temp Pulse Resp BP Pulse Ox O2 Del Method 07/01/24 07:31 36.7 C 94 H 16 128/88 94 Room Air PG Care Time/CCT Total # of Minutes Spent Total Time Spent with Patient: Total time spent is greater than 50% in coordination of care (as documented) at patient's floor/unit and/or counseling patient: Coding Level of Care Code 97664 INT INP/OBS CARE 3/75MIN Diagnoses Idiopathic polyneuropathy G60.9 Arthralgia of multiple sites M25.50 Leg weakness, bilateral R29.898 Fatigue R53.83 Cognitive dysfunction F09 Anxiety and depression F41.9; F32.A Vitamin D deficiency E55.9 Time Spent (min) 120
[2024-07-01] MEDS: GADOBUTROL 65ML VIAL IV ONE (11:55)
--- NOTE | 2024-07-01 12:15 | Magnetic Resonance Report ---
MR brain MS wo/w con HISTORY: 34 years-old Male possible MS acute weakness of the lower legs. Clinical concern for possib le demyelinating disease COMPARISON: Brain MRI 03/20/2016 TECHNIQUE: Multiplanar multisequence MRI of the brain was obtained with and without IV contrast [facility] MS protocol FINDINGS: There is no restricted diffusion to suggest acute or subacute infarct. Midline structures appear unre markable. No acute intracranial hemorrhage, midline shift, abnormal extra-axial collection, hydroceph alus or intra-axial mass. No pathologic blooming artifact. The postcontrast images are mildly motion degraded. There is no abnormal enhancement identified. There are numerous subcentimeter scattered T2/ FLAIR hyperintense foci noted within the white matter which are predominantly within a subcortical di stribution and to a lesser extent within the periventricular locations, new from prior. No definite i nfratentorial foci identified. Cerebral venous sinuses and major arterial flow voids appear patent. The skull, orbits and soft tissu es are unremarkable. Mastoid air cells and paranasal sinuses are clear. IMPRESSION: 1. No acute intracranial abnormality. 2. Numerous subcentimeter T2/FLAIR hyperintense foci noted within the white matter of the cerebrum, p redominantly within a subcortical distribution are new from the 03/20/2016 study. Differential conside rations include a demyelinating disease versus early onset chronic microvascular ischemic disease. 3. No abnormal enhancement. ACT 112: Negative or not required by law. The above report was generated using voice recognition software. It may contain grammatical, syntax o r spelling errors. Electronically signed by: Chilo Young M.D. 07/01/2024 12:13 PM
[2024-07-01] MEDS: GABAPENTIN 400 MG CAP PO SCH (13:11)
[2024-07-01] MEDS: MELOXICAM 7.5 MG TAB PO SCH (13:11)
[2024-07-01] MEDS: ERGOCALCIFEROL 1250 MCG (50,000 UNITS) CAP PO SCH (13:12)
--- NOTE | 2024-07-01 14:27 | Hospitalist Progress Note ---
Date of Service July 01, 2024 Assessment & Plan (1) Leg weakness, bilateral: Plan: Causing ambulatory dysfunction. Significant vitamin D deficiency is probably a contributing factor per neurology. Supplementation increased. He is using a walker to ambulate. Lumbar MRI scan negative for any significant findings. Neurology consultation appreciated. Brain MRI scan today, July 01 (2) Pain in joint involving right ankle and foot: Plan: Thought to be due to gout per orthopedics. Uric acid level on June 15 however was 5.0. No current evidence of erythema, edema, or ankle pain (3) Gout: Plan: Thought to be the cause of right ankle pain earlier this admission. Uric acid level on June 15 however was 5.0. No current edema/erythema/tenderness (4) Vitamin D deficiency: Plan: Profound. Replacement therapy dosage has been increased. Likely contributing factor to severe lower extremity peripheral sensorimotor neuropathy (5) Abdominal pain: Plan: Resolved. (6) Alcohol withdrawal: Plan: Resolved. Supportive care (7) Anxiety and depression: Plan: Stable. Dosages of several medications have been uptitrated, including Zoloft and gabapentin (8) HTN (hypertension): Plan: Stable. Continue current medical management (9) Rheumatoid arthritis: Plan: By history. No joint deformities noted. Nothing active at this time Plan Case management is not able to find an SNF facility willing to accept this patient in transfer. He probably will go home tomorrow, July 02, with home health services and physical therapy Admission and Anticipated Discharge Date Admission Date: June 11, 2024 Subjective The patient was seen by neurology today, July 01. There is evidence of significant peripheral neuropathy involving both legs causing ambulatory dysfunction. He is using a walker. Vitamin D replacement therapy has been increased as well as his Zoloft and gabapentin. Daily meloxicam has been ordered. Brain MRI scan also ordered. Case management has not been able to find an SNF facility that is willing to accept the patient. He probably will go home tomorrow, July 02, with home health services and home PT Review of Systems 2 Review of Systems: Constitutionalno fever or chills ENTno blurred vision, no double vision, no epistaxis, no sore throat Respiratoryno cough, no wheezing, no shortness of breath Cardiacno palpitations, no chest pain, no syncope Aida nausea, vomiting, diarrhea, melena, hematochezia GUno urinary retention, no urinary incontinence, no dysuria, no hematuria Musculoskeletalright ankle pain earlier this admission thought to be due to acute gout. No apparent erythema or edema of the right ankle. No peripheral edema. Skinno bruising, no rashes, no pruritus Neurobilateral lower extremity sensory motor peripheral neuropathy. Symmetrical leg weakness Psychno depression, no anxiety Physical Exam 2 Physical Exam: General-alert and oriented x3, no fever, no chills HEENT-head atraumatic and normocephalic, pupils equal and reactive to light, extraocular muscles intact Neck-no lymphadenopathy or thyromegaly, trachea midline Chest-clear to auscultation. No rales, wheezing or rhonchi Cardiac-regular rate and rhythm, normal S1 and S2 Abdomen-normal bowel sounds, no hepatosplenomegaly Extremities-no cyanosis, clubbing, or edema. Distal pulses intact Neuro-cranial nerves II through XII intact. Bilateral symmetrical lower extremity weakness. Psych-normal affect, normal mood Results & Data Results & Data Vital Signs (Past 12 Hours) Vital Signs Temp Pulse Resp BP Pulse Ox O2 Del Method 07/01/24 07:31 36.7 C 94 H 16 128/88 94 Room Air Laboratory Results 06/23/24 06:56 06/30/24 03:36 PG Care Time/CCT Total # of Minutes Spent Total Time Spent with Patient: Total time spent is greater than 50% in coordination of care (as documented) at patient's floor/unit and/or counseling patient: Coding Level of Care Code 06808 SUB INP/OBS CARE 3/50MIN Diagnoses Leg weakness, bilateral R29.898 Pain in joint involving right ankle and foot M25.571 Gout, unspecified cause, unspecified chronicity, unspecified site M10.9 Gout site: unspecified site Gout etiology: unspecified cause Chronicity: unspecified Vitamin D deficiency E55.9 Abdominal pain R10.9 Alcohol withdrawal F10.939 Anxiety and depression F41.9; F32.A HTN (hypertension) I10 Rheumatoid arthritis M06.9 (3) Gout Gout site: unspecified site Gout etiology: unspecified cause Chronicity: u nspecified Qualified Code(s): M10.9 - Gout, unspecified
[2024-07-01 22:40] LABS: C Reactive Protein 8.56 mg/dl (0-0.5)
[2024-07-02] MEDS: ACETAMINOPHEN 500 MG TAB PO PRN (02:54)
[2024-07-02] MEDS: SERTRALINE HCL 100 MG TABLET PO SCH (08:07)
[2024-07-02] MEDS ORDERED: MELOXICAM 7.5 MG TAB PO SCH (09:00)
--- NOTE | 2024-07-02 09:20 | Neurology Progress Note ---
Date of Service July 02, 2024 Assessment & Plan (1) Idiopathic polyneuropathy: (2) Arthralgia of multiple sites: (3) Leg weakness, bilateral: (4) Fatigue: (5) Cognitive dysfunction: (6) Anxiety and depression: (7) Vitamin D deficiency: Plan This patient is complicated neurologically with multiple issues: He has evidence on exam for a polyneuropathy involving sensory greater than motor fibers of large and small caliber. This likely explains his leg weakness, dysesthesias and pain in the lower extremities, and gait disturbance. The etiology of this neuropathy is not specifically known but may be multifactorial including direct alcohol effect creating neuropathy, vitamin deficiencies, underlying immunologic/rheumatologic conditions, other. The patient has severe fatigue and easy fatigability along with some cognitive dysfunction and significant anxiety and depression. Although severe vitamin D deficiency (his was the lowest I have ever seen) can give fatigue, muscle and bone pain, and dysesthesias, it should not lead to actual neuropathy. In my opinion, 5000 units vitamin D3 is not sufficient to adequately replace the patient with this much vitamin D deficiency. Although he does not have any isma upper motor neuron signs, I cannot exclude an underlying demyelinating disease, or other central nervous system issue. MRI of the Brain showed some few scattered nonspecific tiny white matter spots. The spots are not typical or reminiscent of multiple sclerosis (and clinically the patient does not have much that is reminiscent of multiple sclerosis). Recommendations: 1. Continue vitamin D 50,000 units a weekly. Recheck vitamin D level in 6 to 8 weeks. 2. Continue other vitamin replacement as you are doing 3. LP to evaluate for inflammation or infection. Add MS profile #1 also. 4. continue meloxicam 15 mg a day with food for his chronic pain. Can use the other as needed medicines as listed 5. Continue increasing gabapentin over the next several days as needed. 6. Awaiting ROGELIO 12 and acetylcholine receptor antibody titers (binding, blocking, and modulating) 7. Continue PT and OT 8. Continue sertraline to 100 mg for now. This could be titrated in future as needed. 9. EMG and nerve conduction studies of all 4 limbsthis I can do as an outpatient 10. This patient needs a PCP if he does not have one. Overall, total of 35 minutes with this case including review of records, review of MRI films, direct evaluation of the patient, report generation, and discussion of the case with the patient and RN at bedside, and Dr. Choi including differential diagnosis and treatment options Admission and Anticipated Discharge Date Admission Date: June 11, 2024 Subjective Patient has complaint of back pain, leg weakness, and gait difficulties. He was walking in the [place] with a walker when we found him. Blood pressure is 130/83 pulse in the 90s. He is afebrile. MRI of the brain showed a few scattered white matter hyperintensities mostly subcortical. They did not enhance. There were no acute changes. I reviewed these films and these are tiny, nonspecific spots and I see no "irregular or larger plaques". There are no periventricular white matter lesions either. CRP is 8.56 and ESR is 79. ROGELIO profile 12 is pending Results & Data Vital Signs (Past 12 Hours) Vital Signs Temp Pulse Resp BP Pulse Ox O2 Del Method 07/02/24 07:16 36.9 C 94 H 16 130/83 96 Room Air Exam (Neuro) Physical Exam: He is awake and alert. Speech is without aphasia or dysarthria. Mood seems down and affect is mildly flat. Extraocular eye muscles are intact without nystagmus. There is no facial droop. Tongue is midline. Coordination is normal in the arms without tremor or ataxia. Strength seems symmetrical the limbs. He walked with a walker with a bit of the slow pace. Stance sitting (feet dangling is quite normal. There were no abnormal involuntary movements seen at bedside PG Care Time/CCT Total # of Minutes Spent Total Time Spent with Patient: Total time spent is greater than 50% in coordination of care (as documented) at patient's floor/unit and/or counseling patient: Coding Level of Care Code 85748 SUB INP/OBS CARE 2/35MIN Diagnoses Idiopathic polyneuropathy G60.9 Arthralgia of multiple sites M25.50 Leg weakness, bilateral R29.898 Fatigue R53.83 Cognitive dysfunction F09 Anxiety and depression F41.9; F32.A Vitamin D deficiency E55.9
[2024-07-02 12:07] LABS: Appearance CSF Clear; CSF Count Tube # 3; CSF Xanthrochromic No xanthochromia; Color CSF Colorless
[2024-07-02 12:08] LABS: Red Blood Cell CSF Manual 0 (0); White Blood Cell CSF Manual 1 (0-5)
[2024-07-02 12:13] LABS: Total Protein CSF 39.5 mg/dl (15-45)
--- NOTE | 2024-07-02 14:35 | Fluoroscopy Report ---
LUMBAR PUNCTURE UNDER FLUOROSCOPY CLINICAL HISTORY: evaluate for MS PROCEDURE: Procedure and risks were explained. Informed consent was obtained. A final timeout was com pleted. The patient was placed prone on the fluoroscopic exam table. The lower lumbar region was prep ped and draped in sterile fashion. 1% lidocaine was utilized for skin anesthesia. Utilizing fluoroscopic guidance, a 22-gauge Sprotte spinal needle was advanced into the intrathecal s pace at the L2-3 disc space level. Fluoroscopic spot images were obtained. Approximately 8 mL of corinna r CSF fluid was removed and sent to lab for analysis. The needle was removed and Band-Aid applied. Th e patient tolerated the procedure well. Vital signs will be monitored postprocedure. Fluoroscopy time 5 seconds. Study dosed 7.71 mGy. IMPRESSION: Lumbar puncture as above. Performed, dictated, and signed by Jay Vizcarra PA-C; to be co-signed by Dr. Otf Narvaez. Electronically signed by: Otf Narvaez M.D. 07/02/2024 3:14 PM
[2024-07-02] MEDS: METHOCARBAMOL 500 MG TABLET PO STA (14:36)
--- NOTE | 2024-07-02 15:31 | Hospitalist Progress Note ---
Date of Service July 02, 2024 Assessment & Plan (1) Leg weakness, bilateral: Plan: Causing ambulatory dysfunction. Significant vitamin D deficiency is probably a contributing factor per neurology. Supplementation of vitamin D has been increased. He is using a walker to ambulate. A prescription for a wheeled walker will be given to the patient so he can obtain this at discharge. Lumbar MRI scan negative for any significant findings. Neurology consultation appreciated. Brain MRI scan done on July 01 reveals equivocal findings for MS. Lumbar puncture will be done today, July 02, with CSF obtained for further lab testing. (2) Pain in joint involving right ankle and foot: Plan: Thought to be due to gout per orthopedics. Uric acid level on June 15 however was 5.0. No current evidence of erythema, edema, or ankle pain (3) Gout: Plan: Thought to be the cause of right ankle pain earlier this admission. Uric acid level on June 15 however was 5.0. No current edema/erythema/tenderness (4) Vitamin D deficiency: Plan: Profound. Oral replacement therapy dosage has been increased. Likely contributing factor to severe lower extremity peripheral sensorimotor neuropathy (5) Abdominal pain: Plan: Resolved. (6) Alcohol withdrawal: Plan: Resolved. Supportive care (7) Anxiety and depression: Plan: Stable. Dosages of several medications have been uptitrated, including Zoloft and gabapentin (8) HTN (hypertension): Plan: Stable. Continue current medical management (9) Rheumatoid arthritis: Plan: By history. No joint deformities noted. Nothing active at this time Plan Case management is not able to find an SNF facility willing to accept this patient in transfer. He probably will go home tomorrow, July 03, with home health services and physical therapy Admission and Anticipated Discharge Date Admission Date: June 11, 2024 Subjective No new findings. Neurology entry noted. Vitamin D replacement therapy has been increased. Sed rate and CRP are markedly elevated and will need to be followed. He will have lumbar puncture with CSF fluid obtained later today, July 02. Case management tells me they are unable to find SNF placement for him. He will probably dip be discharged to home tomorrow with home health services and home PT. A prescription for a wheeled walker will be given to the patient at discharge. He will follow-up with neurology as an outpatient. Review of Systems 2 Review of Systems: Constitutionalno fever or chills ENTno blurred vision, no double vision, no epistaxis, no sore throat Respiratoryno cough, no wheezing, no shortness of breath Cardiacno palpitations, no chest pain, no syncope Aida nausea, vomiting, diarrhea, melena, hematochezia GUno urinary retention, no urinary incontinence, no dysuria, no hematuria Musculoskeletalright ankle pain earlier this admission thought to be due to acute gout. No apparent erythema or edema of the right ankle. No peripheral edema. Skinno bruising, no rashes, no pruritus Neurobilateral lower extremity sensory motor peripheral neuropathy. Symmetrical leg weakness Psychdepressed affect Physical Exam 2 Physical Exam: General-alert and oriented x3, no fever, no chills HEENT-head atraumatic and normocephalic, pupils equal and reactive to light, extraocular muscles intact Neck-no lymphadenopathy or thyromegaly, trachea midline Chest-clear to auscultation. No rales, wheezing or rhonchi Cardiac-regular rate and rhythm, normal S1 and S2 Abdomen-normal bowel sounds, no hepatosplenomegaly Extremities-no cyanosis, clubbing, or edema. Distal pulses intact Neuro-cranial nerves II through XII intact. Bilateral symmetrical lower extremity weakness. Psych-depressed affect Results & Data Results & Data Vital Signs (Past 12 Hours) Vital Signs Temp Pulse Resp BP Pulse Ox O2 Del Method 07/02/24 15:11 36.9 C 105 H 18 111/74 96 Room Air 07/02/24 11:50 36.8 C 100 H 18 118/69 97 Room Air 07/02/24 07:16 36.9 C 94 H 16 130/83 96 Room Air Laboratory Results 06/23/24 06:56 07/01/24 19:02 PG Care Time/CCT Total # of Minutes Spent Total Time Spent with Patient: Total time spent is greater than 50% in coordination of care (as documented) at patient's floor/unit and/or counseling patient: Coding Level of Care Code 92178 SUB INP/OBS CARE 2/35MIN Diagnoses Leg weakness, bilateral R29.898 Pain in joint involving right ankle and foot M25.571 Gout, unspecified cause, unspecified chronicity, unspecified site M10.9 Gout site: unspecified site Gout etiology: unspecified cause Chronicity: unspecified Vitamin D deficiency E55.9 Abdominal pain R10.9 Alcohol withdrawal F10.939 Anxiety and depression F41.9; F32.A HTN (hypertension) I10 Rheumatoid arthritis M06.9 (3) Gout Gout site: unspecified site Gout etiology: unspecified cause Chronicity: u nspecified Qualified Code(s): M10.9 - Gout, unspecified
--- NOTE | 2024-07-03 09:28 | Neurology Progress Note ---
Date of Service July 03, 2024 Assessment & Plan (1) Idiopathic polyneuropathy: (2) Arthralgia of multiple sites: (3) Leg weakness, bilateral: (4) Fatigue: (5) Cognitive dysfunction: (6) Anxiety and depression: (7) Vitamin D deficiency: Plan This patient is complicated neurologically with multiple issues: He has evidence on exam for a polyneuropathy involving sensory greater than motor fibers of large and small caliber. This likely explains his leg weakness, dysesthesias and pain in the lower extremities, and gait disturbance. The etiology of this neuropathy is not specifically known but may be multifactorial including direct alcohol effect creating neuropathy, vitamin deficiencies, underlying immunologic/rheumatologic conditions, or other. The patient has severe fatigue and easy fatigability along with some cognitive dysfunction and significant anxiety and depression. In addition he has diffuse arthralgias particularly distally in the limbs. Given his elevated ESR and CRP along with no obvious signs of infection centrally or peripherally, and his history of rheumatoid arthritis in the past, I suspect an underlying inflammatory/rheumatologic disease present. Although severe vitamin D deficiency (his was the lowest I have ever seen) can give fatigue, muscle and bone pain, and dysesthesias, it should not lead to actual neuropathy. In my opinion, 5000 units vitamin D3 is not sufficient to adequately replace the patient with this much vitamin D deficiency. MRI of the Brain showed some few scattered nonspecific tiny white matter spots. The spots are not typical or reminiscent of multiple sclerosis (and clinically the patient does not have much that is reminiscent of multiple sclerosis). This small vessel ischemic disease may be secondary to a rheumatologic/immunologic disease (for example lupus, Sjogren's, and rheumatoid arthritis can lead to small vessel ischemic disease centrally). In addition, direct alcohol effect on the brain can lead to small vessel ischemic disease as well. Recommendations: 1. Continue vitamin D 50,000 units a weekly. Recheck vitamin D level in 6 to 8 weeks. 2. Continue other vitamin replacement as you are doing 3. Awaiting final special protein and other studies from the LP 4. Continue meloxicam 15 mg a day with food for his chronic pain. Can use the other as needed medicines as already ordered 5. Continue increasing gabapentin (consider 600 mg 3 times a day). 6. Awaiting ROGELIO 12 and acetylcholine receptor antibody titers (binding, blocking, and modulating) 7. Continue [facility] and [facility] 8. Continue sertraline to 100 mg for now. This could be titrated in future as needed. 9. EMG and nerve conduction studies of all 4 limbsthis I can do as an outpatient 10. Consider short course of steroids to see if we can cool off his inflammatory symptoms 11 This patient needs a PCP if he does not have one. 12. After discharge follow-up with neurology (neurology PA) in 2 to 3 weeks Overall, total of 50 minutes with this case including review of records, direct evaluation of the patient, report generation, and discussion of the case with the patient at bedside and Dr. Choi, including differential diagnosis and treatment options Admission and Anticipated Discharge Date Admission Date: June 11, 2024 Subjective Patient tells me that she has been in increased pain over the last 1 to 2 days. The pain is burning and sharp mostly in the feet, ankles, and lower legs but also in the hands. His low back has a achy and sharp pain as well. This back pain is a little worse after the LP compared to before. He has a generalized headache which initiated prior to the lumbar puncture yesterday but is worse since. He thinks the headache gets a little bit better when he lays down but it will not resolve. Patient had an episode earlier in the week where both his legs were shaking u ncontrollably lasting 3 to 5 seconds. He videotape this. I looked at the videotape and it was very nonspecific. He says he has had episodes where all 4 limbs will shake for 3 to 5 seconds and he knows that. Patient underwent a lumbar puncture on July 02. Opening pressure was not measured. It was clear, colorless, and there was no xanthochromia. There was 1 red cell and 0 red cells. No Gram stain is in the chart. Special protein studies, CSF lactate, CSF Lyme, and CSF LDH are pending. Patient is afebrile at 36.3 with a blood pressure of 118/77 and a pulse of 77 and regular. O2 saturation is 96. On July 01, CRP was 8.56 and ESR was 79. He has been afebrile and most recent white count was unremarkable/normal MRI of the brain July 01 with and without contrast showed a few white matter spots of the scattered and nonspecific nature. Results & Data Vital Signs (Past 12 Hours) Vital Signs Temp Pulse Resp BP Pulse Ox O2 Del Method 07/03/24 08:20 36.3 C L 77 16 118/77 96 Room Air Exam (Neuro) Physical Exam: He is awake and alert. Speech is without aphasia or dysarthria. Mood and affect seem normal appropriate. Thought processes are intact conversation. Extraocular eye muscles are intact without nystagmus. There is no facial droop. Tongue is midline. Stance sitting up in bed is normal. There are no abnormal involuntary movements noted in the limbs. PG Care Time/CCT Total # of Minutes Spent Total Time Spent with Patient: Total time spent is greater than 50% in coordination of care (as documented) at patient's floor/unit and/or counseling patient: Coding Level of Care Code 79079 SUB INP/OBS CARE 3/50MIN Diagnoses Idiopathic polyneuropathy G60.9 Arthralgia of multiple sites M25.50 Leg weakness, bilateral R29.898 Fatigue R53.83 Cognitive dysfunction F09 Anxiety and depression F41.9; F32.A Vitamin D deficiency E55.9 Time Spent (min) 50
[2024-07-03] MEDS: predniSONE 20 MG TAB PO SCH (10:41)
[2024-07-03] MEDS: ERGOCALCIFEROL 1250 MCG (50,000 UNITS) CAP PO SCH ×2 (12:15→15:04)
--- NOTE | 2024-07-03 14:09 | Hospitalist Progress Note ---
Date of Service July 03, 2024 Assessment & Plan (1) Leg weakness, bilateral: Plan: Causing ambulatory dysfunction. 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 ESR and CRP are also markedly elevated indicating a possible autoimmune inflammatory process. Prednisone has been started. Significant vitamin D deficiency is probably a contributing factor per neurology. Supplementation of vitamin D continues. He is using a walker to ambulate. A prescription for a wheeled walker will be given to the patient so he can obtain this at discharge. Lumbar MRI scan negative for any significant findings. Brain MRI scan done on July 01 reveals equivocal findings for MS. Lumbar puncture was done on July 02 with CSF obtained for further lab testing. (2) Pain in joint involving right ankle and foot: Plan: Thought to be due to gout per orthopedics. Uric acid level on June 15 however was 5.0. No current evidence of erythema, edema, or ankle pain (3) Gout: Plan: Thought to be the cause of right ankle pain earlier this admission. Uric acid level on June 15 however was 5.0. No current edema/erythema/tenderness (4) Vitamin D deficiency: Plan: Profound. Oral replacement therapy dosage has been increased. Likely contributing factor to severe lower extremity peripheral sensorimotor neuropathy (5) Abdominal pain: Plan: Resolved. (6) Alcohol withdrawal: Plan: Resolved. Supportive care (7) Anxiety and depression: Plan: Stable. Dosages of several medications have been uptitrated, including Zoloft and gabapentin (8) HTN (hypertension): Plan: Stable. Continue current medical management (9) Rheumatoid arthritis: Plan: By history. No joint deformities noted. Nothing active at this time Plan Case management is not able to find an SNF facility willing to accept this patient at discharge . He eventually will go home with home health services and physical therapy Admission and Anticipated Discharge Date Admission Date: June 11, 2024 Subjective Alert and oriented. I spoke with neurology by phone earlier today and prednisone 20 mg 3 times a day has been added to the drug regimen since he may have an autoimmune inflammatory process going on. ESR and CRP are markedly elevated. He follows up as an outpatient with rheumatology on July 09. I messaged the floor pharmacist to see if his vitamin D can be 50,000 units weekly per neurology recommendations. Hopefully he can go home with home health services when he feels better Review of Systems 2 Review of Systems: Constitutionalno fever or chills ENTno blurred vision, no double vision, no epistaxis, no sore throat Respiratoryno cough, no wheezing, no shortness of breath Cardiacno palpitations, no chest pain, no syncope Aida nausea, vomiting, diarrhea, melena, hematochezia GUno urinary retention, no urinary incontinence, no dysuria, no hematuria Musculoskeletalright ankle pain earlier this admission thought to be due to acute gout. No apparent erythema or edema of the right ankle. No peripheral edema. Skinno bruising, no rashes, no pruritus Neurobilateral lower extremity sensory motor peripheral neuropathy. Symmetrical leg weakness Psychdepressed affect Physical Exam 2 Physical Exam: General-alert and oriented x3, no fever, no chills HEENT-head atraumatic and normocephalic, pupils equal and reactive to light, extraocular muscles intact Neck-no lymphadenopathy or thyromegaly, trachea midline Chest-clear to auscultation. No rales, wheezing or rhonchi Cardiac-regular rate and rhythm, normal S1 and S2 Abdomen-normal bowel sounds, no hepatosplenomegaly Extremities-no cyanosis, clubbing, or edema. Distal pulses intact Neuro-cranial nerves II through XII intact. Bilateral symmetrical lower extremity weakness. Psych-depressed affect Results & Data Results & Data Vital Signs (Past 12 Hours) Vital Signs Temp Pulse Resp BP Pulse Ox O2 Del Method 07/03/24 08:20 36.3 C L 77 16 118/77 96 Room Air Laboratory Results 06/23/24 06:56 07/01/24 19:02 PG Care Time/CCT Total # of Minutes Spent Total Time Spent with Patient: Total time spent is greater than 50% in coordination of care (as documented) at patient's floor/unit and/or counseling patient: Coding Level of Care Code 50758 SUB INP/OBS CARE 3/50MIN Diagnoses Leg weakness, bilateral R29.898 Pain in joint involving right ankle and foot M25.571 Gout, unspecified cause, unspecified chronicity, unspecified site M10.9 Gout site: unspecified site Gout etiology: unspecified cause Chronicity: unspecified Vitamin D deficiency E55.9 Abdominal pain R10.9 Alcohol withdrawal F10.939 Anxiety and depression F41.9; F32.A HTN (hypertension) I10 Rheumatoid arthritis M06.9 (3) Gout Gout site: unspecified site Gout etiology: unspecified cause Chronicity: u nspecified Qualified Code(s): M10.9 - Gout, unspecified
[2024-07-03 16:09] LABS: BUN Creatinine Ratio 18.7 (10-20); Calcium 9.7 mg/dl (8.6-10.3); Creatinine Clr Calc Pharmacy 116.7 ml/min; Potassium 5.6 mmol/L (3.5-5.1)
[2024-07-04 09:51] LABS: BUN Creatinine Ratio 25.9 (10-20); Calcium 10.1 mg/dl (8.6-10.3); Creatinine Clr Calc Pharmacy 154.1 ml/min; Potassium 4.2 mmol/L (3.5-5.1)
--- NOTE | 2024-07-04 12:34 | Hospitalist Progress Note ---
Date of Service July 04, 2024 Assessment & Plan (1) Leg weakness, bilateral: Plan: Causing ambulatory dysfunction. 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 ESR and CRP are also markedly elevated indicating a possible autoimmune inflammatory process. Prednisone was started July 03. Significant vitamin D deficiency is probably a contributing factor per neurology. Supplementation of vitamin D continues. He is using a walker to ambulate. A prescription for a wheeled walker will be given to the patient so he can obtain this at discharge. Lumbar MRI scan negative for any significant findings. Brain MRI scan done on July 01 reveals equivocal findings for MS. Lumbar puncture was done on July 02 with CSF obtained for further lab testing. Results were (2) Pain in joint involving right ankle and foot: Plan: Thought to be due to gout per orthopedics. Uric acid level on June 15 however was 5.0. No current evidence of erythema, edema, or ankle pain (3) Gout: Plan: Thought to be the cause of right ankle pain earlier this admission. Uric acid level on June 15 however was 5.0. No current edema/erythema/tenderness (4) Vitamin D deficiency: Plan: Profound. Oral replacement therapy dosage has been increased. Likely contributing factor to severe lower extremity peripheral sensorimotor neuropathy (5) Abdominal pain: Plan: Resolved. (6) Alcohol withdrawal: Plan: Resolved. Supportive care (7) Anxiety and depression: Plan: Stable. Dosages of several medications have been uptitrated, including Zoloft and gabapentin (8) HTN (hypertension): Plan: Stable. Continue current medical management (9) Rheumatoid arthritis: Plan: By history. No joint deformities noted. ESR and CRP are markedly elevated. He is now on prednisone therapy Plan He has requested that case management resubmit up-to-date OT and PT assessments to SNF facilities. He refuses to be discharged to his home with home health services Admission and Anticipated Discharge Date Admission Date: June 11, 2024 Subjective Day 2 of oral prednisone therapy. The patient states he does not feel much better yet. LP was completed on July 02 and multiple CSF studies were sent out. Results are pending. He is requesting that case management send updated OT and PT evaluations to the SNF facilities. He refuses to go home. Review of Systems 2 Review of Systems: Constitutionalno fever or chills ENTno blurred vision, no double vision, no epistaxis, no sore throat Respiratoryno cough, no wheezing, no shortness of breath Cardiacno palpitations, no chest pain, no syncope Aida nausea, vomiting, diarrhea, melena, hematochezia GUno urinary retention, no urinary incontinence, no dysuria, no hematuria Musculoskeletalright ankle pain earlier this admission thought to be due to acute gout. No apparent erythema or edema of the right ankle. No peripheral edema. Skinno bruising, no rashes, no pruritus Neurobilateral lower extremity sensory motor peripheral neuropathy. Symmetrical leg weakness Psychdepressed affect Physical Exam 2 Physical Exam: General-alert and oriented x3, no fever, no chills HEENT-head atraumatic and normocephalic, pupils equal and reactive to light, extraocular muscles intact Neck-no lymphadenopathy or thyromegaly, trachea midline Chest-clear to auscultation. No rales, wheezing or rhonchi Cardiac-regular rate and rhythm, normal S1 and S2 Abdomen-normal bowel sounds, no hepatosplenomegaly Extremities-no cyanosis, clubbing, or edema. Distal pulses intact Neuro-cranial nerves II through XII intact. Bilateral symmetrical lower extremity weakness. Psych-depressed affect Results & Data Results & Data Vital Signs (Past 12 Hours) Vital Signs Temp Pulse Resp BP Pulse Ox O2 Del Method 07/04/24 07:33 36.6 C 110 H 16 110/72 98 Room Air 07/04/24 05:08 36.6 C Laboratory Results 06/23/24 06:56 07/04/24 06:58 PG Care Time/CCT Total # of Minutes Spent Total Time Spent with Patient: Total time spent is greater than 50% in coordination of care (as documented) at patient's floor/unit and/or counseling patient: Coding Level of Care Code 66500 SUB INP/OBS CARE 2/35MIN Diagnoses Leg weakness, bilateral R29.898 Pain in joint involving right ankle and foot M25.571 Gout, unspecified cause, unspecified chronicity, unspecified site M10.9 Gout site: unspecified site Gout etiology: unspecified cause Chronicity: unspecified Vitamin D deficiency E55.9 Abdominal pain R10.9 Alcohol withdrawal F10.939 Anxiety and depression F41.9; F32.A HTN (hypertension) I10 Rheumatoid arthritis M06.9 (3) Gout Gout site: unspecified site Gout etiology: unspecified cause Chronicity: u nspecified Qualified Code(s): M10.9 - Gout, unspecified
[2024-07-04 13:28] LABS: CSF, LDH 9 U/L (<=25); Lyme DNA PCR CSF or Synovial Not Detected (Not Detected); Lyme DNA Source CSF
[2024-07-05 08:23] LABS: Basophils # (auto) 0.04 K/uL (0.00-0.20); Basophils % (auto) 0.2 %; Eosinophils # (auto) 0.01 K/uL (0.00-0.50); Eosinophils % (auto) 0.1 %; Hematocrit (blood only) 42.1 % (42.0-52.0); Hemoglobin 13.7 g/dl (14.0-18.0); Immature Granulocytes # (auto) 0.22 K/uL (0.01-0.20); Immature Granulocytes % (auto) 1.2 %; Lymphocytes # (auto) 1.61 K/uL (1.20-3.40); Lymphocytes % (auto) 8.5 %; Mean Corpuscular Hemoglobin 31.8 pg (25.0-34.0); Mean Corpuscular Hgb Conc 32.5 g/dL (32.0-36.0); Mean Corpuscular Volume 97.7 fL (80.0-100.0); Mean Platelet Volume 11.1 fL (9.4-12.4); Monocytes # (auto) 0.88 K/uL (0.11-0.59); Monocytes % (auto) 4.6 %; Neutrophils # (auto) 16.18 K/uL (1.40-6.50); Neutrophils % (auto) 85.4 %; Platelet Count 334 K/uL (130-400); RDW Coefficient of Variation 12.8 % (11.5-14.5); Red Blood Count 4.31 M/uL (4.70-6.10); White Blood Count 18.94 K/ul (4.8-10.8)
[2024-07-05 08:39] LABS: BUN Creatinine Ratio 30.9 (10-20); Calcium 9.5 mg/dl (8.6-10.3); Creatinine Clr Calc Pharmacy 183.6 ml/min; Magnesium 1.8 mg/dl (1.7-2.4); Potassium 3.9 mmol/L (3.5-5.1)
[2024-07-05] MEDS: POTASSIUM CHLORIDE 10 MEQ TABCR PO SCH (10:03)
--- NOTE | 2024-07-05 13:56 | Hospitalist Progress Note ---
Date of Service July 05, 2024 Assessment & Plan (1) Leg weakness, bilateral: Plan: Causing ambulatory dysfunction. Neurology has seen the patient and he has idiopathic polyneuropathy. ESR and CRP are also markedly elevated indicating a possible autoimmune inflammatory process. Prednisone was started July 03. Significant vitamin D deficiency is also probably a contributing factor. Supplementation of vitamin D continues. He is using a walker to ambulate. A prescription for a wheeled walker has been left on his chart. Lumbar MRI scan negative for any significant findings. Brain MRI scan done on July 01 reveals equivocal findings for MS. Lumbar puncture was done on July 02 with CSF obtained for further lab testing. Results are pending (2) Pain in joint involving right ankle and foot: Plan: Thought to be due to gout per orthopedics. Uric acid level on June 15 however was 5.0. No current evidence of erythema, edema, or ankle pain (3) Gout: Plan: Thought to be the cause of right ankle pain earlier this admission. Uric acid level on June 15 however was 5.0. No current edema/erythema/tenderness (4) Vitamin D deficiency: Plan: Profound. Oral replacement therapy dosage has been increased and continues. Likely contributing factor to severe lower extremity peripheral sensorimotor neuropathy (5) Abdominal pain: Plan: Resolved. (6) Alcohol withdrawal: Plan: Resolved. Supportive care (7) Anxiety and depression: Plan: Stable. Dosages of several medications have been uptitrated, including Zoloft , gabapentin, and Ativan (8) HTN (hypertension): Plan: Stable. Continue current medical management (9) Rheumatoid arthritis: Plan: By history. No joint deformities noted. ESR and CRP are markedly elevated. He is now on prednisone therapy Plan He has requested that case management resubmit up-to-date OT and PT assessments to SNF facilities. He refuses to be discharged to his home with home health services Admission and Anticipated Discharge Date Admission Date: June 11, 2024 Subjective No significant improvement or change since yesterday, July 04. He remains on prednisone therapy. He has requested that case management resubmit most recent OT and PT assessments to SNF facilities for placement proceedings to continue. Review of Systems 2 Review of Systems: Constitutionalno fever or chills ENTno blurred vision, no double vision, no epistaxis, no sore throat Respiratoryno cough, no wheezing, no shortness of breath Cardiacno palpitations, no chest pain, no syncope Aida nausea, vomiting, diarrhea, melena, hematochezia GUno urinary retention, no urinary incontinence, no dysuria, no hematuria Musculoskeletalright ankle pain earlier this admission thought to be due to acute gout. No apparent erythema or edema of the right ankle. No peripheral edema. Skinno bruising, no rashes, no pruritus Neurobilateral lower extremity sensory motor peripheral neuropathy. Symmetrical leg weakness Psychdepressed affect Physical Exam 2 Physical Exam: General-alert and oriented x3, no fever, no chills HEENT-head atraumatic and normocephalic, pupils equal and reactive to light, extraocular muscles intact Neck-no lymphadenopathy or thyromegaly, trachea midline Chest-clear to auscultation. No rales, wheezing or rhonchi Cardiac-regular rate and rhythm, normal S1 and S2 Abdomen-normal bowel sounds, no hepatosplenomegaly Extremities-no cyanosis, clubbing, or edema. Distal pulses intact Neuro-cranial nerves II through XII intact. Bilateral symmetrical lower extremity weakness. Psych-depressed affect Results & Data Results & Data Vital Signs (Past 12 Hours) Vital Signs Temp Pulse Resp BP Pulse Ox O2 Del Method 07/05/24 07:33 36.6 C 96 H 16 136/93 97 Room Air Laboratory Results 07/05/24 07:52 07/05/24 07:52 PG Care Time/CCT Total # of Minutes Spent Total Time Spent with Patient: Total time spent is greater than 50% in coordination of care (as documented) at patient's floor/unit and/or counseling patient: Coding Level of Care Code 63691 SUB INP/OBS CARE 2/35MIN Diagnoses Leg weakness, bilateral R29.898 Pain in joint involving right ankle and foot M25.571 Gout, unspecified cause, unspecified chronicity, unspecified site M10.9 Gout site: unspecified site Gout etiology: unspecified cause Chronicity: unspecified Vitamin D deficiency E55.9 Abdominal pain R10.9 Alcohol withdrawal F10.939 Anxiety and depression F41.9; F32.A HTN (hypertension) I10 Rheumatoid arthritis M06.9 (3) Gout Gout site: unspecified site Gout etiology: unspecified cause Chronicity: u nspecified Qualified Code(s): M10.9 - Gout, unspecified
[2024-07-05] MEDS: LORazepam 1 MG TAB PO PRN (16:11)
[2024-07-05] MEDS: METHOCARBAMOL 500 MG TABLET PO PRN (16:11)
[2024-07-06 05:07] LABS: Anti Cardiolipin Ab IgG <2.0 GPL-U/mL; Anti Nuclear Antibody Screen NEGATIVE (NEGATIVE); Anti-Centromere Ab <1.0 NEG AI (<1.0 NEG); Anti-SS-A <1.0 NEG AI (<1.0 NEG); Anti-SS-B <1.0 NEG AI (<1.0 NEG); Chromatin Antibody <1.0 NEG AI (<1.0 NEG); Complement C3 223 mg/dL (82-185); DNA ds Crithidia NEGATIVE (NEGATIVE); Microsomal Ab 1 IU/mL (<9); RNP Antibody <1.0 NEG AI (<1.0 NEG); Receptor Binding Ab <0.30 nmol/L; Sm Antibody <1.0 NEG AI (<1.0 NEG)
[2024-07-06 07:59] LABS: Basophils # (auto) 0.07 K/uL (0.00-0.20); Basophils % (auto) 0.4 %; Hematocrit (blood only) 42.6 % (42.0-52.0); Hemoglobin 13.9 g/dl (14.0-18.0); Immature Granulocytes # (auto) 0.38 K/uL (0.01-0.20); Immature Granulocytes % (auto) 2.1 %; Lymphocytes # (auto) 1.72 K/uL (1.20-3.40); Lymphocytes % (auto) 9.7 %; Mean Corpuscular Hemoglobin 31.5 pg (25.0-34.0); Mean Corpuscular Hgb Conc 32.6 g/dL (32.0-36.0); Mean Corpuscular Volume 96.6 fL (80.0-100.0); Mean Platelet Volume 10.9 fL (9.4-12.4); Monocytes # (auto) 0.79 K/uL (0.11-0.59); Monocytes % (auto) 4.5 %; Neutrophils # (auto) 14.73 K/uL (1.40-6.50); Neutrophils % (auto) 83.3 %; Platelet Count 316 K/uL (130-400); RDW Coefficient of Variation 12.8 % (11.5-14.5); RDW Standard Deviation 45.8 fL (36.4-46.3); Red Blood Count 4.41 M/uL (4.70-6.10); White Blood Count 17.69 K/ul (4.8-10.8)
[2024-07-06 08:18] LABS: BUN Creatinine Ratio 21.9 (10-20); Calcium 9.6 mg/dl (8.6-10.3); Magnesium 1.9 mg/dl (1.7-2.4); Potassium 4.2 mmol/L (3.5-5.1)
--- NOTE | 2024-07-06 11:11 | Hospitalist Progress Note ---
Date of Service July 06, 2024 Assessment & Plan (1) Leg weakness, bilateral: Plan: Causing ambulatory dysfunction. Neurology has seen the patient and he has idiopathic polyneuropathy. ESR and CRP are also markedly elevated indicating a possible autoimmune inflammatory process. Prednisone was started July 03. Significant vitamin D deficiency is also probably a contributing factor. Supplementation of vitamin D continues. He is using a walker to ambulate. A prescription for a wheeled walker has been left on his chart. Lumbar MRI scan negative for any significant findings. Brain MRI scan done on July 01 reveals equivocal findings for MS. Lumbar puncture was done on July 02 with CSF obtained for further lab testing. Results are pending (2) Pain in joint involving right ankle and foot: Plan: Thought to be due to gout per orthopedics. Uric acid level on June 15 however was 5.0. No current evidence of erythema, edema, or ankle pain (3) Gout: Plan: Thought to be the cause of right ankle pain earlier this admission. Uric acid level on June 15 however was 5.0. No current edema/erythema/tenderness (4) Vitamin D deficiency: Plan: Profound. Oral replacement therapy dosage has been increased and continues. Likely contributing factor to severe lower extremity peripheral sensorimotor neuropathy (5) Abdominal pain: Plan: Resolved. (6) Alcohol withdrawal: Plan: Resolved. Supportive care (7) Anxiety and depression: Plan: Stable. Dosages of several medications have been uptitrated, including Zoloft , gabapentin, and Ativan (8) HTN (hypertension): Plan: Stable. Continue current medical management (9) Rheumatoid arthritis: Plan: By history. No joint deformities noted. ESR and CRP are markedly elevated. He is now on prednisone therapy Plan He has requested that case management resubmit up-to-date OT and PT assessments to SNF facilities. He refuses to be discharged to his home with home health services Admission and Anticipated Discharge Date Admission Date: June 11, 2024 Subjective No significant improvement or change since yesterday, July 04. He remains on prednisone therapy. He has requested that case management resubmit most recent OT and PT assessments to SNF facilities for placement proceedings to continue. Had a detailed discussion and established rapport with patient who has been here for last 25 days patient was requesting that he wants to be reconsidered for inpatient rehab case management mentioned that this is not going to work patient is considered after evaluation from PT OT to go home Physical Exam Physical Exam: General-alert and oriented x3, no fever, no chills HEENT-head atraumatic and normocephalic, pupils equal and reactive to light, extraocular muscles intact Neck-no lymphadenopathy or thyromegaly, trachea midline Chest-clear to auscultation. No rales, wheezing or rhonchi Cardiac-regular rate and rhythm, normal S1 and S2 Abdomen-normal bowel sounds, no hepatosplenomegaly Extremities-no cyanosis, clubbing, or edema. Distal pulses intact Neuro-cranial nerves II through XII intact. Bilateral symmetrical lower extremity weakness. Psych-depressed affect Results & Data Results & Data Vital Signs (Past 12 Hours) Vital Signs Temp Pulse Resp BP Pulse Ox O2 Del Method 07/06/24 07:04 36.8 C 68 16 145/80 H 98 Room Air PG Care Time/CCT Total # of Minutes Spent Total Time Spent with Patient: Total time spent is greater than 50% in coordination of care (as documented) at patient's floor/unit and/or counseling patient: Coding Level of Care Code 84325 SUB INP/OBS CARE 3/50MIN Diagnoses Leg weakness, bilateral R29.898 Pain in joint involving right ankle and foot M25.571 Gout, unspecified cause, unspecified chronicity, unspecified site M10.9 Chronicity: unspecified Gout etiology: unspecified cause Gout site: unspecified site Vitamin D deficiency E55.9 Abdominal pain R10.9 Alcohol withdrawal F10.939 Anxiety and depression F41.9; F32.A HTN (hypertension) I10 Rheumatoid arthritis M06.9 Time Spent (min) 50 (3) Gout Chronicity: unspecified Gout etiology: unspecified cause Gout site: unspecified site Qualified Code(s): M10.9 - Gout, unspecified
[2024-07-06 16:06] LABS: Albumin 3.8 g/dL (3.6-5.1); Albumin, CSF 20.9 mg/dL (8.0-42.0); IgG Serum 730 mg/dL (600-1640); Myelin Basic Protein <2.0 mcg/L (<=4.0); Oligoclonal Bands IgG, CSF Absent (Absent); Synthesis Rate, IgG CSF -2.7 mg/24 h (-9.9-3.3)
[2024-07-07 07:07] LABS: Hematocrit (blood only) 39.8 % (42.0-52.0); Hemoglobin 13.2 g/dl (14.0-18.0); Mean Corpuscular Hgb Conc 33.2 g/dL (32.0-36.0); Mean Corpuscular Volume 96.4 fL (80.0-100.0); Mean Platelet Volume 10.9 fL (9.4-12.4); Platelet Count 296 K/uL (130-400); RDW Coefficient of Variation 12.7 % (11.5-14.5); RDW Standard Deviation 45.2 fL (36.4-46.3); Red Blood Count 4.13 M/uL (4.70-6.10); White Blood Count 24.68 K/ul (4.8-10.8)
[2024-07-07 07:28] LABS: BUN Creatinine Ratio 22.1 (10-20); Calcium 9.2 mg/dl (8.6-10.3); Creatinine Clr Calc Pharmacy 183.6 ml/min; Magnesium 1.9 mg/dl (1.7-2.4); Potassium 4.1 mmol/L (3.5-5.1)
[2024-07-07 07:35] VITALS: BP 171/108; PULSE 69; RESP 18; TEMP 98.1; O2SAT 99
[2024-07-07 10:40] LABS: C Reactive Protein 1.11 mg/dl (0-0.5)
[2024-07-07] MEDS ORDERED: lisinopril 40 MG TAB PO SCH (11:45)
--- NOTE | 2024-07-07 11:49 | Discharge Summary ---
Date of Service July 07, 2024 Admission HPI Per Admitting Provider 35yo male with alcohol dependence, anxiety/depression, prior episode of pancreatitis, rheumatoid arthritis, gout, and diagnosis of PEs at [facility] in 04/2024 (prescribed Eliquis but hasn't been taking it) - presents with ongoing abdominal pain and nausea along with request for alcohol detox. 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 He has a strong desire to stop drinking. Last etoh consumption - evening of 06/10/24 (fifth vodka - drink of choice). Already this afternoon he is experiencing anxiety, sweats/clamminess, mild trem or, and is tachycardic/hypertensive. Ativan IV x 1 was given earlier with relief of some of these symptoms. Denies any melena. NO pain with eating food but he really hasn't eaten in about 3 days. He states several times he feels dehydrated. NO hematemesis or coffee-ground emesis. He reports minimal amount of BRBPR that he presumes is from hemorrhoids (has had colonoscopy showing such in the past). Finally, patient had gone to [facility] last pm for his abdominal pain. He did not have imaging during that ER visit and was ultimately discharged. Admission Exam (Per Admitting) Constitutional Patient is sitting upright without any issues HEENT atraumatic normocephalic pupil equal round reactive to light mucous membranes are moist neck is supple chest is clear to auscultation Cardiovascular exam S1-S2 abdomen is soft nontender extremities no edema no clubbing no cyanosis Neurologically cranial nerves II to XII are intact no motor or sensory deficit identified skin exam is within normal limits patient does report some back pain however this can be secondary to his Low vitamin D levels Discharge Data Consultations 06/11/24 16:48 Consult Gastroenterology Routine 06/12/24 10:46 Consult Behavioral Health Liaison Routine 06/15/24 13:52 Consult Orthopedic Surgery Routine 06/22/24 09:48 Consult Pain Management Routine 06/30/24 10:36 Consult Neurology Routine Procedures Performed Operation Date: 06/17/24 16:30 Actual Procedures p EGD Biopsy Cytology(Not Applicable) - Dylan Moore MD Hospital Course (1) Leg weakness, bilateral: Causing ambulatory dysfunction. Neurology has seen the patient and he has idiopathic polyneuropathy. ESR and CRP are also markedly elevated indicating a possible autoimmune inflammatory process. Prednisone was started July 03. Significant vitamin D deficiency is also probably a contributing factor. Supplementation of vitamin D continues. He is using a walker to ambulate. A prescription for a wheeled walker has been left on his chart. Lumbar MRI scan negative for any significant findings. Brain MRI scan done on July 01 reveals equivocal findings for MS. Lumbar puncture was done on July 02 with CSF obtained CSF appearance is clear colorless no xanthochromia 0 WBC 0 RBC cell count is 3, CSF glucose is 52 within normal levels, CSF total protein is 39.5 ( ranges 15-45) CSF LDH is 9 normal value is less than 25 CSF lactate level is 12.5 normal ranges between 10-22 CSF albumin is 20.9 CSF IgG level is 1.8 it is within range from 0.8-7.7 CSF IgG index is 0.45 normal range is less than 0.70 CSF immunoglobulin synthesis rate is -2.7, ranges bracket (-9 .9-3.3) CSF myelin basic protein is less than 2.0 normal range is less than 4 CSF oligoclonal bands are absent MRI findings can be secondary to extremely low levels of vitamin D which is less than 7 patient has been prescribed 50,000 units/week for at least 8 weeks (2) Pain in joint involving right ankle and foot: Thought to be due to gout per orthopedics. Uric acid level on June 15 however was 5.0. No current evidence of erythema, edema, review of sign OVL fluid on 06/16/2024 shows red color bloody appearance from the right ankle Greater than 10,000 WBCs, [id number] red blood cells, polynuclear WBC was 95 mononuclear 5 rare intracellular crystals of monosodium urate present MRSA negative patient likely had a gout attack Several immune studies were ordered ESR level was 79 Lupus anticoagulant was positive it was 56 lupus anticoagulant hexagonal phase was positive Protein C was 183 which is slightly high from a range from 70-1 80 Protein assays 115 Antithrombin III is 107 Antithrombin III is 107 IgG is was 730 Albumin 3.8 ROGELIO screen is negative NT Ro antibodies are less than 0.1 SSB SSA anti-Jones antibody ABRASIVE GRINDER antibody scleroderma antibody NT double-stranded DNA antibody are negative chromatin antibodies negative anticentromere antibodies negative Thyroid antimicrosomal antibodies negative acetylcholine receptor binding antibodies negative anticardiolipin IgG antibodies less than 0.2 0.0 anticardiolipin IgA and high antibodies less than 2.0 IgM is 18 this is within normal limits Complement C3 is elevated to 223 Complement 4 C4 level is 37 Review of literature shows that severe vitamin D deficiency can cause elevated levels of complement C3 (3) Gout: Thought to be the cause of right ankle pain earlier this admission. Uric acid level on June 15 however was 5.0. No current edema/erythema/tenderness (4) Vitamin D deficiency: Profound. Oral replacement therapy dosage has been increased and continues. Likely contributing factor to severe lower extremity peripheral sensorimotor neuropathy (5) Abdominal pain: Resolved. (6) Alcohol withdrawal: Resolved. Supportive care Alcohol level was high on admission (7) Anxiety and depression: Stable. Dosages of several medications have been uptitrated, including Zoloft , gabapentin, and Ativan (8) HTN (hypertension): Stable. Continue current medical management Patient was put on 20 mg 3 times daily of steroids I have given him a dose of lisinopril patient should follow-up with primary care physician (9) Rheumatoid arthritis: By history. No joint deformities noted. ESR and CRP are markedly elevated. He is now on prednisone therapy Another review indicates that patient's vitamin D levels are significantly low and his lifestyle and food choices are not that great I will stop high doses of steroids put patient on tapering dose of steroid 5 mg requested patient to follow-up lifestyle and dietary modifications Plan He has requested that case management resubmit up-to-date OT and PT assessments to SNF facilities. He refuses to be discharged to his home with home health services I advocated for the patient with the case management on 07/06/2024 however they indicated that for the last month patient has been refusing other options and [facility] facilities are not renal entertain him I communicated these results case management has done their best to work with him however patient refuses to go to home I checked with the patient he denies being homeless discussed with patient that he he will need to find resources to go home and do self-care Coding Level of Care Code 07083 INP/OBS DISCH >30 MIN Diagnoses Leg weakness, bilateral R29.898 Pain in joint involving right ankle and foot M25.571 Gout, unspecified cause, unspecified chronicity, unspecified site M10.9 Gout site: unspecified site Gout etiology: unspecified cause Chronicity: unspecified Vitamin D deficiency E55.9 Abdominal pain R10.9 Alcohol withdrawal F10.939 Anxiety and depression F41.9; F32.A HTN (hypertension) I10 Rheumatoid arthritis M06.9
== END 2024-07-07 13:39 | disposition home or self-care (01) | DRG 439 ==
LOC: ED 10:15 → SUATTDRO 14:58 → EDINP 14:58 → 2E 16:49 → 3N 06-19 23:25

== ENCOUNTER 2025-02-03 12:01 | Inpatient (IN) ==
--- NOTE | 2025-02-03 12:24 | Emergency Department Note ---
Impression & Plan Alcohol withdrawal ED Provider Note NAME: ANA MARTELL AGE: 34 SEX: M : 1990 ARRIVES VIA: Walk-In INFORMANT: The patient himself. ED PROVIDER(S): Arely Jones PA-C, [Chance Erickson MD] CHIEF COMPLAINT: Alcohol withdrawal HISTORY OF PRESENTING ILLNESS: The patient is a pleasant 34-year-old male with a H anxiety and depression, vitamin D deficiency, idiopathic polyneuropathy, and alcohol use disorder who presents to the emergency department stating that he is generally not feeling well and is concerned that he may need to be admitted for alcohol withdrawal. His last drink was yesterday evening. He reports typically drinking between 1/5 and 1/2 of a bottle of liquor. He denies feeling any symptoms currently however is worried that he will based on previous withdrawal symptoms. He denies a history of DT, seizure, or intubation with previous withdrawals. He is looking for placement at either a rehab facility or help with detox. REVIEW OF SYSTEMS: See HPI for pertinent positives and pertinent negatives. ALLERGIES: NKDA MEDICATIONS: See below PAST MEDICAL HISTORY: See below PHYSICAL EXAM: VITALS: Vitals are noted on the nurses note and reviewed by myself. Mildly tachycardic. All other vital stable. GENERAL: 34-year-old male, in no acute distress, nondiaphoretic, well-developed well-nourished. SKIN: Capillary refill less than 2 seconds. HEENT: Normocephalic. PERRLA. EOMI. Nares patent. Mucous membranes moist. Neck is supple without nuchal rigidity. HEART: Regular rate and rhythm without murmurs gallops or rubs. LUNGS: CTA BL without wheezes, rales or rhonchi. No retractions or accessory muscle use. ABDOMEN: Soft, nontender, without masses or organomegaly. No guarding or rebound tenderness. MUSCULOSKELETAL: No gross musculoskeletal defects. No pedal edema. No calf tenderness. NEURO: Patient was alert and oriented to person place and time. Normal sensation to light and sharp touch. Deep tendon reflexes 2+ throughout. No focal neurological deficits. DIFFERENTIAL DIAGNOSIS: Alcohol intoxication, withdrawal symptoms, delirium tremens, electrolyte abnormality, among others. ED COURSE AND MEDICAL DECISION MAKING: MEDICATIONS GIVEN: Diazepam 10 mg IV MONITOR: Continuous monitor worker: Order was placed for continuous monitor worker. Patient was placed on the monitor worker and continuous pulse ox. Patient was noted to be in normal sinus rhythm at an initial rate of 98 bpm per my interpretation. EKG: EKG was interpreted by myself as normal sinus rhythm. No obvious arrhythmia. WA interval 134 ms. QTc 418 ms. When compared to previous EKG from 06/11/2024 there is no significant change. INTERPRETATION OF LABS: I interpreted the labs with full lab results as below in the lab section of this note. Pertinent lab results discussed in the MDM section below. INTERPRETATION OF IMAGING: No images obtained. CONSULTATIONS: On-call [facility] hospitalist - Presented the patient to the hospitalist. Patient is requesting assistance with detox. He is mildly tachycardic and diaphoretic. He has no other concerns at this time. They agreed to admitting the patient to medicine. MDM SUMMARY: I evaluated the 34-year-old male who presents to the emergency department requesting assistance with alcohol detox. See HPI and PE above. Patient is mildly tachycardic upon arrival. All other vital stable. On exam he is pleasant, anxious appearing, and mildly diaphoretic. Otherwise he has no other complaints. He does not appear to be withdrawing acutely. CIWA score is less than 8. He was initially given a dose of diazepam 10 mg IV in the ER. Orders for reevaluation placed. Medical alcohol upon arrival was a 14.7. I did discuss his case with our case management team who does believe the patient would benefit from admission. Patient is currently on naltrexone but does report not always taking it. He denies SI or HI. Although he is well-appearing currently he does believe that he will require assistance with the detox process. Consultation with hospitalist can be seen above. They agreed to evaluating the patient and admitting him to medicine. The patient is agreeable to the outlined treatment plan and all questions answered. The patient was admitted in stable condition. DIAGNOSIS: Alcohol withdrawal The chart was completed utilizing [employer] Speech voice recognition software. Grammatical errors, random word insertions, pronoun errors, and incomplete sentences are an occasional consequence of this system due to software limitations, ambient noise, and hardware issues. Any formal questions or concerns about the content, text, or information contained within the body of this dictation should be directly addressed to the provider for clarification. TREATMENT PLAN/DISCHARGE INSTRUCTIONS: The patient was admitted to medicine. See that note for further management. Past Med/Surg History Problem List (Updated 02/05/25 @ 07:22 by Arely Jones PA-C) Hematochezia Hypokalemia Alcohol withdrawal (Acute) Cognitive dysfunction Fatigue Idiopathic polyneuropathy Leg weakness, bilateral Anxiety and depression Vitamin D deficiency Infection of scalp Swelling of first metatarsophalangeal (MTP) joint of left foot Hyponatremia Hyperuricemia Elevated liver function tests Vasovagal syncope Arthralgia of multiple sites Medical History History of pulmonary embolus (PE) Gout History of pancreatitis Alcohol abuse Neuropathy B12 deficiency Depression HTN (hypertension) Anxiety POTS (postural orthostatic tachycardia syndrome) Surgical History S/P cholecystectomy January 2016 Family History Sister VTE (venous thromboembolism) Father Hyperlipidemia Other Colorectal cancer Diabetes Myocardial infarction Denies family history of Ovarian cancer Prostate cancer Alcoholism Breast cancer Lung cancer Social History Smoking Status: Never smoker Second Hand Exposure: No; Do You Dip or Chew Tobacco: No; Hx Alcohol Use: Yes Alcohol type: hard liquor Alcohol type Comment: vodka - fifth/day Alcohol Intake Frequency: 4 or More x per/Week Hx Substance Use: No Preferred Language: Thai Communication Ability: Effective Hearing Ability: Normal [employer] Required: No Beliefs That Will Affect Care: None marital status: Single Current Living Situation: Alone Current Living Situation Comment: house current occupational status: employed and unemployed current occupation: nursing How many Children do You have: 0 Other Information That Helps Us Care for You: No Feels Safe at Home: Yes Safety Concerns: Feels Safe At This Time Dental Care, Regularly: Yes Physical Activity Frequency: Does not Exercise Assistive Devices: None Allergies Allergies Allergy/AdvReac Type Severity Reaction Status Date / Time No Known Allergies Allergy Verified 02/03/25 14:54 Home Meds Home Medications Medication Instructions Recorded Confirmed sertraline 50 mg tablet 50 mg PO DAILY 06/11/24 02/03/25 allopurinol 300 mg tablet 300 mg PO DAILY 02/03/25 02/03/25 amlodipine 10 mg tablet 5 mg PO DAILY 02/03/25 02/03/25 clonidine HCl 0.2 mg tablet 0.2 mg PO DAILY PRN Anxiety 02/03/25 02/03/25 meloxicam 7.5 mg tablet 7.5 mg PO DAILY PRN Pain 02/03/25 02/03/25 omeprazole 20 mg capsule,delayed 40 mg PO DAILY 02/03/25 02/03/25 release ondansetron HCl 4 mg tablet 4 mg PO TID PRN NAUSEA/VOMITING 02/03/25 02/03/25 quetiapine 50 mg tablet 50 mg PO HS 02/03/25 02/03/25 sucralfate 100 mg/mL oral 10 ml PO ACHS 02/03/25 02/03/25 suspension Results & Data (ED) Vital Signs Vital Signs - 24 hr 02/04/25 19:47 02/04/25 19:48 02/04/25 21:33 Temperature 37.1 C Temperature Source Oral Pulse Rate 88 Pulse Rate [Apical] 81 Pulse Rhythm [Apical] Pulse Strength [Apical] Respiratory Rate 18 Respiratory Effort / Characteristics Respiratory Depth Respiratory Pattern Blood Pressure [Left Arm] Blood Pressure [Right Arm] 140/85 Blood Pressure Mean [Left Arm] Blood Pressure Mean [Right Arm] 103 Blood Pressure Position [Left Arm] Blood Pressure Position [Right Arm] Semi-fowlers Pulse Oximetry 99 Oxygen Delivery Method Room Air EWS Level of Consciousness - Last Result Spontaneously Alert EWS Temperature - Last Result 37.1 EWS Respiratory Rate - Last Result 18 EWS Oxygen Saturation - Last Result 99 EWS Oxygen in Use - Last Result No EWS Score 0 EWS Clinical Risk Low Risk 02/04/25 22:58 02/04/25 23:29 02/05/25 04:08 Temperature 37.0 C 36.4 C L Temperature Source Oral Oral Pulse Rate Pulse Rate [Apical] 85 74 Pulse Rhythm [Apical] Regular Pulse Strength [Apical] Normal Respiratory Rate 18 18 Respiratory Effort / Characteristics Non-Labored Spontaneous Respiratory Depth Normal Respiratory Pattern Regular Blood Pressure [Left Arm] 130/85 129/85 Blood Pressure [Right Arm] Blood Pressure Mean [Left Arm] 100 99 Blood Pressure Mean [Right Arm] Blood Pressure Position [Left Arm] Semi-fowlers Lying Blood Pressure Position [Right Arm] Pulse Oximetry 97 97 Oxygen Delivery Method Room Air Room Air EWS Level of Consciousness - Last Result Spontaneously Alert EWS Temperature - Last Result 37.0 EWS Respiratory Rate - Last Result 18 EWS Oxygen Saturation - Last Result 97 EWS Oxygen in Use - Last Result No EWS Score 0 EWS Clinical Risk Low Risk 02/05/25 07:19 02/05/25 07:20 02/05/25 07:20 Temperature 36.6 C Temperature Source Oral Pulse Rate 76 Pulse Rate [Apical] 78 Pulse Rhythm [Apical] Pulse Strength [Apical] Respiratory Rate 16 Respiratory Effort / Characteristics Respiratory Depth Respiratory Pattern Blood Pressure [Left Arm] 107/70 Blood Pressure [Right Arm] Blood Pressure Mean [Left Arm] 82 Blood Pressure Mean [Right Arm] Blood Pressure Position [Left Arm] Semi-fowlers Blood Pressure Position [Right Arm] Pulse Oximetry 96 Oxygen Delivery Method Room Air EWS Level of Consciousness - Last Result Spontaneously Alert EWS Temperature - Last Result 36.4 EWS Respiratory Rate - Last Result 18 EWS Oxygen Saturation - Last Result 97 EWS Oxygen in Use - Last Result No EWS Score 0 EWS Clinical Risk Low Risk Laboratory Data 02/05/25 05:59 02/05/25 05:59 Lab Results 02/03/25 02/04/25 02/05/25 Range/Units 12: 06:22 05:59 WBC 6.22 9.51 7.20 (4.8-10.8) K/ul RBC 4.79 4.54 L 4.15 L (4.70-6.10) M/uL Hgb 14.8 13.8 L 12.9 L (14.0-18.0) g/dL Hct 44.3 41.7 L 38.6 L (42.0-52.0) % MCV 92.5 91.9 93.0 (80.0-100.0) fL MCH 30.9 30.4 31.1 (25.0-34.0) pg MCHC 33.4 33.1 33.4 (32.0-36.0) g/dL RDW Std Deviation 43.8 42.9 43.7 (36.4-46.3) fL RDW Coeff of Nohemy 12.9 12.9 12.6 (11.5-14.5) % Plt Count 311 276 251 (130-400) K/uL MPV 10.0 9.8 10.4 (9.4-12.4) fL Immature Gran % (Auto) 0.3 % Neut % (Auto) 69.1 % Lymph % (Auto) 21.1 % [place] % (Auto) 8.2 % Eos % (Auto) 0.8 % Baso % (Auto) 0.5 % Neut # (Auto) 4.30 (1.40-6.50) K/uL Lymph # (Auto) 1.31 (1.20-3.40) K/uL [place] # (Auto) 0.51 (0.11-0.59) K/uL Eos # (Auto) 0.05 (0.00-0.50) K/uL Baso # (Auto) 0.03 (0.00-0.20) K/uL Immature Gran # (Auto) 0.02 (0.01-0.20) K/uL Sodium 140 138 139 (136-145) mmol/L Potassium 3.4 L 3.5 3.4 L (3.5-5.1) mmol/L Chloride 101 101 104 (98-107) mmol/L Carbon Dioxide 26 29 28 (21-32) mmol/L Anion Gap 13 H 8 7 (3-11) BUN 8 11 10 (6-23) mg/dl Creatinine 0.77 0.82 0.83 (0.6-1.4) mg/dl Est Cr Clr Drug Dosing 152.8 139.3 150.7 ml/min eGFR 120.48 118.21 117.78 BUN/Creatinine Ratio 10.4 13.4 12.0 (10-20) Glucose 74 86 92 (70-99(Fasting)) mg/dl Calcium 9.5 9.1 8.9 (8.6-10.3) mg/dl Magnesium 1.6 L 1.9 (1.7-2.4) mg/dl Total Bilirubin 0.3 0.5 (0.2-1.0) mg/dl AST 29 22 (13-39) U/L ALT 56 H 38 (7-52) U/L Alkaline Phosphatase 101 97 (34-104) U/L Total Protein 7.7 7.0 (6.0-8.3) gm/dl Albumin 4.0 3.9 (3.4-5.0) gm/dl Globulin 3.7 3.1 (2.5-4.0) gm/dl Albumin/Globulin Ratio 1.1 1.3 (0.9-2) Ethyl Alcohol mg/dL 14.7 H (<10.0) mg/dl Administered Medications Acetaminophen (Acetaminophen 325 Mg Tab) 650 mg PO Q4H PRN PRN Reason: Pain or Fever Stop: 03/05/25 19:15 Last Admin: 02/05/25 04:03 Dose: 650 mg Documented By: Admin: 02/04/25 21:24 Dose: 650 mg Documented By: Admin: 02/04/25 07:52 Dose: 650 mg Documented By: TARA Allopurinol (Allopurinol 300 Mg Tab) 300 mg PO DAILY [facility] Stop: 03/06/25 08:59 Last Admin: 02/05/25 08:30 Dose: 300 mg Documented By: Admin: 02/04/25 07:56 Dose: 300 mg Documented By: TARA Amlodipine Besylate (Amlodipine Besylate 5 Mg Tab) 5 mg PO DAILY [facility] Stop: 03/06/25 08:59 Last Admin: 02/05/25 08:30 Dose: 5 mg Documented By: Admin: 02/04/25 07:56 Dose: 5 mg Documented By: TARA Folic Acid (Folic Acid 1 Mg Tab) 1 mg PO QAM [facility] Stop: 03/06/25 08:59 Last Admin: 02/05/25 08:30 Dose: 1 mg Documented By: Admin: 02/04/25 07:56 Dose: 1 mg Documented By: TARA Melatonin (Melatonin 3 Mg Tab) 3 mg PO HS PRN PRN Reason: Sleep Stop: 03/05/25 19:15 Last Admin: 02/04/25 22:45 Dose: 3 mg Documented By: MIKIE Ondansetron HCl (Ondansetron Inj 2 Mg/Ml 2 Ml Vial) 4 mg IV Q6H PRN PRN Reason: Nausea Stop: 03/05/25 19:15 Last Admin: 02/05/25 10:57 Dose: 4 mg Documented By: Admin: 02/05/25 04:03 Dose: 4 mg Documented By: Admin: 02/04/25 05:07 Dose: 4 mg Documented By: ANGÉLICA Pantoprazole Sodium (Pantoprazole 40 Mg Tab) 40 mg PO BID [facility] Stop: 03/06/25 20:59 Last Admin: 02/05/25 08:30 Dose: 40 mg Documented By: Admin: 02/04/25 21:25 Dose: 40 mg Documented By: MIKIE Phenobarbital (Phenobarbital 30 Mg Tab) 60 mg PO Q12H [facility] Stop: 02/06/25 06:01 Last Admin: 02/05/25 05:53 Dose: 60 mg Documented By: MIKIE Quetiapine Fumarate (Quetiapine Fumarate 25 Mg Tablet) 50 mg PO HS [facility] Stop: 03/05/25 20:59 Last Admin: 02/04/25 21:24 Dose: 50 mg Documented By: Admin: 02/03/25 21:45 Dose: 50 mg Documented By: ANGÉLICA Sertraline HCl (Sertraline Hcl 50 Mg Tablet) 50 mg PO DAILY [facility] Stop: 03/06/25 08:59 Last Admin: 02/05/25 08:31 Dose: 50 mg Documented By: Admin: 02/04/25 07:57 Dose: 50 mg Documented By: TARA Thiamine HCl (Thiamine Hcl 100 Mg Tab) 100 mg PO QAM [facility] Stop: 03/06/25 08:59 Last Admin: 02/05/25 08:30 Dose: 100 mg Documented By: Admin: 02/04/25 07:56 Dose: 100 mg Documented By: TARA Discontinued Medications Diazepam (Diazepam Inj 5 Mg/Ml 2 Ml Carp) 10 mg IV NOW STA Stop: 02/03/25 12:53 Last Admin: 02/03/25 13:12 Dose: 10 mg Documented By: BELLA Hydroxyzine HCl (Hydroxyzine Hcl 25 Mg Tab) 25 mg PO NOW STA Stop: 02/05/25 01:07 Last Admin: 02/05/25 01:44 Dose: 25 mg Documented By: MIKIE Magnesium Sulfate/Dextrose (Magnesium Sulfate / D5w) 1 gm in 100 mls @ 50 mls/hr IV ONE ONE Stop: 02/04/25 16:10 Last Infusion: 02/04/25 16:50 Dose: Infused Documented By: Admin: 02/04/25 14:49 Dose: 50 mls/hr Documented By: TARA Lactated Ringer's (Lr) 500 mls @ 80 mls/hr IV .Q6H15M [facility] Stop: 02/05/25 12:44 Last Infusion: 02/05/25 12:13 Dose: Infused Documented By: Admin: 02/05/25 05:55 Dose: 80 mls/hr Documented By: MIKIE Magnesium Sulfate/Dextrose (Magnesium Sulfate / D5w) 1 gm in 100 mls @ 50 mls/hr IV ONE ONE Stop: 02/04/25 19:58 Last Infusion: 02/04/25 21:27 Dose: Infused Documented By: Admin: 02/04/25 18:41 Dose: 50 mls/hr Documented By: TARA Potassium Chloride (K Ji / Wtr) 10 meq in 100 mls @ 100 mls/hr IV ONE ONE Stop: 02/05/25 10:27 Last Infusion: 02/05/25 10:55 Dose: Infused Documented By: Admin: 02/05/25 09:45 Dose: 100 mls/hr Documented By: Pantoprazole Sodium (Pantoprazole 40 Mg Tab) 40 mg PO DAILY [facility] Stop: 03/06/25 08:59 Last Admin: 02/04/25 07:57 Dose: 40 mg Documented By: TARA Phenobarbital (Phenobarbital 30 Mg Tab) 60 mg PO NOW STA Stop: 02/04/25 14:40 Last Admin: 02/04/25 14:49 Dose: 60 mg Documented By: TARA Phenobarbital Sodium (Phenobarbital Sodium 130 Mg/Ml Vial) 260 mg 3.2 mg/kg (260 mg) IM ONE ONE Stop: 02/03/25 17:46 Last Admin: 02/03/25 17:51 Dose: 260 mg Documented By: [id number] Phenobarbital Sodium (Phenobarbital Sodium 130 Mg/Ml Vial) 195 mg 2.4 mg/kg (195 mg) IM ONE ONE Stop: 02/03/25 20:52 Last Admin: 02/03/25 21:46 Dose: 195 mg Documented By: CLC Phenobarbital Sodium (Phenobarbital Sodium 130 Mg/Ml Vial) 195 mg 2.4 mg/kg (195 mg) IM ONE ONE Stop: 02/03/25 23:52 Last Admin: 02/04/25 00:54 Dose: 195 mg Documented By: CLC Potassium Chloride (Potassium Chloride 10 Meq Tabcr) 10 meq PO NOW STA Stop: 02/03/25 17:37 Last Admin: 02/03/25 17:49 Dose: 10 meq Documented By: [id number] Thiamine HCl (Thiamine Hcl 100 Mg Tab) 100 mg PO NOW STA Stop: 02/03/25 17:32 Last Admin: 02/03/25 17:50 Dose: 100 mg Documented By: [id number] Discharge Plan Visit Data Chief Complaint: Alcohol Withdrawal Stated Complaint: WITHDRAWAL ED Provider: Chance Erickson ED Midlevel Provider: Arely Jones Discharge Problem: Alcohol withdrawal Patient Disposition: Admitted As Inpatient Condition: Good Discharge Instructions Interventions: ED Discharge Assessment Last Done: 02/03/25 18:28 Discharge Problem: Alcohol withdrawal Qualifiers: Complication of substance-induced condition: with unspecified complication Q ualified Code(s): F10.939 - Alcohol use, unspecified with withdrawal, unspecified
[2025-02-03 13:12] LABS: Hematocrit (blood only) 44.3 % (42.0-52.0); Hemoglobin 14.8 g/dL (14.0-18.0); Immature Granulocytes # (auto) 0.02 K/uL (0.01-0.20); Immature Granulocytes % (auto) 0.3 %; Mean Corpuscular Hemoglobin 30.9 pg (25.0-34.0); Mean Corpuscular Volume 92.5 fL (80.0-100.0); Platelet Count 311 K/uL (130-400); RDW Standard Deviation 43.8 fL (36.4-46.3); Red Blood Count 4.79 M/uL (4.70-6.10); White Blood Count 6.22 K/ul (4.8-10.8)
[2025-02-03 13:22] LABS: Albumin Level 4.0 gm/dl (3.4-5.0); Anion Gap 13.0 (3-11); Bilirubin,Total 0.3 mg/dl (0.2-1.0); Calcium 9.5 mg/dl (8.6-10.3); Carbon Dioxide 26.0 mmol/L (21-32); Chloride 101.0 mmol/L (98-107); Potassium 3.4 mmol/L (3.5-5.1); Sodium 140.0 mmol/L (136-145)
[2025-02-03 13:28] LABS: Alanine Aminotransferase 56.0 U/L (7-52); Albumin Globulin Ratio 1.1 (0.9-2); Alkaline Phosphatase 101.0 U/L (34-104); Blood Urea Nitrogen 8.0 mg/dl (6-23); Creatinine Clr Calc Pharmacy 152.8 ml/min; Globulin 3.7 gm/dl (2.5-4.0); Glucose 74.0 mg/dl (70-99(Fasting)); Total Protein 7.7 gm/dl (6.0-8.3)
--- NOTE | 2025-02-03 14:43 | History & Physical Report ---
Date of Service February 03, 2025 Assessment & Plan (1) Alcohol withdrawal: (2) Anxiety and depression: (3) Hypokalemia: Plan This patient is a 34-year-old male with PMH of alcohol abuse who presented on 02/03 requesting admission for alcohol withdrawal. #Alcohol withdrawal Last drink the evening of 02/02 Typically drinks 1/2 to a 1/5 of liquor (vodka) per day Ethyl alcohol level mildly elevated at 14.7 on arrival Valium 10 mg IV x 1 in the ED Not actively withdrawing at time of admission (A&O x 3; main complaint is generalized fatigue) Denies history of DTs, severe alcohol withdrawal, or withdrawal seizures However, PAWS scale: 4 (high risk) Intoxication within the last 30 days, prior alcohol withdrawal (at [facility] October 2024), blackouts, +BAL Initiate withdrawal protocol with phenobarbital IM 8mg/kg Phenobarbital 260 mg IM x 1, 195 mg IM x 1, 195 mg IM x 1 Will plan to initiate p.o. phenobarbital taper tomorrow Thiamine + folic acid supplementation Continuous telemonitoring RASS scoring Case management consult placed to discuss alcohol cessation and possible rehab options #Anxiety and depression Continue sertraline, quetiapine Hold clonidine #Hypokalemia Mild; K 3.4 on arrival P.o. potassium chloride 10mEq x 1 Magnesium level ordered, pending Follow-up a.m. labs #GERD Continue PPI #Gout Continue allopurinol Disposition: Obs - admit to PCU telemetry VTE PPx: Low risk, encourage ambulation History of Present Illness Chief Complaint: Alcohol withdrawal Primary Care Provider: Amee Toribio PA-C Mr. Piedra is a 34-year-old male with PMH of rheumatoid arthritis, anxiety, depression, prior PE, thrombocytopenia, POTS, gout, and alcohol use disorder. He presented on 02/03 requesting to be admitted for alcohol withdrawal. Patient's last drink was last night on the evening of 02/02. He typically drinks 1/2-1/5 of liquor (vodka) per day. History of prior admissions for similar. While he is not having severe symptoms at this time, he mainly feels fatigued/sick. He reports minimal withdrawal symptoms the past (mild tremors). Last alcohol withdrawal occurred at [facility] in October 2024. After he finished withdrawing, he started drinking again a few days after discharge. This cycle has been ongoing x 1 year. He denies any specific triggers that cause him to relapse, but does report that life stressors get in the way. He expresses a strong desire to get off of alcohol permanently. No prior history of alcohol withdrawal seizures. No prior history of DTs or visual/auditory hallucinations when withdrawing. Patient believes that phenobarbital has worked for him well during past withdrawals. Patient declines inpatient rehab at time of admission; he tried this in the past and had a bad experience at [facility]. Patient did not take his regular morning medicine today; no recent change in medications. He denies tobacco use, vaping, and IV drug use. Patient lives alone, but does have family nearby (in [facility]) he denies any new life stressors, SI, HI, or thoughts of self-harm. Patient is hypertensive at 149/95, and tachycardic at 96 bpm at time of admission. ED course: Diazepam 10 mg IV x 1 ROS: Patient endorses generalized fatigue and headache. Patient denies fevers, chills, night sweats, tremors, lightheadedness/dizziness with walking, changes in vision, photophobia, neck pain, chest pain, chest palpitations, SOB, cough, abdominal pain, N/V/D, changes in urinary/bowel habits, burning with urination, blood in the urine or stool, or numbness or tingling in the arms or legs. Allergies Allergy/AdvReac Type Severity Reaction Status Date / Time No Known Allergies Allergy Verified 02/03/25 14:54 Home Medications Medication Instructions Recorded Confirmed Type sertraline 50 mg tablet 50 mg PO DAILY 06/11/24 02/03/25 History allopurinol 300 mg tablet 300 mg PO DAILY 02/03/25 02/03/25 History amlodipine 10 mg tablet 5 mg PO DAILY 02/03/25 02/03/25 History clonidine HCl 0.2 mg tablet 0.2 mg PO DAILY PRN Anxiety 02/03/25 02/03/25 History meloxicam 7.5 mg tablet 7.5 mg PO DAILY PRN Pain 02/03/25 02/03/25 History omeprazole 20 mg capsule,delayed 40 mg PO DAILY 02/03/25 02/03/25 History release ondansetron HCl 4 mg tablet 4 mg PO TID PRN NAUSEA/VOMITING 02/03/25 02/03/25 History quetiapine 50 mg tablet 50 mg PO HS 02/03/25 02/03/25 History sucralfate 100 mg/mL oral 10 ml PO ACHS 02/03/25 02/03/25 History suspension Past Med/Surg History Problem List (Updated 02/03/25 @ 17:44 by Riki Esqueda PA-C) Hypokalemia Alcohol withdrawal Cognitive dysfunction Fatigue Idiopathic polyneuropathy Leg weakness, bilateral Anxiety and depression Vitamin D deficiency Infection of scalp Swelling of first metatarsophalangeal (MTP) joint of left foot Hyponatremia Hyperuricemia Elevated liver function tests Vasovagal syncope Arthralgia of multiple sites Medical History History of pulmonary embolus (PE) Gout History of pancreatitis Alcohol abuse Neuropathy B12 deficiency Depression HTN (hypertension) Anxiety POTS (postural orthostatic tachycardia syndrome) Surgical History S/P cholecystectomy January 2016 Family History Sister VTE (venous thromboembolism) Father Hyperlipidemia Other Colorectal cancer Diabetes Myocardial infarction Denies family history of Ovarian cancer Prostate cancer Alcoholism Breast cancer Lung cancer Social History Smoking Status: Never smoker Second Hand Exposure: No; Do You Dip or Chew Tobacco: No; Hx Alcohol Use: Yes Alcohol type: hard liquor Alcohol type Comment: vodka - fifth/day Alcohol Intake Frequency: 4 or More x per/Week Hx Substance Use: No Preferred Language: Kuwaiti Communication Ability: Effective Hearing Ability: Normal Gasoline Attendant Required: No Beliefs That Will Affect Care: None marital status: Single Current Living Situation: Alone Current Living Situation Comment: house current occupational status: employed and unemployed current occupation: nursing How many Children do You have: 0 Other Information That Helps Us Care for You: No Feels Safe at Home: Yes Safety Concerns: Feels Safe At This Time Dental Care, Regularly: Yes Physical Activity Frequency: Does not Exercise Assistive Devices: Glasses Review of Systems Review of Systems: See HPI above Physical Exam Physical Exam: General: no acute distress; pleasant affect; non-toxic appearing; cooperative; SpO2 98% on RA HEENT: normocephalic, atraumatic; PERRLA; vision and hearing intact Neck: supple; trachea midline Skin: Mildly diaphoretic; warm, dry without signs of tenting; no cyanosis; no rashes, bruising, lesions, or erythema noted CV: chest wall NTP; RR, mildly tachycardic around 98 bpm; S1/S2 normal; no murmurs/rubs/gallops; pulses intact and symmetric at radial, DP, and PT Lungs: no acute respiratory distress; symmetrical chest wall expansion; clear breath sounds across all lung lindsay w/o adventitious sounds; no wheezing ABD: Soft, NTP; BS present; no rebound/guarding; no distention MSK: no tics or fasciculations; no tremor; no edema noted in the LEs b/l, nonerythematous Neuro: A&Ox3; normal mood and affect; fluent speech; sensation intact and symmetric in the LEs b/l Results & Data Results & Data Vital Signs (Past 12 Hours) Vital Signs Temp Pulse Pulse Resp BP BP Pulse Ox 02/03/25 13:53 101 H 167/106 H 96 02/03/25 12:53 94 H 20 155/98 H 97 02/03/25 12:43 97 H 02/03/25 12:04 36.7 C 104 H 18 162/110 H 98 O2 Del Method 02/03/25 13:53 Room Air 02/03/25 12:53 Room Air 02/03/25 12:43 02/03/25 12:04 Room Air Laboratory Results Abnormal lab results 02/03/25 Range/Units 12:25 Potassium 3.4 L (3.5-5.1) mmol/L Anion Gap 13 H (3-11) ALT 56 H (7-52) U/L Ethyl Alcohol mg/dL 14.7 H (<10.0) mg/dl ECG Additional Comments: ECG ordered, pending Code Status & VTE Plan Code Status Full code VTE Prophylaxis Plan VTE Prophylaxis will be ordered: Yes Supervising Physician Co-Signing Physician Notes Patient was seen and examined independently I discussed the case with Riki Esqueda PA-C I reviewed pertinent past medical social family history and also the plan of care and agree with the plan of care. Patient has a significant history of alcohol abuse with previous admissions to [facility] for alcohol withdrawal. Patient is concerned he is going to withdrawal. Patient states his last drink was 1 day prior. Patient is his alcohol intake was low at 14. Patient be admitted for phenobarbital protocol for concern for alcohol withdrawal. Any exceptions will be noted below PG Care Time/CCT Total # of Minutes Spent Total Time Spent with Patient: Total time spent is greater than 50% in coordination of care (as documented) at patient's floor/unit and/or counseling patient: Coding [place] [address] INT INP/OBS CARE 3/75MIN Patient Type Established Medical Decision Making High Complexity Diagnoses Alcohol withdrawal F10.939 Anxiety and depression F41.9; F32.A Hypokalemia E87.6
[2025-02-03] MEDS: POTASSIUM CHLORIDE 10 MEQ TABCR PO STA (17:49)
[2025-02-03] MEDS: THIAMINE HCL 100 MG TAB PO STA (17:50)
[2025-02-03 20:47] LABS: Magnesium 1.6 mg/dl (1.7-2.4)
[2025-02-04] MEDS: ONDANSETRON INJ 2 MG/ML 2 ML VIAL IV PRN (05:07)
[2025-02-04 06:41] LABS: Hematocrit (blood only) 41.7 % (42.0-52.0); Hemoglobin 13.8 g/dL (14.0-18.0); Mean Corpuscular Hemoglobin 30.4 pg (25.0-34.0); Mean Corpuscular Volume 91.9 fL (80.0-100.0); Platelet Count 276 K/uL (130-400); RDW Standard Deviation 42.9 fL (36.4-46.3); Red Blood Count 4.54 M/uL (4.70-6.10); White Blood Count 9.51 K/ul (4.8-10.8)
[2025-02-04 07:16] LABS: Alanine Aminotransferase 38.0 U/L (7-52); Albumin Globulin Ratio 1.3 (0.9-2); Albumin Level 3.9 gm/dl (3.4-5.0); Alkaline Phosphatase 97.0 U/L (34-104); Anion Gap 8.0 (3-11); Bilirubin,Total 0.5 mg/dl (0.2-1.0); Blood Urea Nitrogen 11.0 mg/dl (6-23); Calcium 9.1 mg/dl (8.6-10.3); Carbon Dioxide 29.0 mmol/L (21-32); Chloride 101.0 mmol/L (98-107); Creatinine Clr Calc Pharmacy 139.3 ml/min; Globulin 3.1 gm/dl (2.5-4.0); Glucose 86.0 mg/dl (70-99(Fasting)); Potassium 3.5 mmol/L (3.5-5.1); Sodium 138.0 mmol/L (136-145); Total Protein 7.0 gm/dl (6.0-8.3)
[2025-02-04] MEDS: ACETAMINOPHEN 325 MG TAB PO PRN (07:52)
[2025-02-04] MEDS: THIAMINE HCL 100 MG TAB PO SCH (07:56)
[2025-02-04] MEDS: FOLIC ACID 1 MG TAB PO SCH (07:56)
[2025-02-04] MEDS: SERTRALINE HCL 50 MG TABLET PO SCH (07:57)
--- NOTE | 2025-02-04 12:52 | Electrocardiogram Report ---
Test Reason : Blood Pressure : */* mmHG Vent. Rate : 98 BPM Atrial Rate : 98 BPM P-R Int : 134 ms QRS Dur : 84 ms QT Int : 328 ms P-R-T Axes : 18 39 -9 degrees QTcB Int : 418 ms Normal sinus rhythm Nonspecific T wave abnormality Abnormal ECG When compared with ECG of 11-Jun-2024 11:24, No significant change was found Confirmed by Mikey Portillo ([id number]) on 02/04/2025 12:52:45 PM Referred By: REFERRED SELF Confirmed By: Mikey Portillo
--- NOTE | 2025-02-04 14:10 | Hospitalist Progress Note ---
Date of Service February 04, 2025 Assessment & Plan (1) Alcohol withdrawal: (2) Anxiety and depression: (3) Hematochezia: Plan This patient is a 34-year-old male with PMH of alcohol abuse who presented on 02/03 requesting admission for alcohol withdrawal. #Alcohol withdrawal Last drink the evening of 02/02 Typically drinks 1/2 to a 1/5 of liquor (vodka) per day Ethyl alcohol level mildly elevated at 14.7 on arrival Valium 10 mg IV x 1 in the ED Not actively withdrawing at time of admission (A&O x 3; main complaint is generalized fatigue) Denies history of DTs, severe alcohol withdrawal, or withdrawal seizures However, PAWS scale: 4 (high risk) Intoxication within the last 30 days, prior alcohol withdrawal (at [facility] October 2024), blackouts, +BAL Initiate withdrawal protocol with phenobarbital IM 8mg/kg Phenobarbital 260 mg IM x 1, 195 mg IM x 1, 195 mg IM x 1 Will plan to initiate p.o. phenobarbital taper tomorrow Thiamine + folic acid supplementation Continuous telemonitoring RASS scoring Case management consult placed to discuss alcohol cessation and possible rehab options #Anxiety and depression Continue sertraline, quetiapine Hold clonidine #Hematochezia Patient reported ongoing BRB in stool No BMs yet in the hospital Most recent EGD in 2019 revealed gastritis Most recent colonoscopy 2016 revealed internal hemorrhoids Reviewed GI note from patient's admission at [facility] in October 2024: 10/19/2024: Recommended PPI twice daily, and outpatient EGD/colonoscopy Switch to Protonix 40 mg p.o. BID for now Requested nursing staff to alert me if any blood in stool/melena #GERD Continue PPI #Gout Continue allopurinol Disposition: Continued stay on PCU telemetry VTE PPx: Low risk, encourage ambulation Admission and Anticipated Discharge Date Admission Date: February 03, 2025 Supervising Physician Co-Signing Physician Notes Attending Attestation - Chart reviewed, care plan d/w THELMA Esqueda. I agree w/ the welsh components of his documentation. Osmar Bone MD Subjective Mr. Mcdonough reports he is doing well today. He is feeling anxious and had difficulty sleeping last night, but reports no symptoms of alcohol withdrawal yet. No tremors. No night sweats. He has had a good appetite so far in the hospital. His only concern at this time is that his urine is dark, and he feels dehydrated. He also has a mild headache. ROS: Patient endorses headache Patient denies tremors, visual/auditory hallucinations, changes in vision, chest pain, chest palpitations, SOB, cough, abdominal pain, N/V/D, changes in urinary/bowel habits, or numbness or tingling in the arms or legs. Addendum at 1430: Alerted by nursing staff that patient was beginning to have some mild tremors/diaphoresis. Will plan to give first dose of phenobarbital 60 mg p.o. at this time. Review of Systems Review of Systems: See HPI above Physical Exam Physical Exam: General: no acute distress; pleasant affect; laying in bed watching TV; non- toxic appearing; cooperative; SpO2 98% on RA HEENT: normocephalic, atraumatic; PERRLA with EOMs intact; vision and hearing grossly intact Neck: supple; trachea midline Skin: Nondiaphoretic; warm, dry without signs of tenting; no cyanosis; no rashes, bruising, lesions, or erythema noted CV: chest wall NTP; RR, mildly tachycardic around 98 bpm; S1/S2 normal; no murmurs/rubs/gallops; pulses intact and symmetric at radial, DP, and PT Lungs: no acute respiratory distress; symmetrical chest wall expansion; clear breath sounds across all lung lindsay w/o adventitious sounds; no wheezing ABD: Soft, NTP; BS present; no rebound/guarding; no distention MSK: no tics or fasciculations; no tremors; no edema noted in the LEs b/l, nonerythematous; 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 Neuro: A&Ox3; normal mood and affect; fluent speech; sensation intact and symmetric in the LEs b/l Results & Data Results & Data Vital Signs (Past 12 Hours) Vital Signs Temp Pulse Pulse Resp BP BP Pulse Ox 02/04/25 13:45 82 02/04/25 11:09 36.7 C 91 H 20 134/82 98 02/04/25 07:16 73 02/04/25 06:59 37.1 C 81 18 142/89 H 99 02/04/25 03:18 36.7 C 82 16 120/73 95 O2 Del Method 02/04/25 13:45 02/04/25 11:09 Room Air 02/04/25 07:16 02/04/25 06:59 Room Air 02/04/25 03:18 Room Air PG Care Time/CCT Total # of Minutes Spent Total Time Spent with Patient: Total time spent is greater than 50% in coordination of care (as documented) at patient's floor/unit and/or counseling patient: Coding [place] [address] SUB INP/OBS CARE 2/35MIN Patient Type Established Medical Decision Making Moderate Complexity Diagnoses Alcohol withdrawal F10.939 Anxiety and depression F41.9; F32.A Hematochezia K92.1
[2025-02-04] MEDS: MAGNESIUM SULFATE / D5W 1 GM/100 ML BAG IV ONE ×2 (14:49→18:41)
[2025-02-04] MEDS: MELATONIN 3 MG TAB PO PRN (22:45)
[2025-02-05] MEDS: LACTATED RINGER'S 500 ML IV SCH (05:55)
[2025-02-05 06:29] LABS: Hematocrit (blood only) 38.6 % (42.0-52.0); Hemoglobin 12.9 g/dL (14.0-18.0); Mean Corpuscular Hemoglobin 31.1 pg (25.0-34.0); Mean Corpuscular Volume 93.0 fL (80.0-100.0); Platelet Count 251 K/uL (130-400); RDW Standard Deviation 43.7 fL (36.4-46.3); Red Blood Count 4.15 M/uL (4.70-6.10); White Blood Count 7.20 K/ul (4.8-10.8)
[2025-02-05 06:47] LABS: Anion Gap 7.0 (3-11); Blood Urea Nitrogen 10.0 mg/dl (6-23); Calcium 8.9 mg/dl (8.6-10.3); Carbon Dioxide 28.0 mmol/L (21-32); Chloride 104.0 mmol/L (98-107); Creatinine Clr Calc Pharmacy 150.7 ml/min; Glucose 92.0 mg/dl (70-99(Fasting)); Magnesium 1.9 mg/dl (1.7-2.4); Potassium 3.4 mmol/L (3.5-5.1); Sodium 139.0 mmol/L (136-145)
[2025-02-05] MEDS: POTASSIUM CHLORIDE / WTR 10 MEQ/100 ML PLCT IV ONE (09:45)
--- NOTE | 2025-02-05 09:53 | Hospitalist Progress Note ---
Date of Service February 05, 2025 Assessment & Plan (1) Alcohol withdrawal: (2) Anxiety and depression: (3) Hematochezia: (4) Hypokalemia: Plan This patient is a 34-year-old male with PMH of alcohol abuse who presented on 02/03 requesting admission for alcohol withdrawal. #Alcohol withdrawal Last drink the evening of 02/02 Typically drinks 1/2 to a 1/5 of liquor (vodka) per day Ethyl alcohol level mildly elevated at 14.7 on arrival Denies history of DTs, severe alcohol withdrawal, or withdrawal seizures However, PAWS scale: 4 (high risk) Intoxication within the last 30 days, prior alcohol withdrawal (at [facility] October 2024), blackouts, +BAL Initiate withdrawal protocol with phenobarbital IM 8mg/kg Phenobarbital 260 mg IM x 1, 195 mg IM x 1, 195 mg IM x 1 P.o. phenobarbital 60 mg p.o. BID x 2 days, then taper down to 30mg BID, then 15mg BID Thiamine + folic acid supplementation Continuous telemonitoring RASS scoring Case management consult placed to discuss alcohol cessation and possible rehab options #Anxiety and depression Continue sertraline, quetiapine Hold clonidine #Hematochezia Patient reported ongoing BRB in stool No BMs yet in the hospital Most recent EGD in 2019 revealed gastritis Most recent colonoscopy 2016 revealed internal hemorrhoids Reviewed GI note from patient's admission at [facility] in October 2024: 10/19/2024: Recommended PPI twice daily, and outpatient EGD/colonoscopy Switch to Protonix 40 mg p.o. BID for now Requested nursing staff to alert me if any blood in stool/melena #Hypokalemia Mild; K 3.4 on the morning of 02/05 K rider 10mEq x 1 Trend BMP #Gout Continue allopurinol Disposition: Continued stay on PCU telemetry VTE PPx: Low risk, encourage ambulation Admission and Anticipated Discharge Date Admission Date: February 03, 2025 Supervising Physician Co-Signing Physician Notes Attending Attestation - Chart reviewed, care plan d/w THELMA Esqueda. I agree w/ the welsh components of his documentation. Osmar Bone MD Subjective Mr. Piedra had a rough night last night. He endorses insomnia, abdominal pain, nausea, heart racing (which he attributes to anxiety), severe headache (like a tight band squeezing around his head), and diaphoresis. While he denies visual/auditory hallucinations, his tremors have become more prominent. While he does not believe he had a fever last night, he felt very sweaty/soaked, and was having chills. No vomiting, but has been feeling nauseous (Zofran has been helping). While he originally felt like the IM phenobarbital was helping, he has felt no real difference with the p.o. phenobarbital. Patient is requesting a cold shower this morning, as he believes that might calm down his symptoms. He took a short walk yesterday, and was feeling generalized fatigue and some dizziness (which he attributes to his POTS), but feels like he would be okay to shower this morning. ROS: Patient endorses headache, worsening tremors, diaphoresis, insomnia, intermittent rapid heart rate, Patient denies visual/auditory hallucinations, changes in vision, chest pain, chest palpitations, SOB, cough, abdominal pain, vomiting, diarrhea, changes in urinary/bowel habits, or numbness or tingling in the arms or legs. Review of Systems 2 Review of Systems: See HPI above Physical Exam Physical Exam: General: no acute distress; pleasant affect; laying in bed watching TV; non- toxic appearing; cooperative; SpO2 96% on RA HEENT: normocephalic, atraumatic; PERRLA with EOMs intact; vision and hearing grossly intact Neck: supple; trachea midline Skin: Diaphoretic; warm; no cyanosis; no rashes, bruising, lesions, or erythema noted CV: chest wall NTP; RRR; pulses intact and symmetric at radial, DP, and PT Lungs: no acute respiratory distress; symmetrical chest wall expansion; clear breath sounds across all lung lindsay w/o adventitious sounds; no wheezing ABD: Soft, mildly TTP in the RUQ and LUQ; BS present; no rebound/guarding; no distention MSK: no tics or fasciculations; no tremors; no edema noted in the LEs b/l, nonerythematous Neuro: A&Ox3; normal mood and affect; fluent speech; sensation intact and symmetric lower extremity bilaterally assessed via light touch Results & Data Results & Data Vital Signs (Past 12 Hours) Vital Signs Temp Pulse Pulse Resp BP Pulse Ox O2 Del Method 02/05/25 07:20 36.6 C 78 16 107/70 96 Room Air 02/05/25 07:19 76 02/05/25 04:08 36.4 C L 74 18 129/85 97 Room Air 02/04/25 22:58 37.0 C 85 18 130/85 97 Room Air PG Care Time/CCT Total # of Minutes Spent Total Time Spent with Patient: Total time spent is greater than 50% in coordination of care (as documented) at patient's floor/unit and/or counseling patient: Coding [place] [address] SUB INP/OBS CARE 3/50MIN Patient Type Established Medical Decision Making High Complexity Diagnoses Alcohol withdrawal F10.939 Complication of substance-induced condition: with unspecified complication Anxiety and depression F41.9; F32.A Hematochezia K92.1 Hypokalemia E87.6 (1) Alcohol withdrawal Complication of substance-induced condition: with unspecified complication Qualified Code(s): F10.939 - Alcohol use, unspecified with withdrawal, unspecified
--- NOTE | 2025-02-06 18:42 | Hospitalist Progress Note ---
Date of Service February 06, 2025 Assessment & Plan (1) Alcohol withdrawal: (2) Anxiety and depression: (3) Hematochezia: (4) Hypokalemia: Plan This patient is a 34-year-old male with PMH of alcohol abuse who presented on 02/03 requesting admission for alcohol withdrawal. #Alcohol withdrawal Last drink the evening of 02/02 Typically drinks 1/2 to a 1/5 of liquor (vodka) per day Ethyl alcohol level mildly elevated at 14.7 on arrival Denies history of DTs, severe alcohol withdrawal, or withdrawal seizures However, PAWS scale: 4 (high risk) Intoxication within the last 30 days, prior alcohol withdrawal (at [facility] October 2024), blackouts, +BAL Initiate withdrawal protocol with phenobarbital IM 8mg/kg Phenobarbital 260 mg IM x 1, 195 mg IM x 1, 195 mg IM x 1 P.o. phenobarbital 60 mg p.o. BID x 2 days, then taper down to 30mg BID, then 15mg BID Thiamine + folic acid supplementation Continuous telemonitoring RASS scoring Case management consult placed to discuss alcohol cessation and possible rehab options #Anxiety and depression Patient restarted on sertraline while in the hospital Continue quetiapine Hydroxyzine 25 mg p.o. PRN for anxiety Hold clonidine #Hematochezia (intermittent / ongoing) Intermittent BRB in stool prior to hospitalization, however he reports normal stool while inpatient Most recent EGD in 2019 revealed gastritis Most recent colonoscopy 2016 revealed internal hemorrhoids Reviewed GI note from patient's admission at [facility] in October 2024: 10/19/2024: Recommended PPI twice daily, and outpatient EGD/colonoscopy Switch to Protonix 40 mg p.o. BID for now Requested nursing staff to alert me if any blood in stool/melena #Hypokalemia Mild; K 3.4 on the morning of 02/05 K rider 10mEq x 1 Trend BMP #Gout Continue allopurinol Disposition: Downgrade from PCU telemetry -> MedSurg; hopeful discharge home tomorrow if no acute events overnight VTE PPx: Low risk, encourage ambulation Admission and Anticipated Discharge Date Admission Date: February 05, 2025 Subjective Mr. Piedra is doing better today compared to yesterday. He did still have night sweats last night as well as insomnia, but has not had any chest palpitations or tachycardia. He reports that his symptoms are usually worse at nighttime. Overall, he is feeling quite anxious today. He reports that he relapsed after his last hospitalization at [facility] 5 days after leaving the hospital due to anxiety. Patient is not currently on anxiety medications. He does take hydralazine and clonidine as needed, but was not currently on SSRIs prior to hospitalization. He had been off of sertraline for several years before having it restarted here in the hospital. Patient was informed that it may take 3 to 4 weeks before SSRI improves symptoms, however he would like to continue taking it at this time. Patient reports he felt better after having a shower yesterday, and reports he will try showering later today. Overall, he reports his appetite has been good so far in the hospital. No bowel movements yet today, but he reports he had a bowel meant yesterday that was loose stool (no blood). ROS: Patient endorses headache, anxiety, night sweats, nausea, and mild tremors (with improvement from prior). Patient denies visual/auditory hallucinations, changes in vision, chest pain, chest palpitations, SOB, cough, abdominal pain, vomiting, diarrhea, changes in urinary/bowel habits, or numbness or tingling in the arms or legs. Review of Systems Review of Systems: See HPI above Physical Exam Physical Exam: General: no acute distress; pleasant affect; anxious appearing; laying in bed watching TV; non-toxic appearing; cooperative; SpO2 100% on RA HEENT: normocephalic, atraumatic; PERRLA with EOMs intact; vision and hearing grossly intact Neck: supple; trachea midline Skin: Diaphoretic; warm; no cyanosis; no rashes, bruising, lesions, or erythema noted CV: chest wall NTP; RRR; pulses intact and symmetric at radial, DP, and PT Lungs: no acute respiratory distress; symmetrical chest wall expansion; clear breath sounds across all lung lindsay w/o adventitious sounds; no wheezing ABD: Soft, NTP in all 4 quadrant; BS present; no rebound/guarding; no distention MSK: no tics or fasciculations; minimal tremors in the hands bilaterally; no edema noted in the LEs b/l, nonerythematous Neuro: A&Ox3; normal mood and affect; fluent speech; sensation intact and symmetric lower extremity bilaterally assessed via light touch Results & Data Results & Data Vital Signs (Past 12 Hours) Vital Signs Temp Pulse Pulse Resp BP BP Pulse Ox 02/06/25 16:20 36.9 C 72 21 139/89 100 02/06/25 14:58 85 02/06/25 11:16 36.5 C 76 20 134/87 99 02/06/25 07:48 36.7 C 73 20 124/79 97 02/06/25 07:13 73 O2 Del Method 02/06/25 16:20 Room Air 02/06/25 14:58 02/06/25 11:16 Room Air 02/06/25 07:48 Room Air 02/06/25 07:13 PG Care Time/CCT Total # of Minutes Spent Total Time Spent with Patient: Total time spent is greater than 50% in coordination of care (as documented) at patient's floor/unit and/or counseling patient: C[place] [address] SUB INP/OBS CARE 2/35MIN Patient Type Established History Comprehensive Exam Comprehensive Medical Decision Making Moderate Complexity Diagnoses Alcohol withdrawal F10.939 Complication of substance-induced condition: with unspecified complication Anxiety and depression F41.9; F32.A Hematochezia K92.1 Hypokalemia E87.6 (1) Alcohol withdrawal Complication of substance-induced condition: with unspecified complication Qualified Code(s): F10.939 - Alcohol use, unspecified with withdrawal, unspecified
[2025-02-06] MEDS: ONDANSETRON INJ 2 MG/ML 2 ML VIAL IV STA (23:57)
[2025-02-07 09:08] LABS: Hematocrit (blood only) 43.3 % (42.0-52.0); Hemoglobin 14.4 g/dL (14.0-18.0); Mean Corpuscular Hemoglobin 31.4 pg (25.0-34.0); Mean Corpuscular Volume 94.5 fL (80.0-100.0); Platelet Count 277 K/uL (130-400); RDW Standard Deviation 44.0 fL (36.4-46.3); Red Blood Count 4.58 M/uL (4.70-6.10); White Blood Count 8.99 K/ul (4.8-10.8)
[2025-02-07 09:22] LABS: Anion Gap 9.0 (3-11); Blood Urea Nitrogen 13.0 mg/dl (6-23); Calcium 9.5 mg/dl (8.6-10.3); Carbon Dioxide 28.0 mmol/L (21-32); Chloride 101.0 mmol/L (98-107); Creatinine Clr Calc Pharmacy 156.6 ml/min; Glucose 89.0 mg/dl (70-99(Fasting)); Potassium 3.7 mmol/L (3.5-5.1); Sodium 138.0 mmol/L (136-145)
[2025-02-07] MEDS: PROCHLORPERAZINE 5 MG in SYRINGE 4 ML IV ONE (09:53)
[2025-02-07 09:57] LABS: Magnesium 1.8 mg/dl (1.7-2.4)
[2025-02-07 11:16] LABS: INR 1.0 (0.9-1.1); Prothrombin Time 11.0 Seconds (9.0-12.0)
[2025-02-07] MEDS: NALTREXONE HCL 50 MG TAB PO STA (15:16)
[2025-02-07] MEDS: LACTATED RINGER'S 500 ML IV ONE (15:55)
[2025-02-07] MEDS: FAMOTIDINE 20MG IV PUSH 20 MG/5 ML SYR IV ONE (16:30)
--- NOTE | 2025-02-07 17:51 | Hospitalist Progress Note ---
Date of Service February 07, 2025 Assessment & Plan (1) Alcohol withdrawal: (2) Anxiety and depression: (3) Hematochezia: (4) Hematemesis: Plan This patient is a 34-year-old male with PMH of alcohol abuse who presented on 02/03 requesting admission for alcohol withdrawal. #Alcohol withdrawal Last drink the evening of 02/02 Typically drinks 1/2 to a 1/5 of liquor (vodka) per day Ethyl alcohol level mildly elevated at 14.7 on arrival Denies history of DTs, severe alcohol withdrawal, or withdrawal seizures However, PAWS scale: 4 (high risk) Intoxication within the last 30 days, prior alcohol withdrawal (at [facility] October 2024), blackouts, +BAL Initiate withdrawal protocol with phenobarbital IM 8mg/kg Phenobarbital 260 mg IM x 1, 195 mg IM x 1, 195 mg IM x 1 P.o. phenobarbital 60 mg p.o. BID x 2 days, then taper down to 30mg BID, then 15mg BID Thiamine + folic acid supplementation Continuous telemonitoring RASS scoring Case management consult placed to discuss alcohol cessation and possible rehab options Initiate naltrexone 50 mg p.o. daily #Anxiety and depression Patient restarted on sertraline while in the hospital Continue quetiapine Hydroxyzine 25 mg p.o. PRN for anxiety Hold clonidine #Hematochezia (intermittent / ongoing) Intermittent BRB in stool prior to hospitalization, however he reports normal stool while inpatient Most recent EGD in 2019 revealed gastritis Most recent colonoscopy 2016 revealed internal hemorrhoids Reviewed GI note from patient's admission at [facility] in October 2024: 10/19/2024: Recommended PPI twice daily, and outpatient EGD/colonoscopy Switch to Protonix 40 mg p.o. BID for now Requested nursing staff to alert me if any blood in stool/melena #Hematemesis Reported by patient on 02/07 Continue on PPI BID Famotidine 20 mg IV Additional LR 500 mL IV x 1 ? suspect gastritis in setting of recent alcohol use Clear liquids and advance as tolerated #Gout Continue allopurinol Disposition: Downgraded from PCU telemetry -> MedSur on 02/06 Regarding discharge disposition: Patient reportedly vomiting blood on 02/07. Patient informed to let nursing staff know should he start vomiting again, so that they can assess the emesis. He tolerated a liquid diet for lunch, but struggled with solid foods thereafter. He is requesting to stay an additional night. At this time, I do not feel that patient's alcohol withdrawal symptoms are life- threatening as he is now 5 days out from his last drink. No seizures. No DTs. No visual/auditory hallucinations. It is possible for people to have residual withdrawal symptoms for up to 7 days after the last drink; however, I feel that patient's anxiety/gastritis are the primary source of his symptoms at this time. When discussing this with the patient, he expresses a desire to have the right scaffolding in place before discharge. He wants to start back up on naltrexone today, and reach out to his psychiatrist on 02/08 (during work hours). He explains that, during prior discharges, he would still be feeling unwell, and relapsed shortly after leaving the hospital, and expresses a strong desire to get through this withdrawal the right way. Additionally, patient reports he drove himself to the hospital. Patient was informed that he is not permitted to drive himself home while taking phenobarbital. Patient lives in [place]. When asked if he has anyone that can pick him up, he says he does not have any family or friends in the area. Upon discharge, would recommend arranging transport if he is still taking phenobarbital. VTE PPx: Low risk, encourage ambulation Admission and Anticipated Discharge Date Admission Date: February 05, 2025 Subjective Mr. Piedra reports he had another poor night and feels a lot of this morning. Patient ate dinner last night, and then began "vomiting up blood" later in the evening. He attempted to have breakfast this morning (eggs, toast, yogurt), and vomited 15 to 20 minutes after eating breakfast. He reports he feels like "absolute garbage", and has difficulty keeping down solids/fluids this morning. He also reports that his anxiety has been getting worse overnight. For instance, last night he went for a walk in the hallway as he felt like he was "crawling out of his skin". In regard to his withdrawal symptoms, he reports that he is still having night sweats/insomnia, but his tremors have largely improved. Discussed discharge disposition at this time. Patient expresses that he would not feel safe to return home if he is unable to keep down fluids. We discussed potential discharge if tolerating liquid diet for lunch. However, patient reports he still feels unwell/abdominal bloating/nausea with eating. Additionally, patient reports he drove himself to the hospital. He lives in [place]. He reports that he does not have any family or friends in the area that would be able to drive him home. He was informed that he would not be permitted to drive home while taking his current phenobarbital taper, and that we would be able to arrange transport for him home. ROS: Patient endorses nausea, vomiting, hematemesis, abdominal discomfort, night swe ats, and anxiety. Patient denies fever, tremors, visual/auditory hallucinations, chest pain, SOB, cough, diarrhea, BRB in stool, or numbness or tingling in the arms or legs. Review of Systems Review of Systems: See HPI above Physical Exam Physical Exam: General: no acute distress; anxious laying in bed watching TV; non-toxic appearing; cooperative; SpO2 98% on RA HEENT: normocephalic, atraumatic; PERRLA with EOMs intact; vision and hearing grossly intact Neck: supple; trachea midline Skin: Nondiaphoretic; warm; no cyanosis; no rashes, bruising, lesions, or erythema noted CV: chest wall NTP; RRR; pulses intact and symmetric at radial, DP, and PT Lungs: no acute respiratory distress; symmetrical chest wall expansion; clear breath sounds across all lung lindsay w/o adventitious sounds; no wheezing ABD: Soft, right upper quadrant and right lower quadrant are mildly TTP; BS present; no rebound/guarding; no distention MSK: no tics or fasciculations; minimal tremors in the hands bilaterally; no edema noted in the LEs b/l, nonerythematous Neuro: A&Ox3; normal mood and affect; fluent speech; sensation intact and symmetric lower extremity bilaterally assessed via light touch Results & Data Results & Data Vital Signs (Past 12 Hours) Vital Signs Temp Pulse Resp BP Pulse Ox O2 Del Method 02/07/25 14:34 36.7 C 81 16 151/96 H 98 Room Air 02/07/25 10:24 36.7 C 76 18 130/82 97 Room Air 02/07/25 07:25 36.9 C 75 18 129/81 98 Room Air PG Care Time/CCT Total # of Minutes Spent Total Time Spent with Patient: Total time spent is greater than 50% in coordination of care (as documented) at patient's floor/unit and/or counseling patient: C[place] [address] SUB INP/OBS CARE 3/50MIN Patient Type Established History Comprehensive Exam Comprehensive Medical Decision Making High Complexity Diagnoses Alcohol withdrawal F10.939 Complication of substance-induced condition: with unspecified complication Anxiety and depression F41.9; F32.A Hematochezia K92.1 Hematemesis K92.0 (1) Alcohol withdrawal Complication of substance-induced condition: with unspecified complication Qualified Code(s): F10.939 - Alcohol use, unspecified with withdrawal, unspecified
[2025-02-07] MEDS: PROCHLORPERAZINE 5 MG in SYRINGE 4 ML IV PRN (21:27)
--- NOTE | 2025-02-08 01:37 | Electrocardiogram Report ---
Test Reason : Blood Pressure : */* mmHG Vent. Rate : 80 BPM Atrial Rate : 80 BPM P-R Int : 136 ms QRS Dur : 86 ms QT Int : 386 ms P-R-T Axes : 34 64 44 degrees QTcB Int : 445 ms Normal sinus rhythm Nonspecific T wave abnormality Abnormal ECG When compared with ECG of 03-Feb-2025 17:14, Nonspecific T wave abnormality no longer evident in Anterior leads Confirmed by Patsy Auguste ([place]) on 02/08/2025 1:37:10 AM Referred By: REFERRED SELF Confirmed By: Patsy Auguste
--- NOTE | 2025-02-08 08:47 | Hospitalist Progress Note ---
"Date of Service February 08, 2025 Assessment & Plan (1) Alcohol withdrawal: (2) Anxiety and depression: (3) Hematochezia: (4) Hematemesis: Plan 34 y/o M w/ PMHx of ETOH abuse who presented 02/03 requesting admission for ETOH withdrawal. #Diarrhea | Hematochezia (intermittent / ongoing) - Pt reports BRBPR prior to hospitalization; EGD 2018 revealed gastritis; Colonoscopy 2015 revealed internal hemorrhoids -[facility] GI team recommended PPI BID + outpatient EGD/Colonoscopy (10/19/24) -Continue Protonix 40 mg PO BID for now -Pt to ring w/ vomiting, diarrhea - pt reported AM 02/08 that he has continued to have vomiting/diarrhea, this has not been witnessed by nursing staff -Nursing staff to alert w/ any blood/melena in stool -CBC, BMP, CRP, Procal in AM #Hematemesis - Reported by pt 02/08 & 02/08; Pt reported to nursing staff, staff did not observe any emesis; may be d/t gastritis in setting of ETOH abuse -Continue on PPI BID -Famotidine 20 mg IV -NSS 1000mL @ 125hr x1 bag -Clear liquids and advance as tolerated #Alcohol withdrawal - Last drink evening 02/02; Notes drinks 0.5-1 fifth of Vodka daily; Ethyl ETOH 14.7 on admission; -Pt denies hx DTs, severe withdrawal, and withdrawal seizures -However, PAWS scale: 4 (high risk); reports prev Intoxication within the last 30 days, prior alcohol withdrawal (at [facility] October 2024), bl ackouts, +BAL -Pt received withdrawal protocol with phenobarbital - Currently on 15mg BID -Thiamine + folic acid supplementation -RASS scoring - 0 02/08 -Case management consult placed to discuss alcohol cessation and possible rehab options -Continue naltrexone 50 mg p.o. daily #Anxiety and depression - No acute concerns -Hold Clonidine -Continue Sertraline, Quetiapine -Hydroxyzine 25mg PO prn anxiety #Gout - no acute concerns Continue allopurinol VTE PPx: Low risk, encourage ambulation Disposition: Med/Surg - awaiting rehab Regarding future discharge disposition: Pt previously stated he would be reaching out to his psychiatrist on 02/08 in hopes for closer f/u. Pt notes that he wants to have good plan in place to prevent future abuse and subsequent withdraw. Pt additionally states he drove himself to the hospital and will likely need transport arranged if still on phenobarbital. Admission and Anticipated Discharge Date Admission Date: February 05, 2025 Subjective Pt was laying in bed today in NAD. Pt states that despite improving sx overall, he continues to expierience some dizziness when ambulation. He feels that when he walks he is on the verge of a POTs episode. He notes that he continues to have difficulty with eating and drinking. He notes that he had an spisode of vomiting this AM; the nurse notes that the pt informed her of this but she did not visualize any emesis. Pt additionally notes that he continues to have diarrhea. Pt otherwise denies H/A, cough, congestion, SOB, CP, palpitations. Review of Systems Review of Systems: All systems reviewed & are unremarkable except as noted in Subjective Physical Exam Physical Exam: General: Pt is a 34 y/o overweight M in NAD in bed. VS: reviewed, remarkable - BP 142/89, P 102 Skin: Warm and dry; no lesions or ulcerations Respiratory: CTA bilat, no adventitious sounds noted. Chest expansion is full and symmetrical Cardio: RRR no murmurs Abdomen: Round, normoactive BS x4, nontender to palpation MSK: FROM of extremities, no deformities Extremities: no edema Neuro: A&Ox4, cooperative Results & Data Results & Data Vital Signs (Past 12 Hours) Vital Signs Temp Pulse Resp BP Pulse Ox O2 Del Method 02/08/25 08:03 98.1 F 84 18 146/94 H 100 Room Air 02/07/25 23:13 97.9 F 78 17 148/89 H 98 Room Air Laboratory Results PG Care Time/CCT Total # of Minutes Spent Total Time Spent with Patient: Total time spent is greater than 50% in coordination of care (as documented) at patient's floor/unit and/or counseling patient: Coding Level of Care Code 45571 SUB INP/OBS CARE 2/35MIN Diagnoses Alcohol withdrawal F10.939 Complication of substance-induced condition: with unspecified complication Anxiety and depression F41.9; F32.A Hematochezia K92.1 Hematemesis K92.0 (1) Alcohol withdrawal Complication of substance-induced condition: with unspecified complication Qualified Code(s): F10.939 - Alcohol use, unspecified with withdrawal, unspecified"
[2025-02-08] MEDS: NALTREXONE HCL 50 MG TAB PO SCH (09:36)
[2025-02-08] MEDS: SODIUM CHLORIDE 0.9% 1,000 ML IV ONE (17:27)
[2025-02-09 07:11] LABS: Hematocrit (blood only) 42.8 % (42.0-52.0); Hemoglobin 14.1 g/dL (14.0-18.0); Immature Granulocytes # (auto) 0.03 K/uL (0.01-0.20); Immature Granulocytes % (auto) 0.4 %; Mean Corpuscular Hemoglobin 30.7 pg (25.0-34.0); Mean Corpuscular Volume 93.0 fL (80.0-100.0); Platelet Count 242 K/uL (130-400); RDW Standard Deviation 44.0 fL (36.4-46.3); Red Blood Count 4.60 M/uL (4.70-6.10); White Blood Count 8.01 K/ul (4.8-10.8)
[2025-02-09 07:54] LABS: Anion Gap 8.0 (3-11); Blood Urea Nitrogen 12.0 mg/dl (6-23); Calcium 9.4 mg/dl (8.6-10.3); Carbon Dioxide 26.0 mmol/L (21-32); Chloride 105.0 mmol/L (98-107); Creatinine Clr Calc Pharmacy 176.4 ml/min; Glucose 71.0 mg/dl (70-99(Fasting)); Potassium 3.8 mmol/L (3.5-5.1); Sodium 139.0 mmol/L (136-145)
[2025-02-09 08:40] VITALS: O2SAT 98
--- NOTE | 2025-02-09 09:47 | Hospitalist Progress Note ---
"Date of Service February 09, 2025 Assessment & Plan (1) Alcohol withdrawal: (2) Anxiety and depression: (3) Hematochezia: (4) Hematemesis: Plan 34 y/o M w/ PMHx of ETOH abuse who presented 02/03 requesting admission for ETOH withdrawal. #Diarrhea | Hematochezia (intermittent / ongoing) - Pt reports BRBPR prior to hospitalization; EGD 2018 revealed gastritis; Colonoscopy 2015 revealed internal hemorrhoids -[facility] GI team recommended PPI BID + outpatient EGD/Colonoscopy (10/19/24) -Continue Protonix 40 mg PO BID for now -Pt to ring w/ vomiting, diarrhea - pt reported AM 02/08 that he has continued to have vomiting/diarrhea, this has not been witnessed by nursing staff -Nursing staff to alert w/ any blood/melena in stool -CBC, BMP, CRP, Procal in AM #Hematemesis - Reported by pt 02/08 & 02/08; Pt reported to nursing staff, staff did not observe any emesis; may be d/t gastritis in setting of ETOH abuse -Continue on PPI BID -Famotidine 20 mg IV -NSS 1000mL @ 125hr x1 bag -Clear liquids and advance as tolerated #Alcohol withdrawal - Last drink evening 02/02; Notes drinks 0.5-1 fifth of Vodka daily; Ethyl ETOH 14.7 on admission; -Pt denies hx DTs, severe withdrawal, and withdrawal seizures -However, PAWS scale: 4 (high risk); reports prev Intoxication within the last 30 days, prior alcohol withdrawal (at [facility] October 2024), bl ackouts, +BAL -Pt received withdrawal protocol with phenobarbital - Currently on 15mg BID -Thiamine + folic acid supplementation -RASS scoring - 0 02/08 -Case management consult placed to discuss alcohol cessation and possible rehab options -Continue naltrexone 50 mg p.o. daily #Anxiety and depression - No acute concerns -Hold Clonidine -Continue Sertraline, Quetiapine -Hydroxyzine 25mg PO prn anxiety #Gout - no acute concerns Continue allopurinol VTE PPx: Low risk, encourage ambulation Disposition: Med/Surg - awaiting rehab Regarding future discharge disposition: Pt previously stated he would be reaching out to his psychiatrist on 02/08 in hopes for closer f/u. Pt notes that he wants to have good plan in place to prevent future abuse and subsequent withdraw. Pt additionally states he drove himself to the hospital and will likely need transport arranged if still on phenobarbital. Admission and Anticipated Discharge Date Admission Date: February 05, 2025 Physical Exam Physical Exam: General: Pt is a 34 y/o overweight M in NAD in bed. VS: reviewed, remarkable - BP 142/89, P 102 Skin: Warm and dry; no lesions or ulcerations Respiratory: CTA bilat, no adventitious sounds noted. Chest expansion is full and symmetrical Cardio: RRR no murmurs Abdomen: Round, normoactive BS x4, nontender to palpation MSK: FROM of extremities, no deformities Extremities: no edema Neuro: A&Ox4, cooperative Results & Data Results & Data Vital Signs (Past 12 Hours) Vital Signs Temp Pulse Resp BP BP Pulse Ox O2 Del Method 02/09/25 07:56 98.2 F 86 18 167/100 H 141/93 H 98 Room Air 02/08/25 22:51 98.1 F 91 H 16 133/91 97 Room Air PG Care Time/CCT Total # of Minutes Spent Total Time Spent with Patient: Total time spent is greater than 50% in coordination of care (as documented) at patient's floor/unit and/or counseling patient: Coding Diagnoses Alcohol withdrawal F10.939 Complication of substance-induced condition: with unspecified complication Anxiety and depression F41.9; F32.A Hematochezia K92.1 Hematemesis K92.0 (1) Alcohol withdrawal Complication of substance-induced condition: with unspecified complication Qualified Code(s): F10.939 - Alcohol use, unspecified with withdrawal, unspecified"
[2025-02-09] MEDS: PROMETHAZINE HCL SYRUP 6.25 MG/5 ML PO PRN (15:18)
[2025-02-09] MEDS ORDERED: ONDANSETRON 4 MG OD TAB PO PRN (15:42)
--- NOTE | 2025-02-09 17:04 | Discharge Summary ---
"Discharge Summary Date of Service February 09, 2025 Principal Dx & Hospital Course #1 = Principal Diagnosis (1) Alcoholism: (2) Alcohol withdrawal: (3) Vomiting: (4) Anxiety and depression: Plan #Alcoholism | ETOH Withdrawal - 34 y/o M w/ PMHx of ETOH abuse who presented 02/03 requesting admission for ETOH withdrawal. Pt initially presented to the ED requesting admission d/t concerns of experiencing ETOH withdrawal, Pt's Ethyl ETOH level was 14.7 on admission. Pt had recently been admitted to [facility] for ETOH abuse. Pt was admitted and received Thiamine and Folic acid supplementation in addition to Phenobarbital per ETOH withdrawal protocol. Pt completed course of phenobarbitol during inpatient stay. Pt was provided a list of various rehab facilities by Case Management at the beginning of his hospital stay and was encouraged to follow-up with rehab should his alcoholism persist on an outpatient basis. Pt was encouraged to follow-up with his psychiatrist on an out patient basis. Pt should follow-up with PCP within one week of discharge. #Vomiting | Diarrhea - Pt reported experiencing nausea, vomiting, and diarrhea on 02/07 in the evening. Pt had reported blood in his bowels and emesis at that time. No episodes of diarrhea were observed during inpatient stay and stools were without gross blood. It had been observed by nursing staff that pt was able to eat parts of his meals and snacks in addition to drinking fluids. Pt overall experienced 2 episodes of vomiting during inpatient stay which were described by nursing staff to be primarily liquid and without gross amounts of food. No blood was seen in emesis by nursing staff. Overall, pt's story of sx was inconsistent to what was observed by nursing staff. Pt was provided a prescription for Zofran upon discharge and encouraged to continue water intake and eat small bland meals. Pt should follow-up with outpatient GI per [facility] recommendations from previous hospitalization for repeat EGD and Colonoscopy. Pt should continue PPI as prescribed. #Anxiety and depression - No acute concerns, continue home regimen as prescribed. #Gout - no acute concerns, continue allopurinol as prescribed. Disposition: Home Self-Care; Pt is now 7 days out from his last drink of alcohol. Pt is not experiencing any life threatening symptoms and is stable for discharge. Admission HPI Per Admitting Provider Mr. Piedra is a 34-year-old male with PMH of rheumatoid arthritis, anxiety, depression, prior PE, thrombocytopenia, POTS, gout, and alcohol use disorder. He presented on 02/03 requesting to be admitted for alcohol withdrawal. Patient's last drink was last night on the evening of 02/02. He typically drinks 1/2-1/5 of liquor (vodka) per day. History of prior admissions for similar. While he is not having severe symptoms at this time, he mainly feels fatigued/sick. He reports minimal withdrawal symptoms the past (mild tremors). Last alcohol withdrawal occurred at [facility] in October 2024. After he finished withdrawing, he started drinking again a few days after discharge. This cycle has been ongoing x 1 year. He denies any specific triggers that cause him to relapse, but does report that life stressors get in the way. He expresses a strong desire to get off of alcohol permanently. No prior history of alcohol withdrawal seizures. No prior history of DTs or visual/auditory hallucinations when withdrawing. Patient believes that phenobarbital has worked for him well during past withdrawals. Patient declines inpatient rehab at time of admission; he tried this in the past and had a bad experience at [facility]. Barrett botello did not take his regular morning medicine today; no recent change in medications. He denies tobacco use, vaping, and IV drug use. Patient lives alone, but does have family nearby (in [facility]) he denies any new life stressors, SI, HI, or thoughts of self-harm. Patient is hypertensive at 149/95, and tachycardic at 96 bpm at time of admission. ED course: Diazepam 10 mg IV x 1 ROS: Patient endorses generalized fatigue and headache. Patient denies fevers, chills, night sweats, tremors, lightheadedness/dizziness with walking, changes in vision, photophobia, neck pain, chest pain, chest palp itations, SOB, cough, abdominal pain, N/V/D, changes in urinary/bowel habits, burning with urination, blood in the urine or stool, or numbness or tingling in the arms or legs. Discharge Exam General: Pt is a 34 y/o overweight M in NAD in bed. VS: reviewed, remarkable - BP 142/89, P 86 Skin: Warm and dry; no lesions or ulcerations Respiratory: CTA bilat, no adventitious sounds noted. Chest expansion is full and symmetrical Cardio: RRR no murmurs Abdomen: Round, normoactive BS x4, nontender to palpation MSK: FROM of extremities, no deformities Extremities: no edema Neuro: A&Ox4, cooperative Discharge Plan Discharge Items Patient Disposition: Home - Self-Care Reason For Visit: ALCOHOL WITHDRAWAL Discharge Diagnosis: Alcohol withdrawal, anxiety Condition on Discharge: Good Activity: Resume your previous activity Non-emergency contact: Primary Care Provider Call non-emergency contact if: you have any medication questions, your symptoms worsen, your pain is not controlled and your temperature is above 101.5 Follow-up/Referrals: Amee Toribio PA-C [Primary Care Provider] - (Follow-up within one week ) Diet: Regular Addtl Attending Provider Instructions: Hospital Course: You were hospitalized at [facility] from 02/03 - 02/09 d/t ETOH abuse with concern for withdrawal at your request. While you were in the hospital, your received Phenobarbital as per standard alcohol withdrawal protocol. While you were in the hospital, no severe/life-threatening symptoms of alcohol withdrawal were noted. During your hospital stay, it was observed that you experienced nausea on 02/07 - 02/09 and experienced 2 episodes of vomiting. It was otherwise observed that you were able to eat meals, pudding, and drink water without additional episodes of vomiting. It's important to note that symptoms like nausea & vomiting can persist following discontinuation of alcohol abuse. These symptoms should ease after a few days. To help with nausea, you will be prescribed Zofran upon discharge, which you will be able to sweet pickled fruit maker from your pharmacy. Discharge Instructions: -Please take Zofran as prescribed -Continue to drink fluids -Eat small bland meals to help with nausea surrounding meal time -You are encouraged to seek a rehab facility + follow up with your psychiatrist about your continued alcohol abuse -Follow-up with your PCP within 1 week of discharge Medications: Your medication list has been reviewed and reconciled upon discharge to ensure accuracy and continuity of care. An updated list of all your medications is included with your hospital discharge paperwork. Please review this list closely, and make note of any changes. We sent a new medication called Zofran to your pharmacy. Take every 6 hours as needed for nausea. Take your medications as instructed; do not skip a dose of your medicines. Make sure all of your doctors know every medicine you are taking (including uidq-hjq-lgyczly medicines, vitamins, and supplements). Call your primary care provider before taking any new medicines (including over- the-counter medicines, vitamins, and supplements), because some of these may interact with your current medications, or may make your symptoms worse. Tell your primary care provider if you cannot afford your medications. Activity: You can do normal everyday activities as your body allows. Take rest breaks if you feel tired. Do not overexert. Stop activity if you have pain, shortness of breath or feel dizzy. Follow-up appointments: Make an appointment with your primary care physician within one week of discharge. A copy of this summary will be sent to them. Every time you see your primary care physician, or any other doctor, bring your medication list, and a list of questions. CONTACT YOUR PRIMARY CARE PROVIDER if you experience any of the following: Shortness of breath or difficulty breathing Fevers or chills Feeling tired with normal activity or experiencing dizziness or fainting Difficulty following your treatment plan, or difficulty taking medications CALL 911 OR GO TO THE EMERGENCY DEPARTMENT if you experience any of the following: Severe abdominal pain or nausea/vomiting Severe chest pain, or chest pain that radiates (moves) to your jaw or arm Sudden, severe shortness of breath or difficulty breathing Thank you for allowing us to participate in your care. Pending Studies at Discharge: No Stand-Alone Forms: My [facility] [address] Medications and DC Order Prescriptions: New ondansetron 4 mg tablet,disintegrating 4 mg PO Q6H PRN (Reason: nausea and vomiting) Qty: 20 0RF Continued sertraline 50 mg tablet 50 mg PO DAILY Rx Instructions: LAST FILLED 04/30/24 FOR 30 DAYS/30 TABS. sucralfate 100 mg/mL suspension 10 ml PO ACHS Rx Instructions: ON EXT MED HX 01/31/25 FOR 10 DAYS. PT DID NOT MENTION THIS MEDICATION. ondansetron HCl 4 mg tablet 4 mg PO TID PRN (Reason: NAUSEA/VOMITING) Rx Instructions: ON EXT MED HX 01/31/25 FOR 10 DAYS. PT DID NOT MENTION THIS MEDICATION. meloxicam 7.5 mg Tablet 7.5 mg PO DAILY PRN (Reason: Pain) Rx Instructions: LAST FILLED 08/16/24 FOR 14 TABS/14 DAYS. clonidine HCl 0.2 mg tablet 0.2 mg PO DAILY PRN (Reason: Anxiety) amlodipine 10 mg tablet 5 mg PO DAILY Rx Instructions: ON EXT MED HX 01/31/25 FOR 30 DAYS. PT DID NOT MENTION THIS MEDICATION. omeprazole 20 mg capsule,delayed release(DR/EC) 40 mg PO DAILY allopurinol 300 mg tablet 300 mg PO DAILY Rx Instructions: LAST FILLED 11/24/24 FOR 30 TABS/30 DAYS quetiapine 50 mg tablet 50 mg PO HS Rx Instructions: ON EXT MED HX 01/31/25 FOR 30 DAYS. PT DID NOT MENTION THIS MEDICATION. Discharge Orders: Discharge Order (Routine); Ordered 02/09/25 Ordered By: Letitia Ramos/Other Patient Handouts: Alcohol Withdrawal: What to Expect Admission Data Admit Date/Time: 02/05/25 09:51 Attending Provider: Harsh Gasca Admit Provider: Jesus Brasher Primary Care Provider: Amee Toribio Other Providers: [facility] Stay Data Pending Results Patient Have Any Pending Studies at Discharge: No Discharge Instructions Given to Patient (Per Discharging Provider) Hospital Course: You were hospitalized at [facility] from 02/03 - 02/09 d/t ETOH abuse with concern for withdrawal at your request. While you were in the hospital, your received Phenobarbital as per standard alcohol withdrawal protocol. While you were in the hospital, no severe/life-threatening symptoms of alcohol withdrawal were noted. During your hospital stay, it was observed that you experienced nausea on 02/07 - 02/09 and experienced 2 episodes of vomiting. It was otherwise observed that you were able to eat meals, pudding, and drink water without additional episodes of vomiting. It's important to note that symptoms like nausea & vomiting can persist following discontinuation of alcohol abuse. These symptoms should ease after a few days. To help with nausea, you will be prescribed Zofran upon discharge, which you will be able to sweet pickled fruit maker from your pharmacy. Discharge Instructions: -Please take Zofran as prescribed -Continue to drink fluids -Eat small bland meals to help with nausea surrounding meal time -You are encouraged to seek a rehab facility + follow up with your psychiatrist about your continued alcohol abuse -Follow-up with your PCP within 1 week of discharge Medications: Your medication list has been reviewed and reconciled upon discharge to ensure accuracy and continuity of care. An updated list of all your medications is included with your hospital discharge paperwork. Please review this list closely, and make note of any changes. We sent a new medication called Romie to your pharmacy. Take every 6 hours as needed for nausea. Take your medications as instructed; do not skip a dose of your medicines. Make sure all of your doctors know every medicine you are taking (including aiiw-vcj-exaypyn medicines, vitamins, and supplements). Call your primary care provider before taking any new medicines (including over- the-counter medicines, vitamins, and supplements), because some of these may interact with your current medications, or may make your symptoms worse. Tell your primary care provider if you cannot afford your medications. Activity: You can do normal everyday activities as your body allows. Take rest breaks if you feel tired. Do not overexert. Stop activity if you have pain, shortness of breath or feel dizzy. Follow-up appointments: Make an appointment with your primary care physician within one week of discharge. A copy of this summary will be sent to them. Every time you see your primary care physician, or any other doctor, bring your medication list, and a list of questions. CONTACT YOUR PRIMARY CARE PROVIDER if you experience any of the following: Shortness of breath or difficulty breathing Fevers or chills Feeling tired with normal activity or experiencing dizziness or fainting Difficulty following your treatment plan, or difficulty taking medications CALL 911 OR GO TO THE EMERGENCY DEPARTMENT if you experience any of the following: Severe abdominal pain or nausea/vomiting Severe chest pain, or chest pain that radiates (moves) to your jaw or arm Sudden, severe shortness of breath or difficulty breathing Thank you for allowing us to participate in your care. Total Time Total Time Spent Total Time Spent (In Minutes): Time spent day of discharge 60 minutes including direct patient care, medication reconciliation, documentation, review of labs and images, and coordination of care. Coding Level of Care Code 95189 INP/OBS DISCH >30 MIN Diagnoses Alcoholism F10.20 Alcohol withdrawal F10.939 Complication of substance-induced condition: with unspecified complication Vomiting R11.10 Anxiety and depression F41.9; F32.A"
[2025-02-09 17:08] VITALS: BP 139/84; PULSE 88; RESP 20; TEMP 99.1
== END 2025-02-09 17:46 | disposition home or self-care (01) | DRG 897 ==
LOC: ED 12:01 → 2S 12:01 → SUATTDRO 17:27 → 2S 18:28 → SUATTDRO 02-05 09:51 → 3N 02-06 20:42
DX: M06.9 Rheumatoid arthritis, unspecified; K92.1 Melena; F10.139 Alcohol abuse with withdrawal, unspecified; R19.7 Diarrhea, unspecified; G90.A Postural orthostatic tachycardia syndrome [POTS]; D69.6 Thrombocytopenia, unspecified; Z90.49 Acquired absence of other specified parts of digestive tract; Z79.899 Other long term (current) drug therapy; F32.A Depression, unspecified; G60.9 Hereditary and idiopathic neuropathy, unspecified; K92.0 Hematemesis; E87.6 Hypokalemia; Y90.0 Blood alcohol level of less than 20 mg/100 ml; F41.9 Anxiety disorder, unspecified; M10.9 Gout, unspecified

== ENCOUNTER 2025-02-21 16:47 | Inpatient (IN) ==
--- NOTE | 2025-02-21 17:18 | Emergency Department Note ---
Impression & Plan Alcohol withdrawal, Hypomagnesemia, Acute hypokalemia ED Provider Note HISTORY OF PRESENT ILLNESS: Patient is a 34-year-old male presenting with alcohol withdrawal. Patient reports he drinks three fourths to a fifth of vodka a day. He has been doing this for the last 12 days since his discharge from the hospital for previous alcohol detox. He states that he really wants to get sober this time. He reports his last drink was last night. Denies any withdrawal seizure history. He currently feels slightly nauseous and a little bit shaky. Denies any chest pain or shortness of breath. ROS: as above PHYSICAL EXAM: Constitutional: Patient appears in no acute distress. HENT: Head: Normocephalic and atraumatic. Eyes: EOMI, PERRL Mouth/Throat: Mucous membranes moist. Neck: Trachea midline. Neck supple. Cardiovascular: RRR, No murmurs, rubs or gallops. Intact distal pulses. Pulmonary/Chest: No respiratory distress. Breath sounds clear and equal bilaterally. No wheezes or rales. Abdominal: Abdomen soft, no tenderness, rebound or guarding. Musculoskeletal: No edema, tenderness or deformity noted. Skin: Warm and dry. No rash, erythema, pallor or cyanosis Psychiatric: Appropriate mood and affect for situation. Neurological: Alert and keenly responsive. CN II-XII grossly intact, moving all extremities equally and fully. MDM: - Vitals signs showed hypertension and tachycardia. - History obtained via patient. History as above. - Chronic conditions affecting care: HTN; PE; alcoholism - Differential diagnoses include, but are not limited to: Electrolyte abnormality; alcohol withdrawal; alcohol intoxication; dehydration - Order placed for continuous cardiac monitoring. At this time, monitor showed rate of 74 bpm with normal sinus rhythm, per my interpretation. - External medical records reviewed. Discharge summary dated 02/09/2025 was reviewed. Patient was admitted for alcoholism and alcohol withdrawal. He was admitted from 02/20/2025 to 02/09/2025. - EKG image interpreted by myself showed normal sinus rhythm. Rate 87 bpm. QT 362. No acute ischemic changes. - Laboratory workup interpreted by myself showed normal WBC; slight hypokalemia (K 3.2); hypomagnesemia (Mg 1.5); elevated anion gap; negative alcohol - Alcohol withdrawal severity score on arrival 5. - RASS score only 1. Phenobarb ordered, but not initiated per protocols for low RASS score - Discussion was had with insurance case manager about patient's case and need for admission - Hospitalist consulted for admission - Patient [facility] for further evaluation and management. ASSESSMENT AND PLAN: Diagnosis: Alcohol withdrawal; acute hypokalemia; hypomagnesemia Plan: Admit Past Med/Surg History Problem List (Updated 02/21/25 @ 19:04 by Maye Carney MD) Acute hypokalemia (Acute) Hypomagnesemia (Acute) Alcohol withdrawal (Acute) Hypokalemia (Acute) Hypomagnesemia (Acute) Alcohol use disorder, severe, dependence Alcoholism Vomiting Hematemesis Alcohol withdrawal (Acute) Cognitive dysfunction Fatigue Idiopathic polyneuropathy Leg weakness, bilateral Anxiety and depression Vitamin D deficiency Infection of scalp Swelling of first metatarsophalangeal (MTP) joint of left foot Hyponatremia Hyperuricemia Elevated liver function tests Vasovagal syncope Arthralgia of multiple sites Medical History Hematochezia Hypokalemia History of pulmonary embolus (PE) Gout History of pancreatitis Alcohol abuse Neuropathy B12 deficiency Depression HTN (hypertension) Anxiety POTS (postural orthostatic tachycardia syndrome) Surgical History S/P cholecystectomy January 2016 Family History Sister VTE (venous thromboembolism) Father Hyperlipidemia Other Colorectal cancer Diabetes Myocardial infarction Denies family history of Ovarian cancer Prostate cancer Alcoholism Breast cancer Lung cancer Social History Smoking Status: Never smoker Second Hand Exposure: No; Do You Dip or Chew Tobacco: No; Hx Alcohol Use: Yes Alcohol type: hard liquor Alcohol type Comment: vodka - fifth/day Alcohol Intake Frequency: 4 or More x per/Week Hx Substance Use: No Preferred Language: Nigerien Communication Ability: Effective Hearing Ability: Normal Clinical Reviewer Required: No Beliefs That Will Affect Care: None marital status: Single Current Living Situation: Alone Current Living Situation Comment: house current occupational status: employed and unemployed current occupation: nursing How many Children do You have: 0 Feels Safe at Home: Yes Dental Care, Regularly: Yes Physical Activity Frequency: Does not Exercise Assistive Devices: None Allergies Allergies Allergy/AdvReac Type Severity Reaction Status Date / Time No Known Allergies Allergy Verified 02/03/25 14:54 Home Meds Home Medications Medication Instructions Recorded Confirmed sertraline 50 mg tablet 50 mg PO DAILY 06/11/24 02/03/25 allopurinol 300 mg tablet 300 mg PO DAILY 02/03/25 02/03/25 amlodipine 10 mg tablet 5 mg PO DAILY 02/03/25 02/03/25 clonidine HCl 0.2 mg tablet 0.2 mg PO DAILY PRN Anxiety 02/03/25 02/03/25 meloxicam 7.5 mg tablet 7.5 mg PO DAILY PRN Pain 02/03/25 02/03/25 omeprazole 20 mg capsule,delayed 40 mg PO DAILY 02/03/25 02/03/25 release ondansetron HCl 4 mg tablet 4 mg PO TID PRN NAUSEA/VOMITING 02/03/25 02/03/25 quetiapine 50 mg tablet 50 mg PO HS 02/03/25 02/03/25 sucralfate 100 mg/mL oral 10 ml PO ACHS 02/03/25 02/03/25 suspension Previous Rx's Medication Instructions Recorded ondansetron 4 mg disintegrating 4 mg PO Q6H PRN nausea and 02/09/25 tablet vomiting #20 tabs Results & Data (ED) Vital Signs Vital Signs - 24 hr 02/21/25 16:51 02/21/25 17:11 02/21/25 17:14 Temperature 36.3 C L 37.2 C Temperature Source Temporal Artery Scan Oral Pulse Rate 103 H 77 Pulse Rate [Left Apical] 92 H Respiratory Rate 20 18 Respiratory Effort / Characteristics Non-Labored Spontaneous Respiratory Depth Normal Respiratory Pattern Regular Blood Pressure 173/119 H Blood Pressure [Left Arm] 154/112 H Blood Pressure Mean 137 Blood Pressure Mean [Left Arm] 126 Pulse Oximetry 99 99 Oxygen Delivery Method Room Air Sepsis Recent Fever Within 48 Hours No Sepsis New/Unexplained Change in Mental Status No Sepsis Action Taken by Nursing No Action Required 02/21/25 17:30 02/21/25 18:00 02/21/25 18:37 Temperature 37.5 C Temperature Source Oral Pulse Rate 88 93 H Pulse Rate [Left Apical] 74 Respiratory Rate 13 24 18 Respiratory Effort / Characteristics Non-Labored Spontaneous Respiratory Depth Normal Respiratory Pattern Regular Blood Pressure 154/104 H 156/92 H Blood Pressure [Left Arm] 168/107 H Blood Pressure Mean 120 113 Blood Pressure Mean [Left Arm] 127 Pulse Oximetry 96 99 Oxygen Delivery Method Room Air Room Air Sepsis Recent Fever Within 48 Hours Sepsis New/Unexplained Change in Mental Status Sepsis Action Taken by Nursing Laboratory Data 02/21/25 17:09 02/21/25 17:09 Lab Results 02/21/25 Range/Units 17:09 WBC 6.62 (4.8-10.8) K/ul RBC 4.92 (4.70-6.10) M/uL Hgb 14.8 (14.0-18.0) g/dL Hct 44.8 (42.0-52.0) % MCV 91.1 (80.0-100.0) fL MCH 30.1 (25.0-34.0) pg MCHC 33.0 (32.0-36.0) g/dL RDW Std Deviation 41.8 (36.4-46.3) fL RDW Coeff of Nohemy 12.6 (11.5-14.5) % Plt Count 317 (130-400) K/uL MPV 9.5 (9.4-12.4) fL Immature Gran % (Auto) 0.3 % Neut % (Auto) 74.4 % Lymph % (Auto) 17.8 % Blair % (Auto) 6.5 % Eos % (Auto) 0.5 % Baso % (Auto) 0.5 % Neut # (Auto) 4.93 (1.40-6.50) K/uL Lymph # (Auto) 1.18 L (1.20-3.40) K/uL Blair # (Auto) 0.43 (0.11-0.59) K/uL Eos # (Auto) 0.03 (0.00-0.50) K/uL Baso # (Auto) 0.03 (0.00-0.20) K/uL Immature Gran # (Auto) 0.02 (0.01-0.20) K/uL Sodium 143 (136-145) mmol/L Potassium 3.2 L (3.5-5.1) mmol/L Chloride 102 (98-107) mmol/L Carbon Dioxide 29 (21-32) mmol/L Anion Gap 12 H (3-11) BUN 9 (6-23) mg/dl Creatinine 0.75 (0.6-1.4) mg/dl Est Cr Clr Drug Dosing 165.4 ml/min eGFR 121.44 BUN/Creatinine Ratio 12.0 (10-20) Glucose 82 (70-99(Fasting)) mg/dl Calcium 9.7 (8.6-10.3) mg/dl Magnesium 1.5 L (1.7-2.4) mg/dl Total Bilirubin 0.4 (0.2-1.0) mg/dl AST 23 (13-39) U/L ALT 21 (7-52) U/L Alkaline Phosphatase 109 H (34-104) U/L Total Protein 8.2 (6.0-8.3) gm/dl Albumin 4.3 (3.4-5.0) gm/dl Globulin 3.9 (2.5-4.0) gm/dl Albumin/Globulin Ratio 1.1 (0.9-2) Lipase 17 (11-82) U/L Ethyl Alcohol mg/dL < 10.0 (<10.0) mg/dl Administered Medications Magnesium Sulfate/Dextrose (Magnesium Sulfate / D5w) 1 gm in 100 mls @ 50 mls/hr IV Q2H MALKA Stop: 02/21/25 22:29 Last Admin: 02/21/25 18:40 Dose: 50 mls/hr Documented By: [facility] Discontinued Medications Folic Acid (Folic Acid 1 Mg Tab) 1 mg PO NOW ONE Stop: 02/21/25 18:11 Last Admin: 02/21/25 18:40 Dose: 1 mg Documented By: ROBERTO Multivitamins (Multivitamin Tab) 1 tab PO NOW ONE Stop: 02/21/25 18:11 Last Admin: 02/21/25 18:39 Dose: 1 tab Documented By: [facility] Admin: 02/21/25 18:39 Dose: 1 tab Documented By: [facility] Potassium Chloride (Potassium Chloride Crtab 20 Meq Tabcr) 40 meq PO NOW STA Stop: 02/21/25 18:30 Last Admin: 02/21/25 18:39 Dose: 40 meq Documented By: [facility] Thiamine HCl (Thiamine Hcl 100 Mg Tab) 100 mg PO NOW ONE Stop: 02/21/25 18:11 Last Admin: 02/21/25 18:39 Dose: 100 mg Documented By: [facility] Discharge Plan Visit Data Chief Complaint: Alcohol Withdrawal Stated Complaint: ALCOHOL WITHDRAWL ED Provider: Maye Carney Discharge Problem: Alcohol withdrawal, Hypomagnesemia, Acute hypokalemia Patient Disposition: Admitted As Inpatient Condition: Fair Forms Stand Alone Forms: My [facility], Suicide Prevention Resources Prescriptions Prescriptions: No Action sertraline 50 mg tablet 50 mg PO DAILY Rx Instructions: LAST FILLED 04/30/24 FOR 30 DAYS/30 TABS. sucralfate 100 mg/mL suspension 10 ml PO ACHS Rx Instructions: ON EXT MED HX 01/31/25 FOR 10 DAYS. PT DID NOT MENTION THIS MEDICATION. ondansetron HCl 4 mg tablet 4 mg PO TID PRN (Reason: NAUSEA/VOMITING) Rx Instructions: ON EXT MED HX 01/31/25 FOR 10 DAYS. PT DID NOT MENTION THIS MEDICATION. meloxicam 7.5 mg Tablet 7.5 mg PO DAILY PRN (Reason: Pain) Rx Instructions: LAST FILLED 08/16/24 FOR 14 TABS/14 DAYS. clonidine HCl 0.2 mg tablet 0.2 mg PO DAILY PRN (Reason: Anxiety) amlodipine 10 mg tablet 5 mg PO DAILY Rx Instructions: ON EXT MED HX 01/31/25 FOR 30 DAYS. PT DID NOT MENTION THIS MEDICATION. omeprazole 20 mg capsule,delayed release(DR/EC) 40 mg PO DAILY allopurinol 300 mg tablet 300 mg PO DAILY Rx Instructions: LAST FILLED 11/24/24 FOR 30 TABS/30 DAYS quetiapine 50 mg tablet 50 mg PO HS Rx Instructions: ON EXT MED HX 01/31/25 FOR 30 DAYS. PT DID NOT MENTION THIS MEDICATION. ondansetron 4 mg tablet,disintegrating 4 mg PO Q6H PRN (Reason: nausea and vomiting) Qty: 20 0RF Referrals Referrals: Amee Toribio PA-C [Primary Care Provider] -
[2025-02-21 17:23] LABS: Hematocrit (blood only) 44.8 % (42.0-52.0); Hemoglobin 14.8 g/dL (14.0-18.0); Immature Granulocytes # (auto) 0.02 K/uL (0.01-0.20); Immature Granulocytes % (auto) 0.3 %; Mean Corpuscular Hemoglobin 30.1 pg (25.0-34.0); Mean Corpuscular Volume 91.1 fL (80.0-100.0); Platelet Count 317 K/uL (130-400); RDW Standard Deviation 41.8 fL (36.4-46.3); Red Blood Count 4.92 M/uL (4.70-6.10); White Blood Count 6.62 K/ul (4.8-10.8)
[2025-02-21 17:39] LABS: Alanine Aminotransferase 21.0 U/L (7-52); Albumin Globulin Ratio 1.1 (0.9-2); Albumin Level 4.3 gm/dl (3.4-5.0); Alkaline Phosphatase 109.0 U/L (34-104); Anion Gap 12.0 (3-11); Bilirubin,Total 0.4 mg/dl (0.2-1.0); Blood Urea Nitrogen 9.0 mg/dl (6-23); Calcium 9.7 mg/dl (8.6-10.3); Carbon Dioxide 29.0 mmol/L (21-32); Chloride 102.0 mmol/L (98-107); Creatinine Clr Calc Pharmacy 165.4 ml/min; Globulin 3.9 gm/dl (2.5-4.0); Glucose 82.0 mg/dl (70-99(Fasting)); Lipase 17.0 U/L (11-82); Magnesium 1.5 mg/dl (1.7-2.4); Potassium 3.2 mmol/L (3.5-5.1); Sodium 143.0 mmol/L (136-145); Total Protein 8.2 gm/dl (6.0-8.3)
--- NOTE | 2025-02-21 18:29 | History & Physical Report ---
Date of Service February 21, 2025 Assessment & Plan (1) Alcoholism: (2) Hypomagnesemia: (3) Hypokalemia: Plan This patient is a 34-year-old male with history of alcohol use disorder with multiple previous hospitalizations for alcohol withdrawal, gout, HTN, GERD, depression/anxiety, PE, alcohol-induced pancreatitis, idiopathic polyneuropathy, vitamin D deficiency, rheumatoid arthritis, and POTS, who was recently discharged 12 days prior after inpatient alcohol detoxification. He presents again for alcohol withdrawal. He began drinking 1/5 of vodka each day for the last 12 days since discharge. His last drink was on the evening of 02/20 and his AWSS scale in the ED was 5. He is presenting for alcohol detoxification as he strongly desires to quit drinking. He had some nausea but that is now improved. He does have a headache. Denies abdominal pains. No recent fevers or chills, no cough or cold symptoms. He was initiated on the phenobarbital loading dose and will be admitted for alcohol withdrawal. #Alcohol use disorder with withdrawal-patient is with a history of ICU stay for severe alcohol withdrawal, no seizure history. Phenobarbital taper has worked well for him in the past. With fatty liver on recent imaging from outside hosp [facility] but no evidence on laboratory values of liver dysfunction. Alkaline phosphatase mildly elevated from fatty liver - Admit to PCU-start phenobarbital loading dose and taper at 12 mg/kg as per pharmacy protocol with as needed doses available - Start thiamine 100 mg p.o. daily, folic acid 1 mg p.o. daily, multivitamin 1 tablet daily - Give 2 L of LR - Strongly encouraged inpatient rehab after discharge to help promote sobriety- consult case management - Follow CBC, CMP, magnesium in the a.m. #Hypomagnesemia/hypokalemia-secondary to poor p.o. intake and heavy alcohol use - Give 2 g of IV magnesium sulfate - Give 40 mEq p.o. KCl - Follow BMP and magnesium in the a.m. #HTN-unclear if has a definite diagnosis of HTN or has just been treated with amlodipine and clonidine in the past due to high blood pressures from alcohol withdrawal. He does not take anything on a regular basis. - Hold off on any antihypertensives for now - Treating for alcohol withdrawal which will help blood pressure - If blood pressures remain elevated, could add antihypertensive #Depression/anxiety-his untreated depression and anxiety are what drives him to drink alcohol. 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 He has not been taking the sertraline, Seroquel, clonidine prescribed previously. He would like to restart pharmacologic treatment for his depression and anxiety - Restart sertraline 50 mg p.o. once daily - Restart Seroquel 50 mg p.o. at bedtime - Needs outpatient follow-up versus dual diagnosis inpatient rehab #GERD-he has not been taking PPI as an outpatient as prescribed but does have a recent history of hematemesis likely from Shonda-Christiansen tear versus gastritis from alcohol use - Continue Protonix 40 mg daily and give prescription for this on discharge #Idiopathic polyneuropathy-previously noted and seen by neurology, likely related to alcohol or B12 deficiency. Not C/O of any current pain #Vitamin D deficiency-previous vitamin D levels checked and are undetectable - Start vitamin D 5000 units once daily - Follow levels as an outpatient #Rheumatoid arthritis-previously followed by rheumatology and at 1 point was on hydroxychloroquine but is not taking anything at this point in time. Recently was prescribed meloxicam as an inpatient but has not been taking this as an outpatient - Follow-up as an outpatient with PCP and/or rheumatology - Avoid NSAIDs right now as high risk for gastric ulcers with alcohol use #Gout-no acute issues but has had previous acute attacks - Resume prophylactic allopurinol 300 mg p.o. once daily DVT prophylaxis/history of PE-with a history of small PE at outside hospital and patient never really took the Eliquis afterwards. High risk given multiple recurrent hospitalizations-start Lovenox 40 mg SQ twice daily, SCDs Disposition-admit to PCU Patient's healthcare proxy would be his mother. He does not want his mother to know that he is here in the hospital-do not contact her with any updates or questions unless he is unable to make decisions for himself due to encephalopathy, etc. History of Present Illness Chief Complaint: Alcohol withdrawal Primary Care Provider: Amee Toribio PA-C This patient is a 34-year-old male with history of alcohol use disorder with multiple previous hospitalizations for alcohol withdrawal, gout, HTN, GERD, depression/anxiety, PE, alcohol-induced pancreatitis, idiopathic polyneuropathy, vitamin D deficiency, rheumatoid arthritis, and POTS, who was recently discharged 12 days prior after inpatient alcohol detoxification. [facility] for alcohol withdrawal. He began drinking 1/5 of vodka each day for the last 12 days since discharge. His last drink was on the evening of 02/20 and his AWSS scale in the ED was 5. He is presenting for alcohol detoxification as he strongly desires to quit drinking. He had some nausea but that is now improved. He does have a headache. Denies abdominal pains. No recent fevers or chills, no cough or cold symptoms. He was initiated on the phenobarbital loading dose and will be admitted for alcohol withdrawal. Allergies Allergy/AdvReac Type Severity Reaction Status Date / Time No Known Allergies Allergy Verified 02/03/25 14:54 Past Med/Surg History Problem List (Updated 02/21/25 @ 19:04 by Maye Carney MD) Acute hypokalemia (Acute) Hypomagnesemia (Acute) Alcohol withdrawal (Acute) Hypokalemia (Acute) Hypomagnesemia (Acute) Alcohol use disorder, severe, dependence Alcoholism Vomiting Hematemesis Alcohol withdrawal (Acute) Cognitive dysfunction Fatigue Idiopathic polyneuropathy Leg weakness, bilateral Anxiety and depression Vitamin D deficiency Infection of scalp Swelling of first metatarsophalangeal (MTP) joint of left foot Hyponatremia Hyperuricemia Elevated liver function tests Vasovagal syncope Arthralgia of multiple sites Medical History Hematochezia Hypokalemia History of pulmonary embolus (PE) Gout History of pancreatitis Alcohol abuse Neuropathy B12 deficiency Depression HTN (hypertension) Anxiety POTS (postural orthostatic tachycardia syndrome) Surgical History S/P cholecystectomy January 2016 Family History Sister VTE (venous thromboembolism) Father Hyperlipidemia Other Colorectal cancer Diabetes Myocardial infarction Denies family history of Ovarian cancer Prostate cancer Alcoholism Breast cancer Lung cancer Social History Smoking Status: Never smoker Second Hand Exposure: No; Do You Dip or Chew Tobacco: No; Hx Alcohol Use: Yes Alcohol type: hard liquor Alcohol type Comment: vodka - fifth/day Alcohol Intake Frequency: 4 or More x per/Week Hx Substance Use: No Preferred Language: Lithuanian Communication Ability: Effective Hearing Ability: Normal Electricians Top Helper Required: No Beliefs That Will Affect Care: None marital status: Single Current Living Situation: Alone Current Living Situation Comment: house current occupational status: employed and unemployed current occupation: nursing How many Children do You have: 0 Feels Safe at Home: Yes Dental Care, Regularly: Yes Physical Activity Frequency: Does not Exercise Assistive Devices: None Review of Systems Review of Systems: All systems reviewed & are unremarkable except as noted in HPI & below Physical Exam Constitutional: WD/WN, vitals as above Eyes: PERRL, conjunctivae normal, anicteric sclerae ENMT: external ear and nose normal, oropharynx normal Neck: trachea midline, no thyromegaly Respiratory: normal respiratory effort, lungs clear to auscultation Cardiovascular: RRR, no murmur, no edema Chest (Breasts): Chest: normal inspection of chest Gastrointestinal (Abdomen): normal bowel sounds, soft, nontender, no hepatosplenomegaly Musculoskeletal: Extremities: extremities normal to inspection; no cyanosis and no clubbing Skin: no rashes, warm and dry Neurologic: moves all extremities and awake; no focal motor deficits Motor/Sensory: + tremor (Mild tremor in the hands with intention) Psychiatric: A+Ox3, euthymic affect Lymphatic: no lymphedema Results & Data Results & Data Vital Signs (Past 12 Hours) Vital Signs Temp Pulse Pulse Resp BP BP Pulse Ox 02/21/25 18:00 93 H 24 156/92 H 02/21/25 17:30 88 13 154/104 H 96 02/21/25 17:14 37.2 C 92 H 18 154/112 H 99 02/21/25 17:11 77 02/21/25 16:51 36.3 C L 103 H 20 173/119 H 99 O2 Del Method 02/21/25 18:00 02/21/25 17:30 Room Air 02/21/25 17:14 Room Air 02/21/25 17:11 02/21/25 16:51 Laboratory Results CBC, CMP, lipase, EtOH level reviewed ECG Additional Comments: No ECG for review Code Status & VTE Plan Code Status Full code VTE Prophylaxis Plan VTE Prophylaxis will be ordered: Yes PG Care Time/CCT Total # of Minutes Spent Total Time Spent with Patient: Total time spent is greater than 50% in coordination of care (as documented) at patient's floor/unit and/or counseling patient: Coding Level of Care Code 61057 INT INP/OBS CARE MIN Diagnoses Alcoholism F10.20 Hypomagnesemia E83.42 Hypokalemia E87.6
[2025-02-21] MEDS: POTASSIUM CHLORIDE CRTAB 20 MEQ TABCR PO STA (18:39)
[2025-02-21] MEDS: THIAMINE HCL 100 MG TAB PO ONE (18:39)
[2025-02-21] MEDS: MULTIVITAMIN TAB PO ONE (18:39)
[2025-02-21] MEDS: FOLIC ACID 1 MG TAB PO ONE (18:40)
[2025-02-21] MEDS: MAGNESIUM SULFATE / D5W 1 GM/100 ML BAG IV SCH (18:40)
[2025-02-21] MEDS: STAT IV/IM STA (19:22)
[2025-02-21] MEDS: ENOXAPARIN INJ 40 MG/0.4 ML SYR SQ SCH (21:42)
[2025-02-21] MEDS: LACTATED RINGER'S 1,000 ML IV SCH (21:43)
[2025-02-22] MEDS: ACETAMINOPHEN 325 MG TAB PO PRN (05:19)
[2025-02-22 06:58] LABS: Hematocrit (blood only) 39.0 % (42.0-52.0); Hemoglobin 12.8 g/dL (14.0-18.0); Immature Granulocytes # (auto) 0.02 K/uL (0.01-0.20); Immature Granulocytes % (auto) 0.3 %; Mean Corpuscular Hemoglobin 29.8 pg (25.0-34.0); Mean Corpuscular Volume 90.7 fL (80.0-100.0); Platelet Count 256 K/uL (130-400); RDW Standard Deviation 41.4 fL (36.4-46.3); Red Blood Count 4.30 M/uL (4.70-6.10); White Blood Count 7.24 K/ul (4.8-10.8)
[2025-02-22 07:33] LABS: Alanine Aminotransferase 15.0 U/L (7-52); Albumin Level 3.4 gm/dl (3.4-5.0); Alkaline Phosphatase 81.0 U/L (34-104); Anion Gap 8.0 (3-11); Bilirubin,Total 0.6 mg/dl (0.2-1.0); Blood Urea Nitrogen 8.0 mg/dl (6-23); Calcium 8.8 mg/dl (8.6-10.3); Carbon Dioxide 30.0 mmol/L (21-32); Chloride 101.0 mmol/L (98-107); Creatinine Clr Calc Pharmacy 209.8 ml/min; Glucose 77.0 mg/dl (70-99(Fasting)); Magnesium 1.7 mg/dl (1.7-2.4); Potassium 2.9 mmol/L (3.5-5.1); Sodium 139.0 mmol/L (136-145); Total Protein 6.2 gm/dl (6.0-8.3)
[2025-02-22] MEDS: POTASSIUM CHLORIDE / WTR 10 MEQ/100 ML PLCT IV SCH (08:32)
[2025-02-22] MEDS: FOLIC ACID 1 MG TAB PO SCH (08:33)
[2025-02-22] MEDS: SERTRALINE HCL 50 MG TABLET PO SCH (08:33)
[2025-02-22] MEDS: THIAMINE HCL 100 MG TAB PO SCH (08:33)
[2025-02-22] MEDS: CEROVITE ADV FORMULA TAB PO SCH (08:33)
[2025-02-22] MEDS: CHOLECALCIFEROL 25 MCG (1000 UNITS) TAB PO SCH (08:33)
--- NOTE | 2025-02-22 11:46 | Hospitalist Progress Note ---
Date of Service February 22, 2025 Assessment & Plan (1) Alcoholism: (2) Hypomagnesemia: (3) Hypokalemia: Plan This patient is a 34-year-old male with history of alcohol use disorder with multiple previous hospitalizations for alcohol withdrawal, gout, HTN, GERD, depression/anxiety, PE, alcohol-induced pancreatitis, idiopathic polyneuropathy, vitamin D deficiency, rheumatoid arthritis, and POTS, who was recently discharged 12 days prior after inpatient alcohol detoxification. He presents again for alcohol withdrawal. He began drinking 1/5 of vodka each day for the last 12 days since discharge. His last drink was on the evening of 02/20 and his AWSS scale in the ED was 5. He is presenting for alcohol detoxification as he strongly desires to quit drinking. He had some nausea but that is now improved. He does have a headache. Denies abdominal pains. No recent fevers or chills, no cough or cold symptoms. He was initiated on the phenobarbital loading dose and will be admitted for alcohol withdrawal. #Alcohol use disorder with withdrawal-patient is with a history of ICU stay for severe alcohol withdrawal, no seizure history. Phenobarbital taper has worked well for him in the past. With fatty liver on recent imaging from outside hosp [facility] but no evidence on laboratory values of liver dysfunction. Alkaline phosphatase mildly elevated from fatty liver - Admit to PCU-start phenobarbital loading dose and taper at 12 mg/kg as per pharmacy protocol with as needed doses available - Start thiamine 100 mg p.o. daily, folic acid 1 mg p.o. daily, multivitamin 1 tablet daily - LR at maintenance overnight - Strongly encouraged inpatient rehab after discharge to help promote sobriety- consult case management - Follow CBC, CMP, magnesium in the a.m. #Anemia - 2.0 g drop over 24 hours. No evidence of bleed. Likely delusional in nature. Will check at 1800 and again tomorrow morning hypokalemia-secondary to poor p.o. intake and heavy alcohol use - Give 40 mEq p.o. KCl, additional [id number] IV Bumps this AM -Recheck with 1800 labs - Follow BMP and magnesium in the a.m. #Hypomagnesemia - resolved #HTN-unclear if has a definite diagnosis of HTN or has just been treated with amlodipine and clonidine in the past due to high blood pressures from alcohol withdrawal. He does not take anything on a regular basis. - Hold off on any antihypertensives for now - Treating for alcohol withdrawal which will help blood pressure - If blood pressures remain elevated, could add antihypertensive #Depression/anxiety-his untreated depression and anxiety are what drives him to drink alcohol. 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 He has not been taking the sertraline, Seroquel, clonidine prescribed previously. He would like to restart pharmacologic treatment for his depression and anxiety - Restart sertraline 50 mg p.o. once daily - Restart Seroquel 50 mg p.o. at bedtime - Needs outpatient follow-up versus dual diagnosis inpatient rehab #GERD-he has not been taking PPI as an outpatient as prescribed but does have a recent history of hematemesis likely from Shonda-Christiansen tear versus gastritis from alcohol use - Continue Protonix 40 mg daily and give prescription for this on discharge #Idiopathic polyneuropathy-previously noted and seen by neurology, likely related to alcohol or B12 deficiency. Not C/O of any current pain #Vitamin D deficiency-previous vitamin D levels checked and are undetectable - Start vitamin D 5000 units once daily - Follow levels as an outpatient #Rheumatoid arthritis-previously followed by rheumatology and at 1 point was on hydroxychloroquine but is not taking anything at this point in time. Recently was prescribed meloxicam as an inpatient but has not been taking this as an outpatient - Follow-up as an outpatient with PCP and/or rheumatology - Avoid NSAIDs right now as high risk for gastric ulcers with alcohol use #Gout-no acute issues but has had previous acute attacks - Resume prophylactic allopurinol 300 mg p.o. once daily DVT prophylaxis/history of PE-with a history of small PE at outside hospital and patient never really took the Eliquis afterwards. High risk given multiple recurrent hospitalizations-start Lovenox 40 mg SQ twice daily, SCDs Disposition-admit to PCU Patient's healthcare proxy would be his mother. He does not want his mother to know that he is here in the hospital-do not contact her with any updates or questions unless he is unable to make decisions for himself due to encephalopathy, etc. Admission and Anticipated Discharge Date Admission Date: February 21, 2025 Subjective Doing well this morning. Minimally tremulous. Slightly anxious at times. Did not sleep all that well overnight. Does not recall history of severe symptoms does not recall if he has ever had a seizure in the past. Typically his withdrawal syndrome lasts about 3 to 4 days. Otherwise no new events or concerns. RASS has been about 0 per nursing. We discussed inpatient rehab or other rehab potential on discharge to help maintain abstinence. Physical Exam Constitutional: WD/WN, vitals as above Eyes: PERRL, conjunctivae normal, anicteric sclerae ENMT: external ear and nose normal, oropharynx normal Neck: trachea midline, no thyromegaly Respiratory: normal respiratory effort, lungs clear to auscultation Cardiovascular: RRR, no murmur, no edema Chest (Breasts): Chest: normal inspection of chest Gastrointestinal (Abdomen): normal bowel sounds, soft, nontender, no hepatosp lenomegaly Musculoskeletal: Extremities: extremities normal to inspection; no cyanosis and no clubbing Skin: no rashes, warm and dry (No diaphoresis) Neurologic: moves all extremities and awake; no focal motor deficits Motor/Sensory: + tremor (Mild tremor in the hands with intention) Psychiatric: A+Ox3, euthymic affect (No anxiousness or easy distraction) Lymphatic: no lymphedema Results & Data Results & Data Vital Signs (Past 12 Hours) Vital Signs Temp Pulse Pulse Pulse Resp BP BP 02/22/25 10:40 37.3 C 93 H 18 153/97 H 02/22/25 09:29 63 02/22/25 09:00 37.4 C 92 H 18 143/105 H 02/22/25 07:00 36.8 C 78 18 154/94 H 02/22/25 05:55 36.9 C 63 18 158/88 H 02/22/25 05:00 36.9 C 66 16 02/22/25 04:00 36.7 C 63 17 152/92 H 02/22/25 03:00 36.9 C 96 H 18 134/76 02/22/25 02:00 76 18 02/22/25 01:04 74 18 154/96 H 02/22/25 01:00 36.8 C 72 18 153/96 H 02/22/25 00:00 36.7 C 89 17 117/70 Pulse Ox O2 Del Method 02/22/25 10:40 98 Room Air 02/22/25 09:29 02/22/25 09:00 98 Room Air 02/22/25 07:00 98 Room Air 02/22/25 05:55 97 Room Air 02/22/25 05:00 94 Room Air 02/22/25 04:00 98 Room Air 02/22/25 03:00 96 Room Air 02/22/25 02:00 96 Room Air 02/22/25 01:04 02/22/25 01:00 96 Room Air 02/22/25 00:00 97 Room Air Laboratory Results 02/22/25 02/21/25 02/21/25 06:14 20:19 17:09 WBC 7.24 6.62 RBC 4.30 L 4.92 Hgb 12.8 L 14.8 Hct 39.0 L 44.8 MCV 90.7 91.1 MCH 29.8 30.1 MCHC 32.8 33.0 RDW Std Deviation 41.4 41.8 RDW Coeff of Nohemy 12.7 12.6 Plt Count 256 317 MPV 10.0 9.5 Immature Gran % (Auto) 0.3 0.3 Neut % (Auto) 61.9 74.4 Lymph % (Auto) 26.9 17.8 [place] % (Auto) 8.0 6.5 Eos % (Auto) 2.5 0.5 Baso % (Auto) 0.4 0.5 Neut # (Auto) 4.48 4.93 Lymph # (Auto) 1.95 1.18 L [place] # (Auto) 0.58 0.43 Eos # (Auto) 0.18 0.03 Baso # (Auto) 0.03 0.03 Immature Gran # (Auto) 0.02 0.02 Sodium 139 143 Potassium 2.9 L 3.2 L Chloride 101 102 Carbon Dioxide 30 29 Anion Gap 8 12 H BUN 8 9 Creatinine 0.59 L 0.75 Est Cr Clr Drug Dosing 209.8 165.4 eGFR 130.57 121.44 BUN/Creatinine Ratio 13.6 12.0 Glucose 77 82 POC Glucose 91 Calcium 8.8 9.7 Phosphorus 4.4 Magnesium 1.7 1.5 L Total Bilirubin 0.6 0.4 Direct Bilirubin 0.2 AST 17 23 ALT 15 21 Alkaline Phosphatase 81 109 H Total Protein 6.2 D 8.2 Albumin 3.4 4.3 Globulin 3.9 Albumin/Globulin Ratio 1.1 Lipase 17 Ethyl Alcohol mg/dL < 10.0 PG Care Time/CCT Total # of Minutes Spent Total Time Spent with Patient: Total time spent is greater than 50% in coordination of care (as documented) at patient's floor/unit and/or counseling patient: Coding Level of Care Code 22678 SUB INP/OBS CARE 2/35MIN Diagnoses Alcoholism F10.20 Hypomagnesemia E83.42 Hypokalemia E87.6
--- NOTE | 2025-02-22 14:16 | Electrocardiogram Report ---
Test Reason : Blood Pressure : */* mmHG Vent. Rate : 87 BPM Atrial Rate : 87 BPM P-R Int : 140 ms QRS Dur : 86 ms QT Int : 362 ms P-R-T Axes : 35 57 20 degrees QTcB Int : 435 ms Normal sinus rhythm with sinus arrhythmia Normal ECG When compared with ECG of 06-Feb-2025 22:53, No significant change was found Confirmed by Odilon Israel [id number] on 02/22/2025 2:16:16 PM Referred By: REFERRED SELF Confirmed By: Odilon Israel
[2025-02-22 17:30] LABS: Hematocrit (blood only) 40.7 % (42.0-52.0); Hemoglobin 13.7 g/dL (14.0-18.0)
[2025-02-22 17:46] LABS: Anion Gap 8.0 (3-11); Blood Urea Nitrogen 7.0 mg/dl (6-23); Calcium 9.0 mg/dl (8.6-10.3); Carbon Dioxide 28.0 mmol/L (21-32); Chloride 103.0 mmol/L (98-107); Creatinine Clr Calc Pharmacy 158.7 ml/min; Glucose 108.0 mg/dl (70-99(Fasting)); Potassium 3.4 mmol/L (3.5-5.1); Sodium 139.0 mmol/L (136-145)
[2025-02-22] MEDS: ONDANSETRON INJ 2 MG/ML 2 ML VIAL IV PRN (22:37)
[2025-02-23 06:13] LABS: Hematocrit (blood only) 39.3 % (42.0-52.0); Hemoglobin 13.1 g/dL (14.0-18.0); Immature Granulocytes # (auto) 0.03 K/uL (0.01-0.20); Immature Granulocytes % (auto) 0.5 %; Mean Corpuscular Hemoglobin 30.4 pg (25.0-34.0); Mean Corpuscular Volume 91.2 fL (80.0-100.0); Platelet Count 259 K/uL (130-400); RDW Standard Deviation 41.3 fL (36.4-46.3); Red Blood Count 4.31 M/uL (4.70-6.10); White Blood Count 5.52 K/ul (4.8-10.8)
[2025-02-23 06:30] LABS: Anion Gap 7 (3-11); Blood Urea Nitrogen 7 mg/dl (6-23); Calcium 8.8 mg/dl (8.6-10.3); Carbon Dioxide 28 mmol/L (21-32); Chloride 103 mmol/L (98-107); Creatinine Clr Calc Pharmacy 169.9 ml/min; Glucose 90 mg/dl (70-99(Fasting)); Magnesium 1.7 mg/dl (1.7-2.4); Sodium 138 mmol/L (136-145)
--- NOTE | 2025-02-23 17:49 | Hospitalist Progress Note ---
Date of Service February 23, 2025 Assessment & Plan (1) Alcoholism: (2) Hypomagnesemia: (3) Hypokalemia: Plan This patient is a 34-year-old male with history of alcohol use disorder with multiple previous hospitalizations for alcohol withdrawal, gout, HTN, GERD, depression/anxiety, PE, alcohol-induced pancreatitis, idiopathic polyneuropathy, vitamin D deficiency, rheumatoid arthritis, and POTS, who was recently discharged 12 days prior after inpatient alcohol detoxification. He presents again for alcohol withdrawal. He began drinking 1/5 of vodka each day for the last 12 days since discharge. His last drink was on the evening of 02/20 and his AWSS scale in the ED was 5. He is presenting for alcohol detoxification as he strongly desires to quit drinking. He had some nausea but that is now improved. He does have a headache. Denies abdominal pains. No recent fevers or chills, no cough or cold symptoms. He was initiated on the phenobarbital loading dose and will be admitted for alcohol withdrawal. #Alcohol use disorder with withdrawal-patient is with a history of ICU stay for severe alcohol withdrawal, no seizure history. Phenobarbital taper has worked well for him in the past. With fatty liver on recent imaging from outside hosp [facility] but no evidence on laboratory values of liver dysfunction. Alkaline phosphatase mildly elevated from fatty liver - Admit to PCU-start phenobarbital loading dose and taper at 12 mg/kg as per pharmacy protocol with as needed doses available - Start thiamine 100 mg p.o. daily, folic acid 1 mg p.o. daily, multivitamin 1 tablet daily - LR at maintenance overnight, can DC after today - Strongly encouraged inpatient rehab after discharge to help promote sobriety- consult case management - Follow CBC, CMP, magnesium in the a.m. - suspect he is coming out of the window of the most severe withdrawal. Will continue with standard IM phenobarb taper - Caution patient that he will Very likely become more sensitive to alcohol effects and increasingly severe withdrawal with repetitive phenobarbital detox tapers. #Anemia - 2.0 g drop over first 24 hours. stable and recovering since No evidence of bleed. Likely delusional in nature. Will check at 1800 and again tomorrow morning hypokalemia-secondary to poor p.o. intake and heavy alcohol use - Give 40 mEq p.o. KCl, additional [id number] IV Bumps this AM -Recheck with 1800 labs - Follow BMP and magnesium in the a.m., no additional required today #Hypomagnesemia - resolved #HTN-unclear if has a definite diagnosis of HTN or has just been treated with amlodipine and clonidine in the past due to high blood pressures from alcohol withdrawal. He does not take anything on a regular basis. - Hold off on any antihypertensives for now - Treating for alcohol withdrawal which will help blood pressure - If blood pressures remain elevated, could add antihypertensive #Depression/anxiety-his untreated depression and anxiety are what drives him to drink alcohol. 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 He has not been taking the sertraline, Seroquel, clonidine prescribed previously. He would like to restart pharmacologic treatment for his depression and anxiety - Restart sertraline 50 mg p.o. once daily - Restart Seroquel 50 mg p.o. at bedtime - Needs outpatient follow-up versus dual diagnosis inpatient rehab #GERD-he has not been taking PPI as an outpatient as prescribed but does have a recent history of hematemesis likely from Shonda-Christiansen tear versus gastritis from alcohol use - Continue Protonix 40 mg daily and give prescription for this on discharge #Idiopathic polyneuropathy-previously noted and seen by neurology, likely related to alcohol or B12 deficiency. Not C/O of any current pain #Vitamin D deficiency-previous vitamin D levels checked and are undetectable - Start vitamin D 5000 units once daily - Follow levels as an outpatient #Rheumatoid arthritis-previously followed by rheumatology and at 1 point was on hydroxychloroquine but is not taking anything at this point in time. Recently was prescribed meloxicam as an inpatient but has not been taking this as an outpatient - Follow-up as an outpatient with PCP and/or rheumatology - Avoid NSAIDs right now as high risk for gastric ulcers with alcohol use #Gout-no acute issues but has had previous acute attacks - Resume prophylactic allopurinol 300 mg p.o. once daily DVT prophylaxis/history of PE-with a history of small PE at outside hospital and patient never really took the Eliquis afterwards. High risk given multiple recurrent hospitalizations-start Lovenox 40 mg SQ twice daily, SCDs Disposition-admit to PCU Patient's healthcare proxy would be his mother. He does not want his mother to know that he is here in the hospital-do not contact her with any updates or questions unless he is unable to make decisions for himself due to encephalopathy, etc. Admission and Anticipated Discharge Date Admission Date: February 21, 2025 Subjective feeling somewhat jittery and anxious through the night. Was not able to sleep all that much. Feels minor tremor this morning but overall he still able to be calm. We discussed the possibility of a catch-up dose if he needs in the evening. Although he should be coming out of the window the most severe withdrawal at this point. Otherwise no new or different symptoms. No new or different concerns or events per nursing staff Physical Exam Constitutional: WD/WN, vitals as above Eyes: PERRL, conjunctivae normal, anicteric sclerae ENMT: external ear and nose normal, oropharynx normal Neck: trachea midline, no thyromegaly Respiratory: normal respiratory effort, lungs clear to auscultation Cardiovascular: RRR, no murmur, no edema Chest (Breasts): Chest: normal inspection of chest Gastrointestinal (Abdomen): normal bowel sounds, soft, nontender, no hepatosplenomegaly Musculoskeletal: Extremities: extremities normal to inspection; no cyanosis and no clubbing Skin: no rashes, warm and dry (No diaphoresis) Neurologic: moves all extremities and awake; no focal motor deficits Motor/Sensory: + tremor (Mild tremor in the hands with intention) Psychiatric: A+Ox3, euthymic affect (No anxiousness or easy distraction) Lymphatic: no lymphedema Results & Data Results & Data Vital Signs (Past 12 Hours) Vital Signs Temp Pulse Pulse Resp BP BP BP 02/23/25 17:18 91 H 156/91 H 02/23/25 16:46 85 20 166/109 H 02/23/25 16:16 78 24 146/93 H 02/23/25 15:33 37.2 C 85 18 154/93 H 02/23/25 12:52 87 02/23/25 12:06 36.7 C 76 18 153/97 H 02/23/25 09:09 36.8 C 90 20 136/85 02/23/25 07:41 36.9 C 75 20 146/97 H 02/23/25 06:37 36.9 C 73 18 159/98 H Pulse Ox O2 Del Method 02/23/25 17:18 02/23/25 16:46 100 Room Air 02/23/25 16:16 02/23/25 15:33 98 Room Air 02/23/25 12:52 02/23/25 12:06 100 Room Air 02/23/25 09:09 96 Room Air 02/23/25 07:41 97 Room Air 02/23/25 06:37 95 Room Air Laboratory Results 02/23/25 02/23/25 02/22/25 07:35 05:50 16:58 WBC 5.52 RBC 4.31 L Hgb 13.1 L Hct 39.3 L MCV 91.2 MCH 30.4 MCHC 33.3 RDW Std Deviation 41.3 RDW Coeff of Nohemy 12.5 Plt Count 259 MPV 10.5 Immature Gran % (Auto) 0.5 Neut % (Auto) 58.0 Lymph % (Auto) 28.8 [place] % (Auto) 8.9 Eos % (Auto) 3.3 Baso % (Auto) 0.5 Neut # (Auto) 3.20 Lymph # (Auto) 1.59 [place] # (Auto) 0.49 Eos # (Auto) 0.18 Baso # (Auto) 0.03 Immature Gran # (Auto) 0.03 Sodium 138 139 Potassium 3.1 L TNP 3.4 L Chloride 103 103 Carbon Dioxide 28 28 Anion Gap 7 8 BUN 7 7 Creatinine 0.73 0.78 Est Cr Clr Drug Dosing 169.9 158.7 eGFR 122.44 120.01 BUN/Creatinine Ratio 9.6 L 9.0 L Glucose 90 108 H Calcium 8.8 9.0 Magnesium 1.7 PG Care Time/CCT Total # of Minutes Spent Total Time Spent with Patient: Total time spent is greater than 50% in coordination of care (as documented) at patient's floor/unit and/or counseling patient: Coding Level of Care Code 44827 SUB INP/OBS CARE 2/35MIN Diagnoses Alcoholism F10.20 Hypomagnesemia E83.42 Hypokalemia E87.6
[2025-02-23] MEDS: POTASSIUM CHLORIDE CRTAB 20 MEQ TABCR PO SCH (21:05)
[2025-02-24 06:40] LABS: Hematocrit (blood only) 38.1 % (42.0-52.0); Hemoglobin 12.7 g/dL (14.0-18.0); Immature Granulocytes # (auto) 0.03 K/uL (0.01-0.20); Immature Granulocytes % (auto) 0.5 %; Mean Corpuscular Hemoglobin 30.2 pg (25.0-34.0); Mean Corpuscular Volume 90.7 fL (80.0-100.0); Platelet Count 226 K/uL (130-400); RDW Standard Deviation 42.3 fL (36.4-46.3); Red Blood Count 4.20 M/uL (4.70-6.10); White Blood Count 6.17 K/ul (4.8-10.8)
[2025-02-24 07:28] LABS: Anion Gap 8.0 (3-11); Blood Urea Nitrogen 8.0 mg/dl (6-23); Calcium 8.6 mg/dl (8.6-10.3); Carbon Dioxide 29.0 mmol/L (21-32); Chloride 103.0 mmol/L (98-107); Creatinine Clr Calc Pharmacy 175.8 ml/min; Glucose 86.0 mg/dl (70-99(Fasting)); Magnesium 1.8 mg/dl (1.7-2.4); Potassium 3.4 mmol/L (3.5-5.1); Sodium 140.0 mmol/L (136-145)
[2025-02-24] MEDS: MAGNESIUM SULFATE / D5W 1 GM/100 ML BAG IV ONE (08:48)
--- NOTE | 2025-02-24 10:26 | Hospitalist Progress Note ---
Date of Service February 24, 2025 Assessment & Plan (1) Alcoholism: (2) Hypomagnesemia: (3) Hypokalemia: (4) Anxiety and depression: Plan This patient is a 34-year-old male with history of alcohol use disorder with multiple previous hospitalizations for alcohol withdrawal, gout, HTN, GERD, depression/anxiety, PE, alcohol-induced pancreatitis, idiopathic polyneuropathy, vitamin D deficiency, rheumatoid arthritis, and POTS, who was recently discharged 12 days prior after inpatient alcohol detoxification. He presents again for alcohol withdrawal. He began drinking 1/5 of vodka each day for the last 12 days since discharge. His last drink was on the evening of 02/20 and his AWSS scale in the ED was 5. He is presenting for alcohol detoxification as he strongly desires to quit drinking. He was initiated on the phenobarbital loading dose and is admitted for alcohol withdrawal. #Alcohol use disorder with withdrawal-patient is with a history of ICU stay for severe alcohol withdrawal, no seizure history. Phenobarbital taper has worked well for him in the past. With fatty liver on recent imaging from outside hospital but no evidence on laboratory values of liver dysfunction. Alkaline phosphatase mildly elevated from fatty liver and now normalized. He is tolerating the phenobarbital taper here, but still having mild tremor and some nausea with vomiting. - Continued stay on PCU-continue phenobarbital taper, but will retime dosing for 9:30 AM and p.m. so he is not woken in the middle of the night - Reorder IM as needed phenobarbital at lower dose of 30 mg every 6 hours RASS greater than 0 - Continue thiamine 100 mg p.o. daily, folic acid 1 mg p.o. daily, multivitamin 1 tablet daily - Strongly encouraged inpatient rehab after discharge to help promote sobriety- consult case management appreciated-looking into dual diagnosis programs that accept his medical assistance - Follow CBC, CMP, magnesium in the a.m. #Anemia- 2.0 g drop over first 24 hours. stable and recovering since, no evidence of bleed. Likely from dilution with IV fluids #Hypokalemia-secondary to poor p.o. intake and heavy alcohol use, improving but remains mildly low - Continue KCl 20 mEq p.o. twice daily x 2 more doses - Follow BMP and magnesium in the a.m. #Hypomagnesemia-improved but remains at low normal and with continuing hypokalemia resulting - Give 1 g IV magnesium sulfate - Follow magnesium in the a.m. #HTN-unclear if has a definite diagnosis of HTN or has just been treated with amlodipine and clonidine in the past due to high blood pressures from alcohol withdrawal. He does not take anything on a regular basis. He has required 2 doses of as needed clonidine thus far this admission and BPs are improving but remain elevated - Hold off on any antihypertensives for now - Treating for alcohol withdrawal which will help blood pressure - If blood pressures remain elevated, could add antihypertensive - Continue clonidine 0.1 mg p.o. twice daily as needed SBP greater than 190, DBP greater than 110 #Depression/anxiety-his untreated depression and anxiety are what drives him to drink alcohol. 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 He has not been taking the sertraline, Seroquel, clonidine prescribed previously. He would like to restart pharmacologic treatment for his depression and anxiety which has been done here. He is also stating that he has had fleeting thoughts of suicide but has no plan for suicide. He is interested in inpatient psychiatric hospitalization for severe depression. - Consult psychiatry for further evaluation - No need for one-to-one sitter at this point as he contracts for safety and does not have an active suicidal plan - Restarted sertraline 50 mg p.o. once daily and Seroquel 50 mg p.o. at bedtime - Needs outpatient follow-up versus dual diagnosis inpatient rehab #GERD-he has not been taking PPI as an outpatient as prescribed but does have a recent history of hematemesis likely from Shonda-Christiansen tear versus gastritis from alcohol use - Continue Protonix 40 mg daily and he will need a prescription for this on discharge #Idiopathic polyneuropathy-previously noted and seen by neurology, likely related to alcohol or B12 deficiency. Not C/O of any current pain #Vitamin D deficiency-previous vitamin D levels checked and are undetectable - Started vitamin D 5000 units once daily - Follow levels as an outpatient #Rheumatoid arthritis-previously followed by rheumatology and at 1 point was on hydroxychloroquine but is not taking anything at this point in time. Recently was prescribed meloxicam as an inpatient but has not been taking this as an outpatient - Follow-up as an outpatient with PCP and/or rheumatology - Avoid NSAIDs right now as high risk for gastric ulcers with alcohol use #Gout-no acute issues but has had previous acute attacks - Resumed prophylactic allopurinol 300 mg p.o. once daily and he may need a prescription for this on discharge DVT prophylaxis/history of PE-with a history of small PE at outside hospital and patient never really took the Eliquis afterwards. High risk given multiple recurrent hospitalizations-continue Lovenox 40 mg SQ twice daily, SCDs Disposition-continued stay on PCU as he is still requiring as needed IM phenobarbital Patient's healthcare proxy would be his mother. He does not want his mother to know that he is here in the hospital-do not contact her with any updates or questions unless he is unable to make decisions for himself due to encephalopathy, etc. Admission and Anticipated Discharge Date Admission Date: February 21, 2025 Subjective Patient reports nausea with vomiting x 1 this morning, has not tried to eat breakfast. Still feels like he has a tremor. He is requesting the as needed phenobarbital. He is contemplating going to inpatient behavioral health facility from here and we discussed going to a dual diagnosis program. He is agreeable to seeing psychiatry to further discuss. He reports thoughts of suicide at times but does not have a plan to carry it out. He is fearful of going home alone as he thinks that he will likely regress. Telemetry with normal sinus rhythm and rates in the 60s to 80s Physical Exam Constitutional: WD/WN, vitals as above Neck: trachea midline, no thyromegaly Respiratory: normal respiratory effort, lungs clear to auscultation Cardiovascular: RRR, no murmur, no edema Chest (Breasts): Chest: normal inspection of chest Gastrointestinal (Abdomen): normal bowel sounds, soft, nontender, no hepatosplenomegaly Musculoskeletal: Extremities: extremities normal to inspection; no cyanosis and no clubbing Skin: no rashes, warm and dry Neurologic: moves all extremities and awake; no focal motor deficits Psychiatric: Orientation: alert and oriented x 3 Affect: + flat affect Mood: + depressed mood Lymphatic: no lymphedema Results & Data Results & Data Vital Signs (Past 12 Hours) Vital Signs Temp Pulse Pulse Pulse Resp BP Pulse Ox 02/24/25 08:01 36.8 C 73 29 H 155/102 H 100 02/24/25 05:00 65 18 150/92 H 95 02/24/25 03:09 70 18 140/92 96 02/24/25 03:00 36.9 C 69 18 144/90 H 97 02/24/25 01:02 67 18 156/112 H 97 02/24/25 00:13 88 18 155/98 H 94 02/23/25 22:55 74 16 97 02/23/25 22:54 75 02/23/25 22:35 37.2 C 72 20 164/104 H 97 O2 Del Method 02/24/25 08:01 Room Air 02/24/25 05:00 Room Air 02/24/25 03:09 Room Air 02/24/25 03:00 Room Air 02/24/25 01:02 Room Air 02/24/25 00:13 Room Air 02/23/25 22:55 Room Air 02/23/25 22:54 02/23/25 22:35 Room Air Laboratory Results CBC, BMP, magnesium reviewed PG Care Time/CCT Total # of Minutes Spent Total Time Spent with Patient: Total time spent is greater than 50% in coordination of care (as documented) at patient's floor/unit and/or counseling patient: Coding Level of Care Code 87829 SUB INP/OBS CARE 2/35MIN Diagnoses Alcoholism F10.20 Hypomagnesemia E83.42 Hypokalemia E87.6 Anxiety and depression F41.9; F32.A
--- NOTE | 2025-02-24 15:45 | Psychiatric Consultation ---
Date of Consultation February 24, 2025 Impression / Recommendations Impression Presentation consistent with generalized anxiety disorder and alcohol use disorder. 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 Currently in withdrawal on a phenobarb taper. Does not appear to be in a major mood episode however unclear due to concurrent alcohol dependence. He does not present active SI and is future oriented towards sobriety and restoring social and occupational function. No imminent safety concerns presented. He appears to be in a contemplative stage in regards to the transtheoretical model of change. The patient was advised to abstain from alcohol consumption and counseled on relapse prevention strategies. Would benefit from optimization of his antidepressant and was counseled about benefits of medication adherence. Reported past benefit from naltrexone and may be beneficial to start after completed withdrawal. Does not meet criteria for inpatient psychiatric admission at this time. Given failure of outpatient treatment, he would benefit from inpatient dual diagnosis rehab. Overall, I spent a total of 80 minutes with this case including review of chart records, nursing report, review of lab work, direct evaluation of the patient at bedside, counseling the patient, discussion of the patient with the hospitalist provider, discussion with the psychiatric liaison during clinical rounds, and documentation in the electronic health record. (1) Alcohol withdrawal: (2) Generalized anxiety disorder: (3) Alcohol use disorder, severe, dependence: Plan 02/24/25: Increase sertraline to 100mg daily Continue quetiapine Recommending inpatient dual diagnosis rehab No indication for bedside sitter Psych History Identifying Data This patient is a 34-year-old male with history of alcohol use disorder with multiple previous hospitalizations for alcohol withdrawal, gout, HTN, GERD, depression/anxiety, PE, alcohol-induced pancreatitis, idiopathic polyneuropathy, vitamin D deficiency, rheumatoid arthritis, and POTS, who was recently discharged 12 days prior after inpatient alcohol detoxification. He presents for alcohol withdrawal. Psychiatry consulted for depression and safety evaluation. Chief Complaint "Detox, withdrawal" History of Present Illness Patient reports wanting to abstain from alcohol and be "successful in this". He wants a "framework and plan". Reports that he continued alcohol dependence has been "destroying his life". Says this has impacted his professional and personal life and function. He is worried that continued use will bleed into his work and he has not been drinking before his shifts. His plan is to "function like before". Does not want to drink daily and maybe get to the point where he drinks on the weekends only. He denies active suicidal ideation and reports having occasional feelings of not wanting to live. 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 Reports worsening self- esteem since then. Main bung driver's for continued alcohol use is for stress relief and to escape problems temporarily. He drinks 75 to 100% of 1/5 of vodka daily. No other alcohol or drug use. Reports triggers for use such as ruminating thoughts and occasional anxiety attacks. Reports having trouble with sleep onset and maintenance, poor energy and decreased appetite due to gastritis from alcohol use. Reports recently mood has been worse. Rheumatoid arthritis is well-controlled. Reports long history of anxiety and depression. Has not had other psychiatric medications outside of sertraline and quetiapine. Has been nonadherent to psychiatric medications for no clear reason. Has an outpatient psychiatric provider at [facility]. No family history of drug or alcohol problems; some suspected family history of anxiety and depression. Reports having excess worries about the future and fear of failure and social anxiety. Reports current withdrawal symptoms of sweating, tremor, and increased anxiety. Reports having a bad experience from past inpatient rehab due to them treating him like he was a criminal. Allergies Allergy/AdvReac Type Severity Reaction Status Date / Time No Known Allergies Allergy Verified 02/03/25 14:54 Patient History Medical History Hematochezia Hypokalemia History of pulmonary embolus (PE) Gout History of pancreatitis Alcohol abuse Neuropathy B12 deficiency Depression HTN (hypertension) Anxiety POTS (postural orthostatic tachycardia syndrome) Surgical History S/P cholecystectomy January 2016 Family History Sister VTE (venous thromboembolism) Father Hyperlipidemia Other Colorectal cancer Diabetes Myocardial infarction Denies family history of Ovarian cancer Prostate cancer Alcoholism Breast cancer Lung cancer Social History Smoking Status: Never smoker Second Hand Exposure: No; Do You Dip or Chew Tobacco: No; Hx Alcohol Use: Yes Alcohol type: hard liquor Alcohol type Comment: vodka - fifth/day Alcohol Intake Frequency: 4 or More x per/Week Hx Substance Use: No Preferred Language: Irish Communication Ability: Effective Hearing Ability: Normal [employer] Required: No Beliefs That Will Affect Care: None marital status: Single Current Living Situation: Alone Current Living Situation Comment: house current occupational status: employed and unemployed current occupation: nursing How many Children do You have: 0 Other Information That Helps Us Care for You: No Feels Safe at Home: Yes Safety Concerns: Feels Safe At This Time Dental Care, Regularly: Yes Physical Activity Frequency: Does not Exercise Assistive Devices: None Physical Exam Mental Examination: Appearance: Disheveled Eye Contact: Breaks Contact Motor Behavior: Unremarkable Speech: Normal Mood: Anxious and Sad Affect: Congruent Thought Process: Intact and Linear Thought Content: Racing Hallucinations: None Insight: Fair (to limited) Judgement: Fair (to limited) Vital Signs (Past 24 Hours): Last Vital Signs Temp 37.2 C 02/24/25 15:26 Pulse 79 02/24/25 15:26 Resp 18 02/24/25 15:26 BP 162/97 H 02/24/25 15:26 Pulse Ox 98 02/24/25 15:26 O2 Del Method Room Air 02/24/25 15:26 Results & Data (PSY) Medications Administered Acetaminophen (Acetaminophen 325 Mg Tab) 650 mg PO Q4H PRN PRN Reason: Pain or Fever Stop: 03/23/25 21:11 Last Admin: 02/22/25 20:50 Dose: 650 mg Documented By: davida Admin: 02/22/25 05:19 Dose: 650 mg Documented By: davida Allopurinol (Allopurinol 300 Mg Tab) 300 mg PO DAILY MALKA Stop: 03/24/25 08:59 Last Admin: 02/24/25 08:52 Dose: 300 mg Documented By: Admin: 02/23/25 08:20 Dose: 300 mg Documented By: Admin: 02/22/25 08:33 Dose: 300 mg Documented By: MILLIE Clonidine HCl (Clonidine Hcl 0.1 Mg Tab) 0.1 mg PO Q12 PRN PRN Reason: SBP>190 or DBP>110 Stop: 03/23/25 21:11 Last Admin: 02/23/25 19:12 Dose: 0.1 mg Documented By: davida Enoxaparin Sodium (Enoxaparin Inj 40 Mg/0.4 Ml Syr) 40 mg SQ Q12H [facility] Stop: 03/23/25 21:59 Last Admin: 02/24/25 08:52 Dose: 40 mg Documented By: Admin: 02/23/25 20:59 Dose: 40 mg Documented By: davida Admin: 02/23/25 08:20 Dose: 40 mg Documented By: Admin: 02/22/25 20:47 Dose: 40 mg Documented By: davida Admin: 02/22/25 08:32 Dose: 40 mg Documented By: Admin: 02/21/25 21:42 Dose: 40 mg Documented By: davida Folic Acid (Folic Acid 1 Mg Tab) [facility] [place]: 03/24/25 08:59 Last Admin: 02/24/25 08:52 Dose: 1 mg Documented By: Admin: 02/23/25 08:20 Dose: 1 mg Documented By: Admin: 02/22/25 08:33 Dose: 1 mg Documented By: TB Multivitamins/Minerals (Cerovite Adv Formula Tab) [facility] [place] Stop: 03/24/25 08:59 Last Admin: 02/24/25 08:51 Dose: 1 tab Documented By: Admin: 02/23/25 08:20 Dose: 1 tab Documented By: Admin: 02/22/25 08:33 Dose: 1 tab Documented By: MILLIE Ondansetron HCl (Ondansetron Inj 2 Mg/Ml 2 Ml Vial) 4 mg IV Q6H PRN PRN Reason: Nausea Stop: 03/23/25 21:11 Last Admin: 02/24/25 08:45 Dose: 4 mg Documented By: Admin: 02/22/25 22:37 Dose: 4 mg Documented By: davida Pantoprazole Sodium (Pantoprazole 40 Mg Tab) 40 mg PO DAILY [facility] Stop: 03/24/25 08:59 Last Admin: 02/24/25 08:51 Dose: 40 mg Documented By: Admin: 02/23/25 08:20 Dose: 40 mg Documented By: Admin: 02/22/25 08:33 Dose: 40 mg Documented By: TB Phenobarbital (Phenobarbital 30 Mg Tab) 30 mg PO Q12H [facility]KA Stop: 02/25/25 21:49 Last Admin: 02/24/25 10:03 Dose: 30 mg Documented By: LMP Potassium Chloride (Potassium Chloride Crtab 20 Meq Tabcr) 20 meq PO BID MALKA Stop: 02/24/25 20:59 Last Admin: 02/24/25 08:54 Dose: 20 meq Documented By: Admin: 02/23/25 21:05 Dose: 20 meq Documented By: davida Quetiapine Fumarate (Quetiapine Fumarate 25 Mg Tablet) 50 mg PO HS MALKA Stop: 03/23/25 21:11 Last Admin: 02/23/25 20:59 Dose: 50 mg Documented By: davida Admin: 02/22/25 20:47 Dose: 50 mg Documented By: davida Admin: 02/21/25 21:42 Dose: 50 mg Documented By: davida Sertraline HCl (Sertraline Hcl 50 Mg Tablet) 50 mg PO DAILY MALKA Stop: 03/24/25 08:59 Last Admin: 02/24/25 08:51 Dose: 50 mg Documented By: Admin: 02/23/25 08:20 Dose: 50 mg Documented By: Admin: 02/22/25 08:33 Dose: 50 mg Documented By: TB Thiamine HCl (Thiamine Hcl 100 Mg Tab) 100 mg PO QA [facility]KA Stop: 03/24/25 08:59 Last Admin: 02/24/25 08:52 Dose: 100 mg Documented By: Admin: 02/23/25 08:20 Dose: 100 mg Documented By: Admin: 02/22/25 08:33 Dose: 100 mg Documented By: TB Vitamin D (Cholecalciferol 25 Mcg (1000 Units) Tab) 25 mcg PO QAM [facility] Stop: 03/24/25 08:59 Last Admin: 02/24/25 08:51 Dose: 25 mcg Documented By: Admin: 02/23/25 08:20 Dose: 25 mcg Documented By: Admin: 02/22/25 08:33 Dose: 25 mcg Documented By: TB [place] [address] IN/OBS CONSULT LVL 5,80M Patient Type New History Comprehensive Exam Comprehensive Medical Decision Making High Complexity Diagnoses Alcohol withdrawal F10.939 Generalized anxiety disorder F41.1 Alcohol use disorder, severe, dependence F10.20
[2025-02-25 07:51] LABS: Anion Gap 9.0 (3-11); Blood Urea Nitrogen 8.0 mg/dl (6-23); Calcium 9.6 mg/dl (8.6-10.3); Carbon Dioxide 29.0 mmol/L (21-32); Chloride 102.0 mmol/L (98-107); Creatinine Clr Calc Pharmacy 190.0 ml/min; Glucose 80.0 mg/dl (70-99(Fasting)); Magnesium 2.0 mg/dl (1.7-2.4); Potassium 3.7 mmol/L (3.5-5.1); Sodium 140.0 mmol/L (136-145)
[2025-02-25] MEDS: POTASSIUM CHLORIDE CRTAB 20 MEQ TABCR PO STA (09:16)
[2025-02-25] MEDS: SERTRALINE HCL 100 MG TABLET PO SCH (09:55)
--- NOTE | 2025-02-25 11:43 | Hospitalist Progress Note ---
Date of Service February 25, 2025 Assessment & Plan (1) Alcoholism: (2) Hypokalemia: (3) Anxiety and depression: (4) Gout: Plan This patient is a 34-year-old male with history of alcohol use disorder with multiple previous hospitalizations for alcohol withdrawal, gout, HTN, GERD, d epression/anxiety, PE, alcohol-induced pancreatitis, idiopathic polyneuropathy, vitamin D deficiency, rheumatoid arthritis, and POTS, who was recently discharged 12 days prior after inpatient alcohol detoxification. He presents again for alcohol withdrawal. He began drinking 1/5 of vodka each day for the last 12 days since discharge. His last drink was on the evening of 02/20 and his AWSS scale in the ED was 5. He is presenting for alcohol detoxification as he strongly desires to quit drinking. He was initiated on the phenobarbital loading dose and is admitted for alcohol withdrawal. #Alcohol use disorder with withdrawal-patient is with a history of ICU stay for severe alcohol withdrawal, no seizure history. Phenobarbital taper has worked well for him in the past. With fatty liver on recent imaging from outside hospital but no evidence on laboratory values of liver dysfunction. Alkaline phosphatase mildly elevated from fatty liver and now normalized. He is tolerating the phenobarbital taper here, but still having mild occasional tremor and diaphoresis, anxiety, elevated blood pressures. Has not required any as needed phenobarbital since 02/23 - Continued stay on PCU-continue phenobarbital taper which is scheduled to be completed on 02/28 -Continue IM as needed phenobarbital at 30 mg every 6 hours RASS greater than 0 - Continue thiamine 100 mg p.o. daily, folic acid 1 mg p.o. daily, multivitamin 1 tablet daily - Strongly encouraged inpatient rehab/dual diagnosis after discharge to help promote sobriety-consult case management appreciated-looking into dual diagnosis programs that accept his medical assistance - Follow CBC, CMP, magnesium in the a.m. #Acute gout-now with acute podagra and left ankle pain on left -checked xray left great toe and ankle-show changes consistent with gout and small joint effusion in the ankle -checked venous Doppler LLE to r/o DVT given h/o DVT/PE and recurrent hospitalizations-negative for DVT but does show avascular fluid collection lateral left ankle-could be related to gout -start colchicine 1.2mg po x 1 now, then 0.6mg po daily x 2 more doses for acute gout - IV Toradol as needed severe pain - Resumed prophylactic allopurinol 300 mg p.o. once daily on admission - he may need a prescription for this on discharge - Abstinence from alcohol encouraged #Depression/anxiety-his untreated depression and anxiety are what drives him to drink alcohol. 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 He has not been taking the sertraline, Seroquel, clonidine prescribed previously. He would like to restart pharmacologic treatment for his depression and anxiety which has been done here. He is also stating that he has had fleeting thoughts of suicide but has no plan for suicide. He is interested in inpatient psychiatric hospitalization for severe depression. Having ongoing anxiety worsening throughout hospitalization - Consult psychiatry for further evaluation appreciated - No need for one-to-one sitter at this point as he contracts for safety and does not have an active suicidal plan - Restarted sertraline 50 mg p.o. once daily-psychiatry recommends increasing to 100 mg daily - Continue Seroquel 50 mg p.o. at bedtime - Add hydroxyzine 25 mg p.o. every 6 hours as needed anxiety - Needs outpatient psychiatry follow-up versus dual diagnosis inpatient rehab #Anemia- 2.0 g drop over first 24 hours. stable and recovering since, no evidence of bleed. Likely from dilution with IV fluids #Hypokalemia-secondary to poor p.o. intake and heavy alcohol use, now improved but remains low normal -Give KCl 40 mEq p.o. x 1 - Follow BMP and magnesium in the a.m. #Hypomagnesemia-resolved - Follow magnesium in the a.m. #Elevated BPs-does not have a diagnosis of HTN but been treated with amlodipine and clonidine in the past due to high blood pressures from alcohol withdrawal. He does not take anything on a regular basis. He has required 2 doses of as needed clonidine thus far this admission and BPs are improving but remain elevated - Hold off on any antihypertensives for now - Treating for alcohol withdrawal which will help blood pressure - If blood pressures remain elevated, could add antihypertensive - Continue clonidine 0.1 mg p.o. twice daily as needed SBP greater than 190, DBP greater than 110 #GERD-he has not been taking PPI as an outpatient as prescribed but does have a recent history of hematemesis likely from Shonda-Christiansen tear versus gastritis from alcohol use - Continue Protonix 40 mg daily and he will need a prescription for this on discharge #Idiopathic polyneuropathy-previously noted and seen by neurology, likely related to alcohol or B12 deficiency. Not C/O of any current pain #Vitamin D deficiency-previous vitamin D levels checked and are undetectable - Started vitamin D 5000 units once daily - Follow levels as an outpatient #Rheumatoid arthritis-previously followed by rheumatology and at 1 point was on hydroxychloroquine but is not taking anything at this point in time. Recently was prescribed meloxicam as an inpatient but has not been taking this as an outpatient - Follow-up as an outpatient with PCP and/or rheumatology - Avoid NSAIDs right now as high risk for gastric ulcers with alcohol use, however will use Toradol sparingly for acute gout attack DVT prophylaxis/history of PE-with a history of small PE at outside hospital and patient never really took the Eliquis afterwards. High risk given multiple recurrent hospitalizations-continue Lovenox 40 mg SQ twice daily, SCDs Disposition-continued stay on PCU in case needs as needed IM phenobarbital. Improving, highly recommend dual diagnosis inpatient rehab directly from the hospital after discharge-patient contemplating this. Case management involved. Patient's healthcare proxy would be his mother. He does not want his mother to know that he is here in the hospital-do not contact her with any updates or questions unless he is unable to make decisions for himself due to encephalopathy, etc. Admission and Anticipated Discharge Date Admission Date: February 21, 2025 Subjective Patient reports still undecided about whether or not to go to a dual diagnosis facility after discharge from the hospital. He is starting to feel more depressed and having fleeting thoughts of suicide but no plan. He is also feeling quite anxious and sweaty at times. He is also complaining of fairly acute onset of significant pain in the left ankle and developing pain in the left great toe. He had no specific injury to the ankle or foot. Telemetry normal sinus rhythm with rates in the 60s to 70s. Physical Exam Constitutional: WD/WN, vitals as above Neck: trachea midline, no thyromegaly Respiratory: normal respiratory effort, lungs clear to auscultation Cardiovascular: RRR, no murmur, no edema Chest (Breasts): Chest: normal inspection of chest Gastrointestinal (Abdomen): normal bowel sounds, soft, nontender, no hepatosplenomegaly Musculoskeletal: Extremities: no cyanosis and no clubbing left 1st MTP joint with significant edema, mild erythema, +TTP Left lateral ankle and Achilles with +TTP, no edema or erythema, +pain with passive dorsiflexion no calf edema but trace left ankle edema Neurologic: moves all extremities and awake; no focal motor deficits Psychiatric: Orientation: alert and oriented x 3 Affect: + flat affect Mood: + depressed mood Lymphatic: no lymphedema Results & Data Results & Data Vital Signs (Past 12 Hours) Vital Signs Temp Pulse Pulse Resp BP Pulse Ox O2 Del Method 02/25/25 07:55 36.7 C 81 26 H 161/103 H 99 Room Air 02/25/25 07:04 64 02/25/25 05:03 80 02/25/25 03:00 36.8 C 79 18 150/97 H 95 Room Air Laboratory Results BMP, magnesium reviewed Diagnostic Findings Ankle X-Ray 02/25/25 11:35 EXAM: Radiographs of the Left Ankle 3 Views INDICATION: Nontraumatic swelling and pain. TECHNIQUE: Frontal, lateral and oblique views of the left ankle. COMPARISON: 06/19/2024 FINDINGS: Limitations: None. Bones/joints: New small joint effusion noted. Now identified. Is a subtle cortical erosion of the medial distal fibular cortex. Similar erosion suspected at the base of the fifth metatarsal. Soft tissues: There is mild periarticular soft tissue swelling. No soft tissue calcification or radiopaque foreign body noted. No soft tissue gas. IMPRESSION: There is a new, small joint effusion and generalized soft tissue swelling. I cannot exclude small erosive changes suggestive of gout in the distal fibula and base of the fifth metatarsal. ACT 112: N/A Electronically signed by Allie Rose 02-25-2025 13:00 PM Toe X-Ray 02/25/25 11:35 EXAM: Radiographs of the Left Foot Complete 3 Views INDICATION: Nontraumatic pain and swelling. TECHNIQUE: AP, oblique and lateral views of the first left toe obtained. COMPARISON: No relevant prior studies available. FINDINGS: Bones/joints: There is a punched-out erosion in the plantar and medial base of the first proximal phalanx. Soft tissues: Moderate soft tissue swelling noted centered at the first metatarsophalangeal joint. There are small amorphous calcifications along the base of the first proximal phalanx. No soft tissue gas or radiopaque foreign body. IMPRESSION: Probable gout first proximal phalanx with moderate soft tissue swelling and adjacent tophaceous deposits. ACT 112: N/A Electronically signed by Allie Rose 02-25-2025 13:00 PM Venous Doppler Study 02/25/25 11:35 EXAM: US Duplex Left Lower Extremity Veins INDICATION: Pain. TECHNIQUE: Real-time duplex ultrasound scan of the left lower extremity veins integrating B-mode two-dimensional vascular structure, Doppler spectral analysis, color flow Doppler imaging and compression. COMPARISON: No relevant prior studies available. FINDINGS: Deep veins: No DVT in the visualized common femoral, femoral or popliteal veins. The veins demonstrate normal color flow, are normally compressible, with normal phasic flow and/or augmentation response. Superficial veins: No abnormality noted. No thrombus in the visualized great saphenous vein. Soft tissues: No abnormality noted. Other findings: Images labeled left lateral ankle point of interest provided show a 2.0 x 0.4 x 1.2 cm mildly complex avascular fluid collection. IMPRESSION: 1. No deep venous thrombosis of the left lower extremity. 2. In the area of interest lateral ankle is a small avascular, nonspecific fluid collection. ACT 112: N/A Electronically signed by Allie Rose 02-25-2025 12:39 PM PG Care Time/CCT Total # of Minutes Spent Total Time Spent with Patient: Total time spent is greater than 50% in coordination of care (as documented) at patient's floor/unit and/or counseling patient: Coding Level of Care Code 23917 SUB INP/OBS CARE 2/35MIN Diagnoses Alcoholism F10.20 Hypokalemia E87.6 Anxiety and depression F41.9; F32.A Gout, unspecified cause, unspecified chronicity, unspecified site M10.9 Chronicity: unspecified Gout etiology: unspecified cause Gout site: unspecified site (4) Gout Chronicity: unspecified Gout etiology: unspecified cause Gout site: unspecified site Qualified Code(s): M10.9 - Gout, unspecified
--- NOTE | 2025-02-25 12:40 | Ultrasound Report ---
EXAM: US Duplex Left Lower Extremity Veins INDICATION: Pain. TECHNIQUE: Real-time duplex ultrasound scan of the left lower extremity veins integrating B-mode two-dimensional vascular structure, Doppler spectral analysis, color flow Doppler imaging and compression. COMPARISON: No relevant prior studies available. FINDINGS: Deep veins: No DVT in the visualized common femoral, femoral or popliteal veins. The veins demonstrate normal color flow, are normally compressible, with normal phasic flow and/or augmentation response. Superficial veins: No abnormality noted. No thrombus in the visualized great saphenous vein. Soft tissues: No abnormality noted. Other findings: Images labeled left lateral ankle point of interest provided show a 2.0 x 0.4 x 1.2 cm mildly complex avascular fluid collection. IMPRESSION: 1. No deep venous thrombosis of the left lower extremity. 2. In the area of interest lateral ankle is a small avascular, nonspecific fluid collection. ACT 112: N/A Electronically signed by Allie Rose 02-25-2025 12:39 PM
[2025-02-25] MEDS: COLCHICINE 0.6 MG TAB PO ONE (12:43)
--- NOTE | 2025-02-25 13:01 | XRay Report ---
EXAM: Radiographs of the Left Ankle 3 Views INDICATION: Nontraumatic swelling and pain. TECHNIQUE: Frontal, lateral and oblique views of the left ankle. COMPARISON: 06/19/2024 FINDINGS: Limitations: None. Bones/joints: New small joint effusion noted. Now identified. Is a subtle cortical erosion of the medial distal fibular cortex. Similar erosion suspected at the base of the fifth metatarsal. Soft tissues: There is mild periarticular soft tissue swelling. No soft tissue calcification or radiopaque foreign body noted. No soft tissue gas. IMPRESSION: There is a new, small joint effusion and generalized soft tissue swelling. I cannot exclude small erosive changes suggestive of gout in the distal fibula and base of the fifth metatarsal. ACT 112: N/A Electronically signed by Allie Rose 02-25-2025 13:00 PM
--- NOTE | 2025-02-25 13:03 | XRay Report ---
EXAM: Radiographs of the Left Foot Complete 3 Views INDICATION: Nontraumatic pain and swelling. TECHNIQUE: AP, oblique and lateral views of the first left toe obtained. COMPARISON: No relevant prior studies available. FINDINGS: Bones/joints: There is a punched-out erosion in the plantar and medial base of the first proximal phalanx. Soft tissues: Moderate soft tissue swelling noted centered at the first metatarsophalangeal joint. There are small amorphous calcifications along the base of the first proximal phalanx. No soft tissue gas or radiopaque foreign body. IMPRESSION: Probable gout first proximal phalanx with moderate soft tissue swelling and adjacent tophaceous deposits. ACT 112: N/A Electronically signed by Allie Rose 02-25-2025 13:00 PM
[2025-02-25] MEDS: KETOROLAC TROMETHAMINE 15 MG/ML VIAL IV ONE (14:32)
[2025-02-25] MEDS: KETOROLAC TROMETHAMINE 15 MG/ML VIAL IV PRN (22:27)
[2025-02-26 06:47] LABS: Hematocrit (blood only) 40.4 % (42.0-52.0); Hemoglobin 13.2 g/dL (14.0-18.0); Immature Granulocytes # (auto) 0.06 K/uL (0.01-0.20); Immature Granulocytes % (auto) 0.8 %; Mean Corpuscular Hemoglobin 30.1 pg (25.0-34.0); Mean Corpuscular Volume 92.0 fL (80.0-100.0); Platelet Count 218 K/uL (130-400); RDW Standard Deviation 44.3 fL (36.4-46.3); Red Blood Count 4.39 M/uL (4.70-6.10); White Blood Count 7.57 K/ul (4.8-10.8)
[2025-02-26 07:09] LABS: Anion Gap 7.0 (3-11); Blood Urea Nitrogen 15.0 mg/dl (6-23); Calcium 9.1 mg/dl (8.6-10.3); Carbon Dioxide 26.0 mmol/L (21-32); Chloride 105.0 mmol/L (98-107); Creatinine Clr Calc Pharmacy 161.6 ml/min; Glucose 83.0 mg/dl (70-99(Fasting)); Magnesium 1.8 mg/dl (1.7-2.4); Potassium 4.2 mmol/L (3.5-5.1); Sodium 138.0 mmol/L (136-145)
[2025-02-26] MEDS: COLCHICINE 0.6 MG TAB PO SCH (08:48)
[2025-02-26] MEDS: GABAPENTIN 300 MG CAP PO PRN (14:53)
--- NOTE | 2025-02-26 17:31 | Hospitalist Progress Note ---
Date of Service February 26, 2025 Assessment & Plan (1) Alcoholism: (2) Hypokalemia: (3) Anxiety and depression: (4) Gout: Plan This patient is a 34-year-old male with history of alcohol use disorder with multiple previous hospitalizations for alcohol withdrawal, gout, HTN, GERD, d epression/anxiety, PE, alcohol-induced pancreatitis, idiopathic polyneuropathy, vitamin D deficiency, rheumatoid arthritis, and POTS, who was recently discharged 12 days prior after inpatient alcohol detoxification. He presents again for alcohol withdrawal. He began drinking 1/5 of vodka each day for the last 12 days since discharge. His last drink was on the evening of 02/20 and his AWSS scale in the ED was 5. He is presenting for alcohol detoxification as he strongly desires to quit drinking. He was initiated on the phenobarbital loading dose and is admitted for alcohol withdrawal. #Alcohol use disorder with withdrawal-patient is with a history of ICU stay for severe alcohol withdrawal, no seizure history. Phenobarbital taper has worked well for him in the past. With fatty liver on recent imaging from outside hospital but no evidence on laboratory values of liver dysfunction. Alkaline phosphatase mildly elevated from fatty liver and now normalized. He is tolerating the phenobarbital taper here, but still having mild occasional tremor and diaphoresis, anxiety, elevated blood pressures. Has not required any as needed phenobarbital since 02/23 - Continued stay on PCU-continue phenobarbital taper which is scheduled to be completed on 02/28 -Continue IM as needed phenobarbital at 30 mg every 6 hours RASS greater than 0 - Continue thiamine 100 mg p.o. daily, folic acid 1 mg p.o. daily, multivitamin 1 tablet daily - Strongly encouraged inpatient rehab/dual diagnosis after discharge to help promote sobriety-consult case management appreciated-looking into dual diagnosis programs that accept his medical assistance - Labs WNL - Increase clonidine to 0.1 q6h and expand to be able to angel for WDX symptoms - Add gabapentin 300mg TID prn for breakthrough withdrawal. Give if clonidine ineffective for anxiety/insomnia #Acute gout-now with acute podagra and left ankle pain on left -checked xray left great toe and ankle-show changes consistent with gout and small joint effusion in the ankle -checked venous Doppler LLE to r/o DVT given h/o DVT/PE and recurrent hospitalizations-negative for DVT but does show avascular fluid collection lateral left ankle-could be related to gout -start colchicine 1.2mg po x 1 now, then 0.6mg po daily x 2 more doses for acute gout - IV Toradol as needed severe pain - Resumed prophylactic allopurinol 300 mg p.o. once daily on admission - he may need a prescription for this on discharge - Abstinence from alcohol encouraged #Depression/anxiety-his untreated depression and anxiety are what drives him to drink alcohol. 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 He has not been taking the sertraline, Seroquel, clonidine prescribed previously. He would like to restart pharmacologic treatment for his depression and anxiety which has been done here. He is also stating that he has had fleeting thoughts of suicide but has no plan for suicide. He is interested in inpatient psychiatric hospitalization for severe depression. Having ongoing anxiety worsening throughout hospitalization - Consult psychiatry for further evaluation appreciated - No need for one-to-one sitter at this point as he contracts for safety and does not have an active suicidal plan - Restarted sertraline 50 mg p.o. once daily-psychiatry recommends increasing to 100 mg daily - Continue Seroquel 50 mg p.o. at bedtime - Add hydroxyzine 25 mg p.o. every 6 hours as needed anxiety - Needs outpatient psychiatry follow-up versus dual diagnosis inpatient rehab #Anemia- 2.0 g drop over first 24 hours. stable and recovering since, no evidence of bleed. Likely from dilution with IV fluids #Hypokalemia-secondary to poor p.o. intake and heavy alcohol use, now improved but remains low normal -Give KCl 40 mEq p.o. x 1 - Follow BMP and magnesium in the a.m. -Stable #Hypomagnesemia-resolved - Follow magnesium in the a.m. #Elevated BPs-does not have a diagnosis of HTN but been treated with amlodipine and clonidine in the past due to high blood pressures from alcohol withdrawal. He does not take anything on a regular basis. He has required 2 doses of as needed clonidine thus far this admission and BPs are improving but remain elevated - Hold off on any antihypertensives for now - Treating for alcohol withdrawal which will help blood pressure - If blood pressures remain elevated, could add antihypertensive - Continue clonidine 0.1 mg p.o., increase to Q6H PRN, SBP greater than 190, DBP greater than 110 #GERD-he has not been taking PPI as an outpatient as prescribed but does have a recent history of hematemesis likely from Shonda-Christiansen tear versus gastritis from alcohol use - Continue Protonix 40 mg daily and he will need a prescription for this on discharge #Idiopathic polyneuropathy-previously noted and seen by neurology, likely related to alcohol or B12 deficiency. Not C/O of any current pain #Vitamin D deficiency-previous vitamin D levels checked and are undetectable - Started vitamin D 5000 units once daily - Follow levels as an outpatient #Rheumatoid arthritis-previously followed by rheumatology and at 1 point was on hydroxychloroquine but is not taking anything at this point in time. Recently was prescribed meloxicam as an inpatient but has not been taking this as an outpatient - Follow-up as an outpatient with PCP and/or rheumatology - Avoid NSAIDs right now as high risk for gastric ulcers with alcohol use, however will use Toradol sparingly for acute gout attack DVT prophylaxis/history of PE-with a history of small PE at outside hospital and patient never really took the Eliquis afterwards. High risk given multiple recurrent hospitalizations-continue Lovenox 40 mg SQ twice daily, SCDs Disposition-continued stay on PCU in case needs as needed IM phenobarbital. Improving, highly recommend dual diagnosis inpatient rehab directly from the hospital after discharge-patient contemplating this. Case management involved. Patient's healthcare proxy would be his mother. He does not want his mother to know that he is here in the hospital-do not contact her with any updates or questions unless he is unable to make decisions for himself due to encephalopathy, etc. Admission and Anticipated Discharge Date Admission Date: February 21, 2025 Subjective Ongoing phenobarb taper. Still complaining of mostly nuisance type symptoms specifically at night sometimes during the day with anxiousness. Anxiety. Elevated blood pressures. We discussed that adjunctive medications to be used in addition to the phenobarb taper since we are getting to the end of that. He is comfortable with increasing clonidine or trial of gabapentin. Physical Exam 2 Constitutional: WD/WN, vitals as above Neck: trachea midline, no thyromegaly Respiratory: normal respiratory effort, lungs clear to auscultation Cardiovascular: RRR, no murmur, no edema Chest (Breasts): Chest: normal inspection of chest Gastrointestinal (Abdomen): normal bowel sounds, soft, nontender, no hepatosplenomegaly Musculoskeletal: Extremities: no cyanosis and no clubbing left 1st MTP joint with significant edema, mild erythema, +TTP Left lateral ankle and Achilles with +TTP, no edema or erythema, +pain with passive dorsiflexion no calf edema but trace left ankle edema Neurologic: moves all extremities and awake; no focal motor deficits Psychiatric: Orientation: alert and oriented x 3 Affect: + flat affect Mood: + depressed mood Lymphatic: no lymphedema Results & Data Results & Data Vital Signs (Past 12 Hours) Vital Signs Temp Pulse Pulse Pulse Resp BP Pulse Ox 02/26/25 15:50 36.8 C 75 21 142/83 H 97 02/26/25 14:48 36.9 C 80 18 139/90 97 02/26/25 11:37 36.7 C 86 21 153/107 H 98 02/26/25 10:37 36.7 C 88 20 157/107 H 98 02/26/25 09:25 36.9 C 97 H 20 136/84 97 02/26/25 09:04 74 02/26/25 08:43 36.7 C 93 H 18 129/73 97 02/26/25 08:25 84 17 132/85 97 02/26/25 08:05 19 02/26/25 07:41 36.8 C 84 19 159/109 H 98 O2 Del Method 02/26/25 15:50 Room Air 02/26/25 14:48 Room Air 02/26/25 11:37 Room Air 02/26/25 10:37 Room Air 02/26/25 09:25 Room Air 02/26/25 09:04 02/26/25 08:43 Room Air 02/26/25 08:25 Room Air 02/26/25 08:05 02/26/25 07:41 Room Air Laboratory Results 02/26/25 06:29 WBC 7.57 RBC 4.39 L Hgb 13.2 L Hct 40.4 L MCV 92.0 MCH 30.1 MCHC 32.7 RDW Std Deviation 44.3 RDW Coeff of Nohemy 13.2 Plt Count 218 MPV 10.1 Immature Gran % (Auto) 0.8 Neut % (Auto) 60.6 Lymph % (Auto) 25.4 Ector % (Auto) 8.1 Eos % (Auto) 4.6 Baso % (Auto) 0.5 Neut # (Auto) 4.59 Lymph # (Auto) 1.92 Ector # (Auto) 0.61 H Eos # (Auto) 0.35 Baso # (Auto) 0.04 Immature Gran # (Auto) 0.06 Sodium 138 Potassium 4.2 Chloride 105 Carbon Dioxide 26 Anion Gap 7 BUN 15 Creatinine 0.78 Est Cr Clr Drug Dosing 161.6 eGFR 120.01 BUN/Creatinine Ratio 19.2 Glucose 83 Calcium 9.1 Magnesium 1.8 PG Care Time/CCT Total # of Minutes Spent Total Time Spent with Patient: Total time spent is greater than 50% in coordination of care (as documented) at patient's floor/unit and/or counseling patient: Coding Level of Care Code 99781 SUB INP/OBS CARE 235MIN Diagnoses Alcoholism F10.20 Hypokalemia E87.6 Anxiety and depression F41.9; F32.A Gout, unspecified cause, unspecified chronicity, unspecified site M10.9 Gout site: unspecified site Gout etiology: unspecified cause Chronicity: unspecified (4) Gout Gout site: unspecified site Gout etiology: unspecified cause Chronicity: unspecified Qualified Code(s): M10.9 - Gout, unspecified
[2025-02-27 05:57] LABS: Hematocrit (blood only) 43.0 % (42.0-52.0); Hemoglobin 14.0 g/dL (14.0-18.0); Mean Corpuscular Hemoglobin 29.9 pg (25.0-34.0); Mean Corpuscular Volume 91.9 fL (80.0-100.0); Platelet Count 225 K/uL (130-400); RDW Standard Deviation 44.3 fL (36.4-46.3); Red Blood Count 4.68 M/uL (4.70-6.10); White Blood Count 7.53 K/ul (4.8-10.8)
[2025-02-27 06:14] LABS: Creatinine Clr Calc Pharmacy 165.7 ml/min
--- NOTE | 2025-02-27 15:01 | Hospitalist Progress Note ---
Date of Service February 27, 2025 Assessment & Plan (1) Alcoholism: (2) Hypokalemia: (3) Anxiety and depression: (4) Gout: Plan This patient is a 34-year-old male with history of alcohol use disorder with multiple previous hospitalizations for alcohol withdrawal, gout, HTN, GERD, d epression/anxiety, PE, alcohol-induced pancreatitis, idiopathic polyneuropathy, vitamin D deficiency, rheumatoid arthritis, and POTS, who was recently discharged 12 days prior after inpatient alcohol detoxification. He presents again for alcohol withdrawal. He began drinking 1/5 of vodka each day for the last 12 days since discharge. His last drink was on the evening of 02/20 and his AWSS scale in the ED was 5. He is presenting for alcohol detoxification as he strongly desires to quit drinking. He was initiated on the phenobarbital loading dose and is admitted for alcohol withdrawal. #Alcohol use disorder with withdrawal-patient is with a history of ICU stay for severe alcohol withdrawal, no seizure history. Phenobarbital taper has worked well for him in the past. With fatty liver on recent imaging from outside hospital but no evidence on laboratory values of liver dysfunction. Alkaline phosphatase mildly elevated from fatty liver and now normalized. He is tolerating the phenobarbital taper here, but still having mild occasional tremor and diaphoresis, anxiety, elevated blood pressures. Has not required any as needed phenobarbital since 02/23 - Continued stay on PCU-continue phenobarbital taper which is scheduled to be completed on 02/28 -Continue IM as needed phenobarbital at 30 mg every 6 hours RASS greater than 0 - Continue thiamine 100 mg p.o. daily, folic acid 1 mg p.o. daily, multivitamin 1 tablet daily - Strongly encouraged inpatient rehab/dual diagnosis after discharge to help promote sobriety-consult case management appreciated-looking into dual diagnosis programs that accept his medical assistance - Labs WNL - Increase clonidine to 0.1 q6h and expand to be able to angel for WDX symptoms - Add gabapentin 300mg TID prn for breakthrough withdrawal. Give if clonidine ineffective for anxiety/insomnia - Reviewed with nursing. Some response to gabapentin and clonidine although they have been used in sequence. Will have them alternate the doses. See which is more effective. We have quite a bit arranged to titrate up if we know if 1 of those is more effective. - Continue with phenobarb taper he should finish this evening.- #Acute gout-now with acute podagra and left ankle pain on left -checked xray left great toe and ankle-show changes consistent with gout and small joint effusion in the ankle -checked venous Doppler LLE to r/o DVT given h/o DVT/PE and recurrent hospitalizations-negative for DVT but does show avascular fluid collection lateral left ankle-could be related to gout -start colchicine 1.2mg po x 1 now, then 0.6mg po daily x 2 more doses for acute gout - IV Toradol as needed severe pain - Resumed prophylactic allopurinol 300 mg p.o. once daily on admission - he may need a prescription for this on discharge - Abstinence from alcohol encouraged #Depression/anxiety-his untreated depression and anxiety are what drives him to drink alcohol. 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 He has not been taking the sertraline, Seroquel, clonidine prescribed previously. He would like to restart pharmacologic treatment for his depression and anxiety which has been done here. He is also stating that he has had fleeting thoughts of suicide but has no plan for suicide. He is interested in inpatient psychiatric hospitalization for severe depression. Having ongoing anxiety worsening throughout hospitalization - Consult psychiatry for further evaluation appreciated - No need for one-to-one sitter at this point as he contracts for safety and does not have an active suicidal plan - Restarted sertraline 50 mg p.o. once daily-psychiatry recommends increasing to 100 mg daily - Continue Seroquel 50 mg p.o. at bedtime - Add hydroxyzine 25 mg p.o. every 6 hours as needed anxiety - Patient feels this is active, progressive and decompensated. He is having increasingly intrusive thoughts about how he could potentially end his life. He has no active plan. He met with the behavioral health liaison yesterday and was very willing to participate in any available program. He will finish his phenobarb taper in the next 24 hours and will be medically cleared for any outpatient program likely as of tomorrow. #Anemia- 2.0 g drop over first 24 hours. stable and recovering since, no evidence of bleed. Likely from dilution with IV fluids #Hypokalemia-secondary to poor p.o. intake and heavy alcohol use, now improved but remains low normal -Give KCl 40 mEq p.o. x 1 - Follow BMP and magnesium in the a.m. -Stable #Hypomagnesemia-resolved - Follow magnesium in the a.m. #Elevated BPs-does not have a diagnosis of HTN but been treated with amlodipine and clonidine in the past due to high blood pressures from alcohol withdrawal. He does not take anything on a regular basis. He has required 2 doses of as needed clonidine thus far this admission and BPs are improving but remain elevated - Hold off on any antihypertensives for now - Treating for alcohol withdrawal which will help blood pressure - If blood pressures remain elevated, could add antihypertensive - Continue clonidine 0.1 mg p.o., increase to Q6H PRN, SBP greater than 190, DBP greater than 110 #GERD-he has not been taking PPI as an outpatient as prescribed but does have a recent history of hematemesis likely from Shonda-Christiansen tear versus gastritis from alcohol use - Continue Protonix 40 mg daily and he will need a prescription for this on discharge #Idiopathic polyneuropathy-previously noted and seen by neurology, likely related to alcohol or B12 deficiency. Not C/O of any current pain #Vitamin D deficiency-previous vitamin D levels checked and are undetectable - Started vitamin D 5000 units once daily - Follow levels as an outpatient #Rheumatoid arthritis-previously followed by rheumatology and at 1 point was on hydroxychloroquine but is not taking anything at this point in time. Recently was prescribed meloxicam as an inpatient but has not been taking this as an outpatient - Follow-up as an outpatient with PCP and/or rheumatology - Avoid NSAIDs right now as high risk for gastric ulcers with alcohol use, how ever will use Toradol sparingly for acute gout attack DVT prophylaxis/history of PE-with a history of small PE at outside hospital and patient never really took the Eliquis afterwards. High risk given multiple recurrent hospitalizations-continue Lovenox 40 mg SQ twice daily, SCDs Disposition-continued stay on PCU in case needs as needed IM phenobarbital. Improving, highly recommend dual diagnosis inpatient rehab directly from the hospital after discharge-patient contemplating this. Case management involved. Patient's healthcare proxy would be his mother. He does not want his mother to know that he is here in the hospital-do not contact her with any updates or questions unless he is unable to make decisions for himself due to encephalopathy, etc. Admission and Anticipated Discharge Date Admission Date: February 21, 2025 Subjective Patient is doing okay. Still having some breakthrough episodes with anxiety, sweats.Patient is doing okay. Still having some breakthrough episodes with anxiety, sweats. Tremulousness is largely resolved. Has been utilizing clonidine and gabapentin but Tremulousness is largely resolved. Has been utilizing clonidine and gabapentin but feels there are intervals where he is not having availability of PRNs. A lengthy discussion with the patient today in regards to his follow-up and disposition. feels there are intervals where he is not having availability of PRNs. Had a lengthy discussion with the patient today in regards to his follow-up and disposition. He met with the behavioral health liaison yesterday. He met with the behavioral health liaison yesterday. He is not willing to admit that his discharge disposition is unsafe at this time. He is now willing to admit that his discharge disposition is unsafe at this time. He feels as though his mental health and depression is poorly controlled and will lead him directly back to substance. He is very willing to do a voluntary inpatient program versus He feels as though his mental health and depression is poorly controlled and will lead him directly back to substance. To the outpatient program He is very willing to do a voluntary inpatient program versus if available. Case management working dual outpatient program. Will interface with psychiatry to figure out a safe discharge plan.. Will interface with psychiatry to figure out a safe discharge plan. Physical Exam Constitutional: WD/WN, vitals as above Neck: trachea midline, no thyromegaly Respiratory: normal respiratory effort, lungs clear to auscultation Cardiovascular: RRR, no murmur, no edema Chest (Breasts): Chest: normal inspection of chest Gastrointestinal (Abdomen): normal bowel sounds, soft, nontender, no hepatosplenomegaly Musculoskeletal: Extremities: no cyanosis and no clubbing left 1st MTP joint with significant edema, mild erythema, +TTP Left lateral ankle and Achilles with +TTP, no edema or erythema, +pain with passive dorsiflexion no calf edema but trace left ankle edema Neurologic: moves all extremities and awake; no focal motor deficits Psychiatric: Orientation: alert and oriented x 3 Affect: + flat affect Mood: + depressed mood Lymphatic: no lymphedema Results & Data Results & Data Vital Signs (Past 12 Hours) Vital Signs Temp Pulse Pulse Resp BP BP Pulse Ox 02/27/25 11:49 37.2 C 86 18 157/96 H 98 02/27/25 10:16 36.8 C 80 20 143/89 H 94 02/27/25 07:23 74 02/27/25 03:28 36.6 C 65 18 141/93 H 97 O2 Del Method 02/27/25 11:49 Room Air 02/27/25 10:16 Room Air 02/27/25 07:23 02/27/25 03:28 Room Air Laboratory Results 02/27/25 05:22 WBC 7.53 RBC 4.68 L Hgb 14.0 Hct 43.0 MCV 91.9 MCH 29.9 MCHC 32.6 RDW Std Deviation 44.3 RDW Coeff of Nohemy 13.2 Plt Count 225 MPV 10.1 Creatinine 0.76 Est Cr Clr Drug Dosing 165.7 eGFR 120.96 PG Care Time/CCT Total # of Minutes Spent Total Time Spent with Patient: Total time spent is greater than 50% in coordination of care (as documented) at patient's floor/unit and/or counseling patient: Coding Level of Care Code 89176 SUB INP/OBS CARE 2/35MIN Diagnoses Alcoholism F10.20 Hypokalemia E87.6 Anxiety and depression F41.9; F32.A Gout, unspecified cause, unspecified chronicity, unspecified site M10.9 Gout site: unspecified site Gout etiology: unspecified cause Chronicity: unspecified (4) Gout Gout site: unspecified site Gout etiology: unspecified cause Chronicity: unspecified Qualified Code(s): M10.9 - Gout, unspecified
[2025-02-27] MEDS: diphenhydrAMINE 50 MG/ML VIAL IV STA (20:52)
[2025-02-27] MEDS: HYDROCORTISONE 2.5% CR 30 GM TUBE EXT PRN (20:52)
[2025-02-28] MEDS: diphenhydrAMINE 50 MG/ML VIAL IV ONE (01:40)
[2025-02-28] MEDS: HYDROCORTISONE 2.5% CR 30 GM TUBE EXT SCH (01:40)
[2025-02-28 06:52] LABS: Hematocrit (blood only) 39.4 % (42.0-52.0); Hemoglobin 13.2 g/dL (14.0-18.0); Immature Granulocytes # (auto) 0.04 K/uL (0.01-0.20); Immature Granulocytes % (auto) 0.5 %; Mean Corpuscular Hemoglobin 30.8 pg (25.0-34.0); Mean Corpuscular Volume 91.8 fL (80.0-100.0); Platelet Count 218 K/uL (130-400); RDW Standard Deviation 44.0 fL (36.4-46.3); Red Blood Count 4.29 M/uL (4.70-6.10); White Blood Count 8.02 K/ul (4.8-10.8)
[2025-02-28 07:23] LABS: Anion Gap 7.0 (3-11); Blood Urea Nitrogen 16.0 mg/dl (6-23); Calcium 9.3 mg/dl (8.6-10.3); Carbon Dioxide 27.0 mmol/L (21-32); Chloride 104.0 mmol/L (98-107); Creatinine Clr Calc Pharmacy 172.6 ml/min; Glucose 83.0 mg/dl (70-99(Fasting)); Magnesium 1.9 mg/dl (1.7-2.4); Potassium 4.0 mmol/L (3.5-5.1); Sodium 138.0 mmol/L (136-145)
[2025-02-28] MEDS: diphenhydrAMINE 50 MG/ML VIAL IV PRN (11:45)
--- NOTE | 2025-02-28 16:57 | Hospitalist Progress Note ---
Date of Service February 28, 2025 Assessment & Plan (1) Alcoholism: (2) Hypokalemia: (3) Anxiety and depression: (4) Gout: Plan This patient is a 34-year-old male with history of alcohol use disorder with multiple previous hospitalizations for alcohol withdrawal, gout, HTN, GERD, d epression/anxiety, PE, alcohol-induced pancreatitis, idiopathic polyneuropathy, vitamin D deficiency, rheumatoid arthritis, and POTS, who was recently discharged 12 days prior after inpatient alcohol detoxification. He presents again for alcohol withdrawal. He began drinking 1/5 of vodka each day for the last 12 days since discharge. His last drink was on the evening of 02/20 and his AWSS scale in the ED was 5. He is presenting for alcohol detoxification as he strongly desires to quit drinking. He was initiated on the phenobarbital loading dose and is admitted for alcohol withdrawal. #Alcohol use disorder with withdrawal-patient is with a history of ICU stay for severe alcohol withdrawal, no seizure history. Phenobarbital taper has worked well for him in the past. With fatty liver on recent imaging from outside hospital but no evidence on laboratory values of liver dysfunction. Alkaline phosphatase mildly elevated from fatty liver and now normalized. He is tolerating the phenobarbital taper here, but still having mild occasional tremor and diaphoresis, anxiety, elevated blood pressures. Has not required any as needed phenobarbital since 02/23 - Continued stay on PCU-continue phenobarbital taper which is scheduled to be completed on 02/28 -Continue IM as needed phenobarbital at 30 mg every 6 hours RASS greater than 0 - Continue thiamine 100 mg p.o. daily, folic acid 1 mg p.o. daily, multivitamin 1 tablet daily - Strongly encouraged inpatient rehab/dual diagnosis after discharge to help promote sobriety-consult case management appreciated-looking into dual diagnosis programs that accept his medical assistance - Labs WNL - Increase clonidine to 0.1 q6h and expand to be able to angel for WDX symptoms - Add gabapentin 300mg TID prn for breakthrough withdrawal. Give if clonidine ineffective for anxiety/insomnia - Reviewed with nursing. Some response to gabapentin and clonidine although they have been used in sequence. Will have them alternate the doses. See which is more effective. We have quite a bit arranged to titrate up if we know if 1 of those is more effective. - Finishing phenobarbital taper this evening 02/28 - Continue with Clonidine/gabapentin As adjunctive measures -I was able to reach out to the behavioral health liaison, once he is medically cleared on Saturday Dr. Youssef was open to repeating evaluation to help prioritize and address his mental health issues. He would be ready/appropriate tomorrow morning at the earliest. #Acute gout-now with acute podagra and left ankle pain on left -checked xray left great toe and ankle-show changes consistent with gout and small joint effusion in the ankle -checked venous Doppler LLE to r/o DVT given h/o DVT/PE and recurrent hospitalizations-negative for DVT but does show avascular fluid collection lateral left ankle-could be related to gout -start colchicine 1.2mg po x 1 now, then 0.6mg po daily x 2 more doses for acute gout - IV Toradol as needed severe pain - Resumed prophylactic allopurinol 300 mg p.o. once daily on admission - he may need a prescription for this on discharge - Abstinence from alcohol encouraged - improving #Depression/anxiety-his untreated depression and anxiety are what drives him to drink alcohol. 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 He has not been taking the sertraline, Seroquel, clonidine prescribed previously. He would like to restart pharmacologic treatment for his depression and anxiety which has been done here. He is also stating that he has had fleeting thoughts of suicide but has no plan for suicide. He is interested in inpatient psychiatric hospitalization for severe depression. Having ongoing anxiety worsening throughout hospitalization - Consult psychiatry for further evaluation appreciated - No need for one-to-one sitter at this point as he contracts for safety and does not have an active suicidal plan - Restarted sertraline 50 mg p.o. once daily-psychiatry recommends increasing to 100 mg daily - Continue Seroquel 50 mg p.o. at bedtime - Add hydroxyzine 25 mg p.o. every 6 hours as needed anxiety - Patient feels this is active, progressive and decompensated. He is having increasingly intrusive thoughts about how he could potentially end his life. He has no active plan. He met with the behavioral health liaison yesterday and was very willing to participate in any available program. He will finish his phenobarb taper today and likely to be medically cleared for any outpatient program likely as of tomorrow. -I was able to reach out to the behavioral health liaison, once he is medically cleared on Saturday Dr. Youssef was open to repeating evaluation to help prioritize and address his mental health issues. He would be ready/appropriate tomorrow morning at the earliest. #Anemia- 2.0 g drop over first 24 hours. stable and recovering since, no evidence of bleed. Likely from dilution with IV fluids #Hypokalemia-secondary to poor p.o. intake and heavy alcohol use, now improved but remains low normal -Give KCl 40 mEq p.o. x 1 - Follow BMP and magnesium in the a.m. -Stable #Hypomagnesemia-resolved - Follow magnesium in the a.m. #Elevated BPs-does not have a diagnosis of HTN but been treated with amlodipine and clonidine in the past due to high blood pressures from alcohol withdrawal. He does not take anything on a regular basis. He has required 2 doses of as needed clonidine thus far this admission and BPs are improving but remain elevated - Hold off on any antihypertensives for now - Treating for alcohol withdrawal which will help blood pressure - If blood pressures remain elevated, could add antihypertensive - Continue clonidine 0.1 mg p.o., increase to Q6H PRN, SBP greater than 190, DBP greater than 110 #GERD-he has not been taking PPI as an outpatient as prescribed but does have a recent history of hematemesis likely from Shonda-Christiansen tear versus gastritis from alcohol use - Continue Protonix 40 mg daily and he will need a prescription for this on discharge #Idiopathic polyneuropathy-previously noted and seen by neurology, likely related to alcohol or B12 deficiency. Not C/O of any current pain #Vitamin D deficiency-previous vitamin D levels checked and are undetectable - Started vitamin D 5000 units once daily - Follow levels as an outpatient #Rheumatoid arthritis-previously followed by rheumatology and at 1 point was on hydroxychloroquine but is not taking anything at this point in time. Recently was prescribed meloxicam as an inpatient but has not been taking this as an outpatient - Follow-up as an outpatient with PCP and/or rheumatology - Avoid NSAIDs right now as high risk for gastric ulcers with alcohol use, however will use Toradol sparingly for acute gout attack DVT prophylaxis/history of PE-with a history of small PE at outside hospital and patient never really took the Eliquis afterwards. High risk given multiple recurrent hospitalizations-continue Lovenox 40 mg SQ twice daily, SCDs Disposition-continued stay on PCU in case needs as needed IM phenobarbital. Improving, highly recommend dual diagnosis inpatient rehab directly from the hospital after discharge-patient contemplating this. Case management involved. Patient's healthcare proxy would be his mother. He does not want his mother to know that he is here in the hospital-do not contact her with any updates or questions unless he is unable to make decisions for himself due to encephalopathy, etc. Admission and Anticipated Discharge Date Admission Date: February 21, 2025 Subjective Patient complaining of quite a bit of itching this morning. This could be related to the addition of the gabapentin. Also could be from the tapering with drawl or minimal withdrawal from the phenobarb. Will add IV Benadryl for the short-term. He also has hydroxyzine for anxiety which can be used may be helpful. Discussed at length again underlying mental health control and disch arge planning. He met with the behavioral health liaison on Saturday here. They had a discussion about potential discharge from the inpatient side to psychiatry. Unclear to me whether this was voluntary inpatient psychiatry or a locked unit here. Patient with remains very supportive of this and is quite worried that he will not be able to maintain his safety on discharge. Otherwise he is eating and drinking okay. Sleep has been somewhat better but not back to baseline. He is ambulatory. Functional. Likely to be medically cleared and ready for discharge as early as tomorrow the next day Physical Exam Constitutional: WD/WN, vitals as above Neck: trachea midline, no thyromegaly Respiratory: normal respiratory effort, lungs clear to auscultation Cardiovascular: RRR, no murmur, no edema Chest (Breasts): Chest: normal inspection of chest Gastrointestinal (Abdomen): normal bowel sounds, soft, nontender, no hepatosplenomegaly Musculoskeletal: Extremities: no cyanosis and no clubbing left 1st MTP joint with significant edema, mild erythema, +TTP Left lateral ankle and Achilles with +TTP, no edema or erythema, +pain with passive dorsiflexion no calf edema but trace left ankle edema Neurologic: moves all extremities and awake; no focal motor deficits Psychiatric: Orientation: alert and oriented x 3 Affect: + flat affect Mood: + depressed mood Lymphatic: no lymphedema Results & Data Results & Data Vital Signs (Past 12 Hours) Vital Signs Temp Pulse Pulse Resp BP Pulse Ox O2 Del Method 02/28/25 15:00 36.9 C 89 16 148/93 H 99 Room Air 02/28/25 11:00 36.8 C 103 H 20 136/88 98 Room Air 02/28/25 07:36 70 02/28/25 07:00 36.8 C 80 18 141/89 H 98 Room Air Laboratory Results 02/28/25 06:26 WBC 8.02 RBC 4.29 L Hgb 13.2 L Hct 39.4 L MCV 91.8 MCH 30.8 MCHC 33.5 RDW Std Deviation 44.0 RDW Coeff of Nohemy 13.2 Plt Count 218 MPV 10.4 Immature Gran % (Auto) 0.5 Neut % (Auto) 65.5 Lymph % (Auto) 18.7 [place] % (Auto) 8.5 Eos % (Auto) 6.4 Baso % (Auto) 0.4 Neut # (Auto) 5.26 Lymph # (Auto) 1.50 [place] # (Auto) 0.68 H Eos # (Auto) 0.51 H Baso # (Auto) 0.03 Immature Gran # (Auto) 0.04 Sodium 138 Potassium 4.0 Chloride 104 Carbon Dioxide 27 Anion Gap 7 BUN 16 Creatinine 0.73 Est Cr Clr Drug Dosing 172.6 eGFR 122.44 BUN/Creatinine Ratio 21.9 H Glucose 83 Calcium 9.3 Magnesium 1.9 PG Care Time/CCT Total # of Minutes Spent Total Time Spent with Patient: Total time spent is greater than 50% in coordination of care (as documented) at patient's floor/unit and/or counseling patient: Coding Level of Care Code 18298 SUB INP/OBS CARE 2/35MIN Diagnoses Alcoholism F10.20 Hypokalemia E87.6 Anxiety and depression F41.9; F32.A Gout, unspecified cause, unspecified chronicity, unspecified site M10.9 Gout site: unspecified site Gout etiology: unspecified cause Chronicity: unspecified (4) Gout Gout site: unspecified site Gout etiology: unspecified cause Chronicity: unspecified Qualified Code(s): M10.9 - Gout, unspecified
[2025-03-01] MEDS ORDERED: diphenhydrAMINE 2%/ZINC 0.1% CREAM 28.4GM TUBE EXT PRN (11:41)
--- NOTE | 2025-03-01 12:04 | Psychiatric Progress Note ---
Date of Service March 01, 2025 Impression / Recommendations Impression Diagnostically consistent with alcohol use disorder as well as unspecified depression and anxiety likely a combination of substance-induced as well as MDD and SUZANNE in the context of recent alcohol withdraw and ongoing depressive symptoms. Acute risk of self-harm is elevated given suicidal thoughts with specific methods identified, detailed knowledge of means and access and fear for his own safety if he were discharged home. Anticipate that without further inpatient psychiatric treatment he would return to drinking and have further deterioration of his mood. He desires inpatient psychiatric treatment and meets criteria for voluntary admission. Recommending 5 to 7-day inpatient psychiatric admission once medically cleared for mood stabilization and safety. He agrees to notify nursing staff if suicidal thoughts worsen or should he develop any plans in the hospital or should he feel unsafe for any reason. Reviewed benefits of inpatient psychiatric treatment and medication management. Validated his safety concerns and encouraged engagement with comprehensive treatment plan including importance of addressing both alcohol use and depression and anxiety. He expresses motivation for treatment and acknowledges his need for mental health intervention as part of his recovery. He continues to express distress from his rash which does appear uncomfortable though no evidence for need for ongoing medical admission for this per discussion with hospitalist. Suspect that physical discomfort as well as anxiety may be further contributing to distress from this. Overall, I spent a total of 60 minutes with this case including review of chart records, review of labwork, direct evaluation of the patient at bedside, counseling the patient, discussion of the patient with the hospitalist provider, discussion with the psychiatric liason during clinical rounds and documentation in the electronic health record. (1) Generalized anxiety disorder: (2) Alcohol withdrawal: (3) Alcohol use disorder, severe, dependence: (4) Depression with suicidal ideation: (5) Rash and nonspecific skin eruption: Plan -Plan for inpatient psychiatry admission to [facility] pending negative COVID and insurance authorization -He reports ongoing distress from rash/itchiness, discussed with hospitalist who advised po Benadryl -he feels safe in the hospital, doesn't require 1-on-1 at this time, he reports ability and willingness to alert his RN should he begin to feel unsafe or should he develop SI with plan for hospital Interval History Identifying Information Erasmo Piedra is a 34-year-old man with history of alcohol use disorder, depression, anxiety with multiple previous hospitalizations for alcohol withdrawal, gout, HTN, GERD, depression/anxiety, PE, alcohol-induced pancreatitis, idiopathic polyneuropathy, vitamin D deficiency, rheumatoid arthritis, and POTS, who was recently discharged 12 days prior after inpatient alcohol detoxification. He presents for alcohol withdrawal. Psychiatry consulted for depression and safety evaluation. Chief Complaint "I don't feel safe going home". Subjective Subjective Patient was seen & assessed and interval progress Erasmo states that he is motivated for psychiatric treatment and feels he may act on suicidal thoughts if he goes home. He states he is "really afraid to go home" due to depression that "has really kicked up" during his alcohol withdrawal. He worries that if he goes home without further psychiatric treatment "I will end up in a very dark place and I think I would relapse and then act on suicidal thoughts". He reports ongoing active suicidal ideation with potential methods of jumping from the bridge near his home in [place], walking onto the nearby train tracks or overdosing on medication at home like potassium. He denies any rehearsal behaviors but acknowledges he "could do it easily" if at home and specifically if he becomes disinhibited from alcohol use. He continues to feel safe in the hospital due to the structure and supervision and lack of drinking but worries about discharge home. He describes his current mindset is different from previous medical and recent psychiatric hospitalizations stating he has recognized he needs more help and is motivated to avoid alcohol use. He was recently hospitalized at [place] and left after a few days noting "I had not wanted to stop drinking then". Discussed that dual diagnosis inpatient psychiatric treatment may offer the most benefit but he tried [facility], one of the only dual diagnosis facilities in the [facility], in the past and he had a bad experience and found that he got no group therapy or counseling there. We reviewed that benzodiazepines would not be part of treatment and he is agreeable to this and is agreeable to an inpatient stay of approximately 5 to 7 days. He would like to focus on medication adjustments and attending group therapy. States he may be open to more intensive alcohol use treatment following discharge. He has been dealing with a new rash and is getting IV Benadryl although notes this only gives him minimal relief.reviewed. Physical Exam Psychiatric Orientation: alert and oriented x 3 Apperance: appropriately dressed and appropriately groomed Eye Contact: good eye contact Motor Behavior: no abnormal motor movements Speech: normal rate/rhythm/volume of speech Affect: + constricted affect Mood: + depressed mood and + anxious mood Thought Process: goal directed thought process Thought Content: reality based without delusions Suicidal Thoughts: denies suicidal plan (none for hospital but multiple for at home) and denies suicidal intent; + reports suicidal thoughts Homicidal Thoughts: denies homicidal thoughts Hallucinations: no auditory hallucinations and no visual hallucinations Cognition: recent memory grossly intact, remote memory grossly intact, attention grossly intact and language grossly intact Estimated Intelligence: consistent with education level Insight: + fair insight Judgment: + fair judgement Vital Signs (Past 24 Hours) Last Vital Signs Temp 36.7 C 03/01/25 08:17 Pulse 98 H 03/01/25 08:17 Resp 21 03/01/25 08:17 BP 133/94 03/01/25 08:17 Pulse Ox 99 03/01/25 08:17 O2 Del Method Room Air 03/01/25 08:17 Results & Data ([facility]) Current Inpatient Medications Current Inpatient Medications: Current Inpatient Medications Acetaminophen (Acetaminophen 325 Mg Tab) 650 mg PO Q4H PRN PRN Reason: Pain or Fever Stop: 03/23/25 21:11 Last Admin: 02/26/25 23:13 Dose: 650 mg Allopurinol (Allopurinol 300 Mg Tab) 300 mg PO DAILY [facility] Stop: 03/24/25 08:59 Last Admin: 03/01/25 08:23 Dose: 300 mg Clonidine HCl (Clonidine Hcl 0.1 Mg Tab) 0.1 mg PO Q6H PRN PRN Reason: SBP>190 or DBP>110 Stop: 03/23/25 21:11 Last Admin: 02/27/25 18:12 Dose: 0.1 mg Diphenhydramine HCl (Diphenhydramine Capsule 25 Mg Cap) 25 mg PO TID [facility] Stop: 03/31/25 13:59 Enoxaparin Sodium (Enoxaparin Inj 40 Mg/0.4 Ml Syr) 40 mg SQ Q12H [facility] Stop: 03/23/25 21:59 Last Admin: 03/01/25 08:24 Dose: 40 mg Folic Acid (Folic Acid 1 Mg Tab) 1 mg PO QAM [facility] Stop: 03/24/25 08:59 Last Admin: 03/01/25 08:24 Dose: 1 mg Gabapentin (Gabapentin 300 Mg Cap) 300 mg PO TID PRN PRN Reason: Alcohol Withdrawal Stop: 03/28/25 13:59 Last Admin: 02/28/25 22:54 Dose: 300 mg Hydrocortisone (Hydrocortisone 2.5% Cr 30 Gm Tube) 1 appln EXT Q6 [facility] Stop: 03/30/25 01:29 Last Admin: 03/01/25 08:20 Dose: 1 appln Hydroxyzine HCl (Hydroxyzine Hcl 25 Mg Tab) 25 mg PO Q6 PRN PRN Reason: Anxiety Stop: 03/27/25 09:22 Last Admin: 02/28/25 20:20 Dose: 25 mg Ketorolac Tromethamine (Ketorolac Tromethamine 15 Mg/Ml Vial) 15 mg IV Q6H PRN PRN Reason: Pain Stop: 03/02/25 14:19 Last Admin: 02/27/25 05:37 Dose: 15 mg Multivitamins/Minerals (Cerovite Adv Formula Tab) 1 tab PO QAM [facility] Stop: 03/24/25 08:59 Last Admin: 03/01/25 08:24 Dose: 1 tab Ondansetron HCl (Ondansetron Inj 2 Mg/Ml 2 Ml Vial) 4 mg IV Q6H PRN PRN Reason: Nausea Stop: 03/23/25 21:11 Last Admin: 02/28/25 07:53 Dose: 4 mg Pantoprazole Sodium (Pantoprazole 40 Mg Tab) 40 mg PO DAILY [facility] Stop: 03/24/25 08:59 Last Admin: 03/01/25 08:24 Dose: 40 mg Quetiapine Fumarate (Quetiapine Fumarate 25 Mg Tablet) 50 mg PO HS [facility] Stop: 03/23/25 21:11 Last Admin: 02/28/25 20:19 Dose: 50 mg Sertraline HCl (Sertraline Hcl 100 Mg Tablet) 100 mg PO DAILY [facility] Stop: 03/27/25 08:59 Last Admin: 03/01/25 08:24 Dose: 100 mg Thiamine HCl (Thiamine Hcl 100 Mg Tab) 100 mg PO QAM [facility] Stop: 03/24/25 08:59 Last Admin: 03/01/25 08:23 Dose: 100 mg Vitamin D (Cholecalciferol 25 Mcg (1000 Units) Tab) 25 mcg PO QAM [facility] Stop: 03/24/25 08:59 Last Admin: 03/01/25 08:24 Dose: 25 mcg Zinc Acetate/Diphenhydramine (Diphenhydramine 2%/Zinc 0.1% Cream 28.4gm Tube) 1 appln EXT Q6H PRN PRN Reason: Itching Stop: 03/31/25 11:40
[2025-03-01] MEDS: diphenhydrAMINE Capsule 25 MG CAP PO SCH (12:13)
--- NOTE | 2025-03-01 14:24 | Hospitalist Progress Note ---
Date of Service March 01, 2025 Assessment & Plan (1) Alcoholism: (2) Hypokalemia: (3) Anxiety and depression: (4) Gout: Plan This patient is a 34-year-old male with history of alcohol use disorder with multiple previous hospitalizations for alcohol withdrawal, gout, HTN, GERD, d epression/anxiety, PE, alcohol-induced pancreatitis, idiopathic polyneuropathy, vitamin D deficiency, rheumatoid arthritis, and POTS, who was recently discharged 12 days prior after inpatient alcohol detoxification. He presents again for alcohol withdrawal. He began drinking 1/5 of vodka each day for the last 12 days since discharge. His last drink was on the evening of 02/20 and his AWSS scale in the ED was 5. He is presenting for alcohol detoxification as he strongly desires to quit drinking. He was initiated on the phenobarbital loading dose and is admitted for alcohol withdrawal. #Alcohol use disorder with withdrawal And depression -Alcohol use disorder with unspecified severe depression and anxiety -Completed phenobarb and phenobarbital taper -Evaluated by psychiatry -Patient will benefit from inpatient psych admission to [facility] pending COVID negative test and also insurance authorization #Acute gout-now with acute podagra and left ankle pain on left -checked xray left great toe and ankle-show changes consistent with gout and small joint effusion in the ankle -checked venous Doppler LLE to r/o DVT given h/o DVT/PE and recurrent hospitalizations-negative for DVT but does show avascular fluid collection lateral left ankle-could be related to gout -start colchicine 1.2mg po x 1 now, then 0.6mg po daily x 2 more doses for acute gout - IV Toradol as needed severe pain - Resumed prophylactic allopurinol 300 mg p.o. once daily on admission - he may need a prescription for this on discharge - Abstinence from alcohol encouraged - improving #Depression/anxiety-his untreated depression and anxiety are what drives him to drink alcohol. 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 He has not been taking the sertraline, Seroquel, clonidine prescribed previously. He would like to restart pharmacologic treatment for his depression and anxiety which has been done here. He is also stating that he has had fleeting thoughts of suicide but has no plan for suicide. He is interested in inpatient psychiatric hospitalization for severe depression. Having ongoing anxiety worsening throughout hospitalization -Per psychiatry, he would benefit from inpatient psych #Anemia- 2.0 g drop over first 24 hours. stable and recovering since, no evid ence of bleed. Likely from dilution with IV fluids #Hypokalemia-secondary to poor p.o. intake and heavy alcohol use, now improved but remains low normal -Give KCl 40 mEq p.o. x 1 - Follow BMP and magnesium in the a.m. -Stable #Hypomagnesemia-resolved - Follow magnesium in the a.m. #Elevated BPs-does not have a diagnosis of HTN but been treated with amlodipine and clonidine in the past due to high blood pressures from alcohol withdrawal. He does not take anything on a regular basis. He has required 2 doses of as needed clonidine thus far this admission and BPs are improving but remain elevated - Hold off on any antihypertensives for now - Treating for alcohol withdrawal which will help blood pressure - If blood pressures remain elevated, could add antihypertensive - Continue clonidine 0.1 mg p.o., increase to Q6H PRN, SBP greater than 190, DBP greater than 110 #GERD-he has not been taking PPI as an outpatient as prescribed but does have a recent history of hematemesis likely from Shonda-Christiansen tear versus gastritis from alcohol use - Continue Protonix 40 mg daily and he will need a prescription for this on discharge #Idiopathic polyneuropathy-previously noted and seen by neurology, likely related to alcohol or B12 deficiency. Not C/O of any current pain #Vitamin D deficiency-previous vitamin D levels checked and are undetectable - Started vitamin D 5000 units once daily - Follow levels as an outpatient #Rheumatoid arthritis-previously followed by rheumatology and at 1 point was on hydroxychloroquine but is not taking anything at this point in time. Recently was prescribed meloxicam as an inpatient but has not been taking this as an outpatient - Follow-up as an outpatient with PCP and/or rheumatology - Avoid NSAIDs right now as high risk for gastric ulcers with alcohol use, how ever will use Toradol sparingly for acute gout attack Drug rash: Continue p.o. Benadryl and topical Benadryl DVT prophylaxis/history of PE-with a history of small PE at outside hospital and patient never really took the Eliquis afterwards. High risk given multiple recurrent hospitalizations-continue Lovenox 40 mg SQ twice daily, SCDs Disposition-Will benefit from inpatient behavioral unit Patient's healthcare proxy would be his mother. He does not want his mother to know that he is here in the hospital-do not contact her with any updates or questions unless he is unable to make decisions for himself due to encephalopathy, etc. Admission and Anticipated Discharge Date Admission Date: February 21, 2025 Subjective Patient seen and examined, states feels very anxious, feels he is not safe to return home because he feels he is depressed and he may become suicidal. Complains of itchy pruritic rash all over his body Review of Systems Review of Systems: All systems reviewed are negative, apart from the ones contained in the history. Physical Exam Physical Exam: The patient is awake, alert and oriented 3, well developed and well nourished, normocephalic and atraumatic, lying in bed and in no acute distress. HEENT--PERRL, EOMI, mucous membranes and oropharynx mildly dry Neck--supple. No JVD. No bruits. Thyroid normal, trachea midline, no adenopathy. Heart--normal S1 and S2. No murmurs, rubs or gallops. Lungs--clear bilaterally, no respiratory distress, no accessory muscle use. Abdomen--normal bowel sounds and soft. Extremities--no cyanosis or clubbing. No edema. Dermatologic--normal skin turgor, normal color, no abnormal lymph nodes, no rash. Neurologic--cranial nerves II through XII grossly intact. Rheumatologic--normal range of motion. Psychiatric--normal affect. Results & Data Results & Data Vital Signs (Past 12 Hours) Vital Signs Temp Pulse Pulse Resp BP Pulse Ox O2 Del Method 03/01/25 12:16 99.0 F 99 H 21 153/93 H 98 Room Air 03/01/25 08:17 98.1 F 98 H 21 133/94 99 Room Air 03/01/25 07:00 75 03/01/25 03:00 97.7 F 85 17 132/86 97 Room Air PG Care Time/CCT Total # of Minutes Spent Total Time Spent with Patient: Total time spent is greater than 50% in coordination of care (as documented) at patient's floor/unit and/or counseling patient: Coding Level of Care Code 49675 SUB INP/OBS CARE 2/35MIN Diagnoses Alcoholism F10.20 Hypokalemia E87.6 Anxiety and depression F41.9; F32.A Gout, unspecified cause, unspecified chronicity, unspecified site M10.9 Gout site: unspecified site Gout etiology: unspecified cause Chronicity: unspecified Time Spent (min) 35 (4) Gout Gout site: unspecified site Gout etiology: unspecified cause Chronicity: unspecified Qualified Code(s): M10.9 - Gout, unspecified
--- NOTE | 2025-03-01 15:11 | Discharge Summary ---
Date of Service March 01, 2025 Admission HPI Per Admitting Provider This patient is a 34-year-old male with history of alcohol use disorder with multiple previous hospitalizations for alcohol withdrawal, gout, HTN, GERD, depression/anxiety, PE, alcohol-induced pancreatitis, idiopathic polyneuropathy, vitamin D deficiency, rheumatoid arthritis, and POTS, who was recently discharged 12 days prior after inpatient alcohol detoxification. He presents again for alcohol withdrawal. He began drinking 1/5 of vodka each day for the last 12 days since discharge. His last drink was on the evening of 02/20 and his AWSS scale in the ED was 5. He is presenting for alcohol detoxification as he strongly desires to quit drinking. He had some nausea but that is now improved. He does have a headache. Denies abdominal pains. No recent fevers or chills, no cough or cold symptoms. He was initiated on the phenobarbital loading dose and will be admitted for alcohol withdrawal. Admission Exam (Per Admitting) Constitutional The patient is awake, alert and oriented 3, well developed and well nourished, normocephalic and atraumatic, lying in bed and in no acute distress. HEENT--PERRL, EOMI, mucous membranes and oropharynx mildly dry Neck--supple. No JVD. No bruits. Thyroid normal, trachea midline, no adenopathy. Heart--normal S1 and S2. No murmurs, rubs or gallops. Lungs--clear bilaterally, no respiratory distress, no accessory muscle use. Abdomen--normal bowel sounds and soft. Extremities--no cyanosis or clubbing. No edema. Dermatologic--normal skin turgor, normal color, no abnormal lymph nodes, no rash. Neurologic--cranial nerves II through XII grossly intact. Rheumatologic--normal range of motion. Psychiatric--normal affect. Discharge Data Consultations 02/21/25 18:20 ED Decision to Admit Stat 02/24/25 10:03 Consult Psychiatry Routine Hospital Course (1) Alcoholism: (2) Hypokalemia: (3) Anxiety and depression: (4) Gout: Plan This patient is a 34-year-old male with history of alcohol use disorder with multiple previous hospitalizations for alcohol withdrawal, gout, HTN, GERD, depression/anxiety, PE, alcohol-induced pancreatitis, idiopathic polyneuropathy, vitamin D deficiency, rheumatoid arthritis, and POTS, who was recently discharged 12 days prior after inpatient alcohol detoxification. He presents again for alcohol withdrawal. He began drinking 1/5 of vodka each day for the last 12 days since discharge. His last drink was on the evening of 02/20 and his AWSS scale in the ED was 5. He is presenting for alcohol detoxification as he strongly desires to quit drinking. He was initiated on the phenobarbital loading dose and is admitted for alcohol withdrawal. #Alcohol use disorder with withdrawal And depression -Alcohol use disorder with unspecified severe depression and anxiety -Completed phenobarb and phenobarbital taper -Evaluated by psychiatry -Patient will benefit from inpatient psych admission to [facility] pending COVID negative test and also insurance authorization #Acute gout-now with acute podagra and left ankle pain on left -checked xray left great toe and ankle-show changes consistent with gout and small joint effusion in the ankle -checked venous Doppler LLE to r/o DVT given h/o DVT/PE and recurrent hospitalizations-negative for DVT but does show avascular fluid collection lateral left ankle-could be related to gout -start colchicine 1.2mg po x 1 now, then 0.6mg po daily x 2 more doses for acute gout - IV Toradol as needed severe pain - Resumed prophylactic allopurinol 300 mg p.o. once daily on admission - he may need a prescription for this on discharge - Abstinence from alcohol encouraged - improving #Depression/anxiety-his untreated depression and anxiety are what drives him to drink alcohol. 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 He has not been taking the sertraline, Seroquel, clonidine prescribed previously. He would like to restart pharmacologic treatment for his depression and anxiety which has been done here. He is also stating that he has had fleeting thoughts of suicide but has no plan for suicide. He is interested in inpatient psychiatric hospitalization for severe depression. Having ongoing anxiety worsening throughout hospitalization -Per psychiatry, he would benefit from inpatient psych #Anemia- 2.0 g drop over first 24 hours. stable and recovering since, no evidence of bleed. Likely from dilution with IV fluids #Hypokalemia-secondary to poor p.o. intake and heavy alcohol use, now improved but remains low normal -Give KCl 40 mEq p.o. x 1 - Follow BMP and magnesium in the a.m. -Stable #Hypomagnesemia-resolved - Follow magnesium in the a.m. #Elevated BPs-does not have a diagnosis of HTN but been treated with amlodipine and clonidine in the past due to high blood pressures from alcohol withdrawal. He does not take anything on a regular basis. He has required 2 doses of as needed clonidine thus far this admission and BPs are improving but remain elevated - Hold off on any antihypertensives for now - Treating for alcohol withdrawal which will help blood pressure - If blood pressures remain elevated, could add antihypertensive - Continue clonidine 0.1 mg p.o., increase to Q6H PRN, SBP greater than 190, DBP greater than 110 #GERD-he has not been taking PPI as an outpatient as prescribed but does have a recent history of hematemesis likely from Shonda-Christiansen tear versus gastritis from alcohol use - Continue Protonix 40 mg daily and he will need a prescription for this on discharge #Idiopathic polyneuropathy-previously noted and seen by neurology, likely related to alcohol or B12 deficiency. Not C/O of any current pain #Vitamin D deficiency-previous vitamin D levels checked and are undetectable - Started vitamin D 5000 units once daily - Follow levels as an outpatient #Rheumatoid arthritis-previously followed by rheumatology and at 1 point was on hydroxychloroquine but is not taking anything at this point in time. Recently was prescribed meloxicam as an inpatient but has not been taking this as an outpatient - Follow-up as an outpatient with PCP and/or rheumatology - Avoid NSAIDs right now as high risk for gastric ulcers with alcohol use, however will use Toradol sparingly for acute gout attack Drug rash: Continue p.o. Benadryl and topical Benadryl DVT prophylaxis/history of PE-with a history of small PE at outside hospital and patient never really took the Eliquis afterwards. High risk given multiple recurrent hospitalizations-continue Lovenox 40 mg SQ twice daily, SCDs Disposition-Will benefit from inpatient behavioral unit Patient's healthcare proxy would be his mother. He does not want his mother to know that he is here in the hospital-do not contact her with any updates or questions unless he is unable to make decisions for himself due to encephalopathy, etc. Coding Level of Care Code 79789 INP/OBS DISCH >30 MIN Diagnoses Alcoholism F10.20 Hypokalemia E87.6 Anxiety and depression F41.9; F32.A Gout, unspecified cause, unspecified chronicity, unspecified site M10.9 Gout site: unspecified site Gout etiology: unspecified cause Chronicity: unspecified Time Spent (min) 35
[2025-03-01] MEDS: NALTREXONE HCL 50 MG TAB PO SCH (15:50)
[2025-03-01 19:52] VITALS: BP 160/92; PULSE 87; RESP 16; TEMP 98.8; O2SAT 97
== END 2025-03-01 19:51 | DRG 897 ==
LOC: SUATTDRO → ED 16:47 → 2S 19:25 → SUATTDRO 19:25 → 2S 21:00